=== PATIENT | male | born 1955 | race Caucasian/White ===

== ENCOUNTER → 2019-09-17 14:09 | Outpatient (BNVA) | payer MEDICARE, MEDICAID, SELFPAY | PROVIDERS: Family Provider Nurse Practitioner; PCP Nurse Practitioner; Visit Provider Nurse Practitioner | DX: R39.9 Unspecified symptoms and signs involving the genitourinary system (principal) | CPT/HCPCS: 81003; 87077; 87086; 87186 ==

== ENCOUNTER 2019-10-12 13:25 | Outpatient (CLI) | payer MEDICARE, MEDICAID, SELFPAY ==
--- NOTE | 2019-10-12 13:56 | XR_ITS ---
WS: [id number] LUMBAR SPINE FLEXION AND EXTENSION TECHNIQUE: 3 views of the lumbar spine: Lateral neutral, flexion, and extension views. CLINICAL INFORMATION: LOW BACK PAIN COMPARISON: None. FINDINGS: Grade 1 anterolisthesis L5 on S1 measuring 7.2 mm. This increases slightly on flexion to 7.9 mm and d ecreases on extension. Disc space narrowing worse L3-L4 and L4-L5 with vacuum disc phenomenon. Hypert rophic changes L3-4. Moderate facet arthropathy L4-L5 and L5-S1. XR/XR lumbar spine f/e only [id number] IMPRESSION: 1. Moderate spondylitic changes with disc space narrowing worse at L3-L4 and L 4-L5. 2. Grade 1 anterolisthesis L5 on S1 measuring 7.2 mm in neutral position. Mild flexion instability described above. 3. Moderate facet arthropathy L4-L5 and L5-S1 with bony foraminal narrowing.
--- NOTE | 2019-10-12 13:57 | MR_ITS ---
WS: [id number] MRI LUMBAR SPINE NONCONTRAST TECHNIQUE: Sagittal T1, T2 and STIR imaging. Axial T1 and T2 imaging. CLINICAL INFORMATION: LOW BACK PAIN COMPARISON: None. FINDINGS: Mild lumbar curve. No acute compression. Disc bulging worse at L3-L4 and L4-L5. Endplate degenerative changes L3-4. L1-L2: Mild annular bulging with slight effacement of ventral thecal sac. Slight narrowing of the lef t subarticular recess. Mild facet arthropathy. Foramen are patent. L2-L3: Mild annular bulging with narrowing of the right subarticular recess. Mild right and no signif icant left foraminal narrowing. Mild facet arthropathy. L3-L4: Prominent central disc protrusion with moderate central canal stenosis. Narrowing of the right subarticular recess. Moderate facet arthropathy. Moderate right greater than left foraminal narrowin g. L4-L5: Mild disc bulging with osteophytic ridging. Slight effacement of ventral thecal sac. Moderate facet arthropathy. Moderate right and no significant left foraminal narrowing. L5-S1: Mild disc bulging with osteophytic ridging. Mild right and no significant left foraminal narro wing. Mild facet arthropathy. Mild central canal stenosis C3-C4 C4-C5 and C5-C6 seen on the legal support assistant imaging. MR/MR lumbar spine wo con* [id number] IMPRESSION: 1. Prominent central disc protrusion L3-4 with moderate central canal stenosis . Moderate right greater than left foraminal narrowing. 2. Shallow central disc osteophyte protrusion L4-5 with slight effacement of v entral thecal sac. Moderate right L4-5 foraminal narrowing. 3. Mild annular bulging L2-3 with narrowing of the right subarticular recess. Mild right L2-3 foraminal narrowing. 4. Mild central canal stenosis in the cervical spine at C3-C4, C4-C5, and C5-C 6.
== END 2019-10-12 13:26 | disposition home or self-care (01) ==
LOC: RADWPI 13:35
PROVIDERS: Family Provider Nurse Practitioner; PCP Nurse Practitioner; Visit Provider Nurse Practitioner
DX: M51.26 Other intervertebral disc displacement, lumbar region (principal); M48.02 Spinal stenosis, cervical region; M53.2X7 Spinal instabilities, lumbosacral region; M54.5 Low back pain
CPT/HCPCS: 72120; 72148

== ENCOUNTER → 2019-11-18 14:08 | Outpatient (BNVA) | payer MEDICARE, MEDICAID, SELFPAY | PROVIDERS: Family Provider Nurse Practitioner; PCP Nurse Practitioner; Visit Provider Nurse Practitioner | DX: F41.0 Panic disorder [episodic paroxysmal anxiety] (principal); F41.1 Generalized anxiety disorder | CPT/HCPCS: 99214 ==

== ENCOUNTER → 2019-11-19 11:46 | Outpatient (BNVA) | payer MEDICARE, MEDICAID, SELFPAY | PROVIDERS: Family Provider Nurse Practitioner; PCP Nurse Practitioner; Visit Provider Nurse Practitioner Family | DX: I10 Essential (primary) hypertension (principal); E78.2 Mixed hyperlipidemia; R82.998 Other abnormal findings in urine; F11.90 Opioid use, unspecified, uncomplicated; N39.0 Urinary tract infection, site not specified; M19.90 Unspecified osteoarthritis, unspecified site | CPT/HCPCS: 80053; 80061; 81003; 85025; 87077; 87086; 87186 ==

== ENCOUNTER 2020-04-20 19:44 | Emergency (ER) | payer MEDICARE, MEDICAID, SELFPAY ==
[2020-04-20 19:54] VITALS: BP 127/85; PULSE 122; RESP 18; TEMP 36.9; O2SAT 95; BMI 33.6
[2020-04-20 20:29] LABS: Basophils % 0.3 %; Eosinophils % 0.3 %; Hematocrit 47.4 % (42.0-52.0); Hemoglobin 15.4 g/dL (11.7-16.6); Lymphocytes # 0.4 10^3/uL (0.8-4.8); Lymphocytes % 2.9 %; Mean Corpuscular HGB Conc 32.5 g/dL (30.0-36.0); Mean Corpuscular Hemoglobin 29.2 pg (28.0-34.0); Mean Corpuscular Volume 89.9 fL (80-94); Mean Platelet Volume 9.3 fL (7.4-10.4); Monocytes # 0.9 10^3/uL (0.2-0.9); Neutrophils # 13.33 10^3/uL (1.8-7.7); Neutrophils % 89.9 %; Nucleated Red Blood Cells % 0 %; Platelet Count 331 10^3/cmm (130-400); Red Blood Count 5.27 10^6/uL (4.1-5.3); Red Cell Distribution Width 13.1 % (12.1-15.1); White Blood Count 14.8 10^3/uL (4.0-10.0)
[2020-04-20 20:47] LABS: Alanine Aminotransferase 15 U/L (0-41); Albumin Level 4.4 g/dL (3.5-5.2); Alkaline Phosphatase 103 IU/L (40-130); Anion Gap 11.9 (5-19); Aspartate Amino Transferase 13 U/L (0-40); Blood Urea Nitrogen 14 mg/dL (8-23); Calcium 9.5 mg/dL (8.5-10.5); Carbon Dioxide 29 mmol/L (22-29); Chloride 97 mmol/L (98-107); Globulin 3.2 g/dL (1.3-4.6); Glomerular Filtration Rate 61.3 mL/min (90-130); Glucose 202 mg/dL (65-115); Osmolality Calculated 280 mOsm/kg (285-295); Potassium 3.9 mmol/L (3.5-5.1); Sodium 134 mmol/L (136-145); Total Bilirubin 0.4 mg/dL (0.15-1.2); Total Protein 7.6 g/dL (6.6-8.7)
--- NOTE | 2020-04-20 21:23 | CTR_ITS ---
PROCEDURE INFORMATION: Exam: CT Abdomen And Pelvis Without And With Contrast Exam date and time: 04/20/2020 9:32 PM Age: 64 years old Clinical indication: Abdominal pain; Localized; Left lower quadrant (llq); Additional info: Left lower quadrant pain TECHNIQUE: Imaging protocol: Computed tomography of the abdomen and pelvis without and with intravenous contrast. Radiation optimization: All CT scans at this facility use at least one of these dose optimization techniques: automated exposure control; mA and/or kV adjustment per patient size (includes targeted exams where dose is matched to clinical indication); or iterative reconstruction. Contrast material: OMNI 300; Contrast volume: 95 ml; Contrast route: INTRAVENOUS (IV); COMPARISON: No relevant prior studies available. RADIATION DOSE METRICS: Total DLP (mGy-cm): 3749.65 FINDINGS: Lungs: There is a small calcified granuloma in the right lower lobe. Liver: She there are 2 tiny hypodensities in the liver, probably small cysts or hemangiomas, too small to definitively characterize by CT scanning. Gallbladder and bile ducts: There is mild distention of the gallbladder which is otherwise unremarkable. Pancreas: The pancreas is normal. Spleen: The spleen is normal. Adrenals: The adrenal glands are normal. Kidneys and ureters: There is a left renal collecting system calcification. There is no evidence of hydronephrosis. There is no stone along the course of either ureter. Stomach and bowel: Mild diverticulosis is present in the distal colon. There is no evidence of colitis/diverticulitis. Appendix: A normal appendix is identified. Intraperitoneal space: There is no evidence of free intraperitoneal fluid. Vasculature: Unremarkable. No abdominal aortic aneurysm. Lymph nodes: There are calcified right hilar lymph nodes in keeping with old granulomatous disease. Bladder: Unremarkable as visualized. Reproductive: The prostate demonstrates nonspecific enlargement. The seminal vesicles are normal. Prostate volume is of prostate volume is approximately 63 cc. Bones/joints: The lumbar spine demonstrates moderate degenerative changes at multiple levels. Soft tissues: There are small bilateral inguinal hernias containing only fat. CT/CT abdomen pelvis wo/w [id number] IMPRESSION: 1. No acute findings. 2. Left nephrolithiasis. 3. Old granulomatous disease. 4. Prostatomegaly Radiation Dose CTDIVOL = (mGy): DLP = 3749.65 (mGy-cm)
--- NOTE | 2020-04-20 21:23 | ECG_ITS ---
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 Measurements Intervals [place] Rate: 99 P: 26 NM: 174 QRS: 29 QRSD: 87 T: 63 QT: 298 QTc: 384 Interpretive Statements SINUS RHYTHM Poor R wave progression Compared to ECG 05/23/2016 11:39:59 Sinus tachycardia no longer present T-wave abnormality no longer present Electronically Signed On 04-21-2020 21:05:25 CDT by Muriel Swain M.D. [id number]
--- NOTE | 2020-04-20 21:28 | W.ED.MALEGU ---
HPI - Male Genitourinary General: Chief complaint: Urogenital-Male Stated complaint: kidney problems Time Seen by Provider: 04/20/20 21:19 Source: patient Mode of arrival: ambulatory Limitations: no limitations History of Present Illness: HPI Narrative: Mr. Quick is a nice 64-year-old male who comes in complaining of intermittent left lower quadrant abdominal pain. Patient describes the pain is dull. He states it feels like kidney stones he has had in the past. He has had a subjective fever but never did objectively take his temperature. He thinks he has had some blood in his urine as well. He claims he has had a history of chronic prostatitis but is able to urinate adequately at this time. He is constipated and denies any blood in his stools or black tarry stools. He is not familiar with the term diverticulosis. He denies any testicular pain or swelling. Patient denies any nausea vomiting or other complaints. Associated symptoms: Reports hematuria; Deny dysuria, nausea or vomiting Review of Systems Const: Denies: fever(s), chills, body aches, fatigue, malaise or diaphoresis Eyes: Denies: change in vision, blurry vision, blind spots, photophobia, eye discharge or eye redness ENMT: Denies: throat pain, odynophagia, hoarseness, swelling of lips/tongue, oral sores, ear or mastoid pain, ear discharge, change in hearing or nasal discharge Card: Denies: chest pain, palpitations, irregular heart rhythm, edema, lightheadedness, syncope, pre-syncope, dyspnea on exertion or orthopnea Resp: Denies: dyspnea, productive cough, non-productive cough, wheezing, hemoptysis or chest congestion GI: Reports: abdominal pain; Denies: nausea, vomiting, hematemesis, coffee ground emesis, heartburn, diarrhea, constipation, GI cramping, hematochezia or melena : Reports: hematuria; Denies: flank pain, dysuria, urinary frequency or urinary urgency Musc: Denies: neck pain, back pain, extremity pain, extremity swelling, joint pain, joint swelling, joint redness, joint warmth or joint stiffness Skin/Breast: Denies: rash, pruritus, erythema, skin tenderness or jaundice Neuro: Denies: headache(s), numbness in extremities, weakness in extremities, sensory changes, lack of coordination, difficulty walking, dizziness, vertigo, confusion, Slurred speech present or seizure-like activity Jaziel/Lymph: Denies: easy bruising, easy bleeding, petechiae, purpura or enlarged lymph nodes All/Imm: Denies: urticaria, throat swelling, tongue swelling, facial swelling or acute wheezing PFSH ED PFSH: Medical History Essential hypertension Generalized anxiety disorder Hyperlipidemia Panic disorder [episodic paroxysmal anxiety] Social History Smoking and tobacco status: never smoked Alcohol intake: never Lives independently: Yes Household members: spouse Housing: House Marital status: History of recent travel: No Physical Exam Const: COMMON NORMALS: no acute distress, patient oriented x3, no limitations, healthy appearing and well nourished GENERAL APPEARANCE: cooperative, well kempt and well developed HENMT: COMMON NORMALS: normocephalic, atraumatic, external ears normal, EAC's normal and Normal external nose present HEAD & SCALP: normal to inspection, normocephalic and atraumatic FACE & SINUS: normal facial exam and face symmetric NOSE: Normal external nose present and Normal nares present EXTERNAL EAR: Yes external ears normal EXTERNAL AUDITORY CANAL: EAC's normal MOUTH: Normal oral and palatal mucosa present, lip normal and tongue normal Eye: COMMON NORMALS: Equal, round and reactive pupils present and conjunctivae normal GENERAL EYE: appearance normal, both eyes and all related structures ALIGNMENT: Yes alignment normal PERIORBITAL: periorbital findings normal EYELID: eyelids normal CONJUNCTIVA: Yes conjunctivae normal SCLERA: sclerae normal PUPIL: Yes Equal, round and reactive pupils present Neck/C-Spine: COMMON NORMALS: full ROM, no lymphadenopathy, supple, no meningeal signs and no JVD GENERAL: Yes normal visual inspection and Yes trachea midline Chest: COMMONS NORMALS: normal inspection of the chest and normal palpation of entire chest wall Resp: COMMON NORMALS: normal respiratory effort, No retractions and No use of accessory muscles EFFORT & INSPECTION: Yes able to speak in complete sentences and Yes symmetric chest movement AUSCULTATION: no crackles, no rales, no rhonchi and no wheezes Cardio: COMMON NORMALS: no JVD, regular rate, regular rhythm, S1 normal heart sound present and S2 normal heart sound present RATE: regular rate RHYTHM: regular rhythm HEART SOUNDS: S1 normal heart sound present, S2 normal heart sound present, no click, no gallops, no murmurs, no rubs and abnormal split S2 GI: COMMON NORMALS: Soft to palpation and No hepatosplenomegaly present PALPATION: Yes Soft to palpation, Yes Tenderness to palpation present (GI) Details: LLQ (Mild without rebound or guarding.), No Guarding due to palpation present (GI), No Rigid due to palpation, Yes No hepatosplenomegaly present, No Hernia present, No Palpable mass present and No Pulsatile mass present : COMMON NORMALS: Yes no CVA tenderness BLADDER/KIDNEY EXAM: Yes no CVA tenderness Back/Pelvis: COMMON NORMALS: no CVA tenderness, thoracic and lumbar spine normal to inspection, no thoracic nor lumbar tenderness and thoraco-lumbar ROM normal Extremity: COMMON NORMALS: normal to inspection, full ROM, capillary refill normal, no joint enlargement, no clubbing, cyanosis or edema and no calf tenderness Neuro: COMMON NORMALS: patient oriented x3, CN's II-XII intact bilaterally, moves all extremities, no focal motor deficits and no sensory deficits noted MENINGEAL SIGNS: Yes no meningeal signs SPEECH: speech normal Psych: COMMON NORMALS: mental status grossly normal, Normal thought process present, cooperative, normal affect, speech normal and activity/motor behavior normal APPEARANCE: Yes well kempt SPEECH: Yes normal speech THOUGHT PROCESS: Normal thought process present Skin: COMMON NORMALS: no rashes or lesions noted, turgor normal, no jaundice, no petechiae and no mottling GENERAL SKIN EXAM: no rashes or lesions noted and turgor normal Course Vital Signs: Vital signs: Vital Signs Temperature 98.5 F 04/20/20 19:54 Pulse Rate 101 H 04/21/20 01:32 Respiratory Rate 19 H 04/21/20 01:32 Blood Pressure 145/71 04/21/20 01:32 Pulse Oximetry 97 04/21/20 01:32 MDM - Male MDM Narrative: Medical decision making narrative: Mr. Quick is a nice 64-year-old male who comes in complaining of left-sided abdominal pain/flank pain. There is no sign of stone or pyelonephritis on his CT scans but clinically he does appear to have pyelonephritis prostatitis being less likely.. His white count is elevated and his heart rate was elevated but he is not septic clinically. His lactate is normal. I have offered to admit him to the hospital for further evaluation and care but he declines. He wants to go home and take Cipro. He has tolerated this antibiotic well in the past. He declines having any questions or concerns this is the course of treatment he wants to continue with. He agrees to return should his symptoms change or worsen. The patient was encouraged to return and I have encouraged him to stay here longer for further IV fluids and antibiotics but he states that he would rather go home but does understand the seriousness of his findings tonight and understands that if he worsens at all he will need to return to the ER immediately for recheck. The patient was given IV fluids and a gram of IV Rocephin as well as p.o. Cipro before discharge. Lab Data: Attestation: I reviewed the patient's lab results. Labs: Lab Results 04/20/20 04/20/20 04/20/20 Range/Units 00:30 20:19 20:19 WBC 14.8 H (4.0-10.0) 10^3/ uL RBC 5.27 (4.1-5.3) 10^6/u L Hgb 15.4 (11.7-16.6) g/dL Hct 47.4 (42.0-52.0) % MCV 89.9 (80-94) fL MCH 29.2 (28.0-34.0) pg MCHC 32.5 (30.0-36.0) g/dL RDW 13.1 (12.1-15.1) % Plt Count 331 (130-400) 10^3/c mm MPV 9.3 (7.4-10.4) fL Neut % (Auto) 89.9 % Lymph % (Auto) 2.9 % [place] % (Auto) 6.0 % Eos % (Auto) 0.3 % Baso % (Auto) 0.3 % Neut # (Auto) 13.33 H (1.8-7.7) 10^3/u L Lymph # (Auto) 0.4 L (0.8-4.8) 10^3/u L [place] # (Auto) 0.9 (0.2-0.9) 10^3/u L Eos # (Auto) 0.0 (0.0-0.8) 10^3/u L Baso # (Auto) 0.0 (0.0-0.1) 10^3/u L Nucleated RBC % (a uto) 0 % Nucleated RBCs # 0.0 /100WBC Sodium 134 L (136-145) mmol/L Potassium 3.9 (3.5-5.1) mmol/L Chloride 97 L (98-107) mmol/L Carbon Dioxide 29 (22-29) mmol/L Anion Gap 11.9 (5-19) BUN 14 (8-23) mg/dL Creatinine 1.2 (0.7-1.2) mg/dL GFR Calculation 61.3 L (90-130) mL/min Glucose 202 H (65-115) mg/dL Calculated Osmolal ity 280 L (285-295) mOsm/k g Lactic Acid 1.4 (0.5-2.2) mmol/L Calcium 9.5 (8.5-10.5) mg/dL Total Bilirubin 0.4 (0.15-1.2) mg/dL AST 13 (0-40) U/L ALT 15 (0-41) U/L Alkaline Phosphata se 103 (40-130) IU/L Total Protein 7.6 (6.6-8.7) g/dL Albumin 4.4 (3.5-5.2) g/dL Globulin 3.2 (1.3-4.6) g/dL Urine Color (Yellow) Urine Appearance (CLEAR) Urine pH (5-7) Ur Specific Gravit y (1.005-1.030) Urine Protein (Negative) Urine Glucose (UA) (Normal) Urine Ketones (Negative) Urine Blood (Negative) Urine Nitrate (Negative) Urine Bilirubin (NEGATIVE) Urine Urobilinogen (Negative) mg/dL Ur Leukocyte Dina ase (Negative) Urine RBC (0-2) /hpf Urine WBC (0-5) /hpf Ur Squamous Epith Cells (0-5) Amorphous Sediment Urine Bacteria (NONE) 04/20/20 Range/Units 22:55 WBC (4.0-10.0) 10^3/ uL RBC (4.1-5.3) 10^6/u L Hgb (11.7-16.6) g/dL Hct (42.0-52.0) % MCV (80-94) fL MCH (28.0-34.0) pg MCHC (30.0-36.0) g/dL RDW (12.1-15.1) % Plt Count (130-400) 10^3/c mm MPV (7.4-10.4) fL Neut % (Auto) % Lymph % (Auto) % [place] % (Auto) % Eos % (Auto) % Baso % (Auto) % Neut # (Auto) (1.8-7.7) 10^3/u L Lymph # (Auto) (0.8-4.8) 10^3/u L [place] # (Auto) (0.2-0.9) 10^3/u L Eos # (Auto) (0.0-0.8) 10^3/u L Baso # (Auto) (0.0-0.1) 10^3/u L Nucleated RBC % (a uto) % Nucleated RBCs # /100WBC Sodium (136-145) mmol/L Potassium (3.5-5.1) mmol/L Chloride (98-107) mmol/L Carbon Dioxide (22-29) mmol/L Anion Gap (5-19) BUN (8-23) mg/dL Creatinine (0.7-1.2) mg/dL GFR Calculation (90-130) mL/min Glucose (65-115) mg/dL Calculated Osmolal ity (285-295) mOsm/k g Lactic Acid (0.5-2.2) mmol/L Calcium (8.5-10.5) mg/dL Total Bilirubin (0.15-1.2) mg/dL AST (0-40) U/L ALT (0-41) U/L Alkaline Phosphata se (40-130) IU/L Total Protein (6.6-8.7) g/dL Albumin (3.5-5.2) g/dL Globulin (1.3-4.6) g/dL Urine Color Yellow (Yellow) Urine Appearance Cloudy (CLEAR) Urine pH 7 (5-7) Ur Specific Gravit y 1.010 (1.005-1.030) Urine Protein Neg (Negative) Urine Glucose (UA) Norm (Normal) Urine Ketones Negative (Negative) Urine Blood Neg (Negative) Urine Nitrate Positive H (Negative) Urine Bilirubin Neg (NEGATIVE) Urine Urobilinogen Norm (Negative) mg/dL Ur Leukocyte Dina ase Trace H (Negative) Urine RBC 0-4 H (0-2) /hpf Urine WBC >100 H (0-5) /hpf Ur Squamous Epith Cells 0-4 H (0-5) Amorphous Sediment Not Reportable Urine Bacteria 2+ H (NONE) Imaging Data: CT Abd/Pel: Radiologist's impression: [address] [address] [address] Scan Report Signed Patient: Eva Quick Unit #: [id number] : 1955 Age/Sex: 64 / M ADM Date: 04/20/20 Loc: ER Room/Bed: Attending Dr: Ordering Provider/Ordering MD: Valeria Reynolds DO Date of Service: 04/20/20 Procedure(s): CT abdomen pelvis wo/w [id number] Accession Number(s): [id number] Report Number: [id number] PROCEDURE INFORMATION: Exam: CT Abdomen And Pelvis Without And With Contrast Exam date and time: 04/20/2020 9:32 PM Age: 64 years old Clinical indication: Abdominal pain; Localized; Left lower quadrant (llq); Additional info: Left lower quadrant pain TECHNIQUE: Imaging protocol: Computed tomography of the abdomen and pelvis without and with intravenous contrast. Radiation optimization: All CT scans at this facility use at least one of these dose optimization techniques: automated exposure control; mA and/or kV adjustment per patient size (includes targeted exams where dose is matched to clinical indication); or iterative reconstruction. Contrast material: OMNI 300; Contrast volume: 95 ml; Contrast route: INTRAVENOUS (IV); COMPARISON: No relevant prior studies available. RADIATION DOSE METRICS: Total DLP (mGy-cm): 3749.65 FINDINGS: Lungs: There is a small calcified granuloma in the right lower lobe. Liver: She there are 2 tiny hypodensities in the liver, probably small cysts or hemangiomas, too small to definitively characterize by CT scanning. Gallbladder and bile ducts: There is mild distention of the gallbladder which is otherwise unremarkable. Pancreas: The pancreas is normal. Spleen: The spleen is normal. Adrenals: The adrenal glands are normal. Kidneys and ureters: There is a left renal collecting system calcification. There is no evidence of hydronephrosis. There is no stone along the course of either ureter. Stomach and bowel: Mild diverticulosis is present in the distal colon. There is no evidence of colitis/diverticulitis. Appendix: A normal appendix is identified. Intraperitoneal space: There is no evidence of free intraperitoneal fluid. Vasculature: Unremarkable. No abdominal aortic aneurysm. Lymph nodes: There are calcified right hilar lymph nodes in keeping with old granulomatous disease. Bladder: Unremarkable as visualized. Reproductive: The prostate demonstrates nonspecific enlargement. The seminal vesicles are normal. Prostate volume is of prostate volume is approximately 63 cc. Bones/joints: The lumbar spine demonstrates moderate degenerative changes at multiple levels. Soft tissues: There are small bilateral inguinal hernias containing only fat. CT/CT abdomen pelvis wo/w [id number] IMPRESSION: 1. No acute findings. 2. Left nephrolithiasis. 3. Old granulomatous disease. 4. Prostatomegaly Radiation Dose CTDIVOL = (mGy): DLP = 3749.65 (mGy-cm) Dictated By: Luis Manuel Carrasquillo Signed By: Luis Manuel Carrasquillo Signed Date/Time: 04/20/202301 DD/ 00 EKG Data: EKG 1: Attestation: I personally reviewed and interpreted this EKG as follows: EKG Data: 04/20/20 EKG interpretation time: 21:41 Interpretation: Normal sinus rhythm at 99 beats a minute, no acute ST or T wave changes. Normal axis. No blocks, normal intervals. Discharge Plan Discharge Patient Disposition: Home Clinical Impression: Acute pyelonephritis Condition: Stable Prescriptions: New Cipro 500 mg tablet 500 mg PO BID 14 Days Qty: 28 RF: 0 promethazine 25 mg tablet 25 mg PO Q4H PRN (Reason: nausea and vomiting) Qty: 20 RF: 0 No Action hydrocodone-acetaminophen [[place]] 5-325 mg tablet 1 tab PO BID PRNRF: 0 hydrochlorothiazide 25 mg tablet 25 mg PO DAILY 30 Days Qty: 30 RF: 3 ciprofloxacin HCl [Cipro] 500 mg tablet 500 mg PO BID Qty: 20 RF: 0 rosuvastatin 40 mg tablet 40 mg PO DAILY 30 Days Qty: 30 RF: 2 docusate sodium [Colace] 100 mg capsule 100 mg PO BID 30 Days Qty: 60 RF: 2 lorazepam 0.5 mg tablet 0.5 mg PO TID PRN (Reason: anxiety) Qty: 90 RF: 0 paroxetine HCl [Paxil] 20 mg tablet 20 mg PO .HS Qty: 30 RF: 0 lisinopril 20 mg tablet 20 mg PO BID 30 Days Qty: 60 RF: 0 Discharge Orders: Discharge Order (Routine); Ordered 04/21/20 Ordered By: Valeria Reynolds Referrals: Wai Morrow FNP-C [Primary Care Provider] - 1-3 days Kelvin Godwin MD [Physician] - 1-3 days Discharge Diet: Advance as tolerated Discharge Activity: Increase activity as tolerated Patient Instructions: Acute Pyelonephritis (ED) Activity Restrictions/Additional Instructions: Please return to the ER immediately for any of the signs or symptoms listed on your discharge instruction sheets, worsening/changing of your symptoms, you are not getting better as quickly as expected, or for ANY other cause or concerns. You have been offered admission for further evaluation and care so if your symptoms change or worsen or you simply change your mind please return here to the ER immediately for recheck and further evaluation and care. Discharge Date/Time: 04/21/20 01:58 Coding Level of Care Code ED [facility] for [facility] Exam Comprehensive
[2020-04-20] MEDS: sodium chloride 0.9% 1,000 ML 999 ML IV (21:37)
[2020-04-20] MEDS: morphine 4 mg/mL SDV 1 mL IVP (21:37)
[2020-04-20] MEDS: ondansetron 2 mg/ML SDV 2 mL 4 MG IVP (21:37)
[2020-04-20 21:40] VITALS: BP 138/97; PULSE 100; RESP 14; O2SAT 97
[2020-04-20] MEDS: iohexol 300 mg/mL 100 mL Btl IV (22:27)
[2020-04-20 22:53] VITALS: BP 139/91; PULSE 96; RESP 14; O2SAT 98
[2020-04-20] MEDS: sodium chloride 0.9% 1,000 ML 100 ML IV (22:53)
[2020-04-20 23:12] VITALS: BP 152/98; PULSE 95; RESP 18; O2SAT 97
[2020-04-20 23:46] LABS: Bilirubin Urine Neg (NEGATIVE); Blood Urine Neg (Negative); Glucose Urine UA Norm (Normal); Ketones Urine Negative (Negative); Nitrate Urine Positive (Negative); Protein Urine Neg (Negative); Urine Appearance Cloudy (CLEAR); Urine Color Yellow (Yellow); Urobilinogen Urine Norm (Negative); pH Urine 7 (5-7)
[2020-04-20 23:47] LABS: Add Urine Culture? Yes; Bacteria Urine 2+; Leukocyte Esterase Urine Trace (Negative); RBC Urine 0-4 /hpf (0-2); Squamous Epithelial Cell Urine 0-4 (0-5); WBC Urine >100 /hpf (0-5)
[2020-04-20 23:57] VITALS: BP 177/99; PULSE 102; RESP 15; O2SAT 97
[2020-04-21] MEDS: cefTRIAXone 1,000 MG in sodium chloride 0.9% (plus) 50 ML 100 MG IV (00:01)
[2020-04-21] MEDS: ciprofloxacin 500 mg Tablet PO (00:05)
[2020-04-21] MEDS: sodium chloride 0.9% 1,000 ML 999 ML IV (00:05)
[2020-04-21 00:07] VITALS: BP 177/99; PULSE 113; RESP 12; O2SAT 97
[2020-04-21 00:31] LABS: Lactic Sepsis W/Reflex 1.4 mmol/L (0.5-2.2)
[2020-04-21 00:55] VITALS: BP 159/94; PULSE 107; RESP 20; O2SAT 99
[2020-04-21 01:17] VITALS: BP 187/96; PULSE 105; RESP 20; O2SAT 96
[2020-04-21 01:32] VITALS: BP 145/71; PULSE 101; RESP 19; O2SAT 97
== END 2020-04-21 01:58 | disposition home or self-care (01) ==
PROVIDERS: Emergency Provider Emergency Medicine; PCP Nurse Practitioner
DX: N10 Acute pyelonephritis (principal); I10 Essential (primary) hypertension; E78.5 Hyperlipidemia, unspecified
CPT/HCPCS: 12345; 36415; 74178; 80053; 81001; 83605; 85025; 87040; 87077; 87086; 87186; 93005; 96361; 96365; 96375; 99284; J0696; J2270; J2405; J7030; Q9967

== ENCOUNTER → 2020-05-06 09:18 | Outpatient (BNVA) | payer MEDICARE, MEDICAID, SELFPAY | PROVIDERS: PCP Nurse Practitioner; Visit Provider Nurse Practitioner | DX: F41.1 Generalized anxiety disorder (principal); F41.0 Panic disorder [episodic paroxysmal anxiety] | CPT/HCPCS: 99213 ==

== ENCOUNTER → 2020-07-05 10:08 | Outpatient (BNVA) | payer MEDICARE, MEDICAID, SELFPAY | PROVIDERS: PCP Nurse Practitioner; Visit Provider Nurse Practitioner | DX: I10 Essential (primary) hypertension (principal); F11.90 Opioid use, unspecified, uncomplicated; E78.2 Mixed hyperlipidemia; Z85.828 Personal history of other malignant neoplasm of skin | CPT/HCPCS: 80053; 80061; 81003; 83721; 84443; 85025; 87077; 87086; 87184 ==

== ENCOUNTER → 2020-07-08 08:15 | Outpatient (BNVA) | payer MEDICARE, MEDICAID, SELFPAY | PROVIDERS: PCP Nurse Practitioner; Visit Provider Nurse Practitioner | DX: R73.9 Hyperglycemia, unspecified (principal) | CPT/HCPCS: 83036 ==

== ENCOUNTER → 2020-08-17 08:00 | Outpatient (BNVA) | payer MEDICARE, MEDICAID, SELFPAY | PROVIDERS: PCP Nurse Practitioner; Visit Provider Nurse Practitioner | DX: F41.0 Panic disorder [episodic paroxysmal anxiety] (principal); F41.1 Generalized anxiety disorder | CPT/HCPCS: 99213 ==

== ENCOUNTER → 2020-11-10 08:26 | Outpatient (BNVA) | payer MEDICARE, MEDICAID, SELFPAY | PROVIDERS: PCP Nurse Practitioner; Visit Provider Nurse Practitioner | DX: F41.0 Panic disorder [episodic paroxysmal anxiety] (principal); F41.1 Generalized anxiety disorder | CPT/HCPCS: 99214 ==

== ENCOUNTER → 2021-01-17 15:37 | Outpatient (BNVA) | payer MEDICARE, MEDICAID, SELFPAY | PROVIDERS: PCP Nurse Practitioner; Visit Provider Nurse Practitioner | DX: R82.90 Unspecified abnormal findings in urine (principal) | CPT/HCPCS: 81000; 87077; 87086; 87184 ==

== ENCOUNTER 2021-02-05 17:00 | Emergency (ER) | payer MEDICARE, MEDICAID, SELFPAY ==
[2021-02-05 17:18] VITALS: BP 139/108; PULSE 125; RESP 18; TEMP 36.4; O2SAT 98; BMI 33.9
--- NOTE | 2021-02-05 17:19 | ECG_ITS ---
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 Measurements Intervals [place] Rate: 98 P: 26 GA: 185 QRS: 20 QRSD: 83 T: 62 QT: 310 QTc: 396 Interpretive Statements SINUS RHYTHM Compared to ECG 04/20/2020 21:41:19 Poor R-wave progression no longer present Electronically Signed On 02-05-2021 21:00:49 CDT by Ismael Amin M.D. [id number]
--- NOTE | 2021-02-05 17:19 | XRR_ITS ---
PROCEDURE INFORMATION: Exam: XR Chest Exam date and time: 02/05/2021 5:21 PM Age: 65 years old Clinical indication: Pain; Chest pressure; Additional info: Chest pain TECHNIQUE: Imaging protocol: XR of the chest. Views: 1 view. COMPARISON: CR Chest 1 [place] [id number] 05/23/2016 11:54 AM FINDINGS: Lungs: Unremarkable. No consolidation. Pleural spaces: Unremarkable. No pleural effusion. No pneumothorax. Heart/Mediastinum: Unremarkable. No cardiomegaly. Bones/joints: Unremarkable. XR/XR chest 1V portable [id number] IMPRESSION: No acute findings.
--- NOTE | 2021-02-05 17:26 | ED_ITS ---
Documented by User: Andrez Brush MD 02/05/21 17:35 HPI - Chest Pain General: Chief Complaint: Chest Pain Stated Complaint: Chest tightness/jaw pain Time Seen by Provider: 02/05/21 17:31 Source: patient and old records reviewed Limitations: no limitations History of Present Illness: HPI narrative: This patient is a 65-year-old male who presents to the emergency department complaint of headache dental pain and left chest and left shoulder pain. Patient has a history of chronic pain issues took a hydrocodone prior to coming without relief. Patient also had multiple injections to chronic pain management of the left shoulder just a few days ago with no relief. Will do medical evaluation treat as needed MD complaint: chest pain Pertinent past history: coronary artery disease Onset (ago): hour(s) Timing of current episode: constant Onset: during rest Pain location: left chest Quality: aching Relieving factors: nothing Associated symptoms: Deny abdominal pain, dyspnea, fever(s), nausea, palpitations or vomiting Review of Systems General: Reports: 10 or more systems reviewed and unremarkable except in HPI and below Const: Denies: fever(s), chills, body aches or fatigue Eyes: Denies: change in vision or blurry vision ENMT: Reports: dental pain; Denies: throat pain, hoarseness or mouth pain Card: Reports: chest pain; Denies: palpitations, irregular heart rhythm, edema, swelling of feet/ankles or lightheadedness Resp: Denies: dyspnea, productive cough, non-productive cough, wheezing or pain on inspiration GI: Denies: abdominal pain, nausea or vomiting : Denies: flank pain, dysuria, urinary frequency, urinary urgency or urinary hesitancy Musc: Denies: neck pain, back pain, extremity pain, extremity swelling, joint pain, joint swelling, joint redness, joint warmth or limited range of motion Skin/Breast: Denies: rash, pruritus, erythema or skin tenderness Neuro: Reports: headache(s); Denies: numbness in extremities or weakness in extremities Psych: Denies: anxiety or depression PFSH ED PFSH: Medical History Essential hypertension Generalized anxiety disorder Hyperlipidemia Panic disorder [episodic paroxysmal anxiety] Slow transit constipation Surgical History History of basal cell cancer Left face and nose History of renal stent Family History Other Cancer Diabetes Hypertension Stroke Social History Smoking and tobacco status: never smoked Second hand smoke exposure: No Smoking risk assessment/counseling performed?: No Alcohol intake: never Desire information about alcohol rehabilitation?: No Counseling given: No Desire information about substance/drug rehabilitation?: No Counseling given: No Adopted: No Caregiver/support person: No Lives independently: Yes Household members: spouse Housing: House Marital status: Number of children: 4 service: No Current occupational status: disabled History of recent travel: No Current gender identity: Male Physical Exam Const: COMMON NORMALS: no acute distress, average body habitus, patient oriented x3, no limitations, healthy appearing, alert and well nourished HENMT: COMMON NORMALS: normocephalic, atraumatic, external ears normal, EAC's normal, TM's normal bilaterally, Normal external nose present and Normal nasal mucous membranes and turbinates present HEAD & SCALP: normocephalic and atraumatic NOSE: Normal external nose present and Normal nasal mucous membranes and turbinates present EXTERNAL EAR: Yes external ears normal EXTERNAL AUDITORY CANAL: EAC's normal TYMPANIC MEMBRANE: TM's normal bilaterally TEETH & GINGIVA: Yes abnormal tooth and associated gingiva and Yes poor dentition Neck/C-Spine: COMMON NORMALS: full ROM, no lymphadenopathy, supple, no meningeal signs, no JVD, Thyroid normal and No carotid bruits THYROID: Thyroid normal Chest: COMMONS NORMALS: normal inspection of the chest, normal palpation of entire chest wall, normal inspection of the breasts and normal palpation of the breasts Breast/axilla inspection: Yes normal inspection of the breasts BREAST/AXILLA PALPATION: Yes normal palpation of the breasts Resp: COMMON NORMALS: normal respiratory effort, No retractions, No use of accessory muscles, clear to auscultation bilaterally and percussion normal AUSCULTATION: clear to auscultation bilaterally PERCUSSION: percussion normal Cardio: COMMON NORMALS: no JVD, regular rate, regular rhythm, S1 normal heart sound present, S2 normal heart sound present, No gallops present (Cardio), No clicks present (Cardio), No murmurs present (Cardio), No rub (Cardio) and Peripheral pulses 2+ throughout RATE: regular rate RHYTHM: regular rhythm HEART SOUNDS: S1 normal heart sound present and S2 normal heart sound present PERIPHERAL PULSES: Peripheral pulses 2+ throughout GI: COMMON NORMALS: Normal to inspection, nondistended, normoactive bowel sounds present, Soft to palpation, non-tender, No hepatosplenomegaly present, no masses and no bruits PALPATION: Yes Soft to palpation and Yes No hepatosplenomegaly present : COMMON NORMALS: Yes no CVA tenderness BLADDER/KIDNEY EXAM: Yes no CVA t enderness Back/Pelvis: COMMON NORMALS: no CVA tenderness, thoracic and lumbar spine normal to inspection, no thoracic nor lumbar tenderness, thoraco-lumbar ROM normal and straight leg raise negative bilaterally Extremity: COMMON NORMALS: normal to inspection, full ROM, capillary refill normal, no joint enlargement, no clubbing, cyanosis or edema, no calf tenderness and no pedal edema Neuro: COMMON NORMALS: patient oriented x3 SENSORIUM/ORIENTATION: Yes alert MENINGEAL SIGNS: Yes no meningeal signs Course Consultations: Consultation #1: Care will be transferred to Dr. Azar for shift change Time: 17:34 Vital Signs: Vital signs: Vital Signs Temperature 97.5 F L 02/05/21 17:18 Pulse Rate 106 H 02/05/21 19:00 Respiratory Rate 12 02/05/21 19:35 Blood Pressure 155/101 02/05/21 19:00 Pulse Oximetry 98 02/05/21 19:35 MDM - Chest Pain Lab Data: Labs: Lab Results 02/05/21 02/05/21 02/05/21 Range/Units 18:12 18:12 18:12 WBC 14.0 H (4.0-10.0) 10^3/ uL RBC 5.54 H (4.1-5.3) 10^6/u L Hgb 16.4 (11.7-16.6) g/dL Hct 48.0 (42.0-52.0) % MCV 86.6 (80-94) fL MCH 29.6 (28.0-34.0) pg MCHC 34.2 (30.0-36.0) g/dL RDW 13.0 (12.1-15.1) % Plt Count 332 (130-400) 10^3/c mm MPV 9.6 (7.4-10.4) fL Neut % (Auto) 84.4 % Lymph % (Auto) 5.4 % [place] % (Auto) 8.9 % Eos % (Auto) 0.6 % Baso % (Auto) 0.4 % Neut # (Auto) 11.78 H (1.8-7.7) 10^3/u L Lymph # (Auto) 0.8 (0.8-4.8) 10^3/u L [place] # (Auto) 1.3 H (0.2-0.9) 10^3/u L Eos # (Auto) 0.1 (0.0-0.8) 10^3/u L Baso # (Auto) 0.1 (0.0-0.1) 10^3/u L Nucleated RBC % (a uto) 0 % Nucleated RBCs # 0.0 /100WBC PT (12.1-14.9) SECO NDS INR (0.8-1.2) APTT (23.9-36.7) SECO NDS D-Dimer (0-0.59) ug/mIFE U Sodium 140 (136-145) mmol/L Potassium 3.7 (3.5-5.1) mmol/L Chloride 99 (98-107) mmol/L Carbon Dioxide 31 H (22-29) mmol/L Anion Gap 13.7 (5-19) BUN 12 (8-23) mg/dL Creatinine 1.2 (0.7-1.2) mg/dL GFR Calculation 61.1 L (90-130) mL/min Glucose 98 (65-115) mg/dL Calculated Osmolal ity 290 (285-295) mOsm/k g Calcium 9.3 (8.5-10.5) mg/dL Total Bilirubin 0.3 (0.15-1.2) mg/dL AST 15 (0-40) U/L ALT 25 (0-41) U/L Alkaline Phosphata se 93 (40-130) IU/L Troponin T Baselin e 7 (0-15) ng/L Troponin T [address] [place] (0-15) ng/L Delta Troponin T (0-10) ABS# NT-Pro-B Natriuret Pep 43 (0-125) pg/mL Total Protein 7.1 (6.6-8.7) g/dL Albumin 4.5 (3.5-5.2) g/dL Globulin 2.6 (1.3-4.6) g/dL Urine Color (Yellow) Urine Appearance (CLEAR) Urine pH (5-7) Ur Specific Gravit y (1.005-1.030) Urine Protein (Negative) Urine Glucose (UA) (Normal) Urine Ketones (Negative) Urine Blood (Negative) Urine Nitrate (Negative) Urine Bilirubin (Negative) Urine Urobilinogen (Negative) mg/dL Ur Leukocyte Dina ase (Negative) Urine RBC (0-2) /hpf Urine WBC (0-5) /hpf Ur Squamous Epith Cells (0-5) /hpf Amorphous Sediment Urine Bacteria (NONE) /hpf Urine Mucus /hpf 02/05/21 02/05/21 02/05/21 Range/Units 18:12 18:58 20:30 WBC (4.0-10.0) 10^3/ uL RBC (4.1-5.3) 10^6/u L Hgb (11.7-16.6) g/dL Hct (42.0-52.0) % MCV (80-94) fL MCH (28.0-34.0) pg MCHC (30.0-36.0) g/dL RDW (12.1-15.1) % Plt Count (130-400) 10^3/c mm MPV (7.4-10.4) fL Neut % (Auto) % Lymph % (Auto) % [place] % (Auto) % Eos % (Auto) % Baso % (Auto) % Neut # (Auto) (1.8-7.7) 10^3/u L Lymph # (Auto) (0.8-4.8) 10^3/u L [place] # (Auto) (0.2-0.9) 10^3/u L Eos # (Auto) (0.0-0.8) 10^3/u L Baso # (Auto) (0.0-0.1) 10^3/u L Nucleated RBC % (a uto) % Nucleated RBCs # /100WBC PT 14.10 (12.1-14.9) SECO NDS INR 1.06 (0.8-1.2) APTT 30.4 (23.9-36.7) SECO NDS D-Dimer 0.31 (0-0.59) ug/mIFE U Sodium (136-145) mmol/L Potassium (3.5-5.1) mmol/L Chloride (98-107) mmol/L Carbon Dioxide (22-29) mmol/L Anion Gap (5-19) BUN (8-23) mg/dL Creatinine (0.7-1.2) mg/dL GFR Calculation (90-130) mL/min Glucose (65-115) mg/dL Calculated Osmolal ity (285-295) mOsm/k g Calcium (8.5-10.5) mg/dL Total Bilirubin (0.15-1.2) mg/dL AST (0-40) U/L ALT (0-41) U/L Alkaline Phosphata se (40-130) IU/L Troponin T Baselin e (0-15) ng/L Troponin T [address] [place] 6.22 (0-15) ng/L Delta Troponin T -0.78 L (0-10) ABS# NT-Pro-B Natriuret Pep (0-125) pg/mL Total Protein (6.6-8.7) g/dL Albumin (3.5-5.2) g/dL Globulin (1.3-4.6) g/dL Urine Color Yellow (Yellow) Urine Appearance Clear (CLEAR) Urine pH 5 (5-7) Ur Specific Gravit y 1.015 (1.005-1.030) Urine Protein 1+ H (Negative) Urine Glucose (UA) Norm (Normal) Urine Ketones Negative (Negative) Urine Blood Neg (Negative) Urine Nitrate Negative (Negative) Urine Bilirubin Neg (Negative) Urine Urobilinogen Norm (Negative) mg/dL Ur Leukocyte Dina ase Negative (Negative) Urine RBC None (0-2) /hpf Urine WBC 0-4 H (0-5) /hpf Ur Squamous Epith Cells 0-4 H (0-5) /hpf Amorphous Sediment Not Reportable Urine Bacteria Trace (NONE) /hpf Urine Mucus Trace /hpf Discharge Plan Discharge Patient Disposition: Home Clinical Impression: Chest pain Qualifiers: Chest pain type: unspecified Qualified Code(s): R07.9 - Chest pain, unspecified Condition: Stable Prescriptions: New hydrocodone-acetaminophen 5-325 mg tablet 1 tab PO Q6H PRN (Reason: pain) Qty: 14 RF: 0 No Action lorazepam 0.5 mg tablet 0.5 mg PO TID PRN (Reason: anxiety) Qty: 90 RF: 5 promethazine 25 mg tablet 25 mg PO Q4H PRN (Reason: nausea and vomiting) Qty: 20 RF: 0 acetaminophen 325 mg Tablet 325 - 650 mg PO QID PRN (Reason: Pain) RF: 0 hydrocodone-acetaminophen 5-325 mg tablet 1 tab PO Q4H PRN (Reason: Pain) RF: 0 ibuprofen 200 mg Tablet 200 - 400 mg PO Q4H PRN (Reason: Pain) RF: 0 lisinopril 20 mg tablet 20 mg PO BID@1100,1800 RF: 0 Paxil 20 mg tablet 20 mg PO BEDTIME RF: 0 Colace 100 mg capsule 100 mg PO BID@1100,1800 RF: 0 hydrochlorothiazide 25 mg tablet 25 mg PO DAILY@1100 RF: 0 rosuvastatin 40 mg tablet 40 mg PO DAILY@1100 RF: 0 Discharge Orders: Discharge ED (Routine); Ordered 02/05/21 Ordered By: Scarlet Azar Referrals: Wai Morrow, INSURANCE FOLLOW UP REPRESENTATIVE-C [Primary Care Provider] - Discharge Diet: Advance as tolerated Discharge Activity: Resume usual activity Patient Instructions: Chest Pain (ED), Opioid Safety Coding Level of Care Code ED Visual Education Teacher for Chg Fwd Exam Comprehensive Documented by User: Scarlet Azar MD 02/05/21 21:27 HPI - Chest Pain General: Chief Complaint: Chest Pain Stated Complaint: Chest tightness/jaw pain Time Seen by Provider: 02/05/21 17:31 [facility] ED PFSH: Medical History Essential hypertension Generalized anxiety disorder Hyperlipidemia Panic disorder [episodic paroxysmal anxiety] Slow transit constipation Surgical History History of basal cell cancer Left face and nose History of renal stent Family History Other Cancer Diabetes Hypertension Stroke Social History Smoking and tobacco status: never smoked Second hand smoke exposure: No Smoking risk assessment/counseling performed?: No Alcohol intake: never Desire information about alcohol rehabilitation?: No Counseling given: No Desire information about substance/drug rehabilitation?: No Counseling given: No Adopted: No Caregiver/support person: No Lives independently: Yes Household members: spouse Housing: House Marital status: Number of children: 4 service: No Current occupational status: disabled History of recent travel: No Current gender identity: Male Course Vital Signs: Vital signs: Vital Signs Temperature 97.5 F L 02/05/21 17:18 Pulse Rate 106 H 02/05/21 19:00 Respiratory Rate 12 02/05/21 19:35 Blood Pressure 155/101 02/05/21 19:00 Pulse Oximetry 98 02/05/21 19:35 MDM - Chest Pain MDM Narrative: Medical decision making narrative: Patient presents with chest pain he states is resolved here. Patient's D-dimer along with troponins are both negative. He is well-appearing here and has no signs of acute coronary syndrome or aortic dissection. He is stable for discharge is to follow-up his PCP and return if worsening. He understands agrees to plan. Lab Data: Labs: Lab Results 02/05/21 02/05/21 02/05/21 Range/Units 18:12 18:12 18:12 WBC 14.0 H (4.0-10.0) 10^3/ uL RBC 5.54 H (4.1-5.3) 10^6/u L Hgb 16.4 (11.7-16.6) g/dL Hct 48.0 (42.0-52.0) % MCV 86.6 (80-94) fL MCH 29.6 (28.0-34.0) pg MCHC 34.2 (30.0-36.0) g/dL RDW 13.0 (12.1-15.1) % Plt Count 332 (130-400) 10^3/c mm MPV 9.6 (7.4-10.4) fL Neut % (Auto) 84.4 % Lymph % (Auto) 5.4 % [place] % (Auto) 8.9 % Eos % (Auto) 0.6 % Baso % (Auto) 0.4 % Neut # (Auto) 11.78 H (1.8-7.7) 10^3/u L Lymph # (Auto) 0.8 (0.8-4.8) 10^3/u L [place] # (Auto) 1.3 H (0.2-0.9) 10^3/u L Eos # (Auto) 0.1 (0.0-0.8) 10^3/u L Baso # (Auto) 0.1 (0.0-0.1) 10^3/u L Nucleated RBC % (a uto) 0 % Nucleated RBCs # 0.0 /100WBC PT (12.1-14.9) SECO NDS INR (0.8-1.2) APTT (23.9-36.7) SECO NDS D-Dimer (0-0.59) ug/mIFE U Sodium 140 (136-145) mmol/L Potassium 3.7 (3.5-5.1) mmol/L Chloride 99 (98-107) mmol/L Carbon Dioxide 31 H (22-29) mmol/L Anion Gap 13.7 (5-19) BUN 12 (8-23) mg/dL Creatinine 1.2 (0.7-1.2) mg/dL GFR Calculation 61.1 L (90-130) mL/min Glucose 98 (65-115) mg/dL Calculated Osmolal ity 290 (285-295) mOsm/k g Calcium 9.3 (8.5-10.5) mg/dL Total Bilirubin 0.3 (0.15-1.2) mg/dL AST 15 (0-40) U/L ALT 25 (0-41) U/L Alkaline Phosphata se 93 (40-130) IU/L Troponin T Baselin e 7 (0-15) ng/L Troponin T [address] [place] (0-15) ng/L Delta Troponin T (0-10) ABS# NT-Pro-B Natriuret Pep 43 (0-125) pg/mL Total Protein 7.1 (6.6-8.7) g/dL Albumin 4.5 (3.5-5.2) g/dL Globulin 2.6 (1.3-4.6) g/dL Urine Color (Yellow) Urine Appearance (CLEAR) Urine pH (5-7) Ur Specific Gravit y (1.005-1.030) Urine Protein (Negative) Urine Glucose (UA) (Normal) Urine Ketones (Negative) Urine Blood (Negative) Urine Nitrate (Negative) Urine Bilirubin (Negative) Urine Urobilinogen (Negative) mg/dL Ur Leukocyte Dina ase (Negative) Urine RBC (0-2) /hpf Urine WBC (0-5) /hpf Ur Squamous Epith Cells (0-5) /hpf Amorphous Sediment Urine Bacteria (NONE) /hpf Urine Mucus /hpf 02/05/21 02/05/21 02/05/21 Range/Units 18:12 18:58 20:30 WBC (4.0-10.0) 10^3/ uL RBC (4.1-5.3) 10^6/u L Hgb (11.7-16.6) g/dL Hct (42.0-52.0) % MCV (80-94) fL MCH (28.0-34.0) pg MCHC (30.0-36.0) g/dL RDW (12.1-15.1) % Plt Count (130-400) 10^3/c mm MPV (7.4-10.4) fL Neut % (Auto) % Lymph % (Auto) % [place] % (Auto) % Eos % (Auto) % Baso % (Auto) % Neut # (Auto) (1.8-7.7) 10^3/u L Lymph # (Auto) (0.8-4.8) 10^3/u L [place] # (Auto) (0.2-0.9) 10^3/u L Eos # (Auto) (0.0-0.8) 10^3/u L Baso # (Auto) (0.0-0.1) 10^3/u L Nucleated RBC % (a uto) % Nucleated RBCs # /100WBC PT 14.10 (12.1-14.9) SECO NDS INR 1.06 (0.8-1.2) APTT 30.4 (23.9-36.7) SECO NDS D-Dimer 0.31 (0-0.59) ug/mIFE U Sodium (136-145) mmol/L Potassium (3.5-5.1) mmol/L Chloride (98-107) mmol/L Carbon Dioxide (22-29) mmol/L Anion Gap (5-19) BUN (8-23) mg/dL Creatinine (0.7-1.2) mg/dL GFR Calculation (90-130) mL/min Glucose (65-115) mg/dL Calculated Osmolal ity (285-295) mOsm/k g Calcium (8.5-10.5) mg/dL Total Bilirubin (0.15-1.2) mg/dL AST (0-40) U/L ALT (0-41) U/L Alkaline Phosphata se (40-130) IU/L Troponin T Baselin e (0-15) ng/L Troponin T [address] [place] 6.22 (0-15) ng/L Delta Troponin T -0.78 L (0-10) ABS# NT-Pro-B Natriuret Pep (0-125) pg/mL Total Protein (6.6-8.7) g/dL Albumin (3.5-5.2) g/dL Globulin (1.3-4.6) g/dL Urine Color Yellow (Yellow) Urine Appearance Clear (CLEAR) Urine pH 5 (5-7) Ur Specific Gravit y 1.015 (1.005-1.030) Urine Protein 1+ H (Negative) Urine Glucose (UA) Norm (Normal) Urine Ketones Negative (Negative) Urine Blood Neg (Negative) Urine Nitrate Negative (Negative) Urine Bilirubin Neg (Negative) Urine Urobilinogen Norm (Negative) mg/dL Ur Leukocyte Dina ase Negative (Negative) Urine RBC None (0-2) /hpf Urine WBC 0-4 H (0-5) /hpf Ur Squamous Epith Cells 0-4 H (0-5) /hpf Amorphous Sediment Not Reportable Urine Bacteria Trace (NONE) /hpf Urine Mucus Trace /hpf Imaging Data^: CXR: Attestation: I personally reviewed and interpreted this imaging study as follows: My impression: no acute abnormality EKG Data^: EKG 1: Attestation: I personally reviewed and interpreted this EKG as follows: EKG interpretation date: 02/05/21 EKG interpretation time: 18:04 Interpretation: nsr hr [address] or t wave abnormalities qrs 83 qtc 365 Discharge Plan Discharge Patient Disposition: Home Clinical Impression: Chest pain Qualifiers: Chest pain type: unspecified Qualified Code(s): R07.9 - Chest pain, unspecified Condition: Stable Prescriptions: New hydrocodone-acetaminophen 5-325 mg tablet 1 tab PO Q6H PRN (Reason: pain) Qty: 14 RF: 0 No Action lorazepam 0.5 mg tablet 0.5 mg PO TID PRN (Reason: anxiety) Qty: 90 RF: 5 promethazine 25 mg tablet 25 mg PO Q4H PRN (Reason: nausea and vomiting) Qty: 20 RF: 0 acetaminophen 325 mg Tablet 325 - 650 mg PO QID PRN (Reason: Pain) RF: 0 hydrocodone-acetaminophen 5-325 mg tablet 1 tab PO Q4H PRN (Reason: Pain) RF: 0 ibuprofen 200 mg Tablet 200 - 400 mg PO Q4H PRN (Reason: Pain) RF: 0 lisinopril 20 mg tablet 20 mg PO BID@1100,1800 RF: 0 Paxil 20 mg tablet 20 mg PO BEDTIME RF: 0 Colace 100 mg capsule 100 mg PO BID@1100,1800 RF: 0 hydrochlorothiazide 25 mg tablet 25 mg PO DAILY@1100 RF: 0 rosuvastatin 40 mg tablet 40 mg PO DAILY@1100 RF: 0 Discharge Orders: Discharge ED (Routine); Ordered 02/05/21 Ordered By: Scarlet Azar Referrals: Wai Morrow, INSURANCE FOLLOW UP REPRESENTATIVE-C [Primary Care Provider] - Discharge Diet: Advance as tolerated Discharge Activity: Resume usual activity Patient Instructions: Chest Pain (ED), Opioid Safety Coding Level of Care Code ED Visual Education Teacher for Chg Fwd Exam Comprehensive
[2021-02-05 18:21] LABS: Basophils # 0.1 10^3/uL (0.0-0.1); Basophils % 0.4 %; Eosinophils # 0.1 10^3/uL (0.0-0.8); Eosinophils % 0.6 %; Hemoglobin 16.4 g/dL (11.7-16.6); Lymphocytes # 0.8 10^3/uL (0.8-4.8); Lymphocytes % 5.4 %; Mean Corpuscular HGB Conc 34.2 g/dL (30.0-36.0); Mean Corpuscular Hemoglobin 29.6 pg (28.0-34.0); Mean Corpuscular Volume 86.6 fL (80-94); Mean Platelet Volume 9.6 fL (7.4-10.4); Monocytes # 1.3 10^3/uL (0.2-0.9); Monocytes % 8.9 %; Neutrophils # 11.78 10^3/uL (1.8-7.7); Neutrophils % 84.4 %; Nucleated Red Blood Cells % 0 %; Platelet Count 332 10^3/cmm (130-400); Red Blood Count 5.54 10^6/uL (4.1-5.3)
[2021-02-05 18:43] LABS: Troponin(5th) Baseline 7 ng/L (0-15)
[2021-02-05 18:46] LABS: Add Urine Microscopic? YES; Bilirubin Urine Neg (Negative); Blood Urine Neg (Negative); Glucose Urine UA Norm (Normal); Ketones Urine Negative (Negative); Leukocyte Esterase Urine Negative (Negative); Nitrate Urine Negative (Negative); Protein Urine 1+ (Negative); Specific Gravity, Urine 1.015 (1.005-1.030); Urine Appearance Clear (CLEAR); Urine Color Yellow (Yellow); Urobilinogen Urine Norm (Negative); pH Urine 5 (5-7)
[2021-02-05 18:47] LABS: Bacteria Urine TRACE /hpf; Mucus Urine TRACE /hpf; Squamous Epithelial Cell Urine 0-4 /hpf (0-5); WBC Urine 0-4 /hpf (0-5)
[2021-02-05 18:48] LABS: Add Urine Culture? No
[2021-02-05 18:50] LABS: Alanine Aminotransferase 25 U/L (0-41); Albumin Level 4.5 g/dL (3.5-5.2); Alkaline Phosphatase 93 IU/L (40-130); Anion Gap 13.7 (5-19); Aspartate Amino Transferase 15 U/L (0-40); Blood Urea Nitrogen 12 mg/dL (8-23); Calcium 9.3 mg/dL (8.5-10.5); Carbon Dioxide 31 mmol/L (22-29); Chloride 99 mmol/L (98-107); Globulin 2.6 g/dL (1.3-4.6); Glomerular Filtration Rate 61.1 mL/min (90-130); Glucose 98 mg/dL (65-115); NT Pro B Type Natriuretic Pept 43 pg/mL (0-125); Osmolality Calculated 290 mOsm/kg (285-295); Potassium 3.7 mmol/L (3.5-5.1); Sodium 140 mmol/L (136-145); Total Bilirubin 0.3 mg/dL (0.15-1.2); Total Protein 7.1 g/dL (6.6-8.7)
[2021-02-05 19:00] VITALS: BP 155/101; PULSE 106; RESP 14; O2SAT 98
[2021-02-05] MEDS: aspirin 81 mg Chew Tablet 324 MG PO (19:10)
[2021-02-05] MEDS: sodium chloride 0.9% 500 ML 999 ML IV (19:10)
[2021-02-05 19:17] LABS: INR 1.06 (0.8-1.2)
[2021-02-05 19:18] LABS: Partial Thromboplastin Time 30.4 SECONDS (23.9-36.7)
[2021-02-05 19:21] LABS: D Dimer 0.31 ug/mIFEU (0-0.59)
[2021-02-05 19:35] VITALS: RESP 12; O2SAT 98
[2021-02-05] MEDS: morphine 4 mg/mL SDV 1 mL IVP (19:35)
[2021-02-05 20:56] LABS: Troponin 5 2HR 6.22 ng/L (0-15)
[2021-02-05 21:06] LABS: Troponin 5 2HR Delta -0.78 ABS# (0-10)
== END 2021-02-05 21:22 | disposition home or self-care (01) ==
PROVIDERS: Emergency Medicine; Emergency Provider Emergency Medicine; PCP Nurse Practitioner
DX: R07.9 Chest pain, unspecified (principal); I10 Essential (primary) hypertension; E78.5 Hyperlipidemia, unspecified
CPT/HCPCS: 71045; 80053; 81001; 83880; 84484; 85025; 85378; 85610; 85730; 93005; 96361; 96374; 99284; J2270; J7040

== ENCOUNTER → 2021-05-17 15:22 | Outpatient (BNVA) | payer MEDICARE, MEDICAID, SELFPAY | PROVIDERS: PCP Nurse Practitioner; Visit Provider Nurse Practitioner | DX: F41.0 Panic disorder [episodic paroxysmal anxiety] (principal); F41.1 Generalized anxiety disorder | CPT/HCPCS: 99214 ==

== ENCOUNTER 2021-05-25 12:56 | Emergency (ER) | payer MEDICARE, MEDICAID, SELFPAY ==
[2021-05-25 13:07] VITALS: BP 157/101; PULSE 94; RESP 16; TEMP 36.2; O2SAT 97; BMI 33.9
[2021-05-25 13:19] VITALS: PULSE 85; RESP 18; O2SAT 96
[2021-05-25 13:34] VITALS: BP 141/90; PULSE 86; RESP 18; O2SAT 97
--- NOTE | 2021-05-25 13:36 | CT_ITS ---
WS: [id number] CT ABDOMEN PELVIS TECHNIQUE: Contrast-enhanced CT of the abdomen and pelvis with coronal and sagittal reformatted image s. CLINICAL INFORMATION: abd pain COMPARISON: CT April 20, 2020 DLP: 4.[address] scans at [facility] use at least one of these dose optimization techniques: automated e xposure control; mA and/or kV adjustment per patient size (includes targeted exams where dose is matc hed to clinical indication); or iterative reconstruction. FINDINGS: Diffuse fatty infiltration liver. Normal portal vein and splenic vein. A few tiny hepatic cysts right hepatic lobe. Normal gallbladder. Normal GE junction. Normal spleen. Lung bases are well aerated. Calcified granuloma right lower lobe. Fatty atrophy of the pancreas. Normal portal vein and splenic vein. Adrenal glands are normal. Mild bilateral renal cortical atrophy. No hydronephrosis. Both ureters are decompressed. Tiny nonobstructing left calyceal tip calculus. Normal caliber abdominal aorta. No abd ominal or pelvic lymphadenopathy. No inguinal lymphadenopathy. Incidental fat-containing inguinal her monse. Heterogeneously enhancing enlarged prostate measuring 4.5 x 4.8 cm. Sigmoid diverticulosis. No eviden ce of acute diverticulitis. No evidence of small or large bowel obstruction. Normal appendix in the r ight lower quadrant. Disc osteophyte complexes L3-L4 and L4-L5 with severe central canal stenosis L3-4. Chronic spondyloly sis L5-S1. CT/CT abdomen pelvis w con* [id number] IMPRESSION: 1. Normal renal parenchymal enhancement. No hydronephrosis. 2. Nonobstructing tiny left calyceal tip calculus. 3. Diffuse fatty infiltration liver. 4. Sigmoid diverticulosis. No evidence of acute diverticulitis. 5. Enlarged prostate. Recommend correlation PSA. 6. Severe central canal stenosis L3-4 due to disc osteophyte complex. This can be followed up with lumbar spine MRI. This is unchanged since May 10, 2020 7. Chronic spondylolysis L5-S1.
--- NOTE | 2021-05-25 13:38 | W.ED.ABDPA2 ---
HPI - Abdominal Pain General: Chief Complaint: Abdominal Pain Stated Complaint: Abdominal Pain Time Seen by Provider: 05/25/21 13:14 History of Present Illness: HPI narrative: 65-year-old male presents emergency room planing of abdominal pain that he states he has had for the last several months. Is waxed and waned at various times it is worse again today. He is convinced it may be a hernia. He motions to the intent most intense pain being left lower quadrant denies any pain radiating to the groin or any bulges in the groin. He denies any dysuria urgency or frequency no diarrhea no hematochezia or melena. No vomiting associated this and no fever. No previous abdominal surgeries he cannot recall if he has had a colonoscopy in the past MD elicited complaint: abdominal pain Onset (ago): month(s) Pain Consistency: intermittent Location: LLQ Severity: mild Quality: cramping Radiation: none Migration to: no migration Exacerbating factors: nothing Relieving factors: nothing Associated Symptoms: Denies no associated symptoms, anorexia, belching, bloating, change in bowel habits, change in stool character, chills, coffee ground emesis, constipation, GI cramping, diarrhea, dyspepsia, dysuria, excessive flatus, fever(s), heartburn, hematochezia, hematuria, hematemesis, fecal incontinence, loose stools, melena, nausea, poor appetite, syncope and vomiting Review of Systems Const: Denies: fever(s) or chills ENMT: Denies: throat pain, ear or mastoid pain, nasal discharge or nasal congestion Card: Denies: syncope Resp: Denies: dyspnea, productive cough or non-productive cough GI: Denies: nausea, vomiting, hematemesis, coffee ground emesis, heartburn, diarrhea, constipation, bloating, GI cramping, belching, excessive flatus, fecal incontinence, change in bowel habits, change in stool character, hematochezia or melena : Denies: dysuria or hematuria Skin/Breast: Denies: rash or pruritus PFSH ED PFSH: Medical History Essential hypertension Generalized anxiety disorder Hyperlipidemia Panic disorder [episodic paroxysmal anxiety] Psychiatric care Slow transit constipation Surgical History History of basal cell cancer Left face and nose History of renal stent Family History Other Cancer Diabetes Hypertension Stroke Social History Smoking and tobacco status: never smoked Second hand smoke exposure: No Smoking risk assessment/counseling performed?: No Alcohol intake: never Desire information about alcohol rehabilitation?: No Counseling given: No Desire information about substance/drug rehabilitation?: No Counseling given: No Adopted: No Caregiver/support person: No Lives independently: Yes Household members: spouse Housing: House Marital status: Number of children: 4 service: No Current occupational status: disabled History of recent travel: No Current gender identity: Male Physical Exam Const: COMMON NORMALS: no acute distress GENERAL APPEARANCE: cooperative and comfortable ORIENTATION/CONSCIOUSNESS: Yes awake, Yes oriented to person, Yes oriented to place and Yes oriented to time HENMT: COMMON NORMALS: normocephalic, atraumatic and hearing grossly normal bilaterally HEAD & SCALP: normocephalic and atraumatic Neck/C-Spine: COMMON NORMALS: no JVD Lymph: LYMPHATIC: no lymphadenopathy noted and no lymphedema noted Resp: COMMON NORMALS: normal respiratory effort, No retractions, No use of accessory muscles and clear to auscultation bilaterally AUSCULTATION: clear to auscultation bilaterally Cardio: COMMON NORMALS: no JVD, regular rate, regular rhythm and No murmurs present (Cardio) RATE: regular rate RHYTHM: regular rhythm GI: COMMON NORMALS: Soft to palpation and No hepatosplenomegaly present AUSCULTATION: Yes normoactive bowel sounds PALPATION: Yes Soft to palpation, No Tenderness to palpation present (GI), No Guarding due to palpation present (GI) and Yes No hepatosplenomegaly present Extremity: COMMON NORMALS: normal to inspection, capillary refill normal, no clubbing, cyanosis or edema, no calf tenderness and no pedal edema Neuro: SENSORIUM/ORIENTATION: Yes oriented to person, Yes oriented to place and Yes oriented to time Skin: COMMON NORMALS: no rashes or lesions noted GENERAL SKIN EXAM: no rashes or lesions noted Course Vital Signs: Vital signs: Vital Signs Temperature 97.1 F L 05/25/21 13:07 Pulse Rate 78 05/25/21 15:38 Respiratory Rate 18 05/25/21 15:38 Blood Pressure 134/74 05/25/21 15:38 Pulse Oximetry 96 05/25/21 15:38 MDM - Abdominal Pain MDM Narrative: Medical decision making narrative: Labs and imaging reviewed discussed with the patient. He is having this abdominal pain has had it for several months now recommended he follow-up with his primary care doctor. He tells me has had some change in caliber of bowel movement he should have a colonoscopy done no significant findings on labs or imaging. Lab Data: Labs: Lab Results 05/25/21 05/25/21 05/25/21 Range/Units 13:32 13:32 15:40 WBC 8.1 (4.0-10.0) 10^3/ uL RBC 5.31 H (4.1-5.3) 10^6/u L Hgb 15.5 (11.7-16.6) g/dL Hct 45.6 (42.0-52.0) % MCV 85.9 (80-94) fl MCH 29.2 (28.0-34.0) pg MCHC 34.0 (30.0-36.0) g/dL RDW 13.0 (12.1-15.1) % Plt Count 313 (130-400) 10^3/c mm MPV 9.5 (7.4-10.4) fL Neut % (Auto) 69.6 % Lymph % (Auto) 17.0 % [place] % (Auto) 8.9 % Eos % (Auto) 3.5 % Baso % (Auto) 0.5 % Neut # (Auto) 5.64 (1.8-7.7) 10^3/u L Lymph # (Auto) 1.4 (0.8-4.8) 10^3/u L [place] # (Auto) 0.7 (0.2-0.9) 10^3/u L Eos # (Auto) 0.3 (0.0-0.8) 10^3/u L Baso # (Auto) 0.0 (0.0-0.1) 10^3/u L Nucleated RBC % (a uto) 0 % Nucleated RBCs # 0.0 /100WBC Sodium 133 L (136-145) mmol/L Potassium 3.4 L (3.5-5.1) mmol/L Chloride 95 L (98-107) mmol/L Carbon Dioxide 28 (22-29) mmol/L Anion Gap 13.4 (5-19) BUN 14 (8-23) mg/dL Creatinine 1.0 (0.7-1.2) mg/dL GFR Calculation 75.5 L (90-130) mL/min Glucose 168 H (65-115) mg/dL Calculated Osmolal ity 280 L (285-295) mOsm/k g Calcium 8.7 (8.5-10.5) mg/dL Total Bilirubin 0.3 (0.15-1.2) mg/dL AST 19 (0-40) U/L ALT 19 (0-41) U/L Alkaline Phosphata se 96 (40-130) IU/L Total Protein 7.5 (6.6-8.7) g/dL Albumin 4.1 (3.5-5.2) g/dL Globulin 3.4 (1.3-4.6) g/dL Lipase 17 (13-60) U/L Urine Color Yellow (Yellow) Urine Appearance Clear (CLEAR) Urine pH 5 (5-7) Ur Specific Gravit y 1.015 (1.005-1.030) Urine Protein Neg (Negative) Urine Glucose (UA) Norm (Normal) Urine Ketones Negative (Negative) Urine Blood Neg (Negative) Urine Nitrate Negative (Negative) Urine Bilirubin Neg (Negative) Urine Urobilinogen Norm (Negative) mg/dL Ur Leukocyte Dina ase Trace H (Negative) Urine RBC 0-4 H (0-2) /hpf Urine WBC 10-15 H (0-5) /hpf Ur Squamous Epith Cells 5-10 H (0-5) /hpf Amorphous Sediment Not Reportable Urine Bacteria Trace (NONE) /hpf Urine Mucus Trace /hpf Discharge Plan Discharge Patient Disposition: Home Clinical Impression: Abdominal pain, Change in bowel movement Condition: Stable Prescriptions: No Action Paxil 20 mg tablet 20 mg PO BEDTIME Qty: 30 RF: 2 lorazepam 0.5 mg tablet 0.5 mg PO TID PRN (Reason: anxiety) Qty: 90 RF: 2 acetaminophen 325 mg Tablet 325 - 650 mg PO QID PRN (Reason: Pain) RF: 0 hydrocodone-acetaminophen 5-325 mg tablet 1 tab PO TID PRN (Reason: Pain) RF: 0 ibuprofen 200 mg Tablet 200 - 400 mg PO Q4H PRN (Reason: Pain) RF: 0 lisinopril 20 mg tablet 20 mg PO BID@1100,1800 RF: 0 docusate sodium [Colace] 100 mg capsule 100 mg PO BID@1100,1800 RF: 0 hydrochlorothiazide 25 mg tablet 25 mg PO DAILY@1100 RF: 0 rosuvastatin 40 mg tablet 40 mg PO DAILY@1100 RF: 0 aspirin 81 mg Tablet,Chewable 81 mg PO DAILY RF: 0 Discharge Orders: Discharge ED (Routine); Ordered 05/25/21 Ordered By: Chaka Elliott Referrals: Wai Morrow, REGISTERED RADIOLOGIC TECHNOLOGIST-C [Primary Care Provider] - Discharge Diet: Clear Liquid Discharge Activity: Increase activity as tolerated Patient Instructions: Abdominal Pain (ED), Opioid Safety Activity Restrictions/Additional Instructions: Recommend follow-up with primary care for colonoscopy due to change in bowel. Clear liquid diet for the next 1 to 2 days and advance as tolerated. Coding Level of Care Code ED Scowman for Chg Fwd Exam Comprehensive
[2021-05-25 13:45] LABS: Basophils % 0.5 %; Eosinophils # 0.3 10^3/uL (0.0-0.8); Eosinophils % 3.5 %; Hematocrit 45.6 % (42.0-52.0); Hemoglobin 15.5 g/dL (11.7-16.6); Lymphocytes # 1.4 10^3/uL (0.8-4.8); Mean Corpuscular Hemoglobin 29.2 pg (28.0-34.0); Mean Corpuscular Volume 85.9 fl (80-94); Mean Platelet Volume 9.5 fL (7.4-10.4); Monocytes # 0.7 10^3/uL (0.2-0.9); Monocytes % 8.9 %; Neutrophils # 5.64 10^3/uL (1.8-7.7); Neutrophils % 69.6 %; Nucleated Red Blood Cells % 0 %; Platelet Count 313 10^3/cmm (130-400); Red Blood Count 5.31 10^6/uL (4.1-5.3); White Blood Count 8.1 10^3/uL (4.0-10.0)
[2021-05-25 14:09] VITALS: BP 134/91; PULSE 86; RESP 18; O2SAT 96
[2021-05-25 14:12] LABS: Alanine Aminotransferase 19 U/L (0-41); Albumin Level 4.1 g/dL (3.5-5.2); Alkaline Phosphatase 96 IU/L (40-130); Anion Gap 13.4 (5-19); Aspartate Amino Transferase 19 U/L (0-40); Blood Urea Nitrogen 14 mg/dL (8-23); Calcium 8.7 mg/dL (8.5-10.5); Carbon Dioxide 28 mmol/L (22-29); Chloride 95 mmol/L (98-107); Creatinine Clr Calc Pharmacy 98.3025; Globulin 3.4 g/dL (1.3-4.6); Glomerular Filtration Rate 75.5 mL/min (90-130); Glucose 168 mg/dL (65-115); Lipase 17 U/L (13-60); Osmolality Calculated 280 mOsm/kg (285-295); Potassium 3.4 mmol/L (3.5-5.1); Sodium 133 mmol/L (136-145); Total Bilirubin 0.3 mg/dL (0.15-1.2); Total Protein 7.5 g/dL (6.6-8.7)
[2021-05-25] MEDS: iohexol 300 mg/mL 100 mL Btl IV (14:30)
[2021-05-25 15:38] VITALS: BP 134/74; PULSE 78; RESP 18; O2SAT 96
[2021-05-25 16:07] LABS: Add Urine Microscopic? YES; Bilirubin Urine Neg (Negative); Blood Urine Neg (Negative); Glucose Urine UA Norm (Normal); Ketones Urine Negative (Negative); Leukocyte Esterase Urine Trace (Negative); Nitrate Urine Negative (Negative); Protein Urine Neg (Negative); Specific Gravity, Urine 1.015 (1.005-1.030); Urine Appearance Clear (CLEAR); Urine Color Yellow (Yellow); Urobilinogen Urine Norm (Negative); pH Urine 5 (5-7)
[2021-05-25 16:11] LABS: Bacteria Urine TRACE /hpf; Mucus Urine TRACE /hpf; RBC Urine 0-4 /hpf (0-2)
[2021-05-25 16:12] LABS: Add Urine Culture? No
[2021-05-25] MEDS: ketorolac 30 mg/mL INJ IVP (16:31)
[2021-05-25 16:43] VITALS: BP 143/95; PULSE 79; RESP 18; O2SAT 98
== END 2021-05-25 16:43 | disposition home or self-care (01) ==
PROVIDERS: Physician Assistant; Emergency Provider Family Medicine; PCP Nurse Practitioner
DX: R10.9 Unspecified abdominal pain (principal); Z79.82 Long term (current) use of aspirin; I10 Essential (primary) hypertension; E78.5 Hyperlipidemia, unspecified
CPT/HCPCS: 74177; 80053; 81001; 83690; 85025; 96374; 99284; J1885; Q9967

== ENCOUNTER → 2021-08-08 15:38 | Outpatient (BNVA) | payer MEDICARE, MEDICAID, SELFPAY | PROVIDERS: PCP Nurse Practitioner; Visit Provider Nurse Practitioner | DX: M10.9 Gout, unspecified (principal); Z12.5 Encounter for screening for malignant neoplasm of prostate; R73.9 Hyperglycemia, unspecified; H61.23 Impacted cerumen, bilateral; I10 Essential (primary) hypertension; K57.30 Diverticulosis of large intestine without perforation or abscess without bleeding; E55.9 Vitamin D deficiency, unspecified; E78.2 Mixed hyperlipidemia; N40.0 Benign prostatic hyperplasia without lower urinary tract symptoms | CPT/HCPCS: 80053; 80061; 82306; 82310; 83036; 83970; 84550; 85025; G0103 ==

== ENCOUNTER → 2021-08-16 14:31 | Outpatient (BNVA) | payer MEDICARE, MEDICAID, SELFPAY | PROVIDERS: PCP Nurse Practitioner; Visit Provider Nurse Practitioner | DX: F41.1 Generalized anxiety disorder (principal); F41.0 Panic disorder [episodic paroxysmal anxiety]; N40.0 Benign prostatic hyperplasia without lower urinary tract symptoms | CPT/HCPCS: 99214 ==

== ENCOUNTER → 2021-08-29 12:35 | Outpatient (BNVA) | payer MEDICARE, MEDICAID, SELFPAY | PROVIDERS: PCP Nurse Practitioner; Visit Provider Internal Medicine | DX: Z01.812 Encounter for preprocedural laboratory examination (principal); Z20.822 Contact with and (suspected) exposure to COVID-19 | CPT/HCPCS: 87635 ==

== ENCOUNTER 2021-10-06 04:55 | Emergency (ER) | payer MEDICARE, MEDICAID, SELFPAY ==
--- NOTE | 2021-10-06 04:59 | XRR_ITS ---
PROCEDURE INFORMATION: Exam: XR Left Hip Exam date and time: 10/06/2021 4:59 AM Age: 66 years old Clinical indication: Patient HX: C/O left hip pain. No injury. TECHNIQUE: Imaging protocol: XR Left hip. Views: 2 or 3 views hip with pelvis when performed. COMPARISON: CT abdomen pelvis w con* [id number] 05/25/2021 2:26 PM FINDINGS: Bones/joints: Unremarkable. No acute fracture. Soft tissues: Unremarkable. XR/XR hip LT 2-3V wo/w pel* [id number] IMPRESSION: No acute osseous findings.
[2021-10-06 05:01] VITALS: BP 132/111; PULSE 88; RESP 18; TEMP 36.1; O2SAT 98; BMI 33.9
--- NOTE | 2021-10-06 05:07 | W.ED.GENADLT ---
HPI - General Adult General: Chief complaint: General Medical Stated complaint: left hip pain Time Seen by Provider: 10/06/21 05:00 Source: patient Mode of arrival: ambulatory Limitations: no limitations History of Present Illness: HPI narrative: 66-year-old male has a history of chronic hip pain sees pain management for this. He states that this pain for years but been much worse over the last 2 weeks states the pain is in his left hip he does have arthritis states pain is currently a 6 out of 10 he states is worse with walking improved with rest states has been having some difficulty sleeping due to the pain. He had recent injections little over a week ago and states he had minimal improvement and no improvement in his pain with hydrocodone. He denies any fever denies any radiation of his pain denies any back pain denies any bowel or bladder incontinence. Associated symptoms: Deny chest pain, dyspnea, headache(s), nausea, rash or vomiting Review of Systems Const: Denies: fever(s), chills, body aches or change in appetite Eyes: Denies: blurry vision or eye discomfort ENMT: Denies: throat pain or dental pain Card: Denies: chest pain Resp: Denies: dyspnea GI: Denies: abdominal pain, nausea, vomiting or diarrhea : Denies: dysuria Musc: Reports: extremity pain Skin/Breast: Denies: rash Neuro: Denies: headache(s) Psych: Denies: depression Jaziel/Lymph: Denies: easy bruising All/Imm: Denies: urticaria PFSH ED PFSH: Medical History Diverticula of colon Essential hypertension Generalized anxiety disorder Gout, unspecified Hyperlipidemia Panic disorder [episodic paroxysmal anxiety] Psychiatric care Slow transit constipation Surgical History History of basal cell cancer Left face and nose History of renal stent Family History Other Cancer Diabetes Hypertension Stroke Social History Smoking and tobacco status: never smoked Second hand smoke exposure: No Smoking risk assessment/counseling performed?: No Alcohol intake: never Desire information about alcohol rehabilitation?: No Counseling given: No Desire information about substance/drug rehabilitation?: No Counseling given: No Adopted: No Caregiver/support person: No Lives independently: Yes Household members: spouse Housing: House Marital status: Number of children: 4 service: No Current occupational status: disabled History of recent travel: No Current gender identity: Male Physical Exam Const: COMMON NORMALS: no acute distress, patient oriented x3 and healthy appearing HENMT: COMMON NORMALS: normocephalic and atraumatic HEAD & SCALP: normocephalic and atraumatic Eye: COMMON NORMALS: Equal, round and reactive pupils present and EOMs intact bilaterally PUPIL: Yes Equal, round and reactive pupils present Neck/C-Spine: COMMON NORMALS: full ROM and supple Chest: COMMONS NORMALS: normal inspection of the chest and normal palpation of entire chest wall Resp: COMMON NORMALS: normal respiratory effort, No retractions, No use of accessory muscles and clear to auscultation bilaterally AUSCULTATION: clear to auscultation bilaterally Cardio: COMMON NORMALS: regular rate, regular rhythm and No murmurs present (Cardio) RATE: regular rate RHYTHM: regular rhythm GI: COMMON NORMALS: Normal to inspection, nondistended, normoactive bowel sounds present, Soft to palpation, non-tender and no masses PALPATION: Yes Soft to palpation Extremity: COMMON NORMALS: normal to inspection and full ROM NARRATIVE EXTREMITY EXAM: No tenderness noted over the left hip or warmth distal pulses intact he has full range of motion able to ambulate without any difficulty Neuro: COMMON NORMALS: patient oriented x3, moves all extremities and no focal motor deficits Psych: COMMON NORMALS: mental status grossly normal, Normal thought process present and cooperative THOUGHT PROCESS: Normal thought process present Skin: COMMON NORMALS: no rashes or lesions noted and no wounds GENERAL SKIN EXAM: no rashes or lesions noted Course Vital Signs: Vital signs: Vital Signs Temperature 97.0 F L 10/06/21 05:01 Pulse Rate 88 10/06/21 05:01 Respiratory Rate 18 10/06/21 05:01 Blood Pressure 132/111 10/06/21 05:01 Pulse Oximetry 98 10/06/21 05:01 MDM - General Adult MDM Narrative: Medical decision making narrative: Patient presents with hip pain that is chronic in nature no signs of septic joint x-ray here is negative no signs of back pain or spinal cord syndromes. He does feel improved after Toradol and Decadron we will place him on Naprosyn and Robaxin he is to take his hydrocodone and follow-up with his pain management return if worsening. Discharge Plan Discharge Patient Disposition: Home Clinical Impression: Left hip pain Condition: Stable Prescriptions: New Naprosyn 500 mg tablet 500 mg PO BID PRN (Reason: pain) Qty: 20 RF: 0 methocarbamol 750 mg tablet 750 mg PO Q6H PRN (Reason: spasms) Qty: 20 RF: 0 No Action hydrochlorothiazide 25 mg tablet 25 mg PO DAILY@1100 Qty: 30 RF: 2 lisinopril 20 mg tablet 20 mg PO BID@1100,1800 Qty: 60 RF: 2 rosuvastatin 40 mg tablet 40 mg PO DAILY Qty: 30 RF: 2 tamsulosin [Flomax] 0.4 mg capsule 0.4 mg PO DAILY RF: 0 Paxil 20 mg tablet 20 mg PO BEDTIME Qty: 30 RF: 2 lorazepam 0.5 mg tablet 0.5 mg PO TID PRN (Reason: anxiety) Qty: 90 RF: 2 acetaminophen 325 mg Tablet 325 - 650 mg PO QID PRN (Reason: Pain) RF: 0 hydrocodone-acetaminophen 5-325 mg tablet 1 tab PO TID PRN (Reason: Pain) RF: 0 docusate sodium [Colace] 100 mg capsule 100 mg PO BID@1100,1800 RF: 0 aspirin 81 mg Tablet,Chewable 81 mg PO DAILY RF: 0 Discharge Orders: Discharge ED (Routine); Ordered 10/06/21 Ordered By: Scarlet Azar Referrals: Wai Morrow, PAD CUTTER-C [Primary Care Provider] - Discharge Diet: Advance as tolerated Discharge Activity: Resume usual activity Patient Instructions: Hip Pain (ED) Coding Level of Care Code ED Sales Consulting Director for Opalg Fwd Exam Comprehensive
[2021-10-06] MEDS: cyclobenzaprine 10 mg Tablet PO (05:18)
[2021-10-06] MEDS: ketorolac 30 mg/mL INJ IM (05:18)
[2021-10-06] MEDS: dexamethasone 10 mg/mL INJ IM (05:18)
== END 2021-10-06 05:25 | disposition home or self-care (01) ==
PROVIDERS: Emergency Provider Emergency Medicine; PCP Nurse Practitioner
DX: M25.552 Pain in left hip (principal); G89.29 Other chronic pain; I10 Essential (primary) hypertension; E78.5 Hyperlipidemia, unspecified; M10.9 Gout, unspecified; M19.90 Unspecified osteoarthritis, unspecified site; Z79.82 Long term (current) use of aspirin; Z79.891 Long term (current) use of opiate analgesic
CPT/HCPCS: 73502; 96372; 99283; J1100; J1885

== ENCOUNTER → 2021-11-28 17:00 | Outpatient (BNVA) | payer MEDICARE, MEDICAID, SELFPAY | PROVIDERS: PCP Nurse Practitioner; Visit Provider Nurse Practitioner | DX: N40.0 Benign prostatic hyperplasia without lower urinary tract symptoms (principal); E78.2 Mixed hyperlipidemia; I10 Essential (primary) hypertension; K57.30 Diverticulosis of large intestine without perforation or abscess without bleeding; R73.9 Hyperglycemia, unspecified | CPT/HCPCS: 80053; 83036; 85025 ==

== ENCOUNTER → 2022-01-11 14:56 | Outpatient (BNVA) | payer MEDICARE, MEDICAID, SELFPAY | PROVIDERS: PCP Nurse Practitioner; Visit Provider Nurse Practitioner | DX: F41.1 Generalized anxiety disorder (principal); F41.0 Panic disorder [episodic paroxysmal anxiety] | CPT/HCPCS: 99214 ==

== ENCOUNTER → 2022-04-03 11:51 | Outpatient (BNVA) | payer MEDICARE, MEDICAID, SELFPAY | PROVIDERS: PCP Nurse Practitioner; Visit Provider Nurse Practitioner | DX: N18.2 Chronic kidney disease, stage 2 (mild) (principal); E55.9 Vitamin D deficiency, unspecified; N18.9 Chronic kidney disease, unspecified; I10 Essential (primary) hypertension; K57.30 Diverticulosis of large intestine without perforation or abscess without bleeding; E78.2 Mixed hyperlipidemia; N40.0 Benign prostatic hyperplasia without lower urinary tract symptoms; R73.9 Hyperglycemia, unspecified | CPT/HCPCS: 80069; 82043; 82306; 82310; 83036; 83970; 84550; 85025 ==

== ENCOUNTER → 2022-04-12 15:41 | Outpatient (BNVA) | payer MEDICARE, MEDICAID, SELFPAY | PROVIDERS: PCP Nurse Practitioner; Visit Provider Surgery | DX: K59.00 Constipation, unspecified | CPT/HCPCS: 99203 ==

== ENCOUNTER 2022-06-20 07:36 | Day surgery (SDC) | payer MEDICARE, MEDICAID, SELFPAY ==
[2022-06-18 12:26] VITALS: BMI 31.1
--- NOTE | 2022-06-20 07:51 | P.HP_ITS ---
Providers/Chief Complaint Primary Care Provider: [facility] Chief Complaint: colon cancer screening History of Present Illness Eva Quick is a 66 year old male here for colonoscopy Medications/Allergies Home Medications Medication Instructions Recorded Confirmed Last Taken Type acetaminophen 325 mg tablet 325 - 650 mg PO QID PRN Pain 02/05/21 06/18/22 02/05/21 History hydrocodone 5 mg-acetaminophen 325 1 tab PO TID PRN Pain 02/05/21 06/18/22 02/05/21 History mg tablet aspirin 81 mg chewable tablet 81 mg PO DAILY 05/25/21 06/18/22 06/18/22 History allopurinol 300 mg tablet 300 mg PO DAILY 11/28/21 06/18/22 Unknown History docusate sodium 100 mg capsule 100 mg PO BID@1100,1800 #60 caps 04/03/22 06/18/22 Unknown Rx (Colace) hydrochlorothiazide 25 mg tablet 25 mg PO DAILY #30 tabs 04/03/22 06/18/22 Unknown Rx lisinopril 30 mg tablet 30 mg PO .at bedtime #30 tabs 04/03/22 06/18/22 Unknown Rx rosuvastatin 40 mg tablet 40 mg PO .at bedtime #30 tabs 04/03/22 06/18/22 Unknown Rx tamsulosin 0.4 mg capsule (Flomax) 0.4 mg PO .at bedtime #30 caps 04/03/22 06/18/22 Unknown Rx lorazepam 0.5 mg tablet 0.5 mg PO TID PRN anxiety #90 tabs 04/12/22 06/18/22 Unknown Rx paroxetine HCl 20 mg tablet (Paxil) 20 mg PO BEDTIME #30 tabs 04/12/22 06/18/22 Unknown Rx Allergies Allergy/AdvReac Type Severity Reaction Status Date / Time No Known Drug Allergies Allergy Unknown Verified 04/12/22 15:43 PFSH Acute PFSH: Medical History Diverticula of colon Essential hypertension Generalized anxiety disorder Gout, unspecified Hyperlipidemia Panic disorder [episodic paroxysmal anxiety] Psychiatric care Slow transit constipation Surgical History History of basal cell cancer Left face and nose History of renal stent Family History Other Cancer Diabetes Hypertension Stroke Social History Smoking and tobacco status: never smoked Second hand smoke exposure: No Smoking risk assessment/counseling performed?: No Alcohol intake: never Desire information about alcohol rehabilitation?: No Counseling given: No Desire information about substance/drug rehabilitation?: No Counseling given: No Adopted: No Caregiver/support person: No Lives independently: Yes Household members: spouse Housing: House Marital status: Number of children: 4 service: No Current occupational status: disabled History of recent travel: No Current gender identity: Male Vitals/I&O/Wt Weight last 48 hrs Weight 230 lb A&P Assessment and plan (1) Colon cancer screening: Plan Colonoscopy Attestations Medical Necessity Statement*: Home Coding Level of Care Code Acute Esl Instructional Assistant for Nancy Fwleno Diagnoses Colon cancer screening Z12.11
--- NOTE | 2022-06-20 08:01 | P.ANESASSM_ITS ---
Pre-Anesthetic Assessment Height/Weight: Height 1.83 m Weight 104.326 kg Preop Diagnosis: screening Operation Date: 06/20/22 09:00 Proposed Procedures p Colonoscopy 19041,Z12.11(Not Applicable) - Enoch Ramírez DO Familial anesthetic complications: none Was Beta Reina taken within 24 hours: N/A Was Clonidine taken within 24 hours: N/A Last Intake: 23:45 Social No alcohol and No tobacco Exam alert, oriented x 3, clear to auscultation bilaterally and regular rate & rhythm Airway Submandibular: within normal limits Cervical ROM: within normal limits Mallampati: Class II Dentition: chipped and other Comments: Comments: poor, missing multiple upper and lower Pulmonary None reported CV/HEM Hypertension None reported Hepatic None reported GI None reported Metabolic Morbid Obesity Musc/skel Lower Back Pain Neuropsych Anxiety and Depression Anesthetic Plan ASA status: 2 Anesthesia: MAC Medications/Allergies Home Medications Medication Instructions Recorded Confirmed Last Taken Type acetaminophen 325 mg tablet 325 - 650 mg PO QID PRN Pain 02/05/21 06/20/22 02/05/21 History hydrocodone 5 mg-acetaminophen 325 1 tab PO TID PRN Pain 02/05/21 06/20/22 06/19/22 History mg tablet allopurinol 300 mg tablet 300 mg PO DAILY 11/28/21 06/20/22 06/19/22 History docusate sodium 100 mg capsule 100 mg PO BID@1100,1800 #60 caps 04/03/22 06/20/22 06/19/22 Rx (Colace) hydrochlorothiazide 25 mg tablet 25 mg PO DAILY #30 tabs 04/03/22 06/20/22 06/19/22 Rx lisinopril 30 mg tablet 30 mg PO .at bedtime #30 tabs 04/03/22 06/20/22 06/19/22 Rx rosuvastatin 40 mg tablet 40 mg PO .at bedtime #30 tabs 04/03/22 06/20/22 06/19/22 Rx tamsulosin 0.4 mg capsule (Flomax) 0.4 mg PO .at bedtime #30 caps 04/03/22 06/20/22 06/19/22 Rx lorazepam 0.5 mg tablet 0.5 mg PO TID PRN anxiety #90 tabs 04/12/22 06/20/22 06/19/22 Rx paroxetine HCl 20 mg tablet (Paxil) 20 mg PO BEDTIME #30 tabs 04/12/22 06/20/22 06/19/22 Rx Allergies Allergy/AdvReac Type Severity Reaction Status Date / Time No Known Drug Allergies Allergy Unknown Verified 06/20/22 08:07 COUNTS INCLUDE 234 BEDS AT [facility] Anesthesia Medical History Diverticula of colon Essential hypertension Generalized anxiety disorder Gout, unspecified Hyperlipidemia Panic disorder [episodic paroxysmal anxiety] Psychiatric care Slow transit constipation Surgical History History of basal cell cancer Left face and nose History of renal stent Family History Other Cancer Diabetes Hypertension Stroke Social History Smoking and tobacco status: never smoked Second hand smoke exposure: No Smoking risk assessment/counseling performed?: No Alcohol intake: never Desire information about alcohol rehabilitation?: No Counseling given: No Desire information about substance/drug rehabilitation?: No Counseling given: No Adopted: No Caregiver/support person: No Lives independently: Yes Household members: spouse Housing: House Marital status: Number of children: 4 service: No Current occupational status: disabled History of recent travel: No Current gender identity: Male Data Anesthesia Cardiac Studies: No Data to Display
[2022-06-20 08:02] VITALS: BP 151/93; PULSE 80; RESP 18; TEMP 36.3; O2SAT 98
[2022-06-20] MEDS: sodium chloride 0.9% 1,000 ML 30 ML IV (08:10)
[2022-06-20 08:52] VITALS: BP 138/93; PULSE 72; RESP 16; TEMP 36.1; O2SAT 97
[2022-06-20 09:09] VITALS: BP 109/80; PULSE 55; RESP 16; O2SAT 91
--- NOTE | 2022-06-20 10:08 | ANE.PACU2 ---
Inpatient post-anesthesia follow up: Airway intact: Yes Vital signs: Temperature 97 F Pulse Rate 55 Respiratory Rate 16 Blood Pressure 109/80 Pulse Oximetry 91 Oxygen Delivery Me thod Room Air Oxygen Flow Rate Fraction of Inspir ed Oxygen Hydration adequate: Yes Nausea and vomiting: No Pain level: 1 Mental status: Baseline
== END 2022-06-20 09:30 | disposition home or self-care (01) ==
PROVIDERS: PCP Nurse Practitioner; Visit Provider Surgery
PROC: 0DJD8ZZ Inspection of Lower Intestinal Tract, Via Natural or Artificial Opening Endoscopic (ICD-10-PCS; CPT 45378; principal; 2022-06-20 09:00)
DX: Z12.11 Encounter for screening for malignant neoplasm of colon (principal); I10 Essential (primary) hypertension; F41.1 Generalized anxiety disorder; E78.5 Hyperlipidemia, unspecified; K64.4 Residual hemorrhoidal skin tags; E66.01 Morbid (severe) obesity due to excess calories; Z68.31 Body mass index [BMI] 31.0-31.9, adult; F41.9 Anxiety disorder, unspecified; F32.A Depression, unspecified
CPT/HCPCS: G0121; J2704; J7030

== ENCOUNTER 2022-06-22 17:18 | Emergency (ER) | payer MEDICARE, MEDICAID, SELFPAY ==
[2022-06-22 17:37] VITALS: BP 158/89; PULSE 102; RESP 16; TEMP 36.7; O2SAT 97; BMI 34.2
--- NOTE | 2022-06-22 18:13 | ECG_ITS ---
[facility] Test Date: 2022-06-22 Pat Name: Eva Quick Department: Room: Gender: Male Family Resource Coordinator: : 1955 Requested By: Chaka Babcock Order Number: [id number] Merrick MD: Ismael Amin M.D. Measurements Intervals [place] Rate: 97 P: 24 AL: 179 QRS: 24 QRSD: 94 T: 56 QT: 316 QTc: 402 Interpretive Statements SINUS RHYTHM Compared to ECG 02/05/2021 18:04:26 No significant changes Electronically Signed On 06-22-2022 22:00:21 CDT by Ismael Amin M.D. [email or web address] bay park [id number]
--- NOTE | 2022-06-22 18:32 | XRR_ITS ---
PROCEDURE INFORMATION: Exam: XR Chest Exam date and time: 06/22/2022 7:34 PM Age: 66 years old Clinical indication: Chest wall pain; Additional info: Cp TECHNIQUE: Imaging protocol: Radiologic exam of the chest. Views: 1 view. COMPARISON: CR XR chest 1V portable [id number] 02/05/2021 5:31 PM FINDINGS: Lungs: Unremarkable. No consolidation. Pleural spaces: Unremarkable. No pleural effusion. No pneumothorax. Heart/Mediastinum: Unremarkable. No cardiomegaly. Bones/joints: Unremarkable. XR/XR chest 1V portable [id number] IMPRESSION: No acute findings.
[2022-06-22 18:53] LABS: Basophils % 0.3 %; Eosinophils % 0.3 %; Hematocrit 49.2 % (42.0-52.0); Hemoglobin 16.4 g/dL (11.7-16.6); Lymphocytes # 1.3 10^3/uL (0.8-4.8); Mean Corpuscular HGB Conc 33.3 g/dL (30.0-36.0); Mean Corpuscular Hemoglobin 29.5 pg (28.0-34.0); Mean Corpuscular Volume 88.6 fl (80-94); Mean Platelet Volume 9.5 fL (7.4-10.4); Monocytes # 1.2 10^3/uL (0.2-0.9); Neutrophils # 9.16 10^3/uL (1.8-7.7); Neutrophils % 78.1 %; Nucleated Red Blood Cells % 0 %; Platelet Count 378 10^3/cmm (130-400); Red Blood Count 5.55 10^6/uL (4.1-5.3); Red Cell Distribution Width 13.3 % (12.1-15.1); White Blood Count 11.7 10^3/uL (4.0-10.0)
[2022-06-22 19:09] LABS: Troponin(5th) Baseline 7 ng/L (0-15)
[2022-06-22 19:11] LABS: Alanine Aminotransferase 21 U/L (0-41); Albumin Level 4.3 g/dL (3.5-5.2); Alkaline Phosphatase 100 U/L (40-130); Anion Gap 14.6 (5-19); Aspartate Amino Transferase 14 U/L (0-40); Blood Urea Nitrogen 19 mg/dL (8-23); Calcium 9.4 mg/dL (8.5-10.5); Carbon Dioxide 30 mmol/L (22-29); Chloride 99 mmol/L (98-107); Globulin 3.1 g/dL (1.3-4.6); Glomerular Filtration Rate 55.6 mL/min (90-130); Glucose 111 mg/dL (65-115); Osmolality Calculated 293 mOsm/kg (285-295); Potassium 3.6 mmol/L (3.5-5.1); Sodium 140 mmol/L (136-145); Total Bilirubin 0.3 mg/dL (0.15-1.2); Total Protein 7.4 g/dL (6.6-8.7)
--- NOTE | 2022-06-22 19:47 | ED_ITS ---
HPI - General Adult General: Chief complaint: Anxiety Stated complaint: Post Fall, left leg, hip pain Time Seen by Provider: 06/22/22 19:37 History of Present Illness: Patient is a 66-year-old male with a anxiety attacks, recent colonoscopy on 06/20/2022 presenting to the emergency room for evaluation of palpitation and anxiety. Patient tells me that he has a history of panic attack. More more recently, patient tells me that he has been stressed out and has had increasingly more episode. Patient tells me in the last few days he has had a minor episodes of palpitations and occasionally chest pressure. Patient also reports that he is feeling flatness throughout my body and a sense of unease at home. Patient tells me that he does not take any medication for his anxiety. Patient denies exertional chest pain, pleuritic chest pain, pressure-like or any knife stabbing chest pain. Patient tells me that he would like to take some medicine for his anxiety. He feels like his anxiety is coming on. Patient denies any suicidal ideation, or homicidal nation ideation. Denies nausea/vomiting, fever/chill, chest pain, shortness of breath, abdominal pain, dysuria/hematuria/polyuria, diarrhea/melena/hematochezia. Of note, patient had an episode of fall yesterday. Patient denies hitting his head or any LOC. Patient complains of left proximal femur and left calf pain. Patient has been able to bear weight on the affected extremity. Onset:last few days Duration:ongoing Location:home Severity:modderate Associated symptoms: Deny chest pain, dyspnea, nausea, rash, palpitations or vomiting Review of Systems Const: Denies: fever(s) or chills Eyes: Denies: change in vision ENMT: Denies: mouth pain Card: Denies: chest pain or palpitations Resp: Denies: dyspnea or non-productive cough GI: Denies: abdominal pain, nausea, vomiting or diarrhea : Denies: dysuria Musc: Reports: extremity pain (+L thigh pain and L calf pain) Skin/Breast: Denies: rash or new lesions Neuro: Denies: weakness in extremities Psych: Reports: other (Normal mood) Jaziel/Lymph: Denies: easy bruising PFSH ED PFSH: Medical History Diverticula of colon Essential hypertension Generalized anxiety disorder Gout, unspecified Hyperlipidemia Panic disorder [episodic paroxysmal anxiety] Psychiatric care Slow transit constipation Surgical History History of basal cell cancer Left face and nose History of renal stent Family History Other Cancer Diabetes Hypertension Stroke Social History Smoking and tobacco status: never smoked Second hand smoke exposure: No Smoking risk assessment/counseling performed?: No Alcohol intake: never Desire information about alcohol rehabilitation?: No Counseling given: No Desire information about substance/drug rehabilitation?: No Counseling given: No Adopted: No Caregiver/support person: No Lives independently: Yes Household members: spouse Housing: House Marital status: Number of children: 4 service: No Current occupational status: disabled History of recent travel: No Current gender identity: Male Physical Exam Const: COMMON NORMALS: alert HENMT: COMMON NORMALS: atraumatic HEAD & SCALP: atraumatic MOUTH: moist mucous membranes not abnormal Eye: COMMON NORMALS: EOMs intact bilaterally and conjunctivae normal CONJUNCTIVA: Yes conjunctivae normal Neck/C-Spine: COMMON NORMALS: full ROM and supple Resp: COMMON NORMALS: normal respiratory effort and clear to auscultation bilaterally AUSCULTATION: clear to auscultation bilaterally Cardio: COMMON NORMALS: regular rate RATE: regular rate GI: COMMON NORMALS: Soft to palpation and non-tender PALPATION: Yes Soft to palpation Extremity: COMMON NORMALS: full ROM OTHER: Range of motion intact in the left lower extremity including left hip and left knee. Neurovascular exam intact in the affected extremity. Mild tenderness palpation over the left calf and left proximal thigh. Neuro: SENSORIUM/ORIENTATION: Yes alert MOTOR EXAM: No Abnormal motor strength present and Other motor observations present (no focal motor deficits) Psych: COMMON NORMALS: speech normal SPEECH: Yes normal speech MOOD & AFFECT: Yes euthymic mood Course Vital Signs: Vital signs: Vital Signs Temperature 98.1 F 06/22/22 17:37 Pulse Rate 84 06/22/22 20:13 Respiratory Rate 16 06/22/22 17:37 Blood Pressure 158/89 06/22/22 17:37 Pulse Oximetry 96 06/22/22 20:13 Oxygen Delivery Me thod 06/22/22 17:37 MDM - General Adult Medical Decision Making Patient is a 66-year-old male with a anxiety attacks, recent colonoscopy on 06/20/2022 presenting to the emergency room for evaluation of palpitation and anxiety. On arrival, patient is hemodynamically stable and in mild distress. Patient is noted to have mild tachycardia initially on arrival but improved without any intervention. Patient is noted to have white count 11.7 today. Creatinine 1.3 similar to baseline of 1.2. Patient has 2 Trope with delta less than 5 her EKG does show any signs of ischemia. X-ray chest appears to be clear. Patient requested x-ray of the left hip and left tib-fib CS fall yesterday. Imaging studies were all negative. At present time, patient received Ativan reports feeling symptomatically improved. I offered admission to patient that given his his age and his complaints of chest and palpitation. However, patient tells me that his symptoms are very similar to his symptoms in the past and are anxiety related. I have given patient close follow-up with outpatient cardiology should he have any symptoms. Given patient's return precaution for any signs of chest pain, shortness of palpitation, naus ea/vomiting, diaphoresis, or any new extreme complaints. Patient verbalized understand everything discussed. Patient would not like to have any additional medication for anxiety today. Disposition: Discharge. Patient counseled regarding diagnostic impression, treatment plan. Patient given ED strict return precautions to return for continuation, worsening, or development of new symptoms. Instructed to f/u w/ PCP regarding symptoms today. Patient verbalized understanding. Lab Data : 06/22/22 18:43 06/22/22 18:43 Radiology Impressions Chest X-Ray 06/22/22 18:32 IMPRESSION: No acute findings. Femur X-Ray 06/22/22 20:43 IMPRESSION: Mild left hip osteoarthritis. Tibia/Fibula X-Ray 06/22/22 20:43 IMPRESSION: 1. No acute findings. 2. Calcified heel spur. Laboratory Results WBC 11.7 10^3/uL (4.0-10.0) H 06/22/22 18:43 RBC 5.55 10^6/uL (4.1-5.3) H 06/22/22 18:43 Hgb 16.4 g/dL (11.7-16.6) 06/22/22 18:43 Hct 49.2 % (42.0-52.0) 06/22/22 18:43 MCV 88.6 fl (80-94) 06/22/22 18:43 MCH 29.5 pg (28.0-34.0) 06/22/22 18:43 MCHC 33.3 g/dL (30.0-36.0) 06/22/22 18:43 RDW 13.3 % (12.1-15.1) 06/22/22 18:43 Plt Count 378 10^3/cmm (130-400) 06/22/22 18:43 MPV 9.5 fL (7.4-10.4) 06/22/22 18:43 Neut % (Auto) 78.1 % 06/22/22 18:43 Lymph % (Auto) 11.0 % 06/22/22 18:43 Levy % (Auto) 10.0 % 06/22/22 18:43 Eos % (Auto) 0.3 % 06/22/22 18:43 Baso % (Auto) 0.3 % 06/22/22 18:43 Neut # (Auto) 9.16 10^3/uL (1.8-7.7) H 06/22/22 18:43 Lymph # (Auto) 1.3 10^3/uL (0.8-4.8) 06/22/22 18:43 Levy # (Auto) 1.2 10^3/uL (0.2-0.9) H 06/22/22 18:43 Eos # (Auto) 0.0 10^3/uL (0.0-0.8) 06/22/22 18:43 Baso # (Auto) 0.0 10^3/uL (0.0-0.1) 06/22/22 18:43 Nucleated RBC % (auto) 0 % 06/22/22 18:43 Nucleated RBCs # 0.0 /100WBC 06/22/22 18:43 Sodium 140 mmol/L (136-145) 06/22/22 18:43 Potassium 3.6 mmol/L (3.5-5.1) 06/22/22 18:43 Chloride 99 mmol/L (98-107) 06/22/22 18:43 Carbon Dioxide 30 mmol/L (22-29) H 06/22/22 18:43 Anion Gap 14.6 (5-19) 06/22/22 18:43 BUN 19 mg/dL (8-23) 06/22/22 18:43 Creatinine 1.3 mg/dL (0.7-1.2) H 06/22/22 18:43 GFR Calculation 55.6 mL/min (90-130) L 06/22/22 18:43 Glucose 111 mg/dL (65-115) 06/22/22 18:43 Calculated Osmolality 293 mOsm/kg (285-295) 06/22/22 18:43 Calcium 9.4 mg/dL (8.5-10.5) 06/22/22 18:43 Total Bilirubin 0.3 mg/dL (0.15-1.2) 06/22/22 18:43 AST 14 U/L (0-40) 06/22/22 18:43 ALT 21 U/L (0-41) 06/22/22 18:43 Alkaline Phosphatase 100 U/L (40-130) 06/22/22 18:43 Troponin T Baseline 7 ng/L (0-15) 06/22/22 18:43 Troponin T 120 Minute 7.44 ng/L (0-15) 06/22/22 20:44 Delta Troponin T 0.44 ABS# (0-10) 06/22/22 20:44 Total Protein 7.4 g/dL (6.6-8.7) 06/22/22 18:43 Albumin 4.3 g/dL (3.5-5.2) 06/22/22 18:43 Globulin 3.1 g/dL (1.3-4.6) 06/22/22 18:43 Imaging Data Other Imaging: Radiologist's impression: [address] [address] XRay Report Signed Patient: Eva Quick Unit #: [id number] : 1955 Age/Sex: 66 / M ADM Date: 06/22/22 Loc: ER Room/Bed: Attending Dr: Ordering Provider/Ordering MD: Burton Bentley MD Date of Service: 06/22/22 Procedure(s): XR tibia fibula LT 2V 24772 Accession Number(s): [id number] Report Number: [id number] PROCEDURE INFORMATION: Exam: XR Left Tibia and Fibula Exam date and time: 06/22/2022 8:51 PM Age: 66 years old Clinical indication: Pain; Lower leg; Left; Additional info: Fall yesterday TECHNIQUE: Imaging protocol: Radiologic exam of the Left tibia and fibula. Views: 2 views. COMPARISON: No relevant prior studies available. FINDINGS: Bones/joints: Calcified heel spur. Soft tissues: Normal. XR/XR tibia fibula LT 2V [id number] IMPRESSION: 1. No acute findings. 2. Calcified heel spur. ? Dictated By: Sebastian Blanco MD Signed By: Sebastian Blanco MD Signed Date/Time: 06/22/222113 DD/ 50 Eva Quick?(c)??66??M??1955 ? Allergy/Adv: No Known Drug Allergies (More??) Close Tibia/Fibula X-Ray (Signed) Sebastian Blanco - 06/22/22 Femur X-Ray (Signed) Sebastian Blanco - 06/22/22 Chest X-Ray (Signed) Jesse Borrero - 06/22/22 Hip and Pelvis X-Ray (Signed) Aleksey Jesus - 10/06/21 Abdomen/Pelvis CT (Signed) Adnre Burns - 05/25/21 Chest X-Ray (Signed) Nehemias Izquierdo - 02/05/21 Abdomen/Pelvis CT (Signed) Luis Manuel Carrasquillo - 04/20/20 Lumbar Spine MRI (Signed) Andre Burns - 10/12/19 Lumbar Spine X-Ray (Signed) Andre Burns - 10/12/[address] [address] XRay Report Signed Patient: Eva Quick Unit #: [id number] : 1955 Age/Sex: 66 / M ADM Date: 06/22/22 Loc: ER Room/Bed: Attending Dr: Ordering Provider/Ordering MD: Burton Bentley MD Date of Service: 06/22/22 Procedure(s): XR femur LT min 2V* [id number] Accession Number(s): [id number] Report Number: [id number] PROCEDURE INFORMATION: Exam: XR Left Femur Exam date and time: 06/22/2022 8:51 PM Age: 66 years old Clinical indication: Pain; Thigh; Left; Additional info: Fall TECHNIQUE: Imaging protocol: Radiologic exam of the Left femur. Views: 2 views. COMPARISON: CT abdomen pelvis w con* [id number] 05/25/2021 2:26 PM FINDINGS: Bones/joints: Mild left hip osteoarthritis. Soft tissues: Unremarkable. XR/XR femur LT min 2V* [id number] IMPRESSION: Mild left hip osteoarthritis. ? Dictated By: Sebastian Blanco MD Signed By: Sebastian Blanco MD Signed Date/Time: 06/22/222114 DD/ [address] [address] XRay Report Signed Patient: Eva Quick Unit #: [id number] : 1955 Age/Sex: 66 / M ADM Date: 06/22/22 Loc: ER Room/Bed: Attending Dr: Ordering Provider/Ordering MD: Scarlet Azar MD Date of Service: 06/22/22 Procedure(s): XR chest 1V portable [id number] Accession Number(s): [id number] Report Number: [id number] PROCEDURE INFORMATION: Exam: XR Chest Exam date and time: 06/22/2022 7:34 PM Age: 66 years old Clinical indication: Chest wall pain; Additional info: Cp TECHNIQUE: Imaging protocol: Radiologic exam of the chest. Views: 1 view. COMPARISON: CR XR chest 1V portable [id number] 02/05/2021 5:31 PM FINDINGS: Lungs: Unremarkable. No consolidation. Pleural spaces: Unremarkable. No pleural effusion. No pneumothorax. Heart/Mediastinum: Unremarkable. No cardiomegaly. Bones/joints: Unremarkable. XR/XR chest 1V portable [id number] IMPRESSION: No acute findings. ? Dictated By: Jesse Borrero DO Signed By: Jesse Borrero DO Signed Date/Time: 06/22/221948 DD/ 33 Discharge Plan Discharge Patient Disposition: Home Clinical Impression: Palpitation Condition: Stable Prescriptions: No Action allopurinol 300 mg tablet 300 mg PO DAILY Paxil 20 mg tablet 20 mg PO BEDTIME Qty: 30 2RF lorazepam 0.5 mg tablet 0.5 mg PO TID PRN (Reason: anxiety) Qty: 90 2RF hydrochlorothiazide 25 mg tablet 25 mg PO DAILY Qty: 30 2RF lisinopril 30 mg tablet 30 mg PO .at bedtime Qty: 30 2RF docusate sodium [Colace] 100 mg capsule 100 mg PO BID@1100,1800 Qty: 60 2RF rosuvastatin 40 mg tablet 40 mg PO .at bedtime Qty: 30 2RF tamsulosin [Flomax] 0.4 mg capsule 0.4 mg PO .at bedtime Qty: 30 2RF acetaminophen 325 mg Tablet 325 - 650 mg PO QID PRN (Reason: Pain) hydrocodone-acetaminophen 5-325 mg tablet 1 tab PO TID PRN (Reason: Pain) Anusol-HC 2.5 % cream with perineal applicator 1 applic SC QID 10 Days Qty: 30 1RF Rx Instructions: May repeat for another 10 days if no resolution Discharge Orders: Discharge ED (Routine); Ordered 06/22/22 Ordered By: Burton Bentley Referrals: Wai Morrow, TACK PULLER-C [Primary Care Provider] - Discharge Diet: Advance as tolerated Discharge Activity: Increase activity as tolerated Patient Instructions: Heart Palpitations (ED) Activity Restrictions/Additional Instructions: Come back to the emergency room if your chest pain worsens, have any fever or chills, worsening shortness of breath, worsening exertional lightheadedness, or any new or concerning complaints. Our clinical case manager will have you follow-up with a [employer] in the next few days for evaluation of your chest pain and palpitation. You would be expected to have a phone call with our clinical case manager who will put you on the schedule. You can expect a call from us in the next 2-3 days. If you don't hear from us, call us back in the emergency room at [phone]. Coding Level of Care Code ED Title Department Manager for Nancy Fwleno Exam Comprehensive
[2022-06-22 20:13] VITALS: PULSE 84; O2SAT 96
[2022-06-22] MEDS: LORazepam 1 mg Tablet PO (20:22)
--- NOTE | 2022-06-22 20:43 | XRR_ITS ---
PROCEDURE INFORMATION: Exam: XR Left Femur Exam date and time: 06/22/2022 8:51 PM Age: 66 years old Clinical indication: Pain; Thigh; Left; Additional info: Fall TECHNIQUE: Imaging protocol: Radiologic exam of the Left femur. Views: 2 views. COMPARISON: CT abdomen pelvis w con* [id number] 05/25/2021 2:26 PM FINDINGS: Bones/joints: Mild left hip osteoarthritis. Soft tissues: Unremarkable. XR/XR femur LT min 2V* [id number] IMPRESSION: Mild left hip osteoarthritis.
--- NOTE | 2022-06-22 20:43 | XRR_ITS ---
PROCEDURE INFORMATION: Exam: XR Left Tibia and Fibula Exam date and time: 06/22/2022 8:51 PM Age: 66 years old Clinical indication: Pain; Lower leg; Left; Additional info: Fall yesterday TECHNIQUE: Imaging protocol: Radiologic exam of the Left tibia and fibula. Views: 2 views. COMPARISON: No relevant prior studies available. FINDINGS: Bones/joints: Calcified heel spur. Soft tissues: Normal. XR/XR tibia fibula LT 2V [id number] IMPRESSION: 1. No acute findings. 2. Calcified heel spur.
[2022-06-22 21:03] LABS: Troponin 5 2HR 7.44 ng/L (0-15)
[2022-06-22 21:08] LABS: Troponin 5 2HR Delta 0.44 ABS# (0-10)
== END 2022-06-22 21:34 | disposition home or self-care (01) ==
PROVIDERS: Emergency Medicine; Emergency Provider Emergency Medicine; PCP Nurse Practitioner
DX: R00.2 Palpitations (principal); I10 Essential (primary) hypertension; E78.5 Hyperlipidemia, unspecified
CPT/HCPCS: 36415; 71045; 73552; 73590; 80053; 84484; 85025; 93005; 99285

== ENCOUNTER → 2022-11-28 10:54 | Outpatient (BNVA) | payer MEDICARE, MEDICAID, SELFPAY | PROVIDERS: PCP Nurse Practitioner; Visit Provider Registered Nurse | DX: M10.09 Idiopathic gout, multiple sites (principal) | CPT/HCPCS: 80069; 82043; 82310; 83970; 84550; 85025 ==

== ENCOUNTER → 2023-01-09 11:11 | Outpatient (BNVA) | payer MEDICARE, MEDICAID, SELFPAY | PROVIDERS: PCP Nurse Practitioner; Visit Provider Nurse Practitioner | DX: M10.9 Gout, unspecified (principal); N18.2 Chronic kidney disease, stage 2 (mild); I10 Essential (primary) hypertension; E78.2 Mixed hyperlipidemia; N40.0 Benign prostatic hyperplasia without lower urinary tract symptoms; K12.2 Cellulitis and abscess of mouth; E78.5 Hyperlipidemia, unspecified | CPT/HCPCS: 80061 ==

== ENCOUNTER 2023-02-05 12:58 | Outpatient (CLI) | payer MEDICARE, MEDICAID, SELFPAY ==
--- NOTE | 2023-02-05 13:45 | MR_ITS ---
WS: [id number] MRI LUMBAR SPINE NONCONTRAST HISTORY: M51.36 - Other intervertebral disc degeneration, lumbar pain. COMPARISON: 10/12/2019 TECHNIQUE: Sagittal and axial multisequence imaging is submitted. Mild encroachment upon the cervical canal C3-4. Straightening of the normal lumbar lordosis. Advanced degenerative disc space narrowing at L3-4 and L 4-5. Mild throughout the remaining levels of lumbar spine. No fracture. Endplate degenerative changes are most significant at L3-4. Conus terminates normally at L1-2 disc level. L1-L2: Mild annular disc bulge with effacement of the ventricles thecal sac. Slightly progressed sinc e the prior study. Mild facet arthropathy. No stenosis. L2-L3: Moderate annular disc bulging. Disc bulging has progressed since the prior examination. LEFT s ubarticular recess disc protrusion is new. There is significant effacement of ventral thecal sac and encroachment into the subarticular recesses and mild LEFT foraminal stenosis. Mild RIGHT foraminal st enosis. L3-L4: Diffuse osteophytic ridging and annular disc bulging. Central disc protrusion extends inferior to the disc space along the subarticular recess. Moderate central stenosis. Bilateral subarticular r ecess stenosis, greatest on the RIGHT. Moderate bilateral foraminal stenosis. L4-L5: Diffuse osteophytic ridging and annular disc bulging with moderate facet arthropathy. Encroach ment upon the ventral thecal sac and subarticular recesses. Mild central and bilateral subarticular r ecess and moderate foraminal stenosis, RIGHT greater than LEFT. L5-S1: Mild annular disc bulging encroaching upon the ventral thecal sac. Mild facet arthritis. No hi gh-grade stenosis. MR/MR lumbar spine wo con* [id number] IMPRESSION: 1. Central disc protrusion at L3-4 extending into the subarticular recesses, R IGHT greater than LEFT. Moderate central with bilateral subarticular recess jake nosis and moderate foraminal stenosis. Most significant contact on the traversi ng L4 nerve roots. 2. Mild central and subarticular recess stenosis at L4-5. Moderate RIGHT kentrell inal stenosis and mild on the LEFT. 3. New LEFT subarticular recess disc protrusion at L2-3 along with effacement of ventral thecal sac and foraminal stenosis. Most significant encroachment upo n the traversing L3 nerve roots bilaterally, LEFT greater than RIGHT. 4. Advanced degenerative disc disease at L3-4.
== END 2023-02-05 12:59 | disposition home or self-care (01) ==
LOC: RAD 13:00
PROVIDERS: PCP Family Medicine; Visit Provider Family Medicine
DX: M51.36 Other intervertebral disc degeneration, lumbar region (principal); M48.061 Spinal stenosis, lumbar region without neurogenic claudication
CPT/HCPCS: 72148

== ENCOUNTER 2023-03-23 05:49 | Emergency (ER) | payer MEDICARE, MEDICAID, SELFPAY ==
--- NOTE | 2023-03-23 05:58 | ECG_ITS ---
[facility] Test Date: 2023-03-23 Pat Name: Eva Quick Department: Room: Gender: Male Sole Stainer: : 1955 Requested By: Chaka Babcock Order Number: [id number] Merrick MD: Nehemias Wagner M.D. Measurements Intervals [place] Rate: 109 P: 21 MN: 176 QRS: 31 QRSD: 95 T: 55 QT: 295 QTc: 398 Interpretive Statements SINUS TACHYCARDIA ABNORMAL RHYTHM ECG Compared to ECG 06/22/2022 18:13:46 Sinus rhythm no longer present Electronically Signed On 03-24-2023 9:40:59 CDT by Nehemias Wagner M.D. [email or web address]
[2023-03-23 06:00] VITALS: BP 139/95; PULSE 112; RESP 20; TEMP 37.1; O2SAT 97; BMI 29.2
--- NOTE | 2023-03-23 06:05 | XRR_ITS ---
PROCEDURE INFORMATION: Exam: XR Chest Exam date and time: 03/23/2023 6:16 AM Age: 67 years old Clinical indication: Pain; Chest pressure; Additional info: Chest pain TECHNIQUE: Imaging protocol: Radiologic exam of the chest. Views: 1 view. COMPARISON: CR XR chest 1V portable [id number] 06/22/2022 7:34 PM FINDINGS: Lungs: Unremarkable. No consolidation. Pleural spaces: Unremarkable. No pleural effusion. No pneumothorax. Heart/Mediastinum: Unremarkable. No cardiomegaly. Bones/joints: Unremarkable. XR/XR chest 1V portable [id number] IMPRESSION: No acute findings.
[2023-03-23] MEDS: aspirin 81 mg Chew Tablet 324 MG PO (06:13)
[2023-03-23 06:20] LABS: Add Urine Microscopic? NO; Charge for UA Resulting for Rev
[2023-03-23 06:21] LABS: Basophils % 0.3 %; Eosinophils # 0.2 10^3/uL (0.0-0.8); Eosinophils % 1.5 %; Hemoglobin 14.9 g/dL (11.7-16.6); Lymphocytes # 0.5 10^3/uL (0.8-4.8); Lymphocytes % 3.5 %; Mean Corpuscular HGB Conc 33.9 g/dL (30.0-36.0); Mean Corpuscular Hemoglobin 29.3 pg (28.0-34.0); Mean Corpuscular Volume 86.6 fl (80-94); Mean Platelet Volume 9.7 fL (7.4-10.4); Monocytes # 0.7 10^3/uL (0.2-0.9); Monocytes % 5.1 %; Neutrophils # 13.07 10^3/uL (1.8-7.7); Neutrophils % 89.3 %; Nucleated Red Blood Cells % 0 %; Platelet Count 265 10^3/cmm (130-400); Red Blood Count 5.08 10^6/uL (4.1-5.3); White Blood Count 14.6 10^3/uL (4.0-10.0)
[2023-03-23 06:28] LABS: Bilirubin Urine Neg (Negative); Blood Urine Neg (Negative); Glucose Urine UA Norm (Normal); Ketones Urine Negative (Negative); Leukocyte Esterase Urine Negative (Negative); Nitrate Urine Negative (Negative); Protein Urine Neg (Negative); Urine Appearance Clear (CLEAR); Urine Color Colorless (Yellow); Urobilinogen Urine Norm (Negative); pH Urine 5 (5-7)
[2023-03-23 06:39] LABS: Alanine Aminotransferase 12 U/L (0-41); Albumin Level 3.9 g/dL (3.5-5.2); Alkaline Phosphatase 84 U/L (40-130); Aspartate Amino Transferase 12 U/L (0-40); Blood Urea Nitrogen 13 mg/dL (8-23); Carbon Dioxide 22 mmol/L (22-29); Chloride 103 mmol/L (98-107); Glomerular Filtration Rate 67.2 mL/min (90-130); Glucose 134 mg/dL (65-115); Osmolality Calculated 290 mOsm/kg (285-295); Sodium 139 mmol/L (136-145); Total Bilirubin 0.3 mg/dL (0.15-1.2); Total Protein 6.9 g/dL (6.6-8.7)
[2023-03-23 06:41] LABS: Troponin(5th) Baseline 9 ng/L (0-15)
[2023-03-23 06:48] LABS: Anion Gap 17.3 (5-19); Potassium 3.3 mmol/L (3.5-5.1)
[2023-03-23 06:58] VITALS: BP 134/95; PULSE 92; RESP 14; O2SAT 94
--- NOTE | 2023-03-23 07:32 | W.ED.ANXIETY ---
HPI - Anxiety General: Chief Complaint: Anxiety Stated Complaint: Anxiety\Chest Pains Time Seen by Provider: 03/23/23 06:01 Source: patient Mode of arrival: ambulatory History of Present Illness: 67-year-old male presents to the emergency room with complaint of chest tightness and pressure he had some anxiety issues. He states he was having an anxiety attack feeling chest pressure. He has been extremely anxious lately some having some marital stresses. He has no known history of coronary artery disease. He is not having any chest pain at this time. Patient is diabetic and has a history of hypertension. MD complaint: anxiety Onset (ago): minute(s) Symptoms: dyspnea and chest pain Severity: mild Place: home History of similar episodes: Yes Relieving factors: nothing Exacerbating factors: nothing Associated symptoms: Reports chest pain; Deny anorexia, chills, confusion, diaphoresis, fever(s), headache(s), malaise, nausea, palpitations, short of breath, syncope, vomiting or weakness Review of Systems Const: Denies: fever(s), chills, malaise or diaphoresis Card: Reports: chest pain; Denies: palpitations or syncope Resp: Denies: dyspnea, productive cough or non-productive cough GI: Denies: abdominal pain, nausea or vomiting : Denies: flank pain, dysuria, urinary frequency or urinary urgency Skin/Breast: Denies: rash or pruritus Neuro: Denies: headache(s) or confusion PFS ED PFSH: Medical History Diverticula of colon Essential hypertension Generalized anxiety disorder Gout, unspecified Hyperlipidemia Panic disorder [episodic paroxysmal anxiety] Psychiatric care Slow transit constipation Surgical History History of basal cell cancer Left face and nose History of renal stent Family History Other Cancer Diabetes Hypertension Stroke Social History Smoking and tobacco status: never smoked Second hand smoke exposure: No Smoking risk assessment/counseling performed?: No Alcohol intake: never Desire information about alcohol rehabilitation?: No Counseling given: No Substance/Drug Use: never Desire information about substance/drug rehabilitation?: No Counseling given: No Adopted: No Caregiver/support person: No Lives independently: Yes Household members: spouse Housing: House Marital status: Number of children: 4 service: No Current occupational status: disabled Do you think of yourself as: Straight/Heterosexual Current gender identity: Male Physical Exam Const: GENERAL APPEARANCE: cooperative and comfortable ORIENTATION/CONSCIOUSNESS: Yes awake, Yes oriented to person, Yes oriented to place and Yes oriented to time HENMT: COMMON NORMALS: normocephalic, atraumatic and hearing grossly normal bilaterally HEAD & SCALP: normocephalic and atraumatic Resp: COMMON NORMALS: normal respiratory effort, No retractions, No use of accessory muscles and clear to auscultation bilaterally AUSCULTATION: clear to auscultation bilaterally Cardio: COMMON NORMALS: regular rate, regular rhythm and No murmurs present (Cardio) RATE: regular rate RHYTHM: regular rhythm GI: COMMON NORMALS: Soft to palpation and No hepatosplenomegaly present AUSCULTATION: Yes normoactive bowel sounds PALPATION: Yes Soft to palpation, No Tenderness to palpation present (GI), No Guarding due to palpation present (GI) and Yes No hepatosplenomegaly present Extremity: COMMON NORMALS: normal to inspection, capillary refill normal, no clubbing, cyanosis or edema, no calf tenderness and no pedal edema Neuro: SENSORIUM/ORIENTATION: Yes oriented to person, Yes oriented to place and Yes oriented to time Skin: COMMON NORMALS: no rashes or lesions noted GENERAL SKIN EXAM: no rashes or lesions noted Course Vital Signs: Vital signs: Vital Signs Temperature 98.7 F 03/23/23 06:00 Pulse Rate 92 03/23/23 06:58 Respiratory Rate 14 03/23/23 06:58 Blood Pressure 134/95 03/23/23 06:58 Pulse Oximetry 94 03/23/23 06:58 Oxygen Delivery Me thod Room Air 03/23/23 06:58 MDM - Anxiety Medical Decision Making Serial enzymes and EKG are unremarkable for acute change. No evidence of acute coronary syndrome. His symptoms have completely resolved. We will discharge patient home set him up for outpatient Lexiscan sestamibi stress test. Start him on Augmentin for the dental caries have him follow-up with a dentist return if he has further problems. Medical Records I reviewed the patient's medical records. Lab Data I reviewed the patient's lab results. 03/23/23 06:15 03/23/23 06:15 Radiology Impressions Chest X-Ray 03/23/23 06:05 IMPRESSION: No acute findings. Laboratory Results WBC 14.6 10^3/uL (4.0-10.0) H 03/23/23 06:15 RBC 5.08 10^6/uL (4.1-5.3) 03/23/23 06:15 Hgb 14.9 g/dL (11.7-16.6) 03/23/23 06:15 Hct 44.0 % (42.0-52.0) 03/23/23 06:15 MCV 86.6 fl (80-94) 03/23/23 06:15 MCH 29.3 pg (28.0-34.0) 03/23/23 06:15 MCHC 33.9 g/dL (30.0-36.0) 03/23/23 06:15 RDW 13.0 % (12.1-15.1) 03/23/23 06:15 Plt Count 265 10^3/cmm (130-400) 03/23/23 06:15 MPV 9.7 fL (7.4-10.4) 03/23/23 06:15 Neut % (Auto) 89.3 % 03/23/23 06:15 Lymph % (Auto) 3.5 % 03/23/23 06:15 C[place]ay % (Auto) 5.1 % 03/23/23 06:15 Eos % (Auto) 1.5 % 03/23/23 06:15 Baso % (Auto) 0.3 % 03/23/23 06:15 Neut # (Auto) 13.07 10^3/uL (1.8-7.7) H 03/23/23 06:15 Lymph # (Auto) 0.5 10^3/uL (0.8-4.8) L 03/23/23 06:15 C[place]ay # (Auto) 0.7 10^3/uL (0.2-0.9) 03/23/23 06:15 Eos # (Auto) 0.2 10^3/uL (0.0-0.8) 03/23/23 06:15 Baso # (Auto) 0.0 10^3/uL (0.0-0.1) 03/23/23 06:15 Nucleated RBC % (auto) 0 % 03/23/23 06:15 Nucleated RBCs # 0.0 /100WBC 03/23/23 06:15 Sodium 139 mmol/L (136-145) 03/23/23 06:15 Potassium 3.3 mmol/L (3.5-5.1) L 03/23/23 06:15 Chloride 103 mmol/L (98-107) 03/23/23 06:15 Carbon Dioxide 22 mmol/L (22-29) 03/23/23 06:15 Anion Gap 17.3 (5-19) 03/23/23 06:15 BUN 13 mg/dL (8-23) 03/23/23 06:15 Creatinine 1.1 mg/dL (0.7-1.2) 03/23/23 06:15 GFR Calculation 67.2 mL/min (90-130) L 03/23/23 06:15 Glucose 134 mg/dL (65-115) H 03/23/23 06:15 Calculated Osmolality 290 mOsm/kg (285-295) 03/23/23 06:15 Calcium 9.0 mg/dL (8.5-10.5) 03/23/23 06:15 Total Bilirubin 0.3 mg/dL (0.15-1.2) 03/23/23 06:15 AST 12 U/L (0-40) 03/23/23 06:15 ALT 12 U/L (0-41) 03/23/23 06:15 Alkaline Phosphatase 84 U/L (40-130) 03/23/23 06:15 Troponin T Baseline 9 ng/L (0-15) 03/23/23 06:15 Troponin T 120 Minute 8.10 ng/L (0-15) 03/23/23 08:23 Delta Troponin T -0.9 ABS# (0-10) L 03/23/23 08:23 Total Protein 6.9 g/dL (6.6-8.7) 03/23/23 06:15 Albumin 3.9 g/dL (3.5-5.2) 03/23/23 06:15 Globulin 3.0 g/dL (1.3-4.6) 03/23/23 06:15 Urine Color Colorless (Yellow) 03/23/23 06:08 Urine Appearance Clear (CLEAR) 03/23/23 06:08 Urine pH 5 (5-7) 03/23/23 06:08 Ur Specific [place] 1.010 (1.005-1.030) 03/23/23 06:08 Urine Protein Neg (Negative) 03/23/23 06:08 Urine Glucose (UA) Norm (Normal) 03/23/23 06:08 Urine Ketones Negative (Negative) 03/23/23 06:08 Urine Blood Neg (Negative) 03/23/23 06:08 Urine Nitrate Negative (Negative) 03/23/23 06:08 Urine Bilirubin Neg (Negative) 03/23/23 06:08 Urine Urobilinogen Norm mg/dL (Negative) 03/23/23 06:08 Ur Leukocyte Esterase Negative (Negative) 03/23/23 06:08 Discharge Plan Discharge Patient Disposition: Home Clinical Impression: Atypical chest pain, Panic disorder [episodic paroxysmal anxiety], Dental caries Condition: Stable Prescriptions: New amoxicillin-pot clavulanate 875-125 mg tablet 1 tab PO BID Qty: 14 0RF No Action psyllium husk [Metamucil] 0.4 gram capsule 0.4 g PO BID Qty: 60 2RF Paxil 20 mg tablet 20 mg PO BEDTIME Qty: 30 2RF allopurinol 300 mg tablet 300 mg PO DAILY Qty: 30 2RF Farxiga 10 mg tablet 10 mg PO QAM Qty: 30 2RF lisinopril 30 mg tablet 30 mg PO .at bedtime Qty: 30 2RF rosuvastatin 40 mg tablet 40 mg PO .at bedtime Qty: 30 2RF tamsulosin [Flomax] 0.4 mg capsule 0.4 mg PO .at bedtime Qty: 30 2RF hydrochlorothiazide 25 mg tablet 25 mg PO DAILY Qty: 30 2RF penicillin V potassium 500 mg tablet 500 mg PO TID Qty: 30 0RF lorazepam 1 mg tablet 1 mg PO TID PRN (Reason: anxiety) Qty: 90 1RF Praluent Pen 150 mg/mL pen injector 150 mg SUBCUT Q14D Qty: 2 2RF acetaminophen 325 mg Tablet 325 - 650 mg PO QID PRN (Reason: Pain) hydrocodone-acetaminophen 5-325 mg tablet 1 tab PO TID PRN (Reason: Pain) Anusol-HC 2.5 % cream with perineal applicator 1 applic OK QID 10 Days Qty: 30 1RF Rx Instructions: May repeat for another 10 days if no resolution Discharge Orders: Discharge ED (Routine); Ordered 03/23/23 Ordered By: Chaka Elliott Referrals: Rohith Solis, [Primary Care Provider] - Discharge Diet: Usual diet Discharge Activity: Limit activity as instructed Patient Instructions: Opioid Safety, Pain Management Activity Restrictions/Additional Instructions: You were seen today for atypical chest pain and anxiety as well as dental caries. Recommend that you start the oral antibiotic 1 pill twice daily and follow-up with a dentist as soon as you are able. Your cardiac enzymes and EKGs were normal. Coding Level of Care Code ED [employer] Commanding Officer for Nancy Lundberg
--- NOTE | 2023-03-23 08:05 | ECG_ITS ---
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 Measurements Intervals [place] Rate: 83 P: 21 KS: 177 QRS: 12 QRSD: 93 T: 55 QT: 334 QTc: 394 Interpretive Statements SINUS RHYTHM Compared to ECG 06/22/2022 18:13:46 No significant changes Electronically Signed On 03-23-2023 11:16:05 CDT by Nehemias Wagner M.D. [id number]
[2023-03-23 09:51] LABS: Troponin 5 2HR Delta -0.9 ABS# (0-10)
--- NOTE | 2023-03-25 13:49 | DCPLANNER ---
Addendum entered by Anjelica Johnson 04/26/23 07:10: automobile service station manager received the following message from centralized scheduling regarding follow up testing: Unable to contact patient Original Note: automobile service station manager had message to schedule an outpatient stress test for patient. automobile service station manager faxed signed order to centralized scheduling, who will call patient with appointment information.
== END 2023-03-23 09:25 | disposition home or self-care (01) ==
PROVIDERS: Emergency Provider Family Medicine; PCP Family Medicine
DX: R07.89 Other chest pain (principal); F41.0 Panic disorder [episodic paroxysmal anxiety]; K02.9 Dental caries, unspecified; I10 Essential (primary) hypertension; E78.5 Hyperlipidemia, unspecified
CPT/HCPCS: 71045; 80053; 81003; 84484; 85025; 93005; 99285

== ENCOUNTER 2023-05-31 11:55 | Emergency (ER) | payer MEDICARE, MEDICAID, SELFPAY ==
[2023-05-31] VITALS (7 sets, daily range): BP systolic 119–160; BP diastolic 58–105; PULSE 89–109; RESP 17–18; TEMP 36.6; O2SAT 91–98; BMI 27.1
[2023-05-31 12:33] LABS: Basophils % 0.2 %; Eosinophils % 0.1 %; Hematocrit 47.5 % (37-53); Lymphocytes # 0.5 10^3/uL (0.8-4.8); Lymphocytes % 2.4 %; Mean Corpuscular HGB Conc 33.5 g/dL (30-55); Mean Corpuscular Hemoglobin 29.8 pg (27-33); Mean Platelet Volume 9.1 fL (7.4-10.4); Monocytes # 1.1 10^3/uL (0.2-0.9); Monocytes % 5.6 %; Neutrophils # 18.01 10^3/uL (1.8-7.7); Nucleated Red Blood Cells % 0 %; Platelet Count 347 10^3/cmm (157-399); Red Blood Count 5.34 10^6/uL (3.85-5.65); Red Cell Distribution Width 13.1 % (12.1-15.1); White Blood Count 19.79 10^3/uL (3.29-11.43)
[2023-05-31 12:51] LABS: Add Urine Microscopic? YES; Bilirubin Urine Neg (Negative); Blood Urine 2+ (Negative); Glucose Urine UA Norm (Normal); Ketones Urine Negative (Negative); Leukocyte Esterase Urine 2+ (Negative); Nitrate Urine Positive (Negative); Protein Urine 1+ (Negative); Urine Appearance Cloudy (CLEAR); Urine Color Yellow (Yellow); Urobilinogen Urine 1 mg/dL (Negative); pH Urine 5 (5-7)
[2023-05-31 12:52] LABS: Add Urine Culture? Yes; Amorphous Sediment Urine 2+ /hpf; Bacteria Urine 4+ /hpf; Mucus Urine 4+ /hpf; Squamous Epithelial Cell Urine 0-4 /hpf (0-5); WBC Urine >100 /hpf (0-5)
[2023-05-31 12:57] LABS: Alanine Aminotransferase 19 U/L (0-41); Alkaline Phosphatase 99 U/L (40-130); Aspartate Amino Transferase 16 U/L (0-40); Blood Urea Nitrogen 19 mg/dL (8-23); Calcium 9.3 mg/dL (8.5-10.5); Carbon Dioxide 32 mmol/L (22-29); Chloride 94 mmol/L (98-107); Globulin 3.8 g/dL (1.3-4.6); Glomerular Filtration Rate 50.9 mL/min (90-130); Glucose 112 mg/dL (65-115); Lipase 11 U/L (13-60); Osmolality Calculated 285 mOsm/kg (285-295); Sodium 136 mmol/L (136-145); Total Bilirubin 0.6 mg/dL (0.15-1.2); Total Protein 7.8 g/dL (6.6-8.7)
--- NOTE | 2023-05-31 13:05 | US_ITS ---
WS: [id number] TESTICULAR ULTRASOUND HISTORY: L testicle pain COMPARISON: None available. TECHNIQUE: Real-time and color Doppler imaging or utilized to perform a testicular ultrasound. Right testicle: 4.8 cm x 3.1 cm x 2.2 cm. Normal size and echogenicity. No mass or torsion. Normal color Doppler is present throughout. Systolic and diastolic velocities are both present. Small to moderate complex RIGHT hydrocele. Right epididymis: Normal epididymis with no increased vascularity. Left testicle: 5.5 cm x 3.7 cm x 3.5 cm. Normal size and echogenicity. No mass or torsion. Normal color Doppler is present throughout. Systolic and diastolic velocities are both present. Moderate size complex hydrocele. LEFT hydrocele is larger than the RIGHT. Left epididymis: Markedly enlarged and heterogeneous and hypervascular epididymis. IMPRESSION: 1. Acute LEFT epididymitis. 2. No testicular mass or torsion. 3. Bilateral complex hydroceles, LEFT greater than RIGHT.
--- NOTE | 2023-05-31 13:05 | CT_ITS ---
WS: [id number] CT ABDOMEN AND PELVIS NONCONTRAST HISTORY: LLQ/flank pain TECHNIQUE: Imaging performed through the abdomen and pelvis. Coronal and sagittal reformats are submi tted. All CT scans at [facility] use at least one of these dose optimization techniques: auto mated exposure control; mA and/or kV adjustment per patient size (includes targeted exams where dose is matched to clinical indication); or iterative reconstruction. DLP: 931.68 mGy.cm COMPARISON: 05/25/2021 Lower thorax: Benign calcified granuloma RIGHT lower lobe. Mild cardiomegaly. Small hiatal hernia. Liver: Normal size liver. Too small to characterize hypodensity in the RIGHT lobe. No bile duct dilat ation. Gallbladder: Normal gallbladder. No pericholecystic fluid or cholelithiasis. No gallbladder wall thic kening. Pancreas: Diffuse fatty replacement. Spleen: Normal. Adrenal glands: Normal. No mass. Right kidney: Normal size kidney with no mass or hydronephrosis. Left kidney: Mild perinephric stranding. There is no obstruction. Normal size LEFT ureter. Nonobstruc ting calcification in the lower pole measures 5 mm. Aorta: Minimal atherosclerosis. No aneurysm. No free fluid, intraperitoneal air or significant lymphadenopathy. GI tract: Mildly distended stomach with fluid. No small bowel obstruction. Normal appendix. Mild feca l retention. Very mild sigmoid diverticulosis. No acute diverticulitis. Abdominal wall: Negative. No hernia. Pelvis: Prostate gland is mildly enlarged and heterogeneous encroaching into the urinary bladder. No calcifications in the bladder wall. No soft tissue thickening. There is a well-circumscribed soft tis anisha mass with slight increased attenuation as compared to the bladder. This mass is between the urina ry bladder and the symphysis pubis. There may be a tract connecting to the soft tissue at the symphys is pubis. This is probably degenerative cartilaginous cyst. Bilateral inguinal canals are patent cont aining fat only. Osseous structures: Advanced degenerative changes at L3-4 and L4-5. No fractures within the lumbar sp ine. IMPRESSION: 1. No renal obstruction. 2. Mild sigmoid diverticular disease without acute diverticulitis. 3. Patent inguinal canals contain fat only. 4. Mildly enlarged prostate gland. 5. Fatty replacement of the pancreas.
[2023-05-31 13:06] LABS: Anion Gap 13.3 (5-19); Potassium 3.3 mmol/L (3.5-5.1)
--- NOTE | 2023-05-31 13:15 | W.ED.MALEGU ---
HPI - Male Genitourinary General: Chief complaint: Urogenital-Male Stated complaint: kidney pain Time Seen by Provider: 05/31/23 12:51 Source: patient Mode of arrival: ambulatory Limitations: no limitations History of Present Illness: Patient presents to the emergency department today for evaluation treatment of left lower quadrant pain, left testicular pain, and left flank pain. Patient states that he has a history of chronic prostatitis about 5 years ago. Chart review shows no recent issues with prostatitis however, patient also indicates a history of kidney stones requiring lithotripsy. Patient has a history of diverticulosis without previous diagnosis of diverticulitis. Patient reports that about 3 to 4 days ago he began having abdominal pains which have now worsened primarily on the left lower quadrant and left flank region. He also states his testicle is extremely sore and swollen. He denies vomiting but is chilling. He has not checked a fever at home as he does not have a thermometer. It does appear that the patient has been diagnosed with pyelonephritis in the past and offered inpatient admission and treatment but has declined. He has taken oral medication for pyelonephritis in the past. Review of Systems General: Reports: 10 or more systems reviewed and unremarkable except in HPI and below PFSH ED PFSH: Medical History Diverticula of colon Essential hypertension Generalized anxiety disorder Gout, unspecified Hyperlipidemia Panic disorder [episodic paroxysmal anxiety] Psychiatric care Slow transit constipation Surgical History History of basal cell cancer Left face and nose History of renal stent Family History Other Cancer Diabetes Hypertension Stroke Social History Smoking and tobacco status: never smoked Second hand smoke exposure: No Smoking risk assessment/counseling performed?: No Alcohol intake: never Desire information about alcohol rehabilitation?: No Counseling given: No Substance/Drug Use: never Desire information about substance/drug rehabilitation?: No Counseling given: No Adopted: No Caregiver/support person: No Lives independently: Yes Household members: spouse Housing: House Marital status: Number of children: 4 service: No Current occupational status: disabled Do you think of yourself as: Straight/Heterosexual Current gender identity: Male Physical Exam Const: COMMON NORMALS: patient oriented x3 and alert OTHER: Patient is laying in the bed underneath multiple blankets. He has his head covered with his jacket. HENMT: COMMON NORMALS: normocephalic, atraumatic, hearing grossly normal bilaterally and moist oral mucous membranes HEAD & SCALP: normocephalic and atraumatic Eye: COMMON NORMALS: Equal, round and reactive pupils present, EOMs intact bilaterally and conjunctivae normal CONJUNCTIVA: Yes conjunctivae normal PUPIL: Yes Equal, round and reactive pupils present Neck/C-Spine: COMMON NORMALS: full ROM and no JVD Lymph: LYMPHATIC: no lymphadenopathy noted Resp: COMMON NORMALS: normal respiratory effort, No retractions, No use of accessory muscles and clear to auscultation bilaterally AUSCULTATION: clear to auscultation bilaterally Cardio: COMMON NORMALS: no JVD, regular rate and regular rhythm RATE: regular rate RHYTHM: regular rhythm GI: OTHER: Patient is tender in the left abdominal region on examination. Abdomen is still soft. Diminished or absent bowel sounds throughout. : COMMON NORMALS: Yes no CVA tenderness BLADDER/KIDNEY EXAM: Yes no CVA tenderness Back/Pelvis: COMMON NORMALS: no CVA tenderness, no thoracic nor lumbar tenderness and thoraco-lumbar ROM normal Extremity: COMMON NORMALS: normal to inspection, full ROM and capillary refill normal Neuro: COMMON NORMALS: patient oriented x3 SENSORIUM/ORIENTATION: Yes alert Psych: COMMON NORMALS: mental status grossly normal, Normal thought process present, cooperative, normal affect and activity/motor behavior normal THOUGHT PROCESS: Normal thought process present Skin: COMMON NORMALS: no rashes or lesions noted and no wounds GENERAL SKIN EXAM: no rashes or lesions noted Course Vital Signs: Vital signs: Vital Signs Temperature 97.9 F 05/31/23 12:18 Pulse Rate 107 H 05/31/23 15:27 Respiratory Rate 18 05/31/23 13:48 Blood Pressure 139/79 05/31/23 15:27 Pulse Oximetry 96 05/31/23 15:27 Oxygen Delivery Me thod Room Air 05/31/23 14:30 MDM - Male Medical Decision Making Patient's work-up today does show signs of an elevated white blood cell count and WANG. Patient was given fluids. Imaging shows concerns for bilateral hydrocele with left worse than right. Patient also has signs of a left-sided epididymitis. CT examination confirms enlarged prostate and hydronephrosis. Given the amount of bacteria in the patient's urine we will treat for urinary tract infection with coverage for both pyelonephritis, epididymitis, and prostatitis. Patient was given a gram of Rocephin here in the emergency department and ciprofloxacin at discharge. Patient received morphine which he indicated did help with his pain but was requesting more before discharge. Patient is driving himself home so a written prescription was provided. Patient tolerates [place] at home so we discussed 1 to 2 tablets for pain over the next day or 2 every 8 hours if needed. Patient was given strict return precautions through the weekend for any vomiting, fever, or change or worsening in pain or, signs of urinary retention. Otherwise, patient needs to see his primary care doctor next week for a recheck of his urine. Urine culture is still pending but, will initiate treatment with eric quinolone at this time and can alter antibiotic therapy if sensitivities indicate. Patient verbalizes understanding and agreement to the treatment plan. Differential Diagnosis Likely urinary tract infection, epididymitis and prostatitis; Unlikely urethritis, acute retention of urine or inguinal hernia Lab Data 05/31/23 12:25 05/31/23 12:25 Laboratory Results WBC 19.79 10^3/uL (3.29-11.43) H 05/31/23 12:25 RBC 5.34 10^6/uL (3.85-5.65) 05/31/23 12:25 Hgb 15.90 g/dL (11.27-16.99) 05/31/23 12:25 Hct 47.5 % (37-53) 05/31/23 12:25 MCV 89.0 fl (82-101) 05/31/23 12:25 MCH 29.8 pg (27-33) 05/31/23 12:25 MCHC 33.5 g/dL (30-55) 05/31/23 12:25 RDW 13.1 % (12.1-15.1) 05/31/23 12:25 Plt Count 347 10^3/cmm (157-399) 05/31/23 12:25 MPV 9.1 fL (7.4-10.4) 05/31/23 12:25 Neut % (Auto) 91.0 % 05/31/23 12:25 Lymph % (Auto) 2.4 % 05/31/23 12:25 [place] % (Auto) 5.6 % 05/31/23 12:25 Eos % (Auto) 0.1 % 05/31/23 12:25 Baso % (Auto) 0.2 % 05/31/23 12:25 Neut # (Auto) 18.01 10^3/uL (1.8-7.7) H 05/31/23 12:25 Lymph # (Auto) 0.5 10^3/uL (0.8-4.8) L 05/31/23 12:25 [place] # (Auto) 1.1 10^3/uL (0.2-0.9) H 05/31/23 12:25 Eos # (Auto) 0.0 10^3/uL (0.0-0.8) 05/31/23 12:25 Baso # (Auto) 0.0 10^3/uL (0.0-0.1) 05/31/23 12:25 Nucleated RBC % (auto) 0 % 05/31/23 12:25 Nucleated RBCs # 0.0 /100WBC 05/31/23 12:25 Sodium 136 mmol/L (136-145) 05/31/23 12:25 Potassium 3.3 mmol/L (3.5-5.1) L 05/31/23 12:25 Chloride 94 mmol/L (98-107) L 05/31/23 12:25 Carbon Dioxide 32 mmol/L (22-29) H 05/31/23 12:25 Anion Gap 13.3 (5-19) 05/31/23 12:25 BUN 19 mg/dL (8-23) 05/31/23 12:25 Creatinine 1.4 mg/dL (0.7-1.2) H 05/31/23 12:25 GFR Calculation 50.9 mL/min (90-130) L 05/31/23 12:25 Glucose 112 mg/dL (65-115) 05/31/23 12:25 Calculated Osmolality 285 mOsm/kg (285-295) 05/31/23 12:25 Lactic Acid 1.6 mmol/L (0.5-2.2) 05/31/23 12:25 Calcium 9.3 mg/dL (8.5-10.5) 05/31/23 12:25 Total Bilirubin 0.6 mg/dL (0.15-1.2) 05/31/23 12:25 AST 16 U/L (0-40) 05/31/23 12:25 ALT 19 U/L (0-41) 05/31/23 12:25 Alkaline Phosphatase 99 U/L (40-130) 05/31/23 12:25 Total Protein 7.8 g/dL (6.6-8.7) 05/31/23 12: Albumin 4.0 g/dL (3.5-5.2) 05/31/23 12: Globulin 3.8 g/dL (1.3-4.6) 05/31/23 12: Lipase 11 U/L (13-60) L 05/31/23 12: Procalcitonin 0.34 ng/mL (0-0.5) 05/31/23 12:25 Urine Color Yellow (Yellow) 05/31/23 12:32 Urine Appearance Cloudy (CLEAR) A 05/31/23 12:32 Urine pH 5 (5-7) 05/31/23 12:32 Ur Specific [place] 1.010 (1.005-1.030) 05/31/23 12:32 Urine Protein 1+ (Negative) H 05/31/23 12:32 Urine Glucose (UA) Norm (Normal) 05/31/23 12:32 Urine Ketones Negative (Negative) 05/31/23 12:32 Urine Blood 2+ (Negative) H 05/31/23 12:32 Urine Nitrate Positive (Negative) H 05/31/23 12:32 Urine Bilirubin Neg (Negative) 05/31/23 12:32 Urine Urobilinogen 1 mg/dL (Negative) H 05/31/23 12:32 Ur Leukocyte Esterase 2+ (Negative) H 05/31/23 12:32 Urine RBC 10-15 /hpf (0-2) H 05/31/23 12:32 Urine WBC >100 /hpf (0-5) H 05/31/23 12:32 Ur Squamous Epith Cells 0-4 /hpf (0-5) H 05/31/23 12:32 Amorphous Sediment 2+ /hpf 05/31/23 12:32 Urine Bacteria 4+ /hpf (NONE) H 05/31/23 12:32 Urine Mucus 4+ /hpf 05/31/23 12:32 All radiology interpretation(s) finalized by discharge Discharge Plan Discharge Patient Disposition: Home Clinical Impression: Pyelonephritis of left kidney, BPH (benign prostatic hyperplasia), Urinary tract infection, Epididymitis Condition: Stable Prescriptions: New ciprofloxacin HCl 500 mg tablet 500 mg PO Q12H Qty: 14 0RF No Action psyllium husk [Metamucil] 0.4 gram capsule 0.4 g PO BID Qty: 60 2RF allopurinol 300 mg tablet 300 mg PO DAILY Qty: 30 2RF diclofenac sodium [Voltaren Arthritis Pain] 1 % gel 2 g topical QID Qty: 100 1RF Rx Instructions: apply to inside and outside of elbow lorazepam 1 mg tablet 1 mg PO TID PRN (Reason: anxiety) Qty: 90 1RF Paxil 20 mg tablet 20 mg PO BEDTIME Qty: 30 2RF Praluent Pen 150 mg/mL pen injector 150 mg SUBCUT Q14D Qty: 2 2RF hydrochlorothiazide 25 mg tablet 25 mg PO DAILY Qty: 30 11RF Farxiga 10 mg tablet 10 mg PO QAM Qty: 30 11RF lisinopril 30 mg tablet 30 mg PO .at bedtime Qty: 30 11RF tamsulosin [Flomax] 0.4 mg capsule 0.4 mg PO .at bedtime Qty: 30 11RF rosuvastatin 40 mg tablet 40 mg PO .at bedtime Qty: 30 11RF hydrocodone-acetaminophen 5-325 mg tablet 1 tab PO TID PRN (Reason: Pain) ibuprofen 200 mg Tablet 200 mg PO Q6H PRN (Reason: Pain) hydrocortisone [Anusol-HC] 2.5 % cream with perineal applicator 1 applic ME QID 10 Days Qty: 30 1RF Rx Instructions: May repeat for another 10 days if no resolution Discharge Orders: Discharge ED (Routine); Ordered 05/31/23 Ordered By: Nani Barcenas Referrals: Rohith Solis DO [Primary Care Provider] - Discharge Diet: Usual diet Discharge Activity: Increase activity as tolerated Patient Instructions: Epididymitis (ED), Hydrocele (ED), Urinary Tract Infection in Men (ED), Pyelonephritis Activity Restrictions/Additional Instructions: Evaluation today does show you are fighting a couple different types of infection all related to your urinary tract. You do have signs of inflammation and kidney infection on the left side also affecting your bladder. You have inflammation of your epididymis on the left side as well as again, noted swelling of your prostate. You have bilateral hydroceles in your scrotum but, the left side is larger than the right. We provided you a dose of IV antibiotics here in the emergency department as well as some fluids. Continue to stay hydrated. You are receiving a short course of [place]. This is to allow you to take 1-2 tabs every 8 hours as needed for any acute pain over the next couple of days. However, please be aware of the enhanced sedating side effects and possibility for dizziness, drowsiness, etc. Do not drive while on this medication. I am providing you antibiotics to continue at home for continued treatment. Please see your primary care doctor at the beginning of next week for general recheck and for repeat urinalysis to make sure signs and symptoms of infection are either significantly improved or resolved. However, if through the weekend you develop high fever, profuse vomiting without ability to tolerate fluids or your medication or, inability to urinate you need to be seen and reevaluated back here in the emergency department. Coding Level of Care Code ED Metal Numerical Tool Programmer for Nancy Lundberg
[2023-05-31 13:30] LABS: Lactic Sepsis W/Reflex 1.6 mmol/L (0.5-2.2)
[2023-05-31 13:37] LABS: Procalcitonin 0.34 ng/mL (0-0.5)
[2023-05-31] MEDS: sodium chloride 0.9% 1,000 ML 999 ML IV (13:48)
[2023-05-31] MEDS: morphine 4 mg/mL SDV 1 mL IVP (13:48)
[2023-05-31] MEDS: metoclopramide 5 mg/mL SDV 2 mL 10 MG IVP (13:49)
[2023-05-31] MEDS: cefTRIAXone 1,000 MG in sodium chloride 0.9% (plus) 50 ML 100 MG IV (13:49)
== END 2023-05-31 15:35 | disposition home or self-care (01) ==
PROVIDERS: Emergency Medicine; Emergency Provider Physician Assistant; PCP Family Medicine
DX: N12 Tubulo-interstitial nephritis, not specified as acute or chronic (principal); N40.0 Benign prostatic hyperplasia without lower urinary tract symptoms; N39.0 Urinary tract infection, site not specified; N45.1 Epididymitis; I10 Essential (primary) hypertension; E78.5 Hyperlipidemia, unspecified
CPT/HCPCS: 36415; 74176; 76870; 80053; 81001; 83605; 83690; 84145; 85025; 87040; 87077; 87086; 87186; 96365; 96375; 99285; J0696; J2270; J2765; J7030

== ENCOUNTER → 2023-06-18 13:17 | Outpatient (BNVA) | payer MEDICARE, MEDICAID, SELFPAY | PROVIDERS: PCP Family Medicine; Visit Provider Family Medicine | DX: N41.9 Inflammatory disease of prostate, unspecified (principal); F43.21 Adjustment disorder with depressed mood; L98.9 Disorder of the skin and subcutaneous tissue, unspecified; B35.9 Dermatophytosis, unspecified | CPT/HCPCS: 80053; 85025 ==

== ENCOUNTER 2023-08-09 15:40 | Emergency (ER) | payer MEDICARE, MEDICAID, SELFPAY ==
[2023-08-09 16:05] VITALS: BP 128/85; PULSE 101; RESP 18; TEMP 36.8; O2SAT 98; BMI 29.4
--- NOTE | 2023-08-09 16:29 | XRR_ITS ---
PROCEDURE INFORMATION: Exam: XR Chest Exam date and time: 08/09/2023 4:51 PM Age: 68 years old Clinical indication: Shortness of breath; Patient HX: Cough; Fever x 2 day TECHNIQUE: Imaging protocol: Radiologic exam of the chest. Views: 1 view. COMPARISON: CR XR chest 1V portable [id number] 03/23/2023 6:16 AM FINDINGS: Lungs: Unremarkable. No consolidation. Pleural spaces: Unremarkable. No pleural effusion. No pneumothorax. Heart/Mediastinum: Unremarkable. No cardiomegaly. Bones/joints: Unremarkable. XR/XR chest 1V portable [id number] IMPRESSION: No acute findings.
[2023-08-09 17:38] LABS: Basophils % 0.6 %; Eosinophils # 0.1 10^3/uL (0.0-0.8); Eosinophils % 0.8 %; Hematocrit 47.3 % (37-53); Lymphocytes # 0.6 10^3/uL (0.8-4.8); Lymphocytes % 9.7 %; Mean Corpuscular HGB Conc 32.3 g/dL (30-55); Mean Corpuscular Hemoglobin 29.5 pg (27-33); Mean Corpuscular Volume 91.3 fl (82-101); Mean Platelet Volume 9.5 fL (7.4-10.4); Monocytes % 16.3 %; Neutrophils % 72.1 %; Nucleated Red Blood Cells % 0 %; Platelet Count 244 10^3/cmm (157-399); Red Blood Count 5.18 10^6/uL (3.85-5.65); Red Cell Distribution Width 13.5 % (12.1-15.1); White Blood Count 6.38 10^3/uL (3.29-11.43)
[2023-08-09 18:03] LABS: Alanine Aminotransferase 12 U/L (0-41); Albumin Level 4.1 g/dL (3.5-5.2); Alkaline Phosphatase 92 U/L (40-130); Anion Gap 12.6 (5-19); Aspartate Amino Transferase 12 U/L (0-40); Blood Urea Nitrogen 11 mg/dL (8-23); Calcium 9.2 mg/dL (8.5-10.5); Carbon Dioxide 26 mmol/L (22-29); Chloride 102 mmol/L (98-107); Globulin 3.5 g/dL (1.3-4.6); Glucose 94 mg/dL (65-115); Osmolality Calculated 283 mOsm/kg (285-295); Potassium 3.6 mmol/L (3.5-5.1); Sodium 137 mmol/L (136-145); Total Bilirubin 0.3 mg/dL (0.15-1.2); Total Protein 7.6 g/dL (6.6-8.7)
--- NOTE | 2023-08-09 18:18 | ED_ITS ---
HPI - General Adult General: Chief complaint: General Medical Stated complaint: reported congestion, fever aches and pains Time Seen by Provider: 08/09/23 18:18 History of Present Illness: 68-year-old male patient comes in today with nasal congestion and drainage and fever for the last 2 days. Patient appears unwell but not toxic. Respirations are even. Patient appears in no pain. Patient has a history of diabetes mellitus type 2, gout, hyperlipidemia, hypertension, mental health disorder. Associated symptoms: Deny chest pain, headache(s), nausea, rash or vomiting Review of Systems General: Reports: 10 or more systems reviewed and unremarkable except in HPI and below Const: Reports: fever(s) ENMT: Reports: nasal discharge and nasal congestion Card: Denies: chest pain Resp: Reports: non-productive cough GI: Denies: nausea, vomiting, diarrhea or constipation : Reports: urinary frequency Musc: Denies: neck pain or back pain Skin/Breast: Denies: rash Neuro: Denies: headache(s) PFSH ED PFSH: Medical History Diverticula of colon Essential hypertension Generalized anxiety disorder Gout, unspecified Hyperlipidemia Panic disorder [episodic paroxysmal anxiety] Psychiatric care Slow transit constipation Surgical History History of basal cell cancer Left face and nose History of renal stent Family History Other Cancer Diabetes Hypertension Stroke Social History Smoking and tobacco/nicotine status: never used tobacco/nicotine Second hand smoke exposure: No Alcohol intake: never Substance/Drug Use: never Adopted: No Caregiver/support person: No Lives independently: Yes Household members: spouse Housing: House Marital status: Number of children: 4 service: No Current occupational status: disabled Do you think of yourself as: Straight/Heterosexual Current gender identity: Male Physical Exam Const: COMMON NORMALS: alert HENMT: COMMON NORMALS: normocephalic HEAD & SCALP: normocephalic FACE & SINUS: no erythema NOSE: Nasal discharge present clear TYMPANIC MEMBRANE: TM abnormal TM laterality: bilateral erythematous MOUTH: Normal oral and palatal mucosa present THROAT: posterior oropharynx normal Neck/C-Spine: COMMON NORMALS: full ROM Resp: COMMON NORMALS: normal respiratory effort and clear to auscultation bi laterally AUSCULTATION: clear to auscultation bilaterally Cardio: COMMON NORMALS: regular rate and regular rhythm RATE: regular rate RHYTHM: regular rhythm GI: COMMON NORMALS: Soft to palpation and non-tender PALPATION: Yes Soft to palpation Extremity: COMMON NORMALS: normal to inspection Neuro: SENSORIUM/ORIENTATION: Yes alert Skin: COMMON NORMALS: turgor normal GENERAL SKIN EXAM: turgor normal Course Vital Signs: Vital signs: Vital Signs Temperature 98.2 F 08/09/23 16:05 Pulse Rate 101 H 08/09/23 16:05 Respiratory Rate 18 08/09/23 16:05 Blood Pressure 128/85 08/09/23 16:05 Pulse Oximetry 98 08/09/23 16:05 Oxygen Delivery Me thod Room Air 08/09/23 16:05 [facility] - General Adult Medical Decision Making 68-year-old male patient comes in for fever and cough and nasal congestion for 2 days. Patient appears nontoxic. Lungs are clear to auscultation. Abdomen soft nontender. Skin is warm and dry. Normal skin turgor. Vital signs are normal except for some mild elevation in pulse. Differential diagnosis includes not l imited to viral syndrome, upper respiratory infection, influenza, COVID-19. Chest x-ray was unremarkable. CBC and CMP were normal. Patient did test positive for COVID-19. Reviewed exam with patient with recommendations for treatment and follow-up. Urinalysis also showed leukocyte esterases and nitrates so we will treat with Keflex for urinary tract infection. Patient was also given 30 mg ketorolac IM for complaints of sciatica back pain. Patient appears stable and was released to home with prescription for urinary tract infection and instructions for treating COVID. Lab Data 08/09/23 17:24 08/09/23 17:24 Radiology Impressions Chest X-Ray 08/09/23 16:29 IMPRESSION: No acute findings. Laboratory Results WBC 6.38 10^3/uL (3.29-11.43) 08/09/23 17:24 RBC 5.18 10^6/uL (3.85-5.65) 08/09/23 17:24 Hgb 15.30 g/dL (11.27-16.99) 08/09/23 17: Hct 47.3 % (37-53) 08/09/23 17: MCV 91.3 fl (82-101) 08/09/23 17:24 MCH 29.5 pg (27-33) 08/09/23 17: MCHC 32.3 g/dL (30-55) 08/09/23 17: RDW 13.5 % (12.1-15.1) 08/09/23 17: Plt Count 244 10^3/cmm (157-399) 08/09/23 17: MPV 9.5 fL (7.4-10.4) 08/09/23 17: Neut % (Auto) 72.1 % 08/09/23 17: Lymph % (Auto) 9.7 % 08/09/23 17: [place] % (Auto) 16.3 % 08/09/23 17: Eos % (Auto) 0.8 % 08/09/23 17: Baso % (Auto) 0.6 % 08/09/23 17: Neut # (Auto) 4.60 10^3/uL (1.8-7.7) 08/09/23 17: Lymph # (Auto) 0.6 10^3/uL (0.8-4.8) L 08/09/23 17: [place] # (Auto) 1.0 10^3/uL (0.2-0.9) H 08/09/23: Eos # (Auto) 0.1 10^3/uL (0.0-0.8) 08/09/23 17:24 Baso # (Auto) 0.0 10^3/uL (0.0-0.1) 08/09/23 17: Nucleated RBC % (auto) 0 % 08/09/23: Nucleated RBCs # 0.0 /100WBC 08/09/23 17:24 Sodium 137 mmol/L (136-145) 08/09/23 17:24 Potassium 3.6 mmol/L (3.5-5.1) 08/09/23 17: Chloride 102 mmol/L (98-107) 08/09/23 17:24 Carbon Dioxide 26 mmol/L (22-29) 08/09/23 17:24 Anion Gap 12.6 (5-19) 08/09/23 17:24 BUN 11 mg/dL (8-23) 08/09/23 17:24 Creatinine 1.1 mg/dL (0.7-1.2) 08/09/23 17:24 GFR Calculation 67.0 mL/min (90-130) L 08/09/23 17:24 Glucose 94 mg/dL (65-115) 08/09/23 17:24 Calculated Osmolality 283 mOsm/kg (285-295) L 08/09/23 17:24 Calcium 9.2 mg/dL (8.5-10.5) 08/09/23 17:24 Total Bilirubin 0.3 mg/dL (0.15-1.2) 08/09/23 17:24 AST 12 U/L (0-40) 08/09/23 17:24 ALT 12 U/L (0-41) 08/09/23 17:24 Alkaline Phosphatase 92 U/L (40-130) 08/09/23 17:24 Total Protein 7.6 g/dL (6.6-8.7) 08/09/23 17:24 Albumin 4.1 g/dL (3.5-5.2) 08/09/23 17:24 Globulin 3.5 g/dL (1.3-4.6) 08/09/23 17:24 Urine Color Yellow (Yellow) 08/09/23 18:56 Urine Appearance Hazy (CLEAR) A 08/09/23 18:56 Urine pH 5 (5-7) 08/09/23 18:56 Ur Specific [place] 1.020 (1.005-1.030) 08/09/23 18:56 Urine Protein Trace (Negative) 08/09/23 18:56 Urine Glucose (UA) Norm (Normal) 08/09/23 18:56 Urine Ketones 1+ (Negative) H 08/09/23 18:56 Urine Blood 2+ (Negative) H 08/09/23 18:56 Urine Nitrate Positive (Negative) H 08/09/23 18:56 Urine Bilirubin Neg (Negative) 08/09/23 18:56 Urine Urobilinogen Neg mg/dL (Negative) 08/09/23 18:56 Ur Leukocyte Esterase 2+ (Negative) H 08/09/23 18:56 Amorphous Sediment Not Reportable 08/09/23 18:56 Influenza Type A Ag negative (Negative) 08/09/23 18:41 Influenza Type B Ag negative (Negative) 08/09/23 18:41 SARS-CoV-2 Ag (Rapid) positive (Negative) H 08/09/23 18:41 All radiology interpretation(s) finalized by discharge Discharge Plan Discharge Patient Disposition: Home Clinical Impression: COVID-19, Acute UTI Sciatic pain Qualifiers: Laterality: left Qualified Code(s): M54.32 - Sciatica, left side Condition: Stable Prescriptions: New cephalexin 500 mg capsule 500 mg PO Q8H 7 Days Qty: 21 0RF No Action psyllium husk [Metamucil] 0.4 gram capsule 0.4 g PO BID Qty: 60 2RF ciprofloxacin HCl 500 mg tablet 500 mg PO Q12H Qty: 28 0RF allopurinol 300 mg tablet 300 mg PO DAILY Qty: 30 2RF diclofenac sodium [Voltaren Arthritis Pain] 1 % gel 2 g topical QID Qty: 100 1RF Rx Instructions: apply to inside and outside of elbow aripiprazole [Abilify] 2 mg tablet 2 mg PO DAILY Qty: 30 1RF lorazepam 1 mg tablet 1 mg PO TID PRN (Reason: anxiety) Qty: 90 1RF paroxetine HCl [Paxil] 30 mg tablet 30 mg PO DAILY Qty: 30 2RF Praluent Pen 150 mg/mL pen injector 150 mg SUBCUT Q14D Qty: 2 2RF hydrochlorothiazide 25 mg tablet 25 mg PO DAILY Qty: 30 11RF Farxiga 10 mg tablet 10 mg PO QAM Qty: 30 11RF lisinopril 30 mg tablet 30 mg PO .at bedtime Qty: 30 11RF tamsulosin [Flomax] 0.4 mg capsule 0.4 mg PO .at bedtime Qty: 30 11RF rosuvastatin 40 mg tablet 40 mg PO .at bedtime Qty: 30 11RF potassium chloride 10 mEq capsule, extended release 10 meq PO DAILY Qty: 90 1RF hydrocodone-acetaminophen 5-325 mg tablet 1 tab PO TID PRN (Reason: Pain) ibuprofen 200 mg Tablet 200 mg PO Q6H PRN (Reason: Pain) hydrocortisone [Anusol-HC] 2.5 % cream with perineal applicator 1 applic [place] QID 10 Days Qty: 30 1RF Rx Instructions: May repeat for another 10 days if no resolution Discharge Orders: Discharge ED (Routine); Ordered 08/09/23 Ordered By: Negro Steele Referrals: Rohith Solis DO [Primary Care Provider] - Discharge Diet: Usual diet Discharge Activity: Increase activity as tolerated Patient Instructions: COVID-19 (Coronavirus Disease 2019) (ED) Activity Restrictions/Additional Instructions: Stay well-hydrated. Use acetaminophen and ibuprofen for pain and fever. Activity as tolerated. Follow-up with primary care in 3 to 5 days for recheck. Return to ED for worsening symptoms such as severe chest pain, increasing shortness of breath, or new concerns. Coding Level of Care Code ED Can Filling Machine Operator for Nancy Lundberg
[2023-08-09 19:14] LABS: Influenza A by IFA negative (Negative); Influenza B by IFA negative (Negative)
[2023-08-09 19:23] LABS: SARS Covid-2 Antigen positive (Negative)
[2023-08-09 19:31] LABS: Urine Appearance Hazy (CLEAR); Urine Color Yellow (Yellow); pH Urine 5 (5-7)
[2023-08-09 19:32] LABS: Add Urine Microscopic? YES; Bilirubin Urine Neg (Negative); Blood Urine 2+ (Negative); Glucose Urine UA Norm (Normal); Ketones Urine 1+ (Negative); Leukocyte Esterase Urine 2+ (Negative); Nitrate Urine Positive (Negative); Protein Urine Trace (Negative); Urobilinogen Urine Neg (Negative)
[2023-08-09] MEDS: ketorolac 30 mg/mL INJ IM (19:39)
[2023-08-09] MEDS: cephALEXin 500 mg Capsule PO (19:39)
[2023-08-09 19:42] VITALS: BP 144/98; RESP 18; O2SAT 96
[2023-08-09 19:42] LABS: Add Urine Culture? Yes; Bacteria Urine 3+ /hpf; RBC Urine 0-4 /hpf (0-2)
[2023-08-09 20:03] VITALS: PULSE 98; RESP 18; O2SAT 96
== END 2023-08-09 20:02 | disposition home or self-care (01) ==
PROVIDERS: Physician Assistant; Emergency Provider Nurse Practitioner Family; PCP Family Medicine
DX: U07.1 COVID-19 (principal); N39.0 Urinary tract infection, site not specified; M54.32 Sciatica, left side; I10 Essential (primary) hypertension; E78.5 Hyperlipidemia, unspecified
CPT/HCPCS: 36415; 71045; 80053; 81001; 85025; 87077; 87086; 87186; 87426; 87804; 96372; 99284; J1885

== ENCOUNTER 2023-08-21 09:56 | Emergency (ER) | payer MEDICARE, MEDICAID, SELFPAY ==
[2023-08-21 09:57] VITALS: BP 130/87; PULSE 79; RESP 18; TEMP 36.8; O2SAT 97; BMI 29.4
--- NOTE | 2023-08-21 10:04 | XR_ITS ---
WS: [id number] Left hip, 2 views, AP pelvis, 08/21/2023 Clinical Data: injury Comparison: Left hip, 10/06/2021 Findings: No fractures or dislocations are seen. The left hip shows no erosion, narrowing or cystic change. The re is minimal sclerosis of the acetabulum and a small acetabular lip. The right hip shows an acetabul ar lip and sclerosis. The soft tissues are not remarkable. The adjacent pelvis is normal. The lower lumbar vertebral bodies show osteoarthritis. Impression: Bilateral minimal osteoarthritis of the hips. [place] classification: grade 1: sclerosis of femoral head and acetabulum or slight joint space narrow ing or slight lipping at joint margins of both hips.
[2023-08-21 10:12] VITALS: RESP 21
[2023-08-21] MEDS: dexamethasone 10 mg/mL INJ IM (10:12)
[2023-08-21] MEDS: morphine 4 mg/mL SDV 1 mL IM (10:12)
[2023-08-21 10:16] VITALS: BP 130/87; PULSE 82; O2SAT 97
--- NOTE | 2023-08-21 10:23 | ED_ITS ---
HPI - Back Pain/Injury General: Chief Complaint: Back Pain/Injury Stated Complaint: Back Pain Time Seen by Provider: 08/21/23 10:00 Source: patient Mode of arrival: ambulatory Limitations: no limitations History of Present Illness: 68-year-old male has a history of chroni c back pain along with left hip pain states has been having some increased pain he supposed to see a spine surgeon Dr. Siegel states he sees pain clinic had injection last week. States this morning his pain did worsen with some pain shooting down his leg states when he stood up the pain got much worse and he did fall. Denies any mid back pain states all left hip rating down his leg denies any fevers. Associated symptoms: Deny abdominal pain, chills, dysuria, fever(s), nausea or vomiting Review of Systems Const: Denies: fever(s), chills, body aches or change in appetite ENMT: Denies: throat pain or dental pain Card: Denies: chest pain Resp: Denies: dyspnea GI: Denies: abdominal pain, nausea, vomiting or diarrhea : Denies: dysuria Musc: Reports: back pain; Denies: neck pain Skin/Breast: Denies: rash Neuro: Denies: headache(s) PFSH ED PFSH: Medical History Gout, unspecified Diverticula of colon Psychiatric care Slow transit constipation Hyperlipidemia Essential hypertension Generalized anxiety disorder Panic disorder [episodic paroxysmal anxiety] Surgical History History of basal cell cancer Left face and nose History of renal stent Family History Other Cancer Diabetes Hypertension Stroke Social History Smoking and tobacco/nicotine status: never used tobacco/nicotine Second hand smoke exposure: No Alcohol intake: never Substance/Drug Use: never Adopted: No Caregiver/support person: No Lives independently: Yes Household members: spouse Housing: House Marital status: Number of children: 4 service: No Current occupational status: disabled Do you think of yourself as: Straight/Heterosexual Current gender identity: Male Physical Exam Const: COMMON NORMALS: no acute distress, patient oriented x3 and healthy appearing HENMT: COMMON NORMALS: normocephalic and atraumatic HEAD & SCALP: normocephalic and atraumatic Neck/C-Spine: COMMON NORMALS: full ROM and supple Chest: COMMONS NORMALS: normal inspection of the chest Resp: COMMON NORMALS: normal respiratory effort Cardio: COMMON NORMALS: regular rate, regular rhythm and No murmurs present (Cardio) RATE: regular rate RHYTHM: regular rhythm GI: COMMON NORMALS: Normal to inspection, nondistended, normoactive bowel sounds present, Soft to palpation, non-tender and no masses PALPATION: Yes Soft to palpation Back/Pelvis: OTHER: No midline tenderness tenderness to left lower back and hip 5 out of 5 strength in the left leg no saddle anesthesia Extremity: COMMON NORMALS: normal to inspection and full ROM Neuro: COMMON NORMALS: patient oriented x3, moves all extremities and no focal motor deficits Psych: COMMON NORMALS: mental status grossly normal, Normal thought process present and cooperative THOUGHT PROCESS: Normal thought process present Skin: COMMON NORMALS: no rashes or lesions noted and no wounds GENERAL SKIN EXAM: no rashes or lesions noted Course Vital Signs: Vital signs: Vital Signs Temperature 98.3 F 08/21/23 09:57 Pulse Rate 71 08/21/23 11:28 Respiratory Rate 21 H 08/21/23 10:12 Blood Pressure 163/100 08/21/23 11:28 Pulse Oximetry 94 08/21/23 11:28 Oxygen Delivery Me thod Room Air 08/21/23 11:06 MDM - Back Pain/Injury Medical Decision Making Patient presents with back pain along with sciatica it is chronic in nature his pain is much improved here after meds he is able to ambulate we will get him follow-up with Dr. Siegel we will place him on steroids he is to follow-up with his PCP and return if worsening. Medical Records I reviewed the patient's medical records. All radiology interpretation(s) finalized by discharge Discharge Plan Discharge Patient Disposition: Home Clinical Impression: Low back pain Qualifiers: Chronicity: chronic Back pain laterality: left Sciatica presence: with sciatica Sciatica laterality: sciatica of left side Qualified Code(s): M54.42 - Lumbago with sciatica, left side Condition: Stable Prescriptions: New prednisone 50 mg tablet 50 mg PO DAILY Qty: 5 0RF No Action allopurinol 300 mg tablet 300 mg PO DAILY Qty: 30 2RF diclofenac sodium [Voltaren Arthritis Pain] 1 % gel 2 g topical QID Qty: 100 1RF Rx Instructions: apply to inside and outside of elbow aripiprazole [Abilify] 2 mg tablet 2 mg PO DAILY Qty: 30 1RF lorazepam 1 mg tablet 1 mg PO TID PRN (Reason: anxiety) Qty: 90 1RF paroxetine HCl [Paxil] 30 mg tablet 30 mg PO DAILY Qty: 30 2RF hydrochlorothiazide 25 mg tablet 25 mg PO DAILY Qty: 30 11RF hydrocodone-acetaminophen 5-325 mg tablet 1 tab PO TID PRN (Reason: Pain) ibuprofen 200 mg Tablet 400 mg PO Q6H PRN (Reason: Pain) cephalexin 500 mg capsule 500 mg PO Q8H potassium chloride 10 mEq capsule, extended release 10 meq PO DAILY Flomax 0.4 mg capsule 0.4 mg PO BEDTIME lisinopril 30 mg tablet 30 mg PO BEDTIME rosuvastatin 40 mg tablet 40 mg PO BEDTIME hydrocortisone [Anusol-HC] 2.5 % cream with perineal applicator 1 applic SC QID 10 Days Qty: 30 1RF Rx Instructions: May repeat for another 10 days if no resolution Discharge Orders: Discharge ED (Routine); Ordered 08/21/23 Ordered By: Scarlet Azar Referrals: Roger Siegel DO [Physician] - 1-3 days Rohith Solis DO [Primary Care Provider] - Discharge Diet: Advance as tolerated Discharge Activity: Resume usual activity Patient Instructions: Back Pain (ED) Coding Level of Care Code ED [employer] Machine for Nancy Lundberg
[2023-08-21 10:36] VITALS: BP 138/89; PULSE 71; O2SAT 96
[2023-08-21 11:06] VITALS: BP 167/100; PULSE 84; O2SAT 91
--- NOTE | 2023-08-21 11:23 | DCPLANNER ---
Message sent to Ortho/ Christal for follow up appt for back pain.
[2023-08-21 11:28] VITALS: BP 163/100; PULSE 71; O2SAT 94
== END 2023-08-21 11:30 | disposition home or self-care (01) ==
PROVIDERS: Emergency Provider Emergency Medicine; PCP Family Medicine
DX: M54.42 Lumbago with sciatica, left side (principal); E78.5 Hyperlipidemia, unspecified; I10 Essential (primary) hypertension
CPT/HCPCS: 73502; 96372; 99284; J1100; J2270

== ENCOUNTER 2023-08-29 14:25 | Emergency (ER) | payer MEDICARE, MEDICAID, SELFPAY ==
[2023-08-29 14:34] VITALS: BP 153/83; PULSE 101; RESP 16; TEMP 36.8; O2SAT 97; BMI 28.2
--- NOTE | 2023-08-29 14:44 | ED_ITS ---
HPI - Back Pain/Injury General: Chief Complaint: Back Pain/Injury Stated Complaint: back pain Time Seen by Provider: 08/29/23 14:43 History of Present Illness: 68-year-old male patient comes in today for complaints of low back pain with sciatica. Patient reports that he has increased pain and numbness down the left leg but has had some discomfort in his right leg now. Patient reports no loss of bowel or bladder control. Patient does have an appointment with Dr. Siegel's office in 1 week. Patient had worsening pain today that his usual medication did not improve. Patient reports no fever or chills. Patient appears nontoxic. Patient appears in mild to moderate pain. Associated symptoms: Reports difficulty walking; Deny fever(s), nausea or vomiting Review of Systems General: Reports: 10 or more systems reviewed and unremarkable except in HPI and below Const: Denies: fever(s) ENMT: Denies: throat pain Card: Denies: chest pain Resp: Denies: dyspnea GI: Denies: nausea, vomiting, diarrhea or constipation : Denies: difficulty urinating Musc: Reports: back pain Skin/Breast: Denies: rash Neuro: Reports: difficulty walking [facility] ED PFSH: Medical History Gout, unspecified Diverticula of colon Psychiatric care Slow transit constipation Hyperlipidemia Essential hypertension Generalized anxiety disorder Panic disorder [episodic paroxysmal anxiety] Surgical History History of basal cell cancer Left face and nose History of renal stent Family History Other Cancer Diabetes Hypertension Stroke Social History Smoking and tobacco/nicotine status: never used tobacco/nicotine Second hand smoke exposure: No Alcohol intake: never Substance/Drug Use: never Adopted: No Caregiver/support person: No Lives independently: Yes Household members: spouse Housing: House Marital status: Number of children: 4 service: No Current occupational status: disabled Do you think of yourself as: Straight/Heterosexual Current gender identity: Male Physical Exam Const: COMMON NORMALS: alert HENMT: COMMON NORMALS: normocephalic HEAD & SCALP: normocephalic THROAT: posterior oropharynx normal Neck/C-Spine: COMMON NORMALS: full ROM Resp: COMMON NORMALS: normal respiratory effort and clear to auscultation bilaterally AUSCULTATION: clear to auscultation bilaterally GI: COMMON NORMALS: Soft to palpation PALPATION: Yes Soft to palpation : COMMON NORMALS: Yes no CVA tenderness BLADDER/KIDNEY EXAM: Yes no CVA tenderness Back/Pelvis: COMMON NORMALS: no CVA tenderness THORACIC SPINE/UPPER BACK: Yes paraspinal muscle tenderness LUMBAR SPINE/LOWER BACK: Yes lumbar spinal tenderness Lumbar spinal tenderness location: L3 and L4 and Yes paraspinal muscle tenderness Extremity: COMMON NORMALS: normal to inspection Neuro: SENSORIUM/ORIENTATION: Yes alert Skin: COMMON NORMALS: turgor normal GENERAL SKIN EXAM: turgor normal Course Vital Signs: Vital signs: Vital Signs Temperature 98.2 F 08/29/23 14:34 Pulse Rate 101 H 08/29/23 14:34 Respiratory Rate 16 08/29/23 15:02 Blood Pressure 153/83 08/29/23 14:34 Pulse Oximetry 97 08/29/23 14:34 Oxygen Delivery Me thod Room Air 08/29/23 14:34 MDM - Back Pain/Injury Medical Decision Making 68-year-old male patient comes in today with complaints of worsening sciatica pain. Patient appears nontoxic. Patient has muscle tenderness in his lumbar spine. Patient appears in mild to moderate pain. Vital signs are normal. Differential diagnosis includes but not limited to intervertebral disc disease, facet arthropathy, lumbar strain, sciatica. No loss of bowel or bladder control is noted. Patient was given an injection of 4 mg of morphine and 30 mg of Toradol with improvement of pain and discomfort. I attempted to reach out to Dr. Siegel but he was out of town at this time. His office did call the patient and move patient's scheduled appointment up till Saturday. Patient did report some improvement with his pain when he was taking the prednisone 50 mg daily for 5 days. Patient had last taken the medicine 2 days ago. We will start the medication for the next 7 days. Patient will continue otherwise with normal plan of care. Reviewed prior MRI report and prior records for assessment. No radiology studies performed this visit Discharge Plan Discharge Patient Disposition: Home Clinical Impression: Sciatica Qualifiers: Laterality: bilateral Qualified Code(s): M54.31 - Sciatica, right side Condition: Stable Prescriptions: Continued prednisone 50 mg tablet 50 mg PO DAILY Qty: 7 0RF No Action allopurinol 300 mg tablet 300 mg PO DAILY Qty: 30 2RF diclofenac sodium [Voltaren Arthritis Pain] 1 % gel 2 g topical QID Qty: 100 1RF Rx Instructions: apply to inside and outside of elbow aripiprazole [Abilify] 2 mg tablet 2 mg PO DAILY Qty: 30 1RF lorazepam 1 mg tablet 1 mg PO TID PRN (Reason: anxiety) Qty: 90 1RF paroxetine HCl [Paxil] 30 mg tablet 30 mg PO DAILY Qty: 30 2RF hydrochlorothiazide 25 mg tablet 25 mg PO DAILY Qty: 30 11RF hydrocodone-acetaminophen 5-325 mg tablet 1 tab PO TID PRN (Reason: Pain) ibuprofen 200 mg Tablet 400 mg PO Q6H PRN (Reason: Pain) cephalexin 500 mg capsule 500 mg PO Q8H potassium chloride 10 mEq capsule, extended release 10 meq PO DAILY Flomax 0.4 mg capsule 0.4 mg PO BEDTIME lisinopril 30 mg tablet 30 mg PO BEDTIME rosuvastatin 40 mg tablet 40 mg PO BEDTIME hydrocortisone [Anusol-HC] 2.5 % cream with perineal applicator 1 applic RI QID 10 Days Qty: 30 1RF Rx Instructions: May repeat for another 10 days if no resolution Discharge Orders: Discharge ED (Routine); Ordered 08/29/23 Ordered By: Negro Steele Referrals: Rohith Solis DO [Primary Care Provider] - Discharge Diet: Usual diet Discharge Activity: Increase activity as tolerated Patient Instructions: Pain Management Activity Restrictions/Additional Instructions: Continue with routine care. Take prednisone 50 mg daily keep appointment for follow-up on Saturday with Dr. Siegel. Return to ER for worsening symptoms such as high fever greater than 100.4, loss of bowel or bladder control, or new concerns. Coding Level of Care Code ED System Administration Advisor for Nancy Lundberg
[2023-08-29] MEDS: ketorolac 30 mg/mL INJ IM (15:01)
[2023-08-29 15:02] VITALS: RESP 16
[2023-08-29] MEDS: morphine 4 mg/mL SDV 1 mL IM (15:02)
== END 2023-08-29 16:12 | disposition home or self-care (01) ==
PROVIDERS: Emergency Provider Nurse Practitioner Family; PCP Family Medicine
DX: M54.31 Sciatica, right side (principal); E78.5 Hyperlipidemia, unspecified; I10 Essential (primary) hypertension
CPT/HCPCS: 96372; 99284; J1885; J2270

== ENCOUNTER → 2023-09-03 10:38 | Outpatient (BNVA) | payer MEDICARE, MEDICAID, SELFPAY | PROVIDERS: PCP Family Medicine; Visit Provider Physician Assistant | DX: M51.36 Other intervertebral disc degeneration, lumbar region; M48.062 Spinal stenosis, lumbar region with neurogenic claudication; M51.26 Other intervertebral disc displacement, lumbar region; Z01.818 Encounter for other preprocedural examination | CPT/HCPCS: 72100; 99203 ==

== ENCOUNTER → 2023-11-07 10:24 | Outpatient (BNVA) | payer MEDICARE, MEDICAID, SELFPAY | PROVIDERS: PCP Family Medicine; Visit Provider Family Medicine | DX: Z01.818 Encounter for other preprocedural examination (principal) | CPT/HCPCS: 80053; 81003; 85025 ==

== ENCOUNTER → 2023-11-08 13:15 | Outpatient (BNVA) | payer MEDICARE, MEDICAID, SELFPAY | PROVIDERS: PCP Family Medicine; Visit Provider Family Medicine | DX: Z01.818 Encounter for other preprocedural examination (principal); R30.0 Dysuria; N39.0 Urinary tract infection, site not specified | CPT/HCPCS: 87077; 87086; 87184 ==

== ENCOUNTER → 2023-11-13 11:34 | Outpatient (BNVA) | payer MEDICARE, MEDICAID, SELFPAY | PROVIDERS: PCP Family Medicine; Visit Provider Orthopaedic Surgery | DX: N39.0 Urinary tract infection, site not specified (principal) | CPT/HCPCS: 81000 ==

== ENCOUNTER 2023-11-14 12:46 | Inpatient (IN) | payer MEDICARE, MEDICAID, SELFPAY ==
[2023-11-14] VITALS (13 sets, daily range): BP systolic 127–172; BP diastolic 83–106; PULSE 77–105; RESP 16–18; TEMP 36.1–36.6; O2SAT 93–100; BMI 29.8; BMI 30.9
[2023-11-14] MEDS: methadone 10 mg Tablet PO (08:44)
[2023-11-14] MEDS: sodium chloride 0.9% 1,000 ML 30 ML IV (08:46)
--- NOTE | 2023-11-14 08:57 | XR_ITS ---
WS: [id number] Exam: XR lumbar spine 2-3V* [id number] Date/Time of Exam: 11/14/2023 10:54 AM Reason For Exam: OR pic, fusion. Intraoperative AP and lateral images of the lumbar spine are submitted. Images were obtained for intraoperative purposes and not intended for primary diagnosis.
--- NOTE | 2023-11-14 09:38 | P.ANESASSM_ITS ---
Pre-Anesthetic Assessment Height/Weight: Height 1.83 m Weight 99.79 kg Temp Pulse Resp BP Pulse Ox O2 Del Method 97.9 F 77 18 172/102 99 Room Air 11/14/23 08:35 11/14/23 08:35 11/14/23 08:35 11/14/23 08:35 11/14/23 08:35 11/14/23 08:38 Preop Diagnosis: Lumbar stenosis with neurogenic claudication Operation Date: 11/14/23 09:50 Proposed Procedures p Lumbar Spine Decompression Lumbar Decompression(Not Applicable) - Roger Siegel DO s Posterior Lumbar Interbody Fusion PLIF(Not Applicable) - DO faraz Phipps Spinal Fusion PSF(Not Applicable) - DO faraz Phipps Lumbopelvic Fixation(Not Applicable) - Roger Siegel DO Familial anesthetic complications: none Was Beta Reina taken within 24 hours: N/A Was Clonidine taken within 24 hours: N/A Last intake: Intake Last Liquid Date 11/13/23 Last Liquid Time 22:00 Last Solid Date 11/13/23 Last Solid Time 22:00 Social No alcohol and No tobacco Exam alert, oriented x 3, clear to auscultation bilaterally and regular rate & rhythm Airway Submandibular: within normal limits Cervical ROM: within normal limits Mallampati: Class II Dentition: chipped and loose Comments: Comments: Very poor dentition CV/HEM Hypertension Chronic Renal Insufficiency Metabolic Hyperlipidemia and Morbid Obesity [facility] [place] Lower Back Pain and Osteoarthritis/DJD Neuropsych Anxiety and Depression Anesthetic Plan ASA status: 3 Anesthesia: General Other: Discussed A.line and blood transfusion. Medications/Allergies Home Medications Medication Instructions Recorded Confirmed Last Taken Type hydrocodone 5 mg-acetaminophen 325 1 tab PO TID PRN Pain 02/05/21 11/13/23 11/13/23 History mg tablet hydrocortisone 2.5 % topical cream 1 applic DC QID 10 days #30 grams 06/20/22 11/13/23 08/20/23 Rx with perineal applicator (Anusol-HC) diclofenac sodium 1 % topical gel 2 g topical QID arthritis #100 04/12/23 11/13/23 08/20/23 Rx (Voltaren Arthritis Pain) grams hydrochlorothiazide 25 mg tablet 25 mg PO DAILY #30 tabs 04/29/23 11/13/23 11/13/23 Rx ibuprofen 200 mg tablet 400 mg PO Q6H PRN Pain 05/31/23 11/13/23 Unknown History lorazepam 1 mg tablet 1 mg PO TID PRN anxiety #90 tabs 08/07/23 11/13/23 11/13/23 Rx paroxetine HCl 30 mg tablet (Paxil) 30 mg PO DAILY #30 tabs 08/07/23 11/13/23 11/13/23 Rx lisinopril 30 mg tablet 30 mg PO BEDTIME 08/21/23 11/13/23 11/13/23 History potassium chloride 10 mEq 10 meq PO DAILY 08/21/23 11/13/23 11/13/23 History capsule,extended release rosuvastatin 40 mg tablet 40 mg PO BEDTIME 08/21/23 11/13/23 08/20/23 History tamsulosin 0.4 mg capsule (Flomax) 0.4 mg PO BEDTIME 08/21/23 11/13/23 11/13/23 History aripiprazole 2 mg tablet See Rx Instructions .Route 10/11/23 11/13/23 11/13/23 Rx .COMPLEX #30 tabs ciprofloxacin HCl 500 mg tablet 500 mg PO BID #14 tabs 11/08/23 11/13/23 11/13/23 Rx Allergies Allergy/AdvReac Type Severity Reaction Status Date / Time No Known Drug Allergies Allergy Unknown Verified 11/13/23 12:52 Current Medications Generic Name Dose Route Start Last Admin Trade Name Freq PRN Reason Stop Dose Admin Sodium Chloride 1,000 mls @ 30 mls/hr 11/14/23 08:30 11/14/23 08:46 Sodium Chloride 0.9% IV 11/15/23 08:29 30 mls/hr .Q24H HOLLY Administration PFSH Anesthesia Medical History Gout, unspecified Diverticula of colon Psychiatric care Slow transit constipation Hyperlipidemia Essential hypertension Generalized anxiety disorder Panic disorder [episodic paroxysmal anxiety] Surgical History History of basal cell cancer Left face and nose History of renal stent Family History Other Cancer Diabetes Hypertension Stroke Social History Smoking and tobacco/nicotine status: never used tobacco/nicotine Second hand smoke exposure: No Alcohol intake: never Substance/Drug Use: never Adopted: No Caregiver/support person: No Lives independently: Yes Household members: spouse Housing: House Marital status: Number of children: 4 service: No Current occupational status: disabled Do you think of yourself as: Straight/Heterosexual Current gender identity: Male Data Anesthesia Cardiac Studies: No Data to Display
[2023-11-14] MEDS: HYDROmorphone 1 mg/mL INJ 1 mL 0.5 MG IVP (10:40)
--- NOTE | 2023-11-14 11:03 | W.PM.OPSUD ---
Surgery/Procedure H&P Update DATE OF PROCEDURE: November 14, 2023 DATE H&P PERFORMED: 11/11/23 PREOP DIAGNOSIS: Lumbar stenosis with neurogenic claudication PLANNED PROCEDURE: Operation Date: 11/14/23 09:50 Proposed Procedures p Lumbar Spine Decompression Lumbar Decompression(Not Applicable) - Roger Siegel, DO s Posterior Lumbar Interbody Fusion PLIF(Not Applicable) - DO faraz Phipps Spinal Fusion PSF(Not Applicable) - DO faraz Phipps Lumbopelvic Fixation(Not Applicable) - Roger Siegel DO
[2023-11-14] MEDS: ceFAZolin 2,000 MG in sodium chloride 0.9% (plus) 50 ML 100 MG IV ×3 (11:27→21:17)
[2023-11-14] MEDS: lidocaine-epi 2% PF 1:200,000 20 mL SDV INJECTION (13:06)
[2023-11-14] MEDS: vancomycin 1,000 MG SDV 1000 MG XX (13:07)
[2023-11-14] MEDS: heparin, porcine 1,000 unit/mL INJ 10 mL 10000 UNIT XX (13:07)
--- NOTE | 2023-11-14 16:41 | P.OP_ITS ---
Operative Report Date of procedure: November 14, 2023 Surgeon: Roger Siegel DO Procedure: 1.?L5/S1 interbody fusion with posterolateral fusion 2. Cage at L5/S1 3. Posterior fusion L2-pelvis 4.? Instrumentation L2-S1 5.? Lumbopelvic instrumentation 6. open right Sacral iliac fusion 7. open left sacral iliac fusion 8. L4/5 laminectomy with partial facetectomy 9. L5/S1 laminectomy with partial facetectomy 10. use of computer navigation / stereotactic spine 11. use of autograft from same incision 12. allograft 13. Bone marrow aspirate from right iliac crest Patient is brought to the operative suite.? After undergoing anesthesia, the patient had neuro monitoring attached.? Patient was then placed in the prone position on the Kurtis table.? All areas of impingement were well-padded.? Patient was then prepped and draped in the normal sterile fashion.? Skin incision was then made over the L3 to the sacrum.? Subperiosteal dissection was made out to the transverse processes of L2 bilaterally, L3 bilaterally,?L4 bilaterally L5 bilaterally and sacral ala bilaterally.? The [employer] bone marrow aspirate kit was used to aspirate bone marrow aspirate.? This was done by using the sharp probe to open up the bone.? Aspiration was performed and then the blunt probe was then used to dissect down to through the bone tunnel.? An aspirating well drawn back a millimeter approximately 20 cc of bone marrow aspirate was used.? Admixed with the allograft and autograft bone that will be used. Next tension was brought to placing the fiducial for the computer navigation.? 2 pins were placed into the right iliac crest.? The fiducial was attached.? The C- arm was brought in and information from the C arm was then linked to the computer used for placing the screws.? Next attention was brought to placing the pedicle screws.? This was done by using the gearshift probe.? The probe was used to identify the pedicle.? Then the pedicle feeler was used followed by placement of screw.? This was done at L2 bilaterally, L3 bilaterally L4 bilaterally, L5 bilaterally and S1 bilaterally. Next attension was brought to placing the iliac screws.? This was done using the sacral ala iliac technique.? The gearshift probe linked to computer navigation was then placed through the sacral ala into the sacroiliac joint into the iliac crest.? Next the pedicle feeler was used followed by the computer navigated tap.? And then the screw was passed a 80 mm screw was placed on the right side and a 80 mm screw was placed on the left side.? Both the screws were 9.5 mm in diameter. Next attension was brought to performing the open and sacral iliac fusion.? This was done by again using the gearshift probe linked to computer navigation.? Followed by pedicle feeler followed by placing a wire and then the drill drilled over the wire and then bone graft was packed into the sacroiliac joint and into the drill hole.? And the sacroiliac screw was then placed.? This technique was done on both the right and left side. Next attention was brought to performing the laminectomy of L5. This was done using the high-speed bur Kerrisons and curettes. Once the lamina was removed and then attention was brought to performing a partial facetectomy on the contralateral side. This was done again using the high-speed bur curettes and Kerrisons. The ligamentum flavum was taken down bilaterally from L5 to S1. Attention was then brought to the facet on the ipsilateral side. The facet was taken down. The s1 nerve was decompressed as it passed around the S1 pedicle. The laminectomy was done for purposes of decompressing the nerve as well as placement of the cage. The L5 nerve was identified as it traversed through the L5/s1 foramen. The thecal sac was identified and retracted. The L5/S1 disc base was identified. Using a knife the disc base was opened. And then sequential henrik were placed. The first shaver was a 6 and the last shaver was a 11. Using a pituitary and down going curette the endplates were scraped and disc material was removed from the space. Once adequate decompression of the disc base was felt to be had. Osteoamp sponge was packed into the anterior aspect of the disc base. Then a size 12 cage from [employer] was placed after packing osteoamp into the cage. While placing the cage the thecal sac and S1 nerve was protected. C arm was used to ensure that the cages placed in the appropriate position. Next attention was brought to the L4-5 laminectomy with partial facetectomy. This was done by performing the laminectomy using high-speed bur and taken on the medial aspect of facet joints. Kerrison was then used to take down the remaining lamina as well as the medial aspect of facet joints. Ligamentum flavum was taken down from L4/5. The L5 nerve root was traced around the L5 pedicle and the L4 nerve root was traced out the L4-5 foramen. On the left side the facet was taken down completely. Next attention was brought to the L3/4 laminectomy with partial facetectomy. This was done by performing the laminectomy using high-speed bur and taken on the medial aspect of facet joints. Kerrison was then used to take down the remaining lamina as well as the medial aspect of facet joints. Ligamentum flavum was taken down from L3/4. The L4 nerve root was traced around the L4 pedicle and the L3 nerve root was traced out the L3/4 foramen. On the left side the facet was taken down completely. Attention was then brought to attaching the rods to the screws placed in the L2 bilaterally, L3 bilaterally, L4 bilaterally, L5 bilaterally and S1 bilaterally.? This was then attached to the sacroiliac screw providing the lumbopelvic fixation.? Caps were torqued into position. Locking the construct in place. Wound was copiously irrigated and then attention was brought to decorticating the facets and transverse processes laterally.? Bone that was taken down from the lamina was used along with osteoamp fibers and sponges were packed into the lateral gutters along the facet joints.? This was done bilaterally. Wound was then closed in a layered fashion starting with the thoracolumbar fascia.? 0-vicryl was used the sub cutaneous tissue was closed with 2-0 vicryl and skin with 4-0 monocryl.? Glue was then used to seal the skin and a steril dressing was applied.? Patient was then placed in the supine position. The endotracheal tube was removed and patient was transferred to the PACU in stable condition.
--- NOTE | 2023-11-14 17:09 | ANE.PACU2 ---
Inpatient post-anesthesia follow up: Airway intact: Yes Vital signs: Temperature 97 F Pulse Rate 105 Respiratory Rate 16 Blood Pressure 135/88 Pulse Oximetry 93 Oxygen Delivery Me thod Simple Mask Oxygen Flow Rate 10 Fraction of Inspir ed Oxygen Hydration adequate: Yes Nausea and vomiting: No Pain level: 3 Mental status: Altered (sedated)
[2023-11-14] MEDS: docusate sodium 100 mg Capsule PO (18:39)
[2023-11-14] MEDS: ciprofloxacin 500 mg Tablet PO (18:39)
[2023-11-14] MEDS: HYDROcodone-acetaminophen 10-325 mg Tablet PO (18:39)
[2023-11-14] MEDS: lactated ringers 1,000 ML 90 ML IV (18:41)
[2023-11-14] MEDS: morphine 4 mg/mL SDV 1 mL 2 MG IVP (20:28)
[2023-11-14] MEDS: lisinopril 10 mg Tablet 30 MG PO (21:03)
[2023-11-14] MEDS: tamsulosin 0.4 mg Capsule 0.400000000000000022 MG PO (21:04)
[2023-11-14] MEDS: diclofenac 1% Topical Gel 100 gm 2 APPLIC TOPICAL (21:04)
[2023-11-14] MEDS: atorvastatin 40 mg Tablet PO (21:04)
[2023-11-14] MEDS: ketorolac 30 mg/mL INJ IVP (21:51)
[2023-11-15 01:38] VITALS: RESP 16
[2023-11-15] MEDS: morphine 4 mg/mL SDV 1 mL 2 MG IVP (01:38)
[2023-11-15 03:56] VITALS: BP 128/72; PULSE 90; RESP 18; TEMP 36.4; O2SAT 94
[2023-11-15] MEDS: ketorolac 30 mg/mL INJ IVP (04:17)
[2023-11-15] MEDS: LORazepam 1 mg Tablet PO ×2 (04:23→21:17)
[2023-11-15] MEDS: lactated ringers 1,000 ML 90 ML IV ×2 (05:52→18:44)
[2023-11-15] MEDS: ceFAZolin 2,000 MG in sodium chloride 0.9% (plus) 50 ML 100 MG IV ×2 (05:52→13:49)
--- NOTE | 2023-11-15 07:18 | PM.PN ---
Subjective Subjective: Patient is doing well pain munoz. However he gets that he can sleep and is having anxiety. I told him that we would up his Xanax to 1-2 Vitals/I&O/Wt Last Vital Signs Temp 97.6 F 11/15/23 03:56 Pulse 90 11/15/23 03:56 Resp 18 11/15/23 03:56 BP 128/72 11/15/23 03:56 Pulse Ox 94 11/15/23 03:56 O2 Del Method Room Air 11/15/23 03:56 O2 Flow Rate 10 11/14/23 17:25 11/14/23 11/15/23 11/15/23 22:59 06:59 14:59 Intake Total 740 / 1790 1000 / 2790 Output Total 1460 / 1460 340 / 1800 Balance -720 / 330 660 / 990 Weight last 48 hrs Weight 228 lb 8 oz Weight 220 lb Physical Exam Narrative: Sensation intact bilateral lower extremities moving well. Pain down his leg is improved. Urinary Catheter Management: Wilkerson: Cath Placed During This Visit: yes Reason for Continuing Indwelling Catheter: Required Immobilization for Trauma or Surgery or Anesthesia Urinary Catheter Date of Insertion: 11/14/23 Urinary Catheter Time of Insertion: 11:40 A&P Assessment and plan (1) Status post lumbar spinal fusion: Patient is postop day #1 lumbar fusion. Will increase Xanax to 1-2 Up with physical therapy Will keep drain in Attestations Medical Necessity Statement*: Pain control Coding Level of Care Code Acute Code for Chg Fwd Diagnoses Status post lumbar spinal fusion Z98.1
[2023-11-15 08:07] VITALS: BP 119/77; PULSE 98; RESP 14; TEMP 36.8; O2SAT 93
--- NOTE | 2023-11-15 08:20 | PC.SOCIAL ---
IMM Update pg 2 of IMM not updated as patient is currently in observation status.
[2023-11-15] MEDS: HYDROcodone-acetaminophen 10-325 mg Tablet PO ×2 (08:46→18:34)
[2023-11-15] MEDS: hydroCHLOROthiazide 25 mg Tablet PO (08:47)
[2023-11-15] MEDS: ARIPiprazole 2 mg Tablet PO (08:47)
[2023-11-15] MEDS: potassium chloride ER 10 mEq Tablet PO (08:47)
[2023-11-15] MEDS: PARoxetine 20 mg Tablet 30 MG PO (08:48)
[2023-11-15] MEDS: ciprofloxacin 500 mg Tablet PO ×2 (08:48→18:35)
[2023-11-15] MEDS: docusate sodium 100 mg Capsule PO ×2 (08:48→18:34)
[2023-11-15] MEDS: diclofenac 1% Topical Gel 100 gm 2 APPLIC TOPICAL ×4 (08:51→21:11)
[2023-11-15 08:59] LABS: Hematocrit 34.6 % (37-53)
--- NOTE | 2023-11-15 09:44 | PC.CHAP ---
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 visit [] Patient/Family/Request visit [] Outpatient visit [] Follow-up visit [] Physician referral [] Code/Alert [x] Routine visit [] Staff referral [] Actively dying [] Patient sleeping [] Family support [] [] Out of room [] Palliative care [] [] Receiving care in room [] Pre-surgical visit [] Trauma [] Long length of stay [] ICU visit [] Other: Relational/Emotional Strength [x] Patient feels connected with others/family/visitors/staff [] Distress [] Loneliness/isolation [] Abandonment Spirituality of Patient [x] Person of Karina [] Attends Sabianism of their Karina [x] Believes in Prayer [] Reads Bible or Taoism materials [] There are Spiritual issues to be addressed C S S Representative Interventions [x] Prayer [] Active listening [] Non-anxious presence [x] Spiritual/emotional support [] Crisis/trauma care [] Spiritual counseling [] Bereavement support [] Provided bereavement packet [] Provided Bible/devotional materials [] Provided toy/stuffed animal, coloring book to patient or family member [] Provided Communion [] Anointing/[place] [] Salvation [x] Completed spiritual assessment [] Other: Impact on Illness or Injury [] Angry [] Fearful [] Anxious [] Often cries [] Exhaustion [] Unable to work [] Unable to attend congregation [] Unable to walk/stand [] Unable to read [] Unable to drive [] Unable to eat/drink [] Unable to sleep [] Unable to be with family [] Patient intubated [] Other: Summary Time spent with patient 5 min
[2023-11-15 11:43] VITALS: PULSE 83; RESP 16; TEMP 36.6; O2SAT 94
[2023-11-15 15:59] VITALS: BP 123/66; PULSE 79; RESP 16; TEMP 36.7; O2SAT 95
[2023-11-15] MEDS: atorvastatin 40 mg Tablet PO (21:11)
[2023-11-15] MEDS: lisinopril 10 mg Tablet 30 MG PO (21:11)
[2023-11-15] MEDS: tamsulosin 0.4 mg Capsule 0.400000000000000022 MG PO (21:11)
[2023-11-16] VITALS: BP 117/68; PULSE 79; RESP 17; TEMP 36.7; O2SAT 96
[2023-11-16] MEDS: HYDROcodone-acetaminophen 10-325 mg Tablet PO ×4 (04:53→23:50)
[2023-11-16] MEDS: lanolin oint 7 gm 1 APPLIC TOPICAL (05:01)
[2023-11-16] MEDS: lactated ringers 1,000 ML 90 ML IV (05:24)
[2023-11-16 05:46] VITALS: BP 122/71; PULSE 77; RESP 17; TEMP 36.9; O2SAT 93
[2023-11-16 08:00] VITALS: BP 129/73; PULSE 82; RESP 16; TEMP 36.6; O2SAT 93
[2023-11-16] MEDS: ARIPiprazole 2 mg Tablet PO (08:06)
[2023-11-16] MEDS: PARoxetine 20 mg Tablet 30 MG PO (08:06)
[2023-11-16] MEDS: LORazepam 1 mg Tablet PO (08:06)
[2023-11-16] MEDS: diclofenac 1% Topical Gel 100 gm 2 APPLIC TOPICAL ×4 (08:07→20:50)
[2023-11-16] MEDS: hydroCHLOROthiazide 25 mg Tablet PO (08:07)
[2023-11-16] MEDS: potassium chloride ER 10 mEq Tablet PO (08:07)
[2023-11-16] MEDS: ciprofloxacin 500 mg Tablet PO ×2 (08:07→18:41)
[2023-11-16] MEDS: docusate sodium 100 mg Capsule PO ×2 (08:07→18:41)
[2023-11-16 10:37] LABS: Hematocrit 37.5 % (37-53)
[2023-11-16 12:00] VITALS: BP 146/84; PULSE 84; RESP 16; TEMP 37.1; O2SAT 95
--- NOTE | 2023-11-16 15:44 | P.PN_ITS ---
Subjective 2 Subjective: Patient is up with therapy. This point patient is pain is controlled with 2 hydrocodone's. Vitals/I&O/Wt Last Vital Signs Temp 98.7 F 11/16/23 12:00 Pulse 84 11/16/23 12:00 Resp 16 11/16/23 12:00 BP 146/84 11/16/23 12:00 Pulse Ox 95 11/16/23 12:00 O2 Del Method Room Air 11/16/23 05:46 O2 Flow Rate 10 11/14/23 17:25 11/16/23 11/16/23 11/16/23 06:59 14:59 22:59 Intake Total 960 / 3020 240 / 240 Output Total 60 / 3420 900 / 900 Balance 900 / -400 -660 / -660 Weight last 48 hrs Weight 238 lb 8 oz Weight 228 lb 8 oz Physical Exam 2 Narrative: Bowel lower extremities neuro intact laying in bed. Urinary Catheter Management: Wilkerson: Cath Placed During This Visit: yes Reason for Continuing Indwelling Catheter: Required Immobilization for Trauma or Surgery or Anesthesia Urinary Catheter Date of Insertion: 11/14/23 Urinary Catheter Time of Insertion: 11:40 Data 11/16/23 09:55 A&P Assessment and plan (1) Status post lumbar spinal fusion: Postop day 2 lumbar fusion. Anticipate discharge tomorrow Attestations 2 Medical Necessity Statement*: Pain control Coding Level of Care Code Acute Code for Chg Fwd Diagnoses Status post lumbar spinal fusion Z98.1
[2023-11-16 16:00] VITALS: BP 153/78; PULSE 91; RESP 18; TEMP 37; O2SAT 96
[2023-11-16] MEDS: sodium chloride 0.9% 1,000 ML 90 ML IV (18:42)
[2023-11-16 20:00] VITALS: BP 136/80; PULSE 94; RESP 18; TEMP 36.4; O2SAT 93
[2023-11-16] MEDS: lisinopril 10 mg Tablet 30 MG PO (20:49)
[2023-11-16] MEDS: tamsulosin 0.4 mg Capsule 0.400000000000000022 MG PO (20:49)
[2023-11-16] MEDS: atorvastatin 40 mg Tablet PO (20:49)
[2023-11-17] VITALS: BP 147/90; PULSE 81; RESP 17; TEMP 36.9; O2SAT 94
[2023-11-17] MEDS: sodium chloride 0.9% 1,000 ML 90 ML IV (04:23)
[2023-11-17] MEDS: HYDROcodone-acetaminophen 10-325 mg Tablet PO ×2 (04:23→13:23)
[2023-11-17 05:27] VITALS: BP 155/89; PULSE 85; RESP 17; TEMP 36.6; O2SAT 94
[2023-11-17] MEDS: LORazepam 1 mg Tablet PO (08:35)
[2023-11-17] MEDS: hydroCHLOROthiazide 25 mg Tablet PO (08:35)
[2023-11-17] MEDS: docusate sodium 100 mg Capsule PO (08:35)
[2023-11-17] MEDS: potassium chloride ER 10 mEq Tablet PO (08:35)
[2023-11-17] MEDS: ciprofloxacin 500 mg Tablet PO (08:35)
[2023-11-17] MEDS: ARIPiprazole 2 mg Tablet PO (08:35)
[2023-11-17] MEDS: PARoxetine 20 mg Tablet 30 MG PO (08:38)
[2023-11-17 09:16] VITALS: BP 137/84; PULSE 91; RESP 18; TEMP 36.5; O2SAT 95
[2023-11-17] MEDS: diclofenac 1% Topical Gel 100 gm 2 APPLIC TOPICAL (10:37)
[2023-11-17 12:00] VITALS: BP 155/87; PULSE 86; RESP 18; TEMP 36.5; O2SAT 95
--- NOTE | 2023-11-17 13:51 | PC.NURSE ---
discussed discharge follow up appointments, new medications, continued medications, post operative care to surgical incision on lower back and signs and symptoms of infection. Patient verbalized understanding to all.
[2023-11-17 13:56] VITALS: BP 155/87; PULSE 86; RESP 18; TEMP 36.5; O2SAT 95
--- NOTE | 2023-11-18 13:03 | P.DS_ITS ---
Discharge Providers Date of Admission: 11/14/23 12:46 Date of Discharge: November 17, 2023 Attending Provider at Admission: Roger Siegel DO Attending Provider at Discharge: Roger Siegel DO Primary Care Provider: Rohith Solis DO Diagnoses at Discharge Discharge Diagnosis (1) Status post lumbar spinal fusion: Status: Acute Reason for Visit Reason for Visit: M51.36, M48.062, M51.26 Physical Exam Urinary Catheter Management: Wilkerson: Cath Placed During This Visit: yes, but has since been removed by the nurse Reason for Continuing Indwelling Catheter: Decision to DC Catheter Urinary Catheter Date of Insertion: 11/14/23 Urinary Catheter Time of Insertion: 11:40 Date Urinary Catheter Removed: 11/16/23 Time Urinary Catheter Discontinued: 21:00 Discharge Data Studies Completed and Pending Completed Studies During Hospitalization Category Date Time Status XR lumbar spine 2-3V* [id number] Routine Exams 11/14/23 08:57 Completed Laboratory Results Hgb 12.30 g/dL (11.27-16.99) 11/16/23 09:55 Hct 37.5 % (37-53) 11/16/23 09:55 Vitals Last Vital Signs Temp 97.7 F 11/17/23 13:56 Pulse 86 11/17/23 13:56 Resp 18 11/17/23 13:56 BP 155/87 11/17/23 13:56 Pulse Ox 95 11/17/23 13:56 O2 Del Method Room Air 11/17/23 12:00 O2 Flow Rate 10 11/14/23 17:25 Discharge Plan Discharge Patient Disposition: Home Condition: Stable Prescriptions: New hydrocodone-acetaminophen 10-325 mg tablet 1 - 2 tab PO Q4H PRN (Reason: pain) 7 Days Qty: 40 0RF cyclobenzaprine 10 mg tablet 10 mg PO TID PRN (Reason: muscle spasm) 10 Days Qty: 30 0RF Continued diclofenac sodium [Voltaren Arthritis Pain] 1 % gel 2 g topical QID Qty: 100 1RF Rx Instructions: apply to inside and outside of elbow paroxetine HCl [Paxil] 30 mg tablet 30 mg PO DAILY Qty: 30 2RF hydrochlorothiazide 25 mg tablet 25 mg PO DAILY Qty: 30 11RF aripiprazole 2 mg tablet See Rx Instructions .ROUTE .COMPLEX Qty: 30 1RF Dose Instruction: TAKE ONE TABLET BY MOUTH DAILY Rx Instructions: TAKE ONE TABLET BY MOUTH DAILY ciprofloxacin HCl 500 mg tablet 500 mg PO BID Qty: 14 0RF lorazepam 1 mg tablet 1 mg PO TID PRN (Reason: anxiety) Qty: 90 1RF hydrocodone-acetaminophen 5-325 mg tablet 1 tab PO TID PRN (Reason: Pain) ibuprofen 200 mg Tablet 400 mg PO Q6H PRN (Reason: Pain) potassium chloride 10 mEq capsule, extended release 10 meq PO DAILY tamsulosin [Flomax] 0.4 mg capsule 0.4 mg PO BEDTIME lisinopril 30 mg tablet 30 mg PO BEDTIME rosuvastatin 40 mg tablet 40 mg PO BEDTIME hydrocortisone [Anusol-HC] 2.5 % cream with perineal applicator 1 applic [place] QID 10 Days Qty: 30 1RF Rx Instructions: May repeat for another 10 days if no resolution Discharge Orders: Discharge Order (Routine); Ordered 11/17/23 Ordered By: Roger Siegel Referrals: State In Home Service Set Up [Other] (You can call this number to see if you qualify for in home services. ) Roger Siegel, [Physician] - 1 week (We have notified your physician's clinic of the need for a follow-up appointment to be scheduled. If you have not heard from them within the next 2 business days, please call them directly. ) Rohith Solis, [Primary Care Provider] - (We have notified your physician's clinic of the need for a follow-up appointment to be scheduled. If you have not heard from them within the next 2 business days, please call them directly. ) Discharge Diet: Advance as tolerated Discharge Activity: Limit activity as instructed Patient Instructions: Hydrocodone/Acetaminophen (By mouth), Cyclobenzaprine (By mouth) (Flexeril, Amrix, Fexmid, FusePaq Tabradol), Lumbar Spinal Fusion (GEN), Opioid Safety Activity Restrictions/Additional Instructions: Thank you for [facility] for your care! The following is a list of instructions, from your provider, to follow upon your discharge to ensure you have the optimal recovery from your recent injury orsurgery. Follow-up care is a [place] part of your treatment and safety. Be sure to make and go to all appointments, and call your doctor if you are having problems. If you do not already have a follow-up appointment made, call Dr. Siegel office in the next 1-3 days to make follow up appointment for 1 weeks at [phone]. It is also a good idea to know your test results and keep a list of the medicines you take. Medications will be prescribed for you at your provider's discretion. These medications are to be used as instructed; if they are taken more often that prescribed they will not be refilled early and in most cases will not be refilled at all. > When a refill is needed,you should contact [facility] 2-3 business days before your prescription runs out. Medications will NOT be refilled by cash applications manager providers after hours! > Many pain medications contain Tylenol (Acetaminophen). Do not consume more than 4,000 mg of Tylenol per day in total with any combination ofmedications. > Pain medications can cause constipation. Please use an over the counter stool softener as directed, while taking pain medications. Consulty our local pharmacist with questions or recommendations on stool softeners. If constipation persists, contact our office or your primary care provider. > While under our care,you are not to receive pain medications or other controlled substances from any other provider unless our office is notified and approves. Any attempts to do so will result in refusal to prescribe any further pain medications and possible dismissal from our practice. ? Your wound and/or dressing should remain clean and dry for 7 days after surgery. On postoperative day 7 the dressing (if present) should be removed in the clinic. > It is normal for there to be a small amount of discharge (bloody or blood tinged) present from a surgical wound for the first 1-3days. > The wound should be examined twice a day for signs of infection. Mild redness or bruising is to be expected but indications that an infection maybe starting would include; An increase in redness, swelling, or discharge, a foul odor present around the incision, and/or a fever greater than 101 ?F ? Showering is permitted, however we ask that you do not take a bath, sit in a whirlpool / Jacuzzi, or go swimming for 1 month. For only the first 2 days after surgery, lt wilt be necessary for you to cover your wound/dressing with plastic and tape to keep it dry. ? Walking is essential for the healing process after surgery. We would like you to slowly advance your walking. This should be done on relatively flat clear ground (inside or out) or can be done on a treadmill. Remember this goal does not have to happen all at once, slowly increase your distance and duration. This can be broken into more more than one walk per day as tolerated. Patients who walk as directed after surgery rarely require Physical Therapy. In the unlikely event this issue arises your provider will direct hospital staff to make the appropriate arrangements. ? No lifting over 5 pounds {a gallon of milk) or bending/twisting until further notice. Each of these activities places an unnecessary amount of stress onto the body and can impede the delicate healing process. > Instead of bending at the waist, keep your back straight and bend at the knees. > Instead of twisting your torso, keep your back straight and turn your entire body with your feet. ? You may sleep in any position which makes you comfortable. Many patients find comfort sleeping in a reclining chair. It is not abnormal to have difficulty sleeping for the first several weeks following your surgery. We recommend trying Benadry! or Tylenol PM as directed to help with your sleeping difficulties. Both medications are over the counter and available withoutprescription. ? NO SMOKING!!! Smoking dramatically increases the probability of developing postoperative wound infections. ? Common complaints after lumbar and/or thoracic spine surgery include, but are not limited to: numbness and/or tingling in the legs, pain around the incision and surrounding tissues, muscle spasms, or stiffness of the middle to low back. Contact our office if these symptoms persist or if an acute change occurs. ? No driving for the first 3-5days, and not while taking narcotics until seen at your follow-up appointment and cleared. There are no restrictions for riding on short trips, however if you take a longer trip, arrangements should be made to make regular stops to get out of the vehicle and stretch . ? Swelling is an unfortunate event that will take place with any surgery and is the primary source of your postoperative discomfort. While walking and regular approved activities helps control inflammation, there are additional steps you can take to minimizeswelling. > Place ice over the surgical site and surrounding tissue for twenty minutes, followed by applying a low/medium heat (heating pad) for an additional twenty minutes every 1-2 hours as needed for painrelief. > You may use of over the counter anti-inflammatory medications (Ibuprofen, Motrin, Aleve, Advil, etc) as directed on the package label. These types of medicines wm significantly reduce the amount of discomfort you experience after surgery from swelling. It should be noted that if you have and allergy to any of these medications, or a history of ulcers or kidney disease you should consult you primary care provider prior to starting these medications. Discharge Attestations Time Spent in Discharge Care*: less than 30 min Quality Metrics Clinical Quality Measures [ No reported AMI, CVA or VTE this stay] Coding Level of Care Code Acute Code for Chg Fwd Diagnoses Status post lumbar spinal fusion Z98.1
== END 2023-11-17 13:39 | disposition home or self-care (01) | DRG 455 ==
LOC: MEDSURG 20:14
PROVIDERS: Admitting Provider Orthopaedic Surgery; PCP Family Medicine; Visit Provider Orthopaedic Surgery
PROC: 0SG30AJ Fusion of Lumbosacral Joint with Interbody Fusion Device, Posterior Approach, Anterior Column, Open Approach (ICD-10-PCS; CPT 63005; principal; 2023-11-14 09:30)
PROC: 0SG30AJ Fusion of Lumbosacral Joint with Interbody Fusion Device, Posterior Approach, Anterior Column, Open Approach (ICD-10-PCS; CPT 22612; 2023-11-14 09:30)
PROC: 0SG30AJ Fusion of Lumbosacral Joint with Interbody Fusion Device, Posterior Approach, Anterior Column, Open Approach (ICD-10-PCS; 2023-11-14 09:30)
PROC: 0SG30AJ Fusion of Lumbosacral Joint with Interbody Fusion Device, Posterior Approach, Anterior Column, Open Approach (ICD-10-PCS; 2023-11-14 09:30)
DX: M48.062 Spinal stenosis, lumbar region with neurogenic claudication (principal); I12.9 Hypertensive chronic kidney disease with stage 1 through stage 4 chronic kidney disease, or unspecified chronic kidney disease; N18.9 Chronic kidney disease, unspecified; E78.5 Hyperlipidemia, unspecified; E66.01 Morbid (severe) obesity due to excess calories; F41.1 Generalized anxiety disorder; F32.A Depression, unspecified; M10.9 Gout, unspecified; K59.01 Slow transit constipation; F41.0 Panic disorder [episodic paroxysmal anxiety]; Z68.31 Body mass index [BMI] 31.0-31.9, adult; Z85.828 Personal history of other malignant neoplasm of skin
CPT/HCPCS: 36415; 51702; 72100; 76000; 81000; 85014; 85018; 97110; 97116; 97161; 97530; C1713; J0690; J1100; J1170; J1644; J1885; J2270; J2405; J2704; J2710; J3010; J3370; J3490; J7030; J7120

== ENCOUNTER → 2023-11-26 15:01 | Outpatient (BNVA) | payer MEDICARE, MEDICAID, SELFPAY | PROVIDERS: PCP Family Medicine; Visit Provider Orthopaedic Surgery | DX: Z98.1 Arthrodesis status (principal) | CPT/HCPCS: 99024 ==

== ENCOUNTER 2023-12-04 13:36 | Emergency (ER) | payer MEDICARE, MEDICAID, SELFPAY ==
[2023-12-04 13:40] VITALS: BP 179/103; PULSE 111; RESP 18; TEMP 36.6; O2SAT 100
--- NOTE | 2023-12-04 13:45 | ED_ITS ---
HPI - Fall General: Chief Complaint: Fall Stated Complaint: fall, back surgery 11/14/23 Time Seen by Provider: 12/04/23 13:45 History of Present Illness: 68-year-old male patient reports that he was outside with his dog 2 days ago and tripped over the dog causing him to twist and fall onto his left side. Patient has had some persistent pain and discomfort since his fall. Patient reports feeling stiff all over. Patient did have a recent fusion of his lumbar spine and is concerned that he may have injured something. Patient appears nontoxic. Patient moves all extremities well. Patient has been using hydrocodone at home with minimal relief of pain. Patient appears in mild to moderate pain. Review of Systems General: Reports: 10 or more systems reviewed and unremarkable except in HPI and below Musc: Reports: back pain PFSH ED PFSH: Medical History Gout, unspecified Diverticula of colon Psychiatric care Slow transit constipation Hyperlipidemia Essential hypertension Generalized anxiety disorder Panic disorder [episodic paroxysmal anxiety] Surgical History History of basal cell cancer Left face and nose History of renal stent Family History Other Cancer Diabetes Hypertension Stroke Social History Smoking and tobacco/nicotine status: never used tobacco/nicotine Second hand smoke exposure: No Alcohol intake: never Substance/Drug Use: never Adopted: No Caregiver/support person: No Lives independently: Yes Household members: spouse Housing: House Marital status: Number of children: 4 service: No Current occupational status: disabled Do you think of yourself as: Straight/Heterosexual Current gender identity: Male Physical Exam Const: COMMON NORMALS: alert HENMT: COMMON NORMALS: normocephalic HEAD & SCALP: normocephalic Neck/C-Spine: COMMON NORMALS: no meningeal signs Chest: COMMONS NORMALS: normal inspection of the chest Resp: COMMON NORMALS: normal respiratory effort Cardio: COMMON NORMALS: regular rate and regular rhythm RATE: regular rate RHYTHM: regular rhythm GI: COMMON NORMALS: non-tender : COMMON NORMALS: Yes no CVA tenderness BLADDER/KIDNEY EXAM: Yes no CVA tenderness Back/Pelvis: COMMON NORMALS: no CVA tenderness THORACIC SPINE/UPPER BACK: No thoracic spinal tenderness LUMBAR SPINE/LOWER BACK: No lumbar spinal tenderness and Yes paraspinal muscle tenderness OTHER: Well-healed scar to the lumbar spine Extremity: COMMON NORMALS: normal to inspection Neuro: SENSORIUM/ORIENTATION: Yes alert MENINGEAL SIGNS: Yes no meningeal signs Skin: COMMON NORMALS: turgor normal GENERAL SKIN EXAM: turgor normal Course Vital Signs: Vital signs: Vital Signs Temperature 97.9 F 12/04/23 13:40 Pulse Rate 111 H 12/04/23 13:40 Respiratory Rate 18 12/04/23 15:45 Blood Pressure 179/103 12/04/23 13:40 Pulse Oximetry 100 12/04/23 13:40 Oxygen Delivery Me thod Room Air 12/04/23 13:40 MDM - Fall Medical Decision Making Patient presents today with complaints of general muscle aching and lower back tenderness. Patient appears nontoxic. Patient moves all extremities well. Patient has no vertebral spinal tenderness. Patient does have some paraspinous muscle tenderness increased on the left versus the right. Well-healed surgical scar to the lumbar spine. Differential diagnosis includes but not limited to vertebral fracture, displacement of vertebral hardware, muscle strain, contusion. Discussed abnormal CT scan that showed a L2 fracture with Dr. Azar. He recommended further discussion with Dr. Siegel regarding abnormality. Dr. Siegel recommended TSLO brace and follow-up in office. Reviewed this with patient reported understanding of care plan and need for follow-up or return to the ER. Lab Data Radiology Impressions Lumbar Spine CT 12/04/23 13:49 IMPRESSION: Fracture of the posterior elements of L2. ADDENDUM: 12/04/23 1455 THIS REPORT CONTAINS FINDINGS THAT MAY BE CRITICAL TO PATIENT CARE. The findings were verbally communicated via telephone conference with PALAK YANEZ at 2:52 PM CDT on 12/04/2023. The findings were acknowledged and understood. All radiology interpretation(s) finalized by discharge Discharge Plan Discharge Patient Disposition: Home Clinical Impression: Status post lumbar spinal fusion Closed lumbar vertebral fracture Qualifiers: Encounter type: initial encounter Lumbar vertebra fracture level: L2 Fracture morphology: unspecified fracture morphology Qualified Code(s): S32.029A - Unspecified fracture of second lumbar vertebra, initial encounter for closed fracture Condition: Stable Prescriptions: No Action hydrocodone-acetaminophen 10-325 mg tablet 1 tab PO Q4H PRN diclofenac sodium [Voltaren Arthritis Pain] 1 % gel 2 g topical QID Qty: 100 1RF Rx Instructions: apply to inside and outside of elbow paroxetine HCl [Paxil] 30 mg tablet 30 mg PO DAILY Qty: 30 2RF hydrochlorothiazide 25 mg tablet 25 mg PO DAILY Qty: 30 11RF aripiprazole 2 mg tablet See Rx Instructions .ROUTE .COMPLEX Qty: 30 1RF Dose Instruction: TAKE ONE TABLET BY MOUTH DAILY Rx Instructions: TAKE ONE TABLET BY MOUTH DAILY ciprofloxacin HCl 500 mg tablet 500 mg PO BID Qty: 14 0RF lorazepam 1 mg tablet 1 mg PO TID PRN (Reason: anxiety) Qty: 90 1RF prednisone 20 mg tablet 20 mg PO DAILY Qty: 15 0RF Rx Instructions: 60mg for three days, 40mg,for two days, 20mg for two days. ibuprofen 200 mg Tablet 400 mg PO Q6H PRN (Reason: Pain) potassium chloride 10 mEq capsule, extended release 10 meq PO DAILY tamsulosin [Flomax] 0.4 mg capsule 0.4 mg PO BEDTIME lisinopril 30 mg tablet 30 mg PO BEDTIME rosuvastatin 40 mg tablet 40 mg PO BEDTIME hydrocortisone [Anusol-HC] 2.5 % cream with perineal applicator 1 applic [place] QID 10 Days Qty: 30 1RF Rx Instructions: May repeat for another 10 days if no resolution Discharge Orders: Discharge ED (Routine); Ordered 12/04/23 Ordered By: Palak Yanez Referrals: Rohith Solis DO [Primary Care Provider] - Discharge Diet: Usual diet Discharge Activity: Increase activity as tolerated Activity Restrictions/Additional Instructions: Activity as tolerated. Wear brace for comfort and support. Continue with hydrocodone, acetaminophen, and ibuprofen to help control pain. Follow-up with Dr. Siegel's office in 1 week for recheck. Return to ED for new concerns. Coding Level of Care Code ED Sheltered Workshop Executive Director for Nancy [facility]
--- NOTE | 2023-12-04 13:49 | CTR_ITS ---
PROCEDURE INFORMATION: Exam: CT Lumbar Spine Without Contrast Exam date and time: 12/04/2023 2:11 PM Age: 68 years old Clinical indication: Injury or trauma; Other: Fall, recent fusion; Prior surgery; Surgery date: <1 month; Additional info: Fall injury, recent fusion TECHNIQUE: Imaging protocol: Computed tomography of the lumbar spine without contrast. Radiation optimization: All CT scans at this facility use at least one of these dose optimization techniques: automated exposure control; mA and/or kV adjustment per patient size (includes targeted exams where dose is matched to clinical indication); or iterative reconstruction. COMPARISON: MR lumbar spine wo con* [id number] 02/05/2023 1:42 PM RADIATION DOSE METRICS: Total DLP (mGy-cm): 880.78 FINDINGS: Bones/joints: There is a fracture through the left superior articulating facet of L2 extending into the base of the left transverse process all just above the pedicle screw. These fractures appear acute.Posterior fusion with pedicle screws and rods L2 through L5. Anterior fusion L5-S1. Disc space narrowing and spurring L3 through L5. No evidence of fracture. Multilevel laminectomy. Lateral bone fusion particles observed. Soft tissues: Unremarkable. CT/CT lumbar spine wo con* [id number] IMPRESSION: Fracture of the posterior elements of L2.
[2023-12-04 13:59] VITALS: RESP 22
[2023-12-04] MEDS: ketorolac 30 mg/mL INJ IM (13:59)
[2023-12-04] MEDS: morphine 4 mg/mL SDV 1 mL IM (13:59)
[2023-12-04 15:45] VITALS: RESP 18
--- NOTE | 2023-12-04 15:48 | DCPLANNER ---
Message sent to ortho for a follow up- lumbar fracture
== END 2023-12-04 16:01 | disposition home or self-care (01) ==
PROVIDERS: Emergency Provider Nurse Practitioner Family; PCP Family Medicine
DX: S32.029A Unspecified fracture of second lumbar vertebra, initial encounter for closed fracture (principal); E78.5 Hyperlipidemia, unspecified; I10 Essential (primary) hypertension; W01.0XXA Fall on same level from slipping, tripping and stumbling without subsequent striking against object, initial encounter
CPT/HCPCS: 72131; 96372; 97760; 99284; J1885; J2270; L0456

== ENCOUNTER → 2023-12-24 15:25 | Outpatient (BNVA) | payer MEDICARE, MEDICAID, SELFPAY | PROVIDERS: PCP Family Medicine; Visit Provider Orthopaedic Surgery | DX: Z98.1 Arthrodesis status (principal) | CPT/HCPCS: 72100; 99024 ==

== ENCOUNTER → 2024-01-01 15:49 | Outpatient (BNVA) | payer MEDICARE, MEDICAID, SELFPAY | PROVIDERS: PCP Family Medicine; Visit Provider Family Medicine | DX: I10 Essential (primary) hypertension (principal) | CPT/HCPCS: 80069; 84550 ==

== ENCOUNTER → 2024-01-02 14:05 | Outpatient (BNVA) | payer MEDICARE, MEDICAID, SELFPAY | PROVIDERS: PCP Family Medicine; Visit Provider Family Medicine | DX: I10 Essential (primary) hypertension (principal) | CPT/HCPCS: 82570; 84156 ==

== ENCOUNTER 2024-01-23 13:46 | Emergency (ER) | payer MEDICARE, MEDICAID, SELFPAY ==
[2024-01-23 14:22] VITALS: BP 158/109; PULSE 96; RESP 14; TEMP 36.3; O2SAT 96
--- NOTE | 2024-01-23 14:22 | ED_ITS ---
HPI - Extremity Problem General: Chief complaint: Extremity Injury, Upper Stated complaint: back pain shoulder pain Time Seen by Provider: 01/23/24 13:50 History of Present Illness: 68-year-old male patient comes in today with complaints of left shoulder pain. Patient states that 4 months ago he was lifting up the pan on his car with his left arm and felt a pop in the shoulder. Patient has had continued pain and discomfort to the area. Patient appears nontoxic. Patient has anterior tenderness to palpation. Review of Systems General: Reports: 10 or more systems reviewed and unremarkable except in HPI and below Musc: Reports: joint pain (left shoulder pain) [facility] ED PFS: Medical History Gout, unspecified Diverticula of colon Psychiatric care Slow transit constipation Hyperlipidemia Essential hypertension Generalized anxiety disorder Panic disorder [episodic paroxysmal anxiety] Surgical History History of basal cell cancer Left face and nose History of renal stent Family History Other Cancer Diabetes Hypertension Stroke Social History Smoking and tobacco/nicotine status: never used tobacco/nicotine Second hand smoke exposure: No Alcohol intake: never Substance/Drug Use: never Adopted: No Caregiver/support person: No Lives independently: Yes Household members: spouse Housing: House Marital status: Number of children: 4 service: No Current occupational status: disabled Do you think of yourself as: Straight/Heterosexual Current gender identity: Male Physical Exam Const: COMMON NORMALS: alert HENMT: COMMON NORMALS: normocephalic HEAD & SCALP: normocephalic Resp: COMMON NORMALS: normal respiratory effort GI: COMMON NORMALS: Soft to palpation and non-tender PALPATION: Yes Soft to palpation Back/Pelvis: THORACIC SPINE/UPPER BACK: Yes thoracic spinal tenderness and No paraspinal muscle tenderness LUMBAR SPINE/LOWER BACK: Yes paraspinal muscle tenderness Lumbar paraspinal muscle tenderness: left Extremity: COMMON NORMALS: normal to inspection LEFT UPPER EXTREMITY: Yes shoulder joint (anterior tenderness, positive drop) Neuro: SENSORIUM/ORIENTATION: Yes alert Skin: COMMON NORMALS: turgor normal GENERAL SKIN EXAM: turgor normal Course Vital Signs: Vital signs: Vital Signs Temperature 97.4 F L 01/23/24 14:22 Pulse Rate 96 01/23/24 14:22 Respiratory Rate 14 01/23/24 14:22 Blood Pressure 158/109 01/23/24 14:22 Pulse Oximetry 96 01/23/24 14:22 Oxygen Delivery Me thod Room Air 01/23/24 14:22 MDM - Extremity (Nontraumatic) Medical Decision Making 68-year-old male patient comes in today for injury to the left shoulder approximately 4 months ago. Patient appears nontoxic. Patient has some anterior tenderness. Patient had a positive drop test. Distal pulses and sensation are intact. Differential diagnosis includes rotator cuff injury, osteoarthritis, calcific tendinitis. Reviewed exam with patient recommended 10 mg of dexamethasone to help with pain and inflammation. Patient was then put on some lidocaine ointment for further treatment. Patient recommended to continue with routine medications at home. Patient stated understanding agreed to plan. Lab Data Radiology Impressions Shoulder X-Ray 01/23/24 14:23 IMPRESSION: No acute findings. All radiology interpretation(s) finalized by discharge Discharge Plan Discharge Patient Disposition: Home Clinical Impression: Impingement of left shoulder Condition: Stable Prescriptions: New lidocaine 5 % ointment 1 applic topical TID PRN (Reason: pain) Qty: 50 0RF No Action hydrocodone-acetaminophen 10-325 mg tablet 1 tab PO Q4H PRN paroxetine HCl [Paxil] 30 mg tablet 30 mg PO DAILY Qty: 30 2RF (DME) SLO back brace See Rx Instructions .Route .MEDSUPPLY Qty: 1 0RF Rx Instructions: As directed hydrochlorothiazide 25 mg tablet 25 mg PO DAILY Qty: 30 11RF ciprofloxacin HCl 500 mg tablet 500 mg PO BID Qty: 14 0RF lorazepam 1 mg tablet 1 mg PO TID PRN (Reason: anxiety) Qty: 90 1RF prednisone 20 mg tablet 20 mg PO DAILY Qty: 15 0RF Rx Instructions: 60mg for three days, 40mg,for two days, 20mg for two days. aripiprazole 2 mg tablet See Rx Instructions .ROUTE .COMPLEX Qty: 30 1RF Dose Instruction: TAKE ONE TABLET BY MOUTH DAILY Rx Instructions: TAKE ONE TABLET BY MOUTH DAILY diclofenac sodium [Voltaren Arthritis Pain] 1 % gel 2 g topical QID Qty: 100 1RF Rx Instructions: apply to inside and outside of elbow ibuprofen 200 mg Tablet 400 mg PO Q6H PRN (Reason: Pain) potassium chloride 10 mEq capsule, extended release 10 meq PO DAILY tamsulosin [Flomax] 0.4 mg capsule 0.4 mg PO BEDTIME lisinopril 30 mg tablet 30 mg PO BEDTIME rosuvastatin 40 mg tablet 40 mg PO BEDTIME hydrocortisone [Anusol-HC] 2.5 % cream with perineal applicator 1 applic CA QID 10 Days Qty: 30 1RF Rx Instructions: May repeat for another 10 days if no resolution Discharge Orders: Discharge ED (Routine); Ordered 01/23/24 Ordered By: Negro Steele Referrals: Rohith Solis DO [Primary Care Provider] - Discharge Diet: Usual diet Discharge Activity: Increase activity as tolerated Patient Instructions: Shoulder Pain (ED) Activity Restrictions/Additional Instructions: Continue with routine medication as needed for pain. Use ice or heat to the area for further pain relief. Use lidocaine ointment to help control pain. Follow-up with primary care as needed. Case management will contact you regarding follow-up with orthopedic surgeon. Coding Level of Care Code ED Supervisor Webbing for Nancy Lundberg
--- NOTE | 2024-01-23 14:23 | XRR_ITS ---
PROCEDURE INFORMATION: Exam: XR Left Shoulder Exam date and time: 01/23/2024 3:21 PM Age: 68 years old Clinical indication: Pain; Shoulder; Left; Additional info: Pain in left shoulder TECHNIQUE: Imaging protocol: Radiologic exam of the left shoulder. Views: 2 or more views. COMPARISON: CR XR chest 1V portable [id number] 08/09/2023 4:51 PM FINDINGS: Bones/joints: Normal. Soft tissues: Normal. XR/XR shoulder LT min 2V* [id number] IMPRESSION: No acute findings.
[2024-01-23] MEDS: dexamethasone 10 mg/mL INJ IM (16:33)
--- NOTE | 2024-01-25 09:01 | DCPLANNER ---
Sent followup request to ortho clinic 01/25/24 [id number]
== END 2024-01-23 16:48 | disposition home or self-care (01) ==
PROVIDERS: Emergency Provider Nurse Practitioner Family; PCP Family Medicine
DX: M75.42 Impingement syndrome of left shoulder (principal); E78.5 Hyperlipidemia, unspecified; I10 Essential (primary) hypertension
CPT/HCPCS: 73030; 96372; 99284; J1100

== ENCOUNTER → 2024-02-04 12:42 | Outpatient (BNVA) | payer MEDICARE, MEDICAID, SELFPAY | PROVIDERS: PCP Family Medicine; Visit Provider Orthopaedic Surgery | DX: Z98.1 Arthrodesis status (principal) | CPT/HCPCS: 72100; 99024 ==

== ENCOUNTER → 2024-02-20 09:30 | Outpatient (BNVA) | payer MEDICARE, MEDICAID, SELFPAY | PROVIDERS: PCP Family Medicine; Referring Provider Nurse Practitioner Family; Visit Provider Physician Assistant | DX: M75.42 Impingement syndrome of left shoulder | CPT/HCPCS: 20610; 73030; 99203; J3301 ==

== ENCOUNTER 2024-03-23 09:59 | Emergency (ER) | payer MEDICARE, MEDICAID, SELFPAY ==
[2024-03-23 10:01] VITALS: BP 154/87; PULSE 99; RESP 17; TEMP 36.5; O2SAT 97; BMI 30.4
--- NOTE | 2024-03-23 10:38 | W.ED.BACK ---
HPI - Back Pain/Injury General: Chief Complaint: Back Pain/Injury Stated Complaint: back pain Time Seen by Provider: 03/23/24 10:05 Source: patient Mode of arrival: ambulatory Limitations: no limitations History of Present Illness: Patient is a 68-year-old male who presents to ED today with a complaint of right lower back pain that he has had over the past 6 days that he states started after carrying a heavy sack of feet up stairs. He states pain is localized to his back without any radicular discomforts into his hip or buttocks or down his leg. He is ambulatory here without difficulty or assistance. States he is concerned as he has a history of back surgery with a rashaad in my back and 14 screws . Patient denies saddle anesthesia or bowel or bladder discomfort. He also has a concern of a possible UTI as he is noting some dysuria with urination. He has not noticed any hematuria. No flank pain. No fevers or vomiting. MD elicited complaint: back pain Pertinent past history: back surgery Onset (ago): day(s) Timing: constant Severity: moderate Similar Symptoms Previously: No Location: right lower back Radiation: none Exacerbating factors: movement Relieving factors: none Context: while lifting Associated symptoms: Reports dysuria; Deny abdominal pain, chills, change in bowel habits, difficulty walking, fatigue, fever(s), hematuria, nausea, urinary urgency or vomiting Work related injury: No Review of Systems Const: Denies: fever(s), chills, body aches, fatigue or malaise Card: Denies: chest pain Resp: Denies: dyspnea GI: Denies: abdominal pain, nausea, vomiting, diarrhea or change in bowel habits : Reports: dysuria; Denies: flank pain, difficulty urinating, urinary frequency, urinary urgency, urinary hesitancy, hematuria, genital pain or testicular pain Musc: Reports: back pain; Denies: neck pain, extremity pain, extremity swelling, joint pain or joint swelling Skin/Breast: Denies: rash Neuro: Denies: headache(s), numbness in extremities, weakness in extremities, sensory changes or difficulty walking PENDING SALE TO [facility] ED PFSH: Medical History On combination antipsychotic drug therapy Gout, unspecified Diverticula of colon Psychiatric care Slow transit constipation Hyperlipidemia Essential hypertension Generalized anxiety disorder Panic disorder [episodic paroxysmal anxiety] Surgical History History of basal cell cancer Left face and nose History of renal stent Family History Other Cancer Diabetes Hypertension Stroke Social History Smoking and tobacco/nicotine status: never used tobacco/nicotine Second hand smoke exposure: No Alcohol intake: never Substance/Drug Use: never Adopted: No Caregiver/support person: No Lives independently: Yes Household members: spouse Housing: House Marital status: Number of children: 4 service: No Current occupational status: disabled Do you think of yourself as: Straight/Heterosexual Current gender identity: Male Physical Exam Const: COMMON NORMALS: no acute distress, patient oriented x3, no limitations, healthy appearing, alert and well nourished GENERAL APPEARANCE: cooperative ORIENTATION/CONSCIOUSNESS: Yes awake, Yes oriented to person, Yes oriented to place and Yes oriented to time Neck/C-Spine: COMMON NORMALS: full ROM and no meningeal signs Resp: COMMON NORMALS: normal respiratory effort and clear to auscultation bilaterally AUSCULTATION: clear to auscultation bilaterally Cardio: COMMON NORMALS: regular rate and regular rhythm RATE: regular rate RHYTHM: regular rhythm GI: COMMON NORMALS: Normal to inspection, nondistended, normoactive bowel sounds present, Soft to palpation and non-tender PALPATION: Yes Soft to palpation : COMMON NORMALS: Yes no CVA tenderness BLADDER/KIDNEY EXAM: Yes no CVA tenderness Back/Pelvis: COMMON NORMALS: no CVA tenderness, thoracic and lumbar spine normal to inspection, no thoracic nor lumbar tenderness and straight leg raise negative bilaterally SACRUM: no tenderness COCCYX: no tenderness BACK IMAGE (MALE): 1. TTP Extremity: COMMON NORMALS: normal to inspection, no clubbing, cyanosis or edema, no calf tenderness and no pedal edema GENERAL: Yes normal exam except as noted Neuro: COMMON NORMALS: patient oriented x3, moves all extremities, no focal motor deficits, no sensory deficits noted and gait normal SENSORIUM/ORIENTATION: Yes alert, Yes oriented to person, Yes oriented to place and Yes oriented to time MENINGEAL SIGNS: Yes no meningeal signs Skin: COMMON NORMALS: no rashes or lesions noted GENERAL SKIN EXAM: no rashes or lesions noted Course Vital Signs: Vital signs: Vital Signs Temperature 97.7 F 03/23/24 10:01 Pulse Rate 99 03/23/24 10:01 Respiratory Rate 17 03/23/24 10:01 Blood Pressure 154/87 03/23/24 10:01 Pulse Oximetry 97 03/23/24 10:01 Oxygen Delivery Me thod Room Air 03/23/24 10:01 MDM - Back Pain/Injury Medical Decision Making Patient here for back strain following lifting/carrying something heavy up a flight of stairs as well as some dysuria. He has no red flags on history or physical exam in regards to his back pain. He has no radicular discomforts. UA is suspicious for UTI with positive nitrates, 1+ leuks, and 25-40 WBCs. He has no flank pain, fever, or vomiting. Will give steroids for back pain and abx for cystitis. Return precautions given. Medical Records I reviewed the patient's medical records. Labs I reviewed the patient's lab results. Radiology Impressions Lumbar Spine X-Ray 03/23/24 10:43 Impression: Stable posterior lumbosacral fusion. Laboratory Results Urine Color Yellow (Yellow) 03/23/24 11:35 Urine Appearance Slightly cloudy (CLEAR) 03/23/24 11:35 Urine pH 5 (5-7) 03/23/24 11:35 Ur Specific [place] 1.020 (1.005-1.030) 03/23/24 11:35 Urine Protein 1+ (Negative) H 03/23/24 11:35 Urine Glucose (UA) Norm (Normal) 03/23/24 11:35 Urine Ketones 1+ (Negative) H 03/23/24 11:35 Urine Blood Trace (Negative) H 03/23/24 11:35 Urine Nitrate Positive (Negative) A 03/23/24 11:35 Urine Bilirubin Neg (Negative) 03/23/24 11:35 Urine Urobilinogen Norm mg/dL (Negative) 03/23/24 11:35 Ur Leukocyte Esterase 1+ (Negative) H 03/23/24 11:35 Urine RBC None /hpf (0-2) 03/23/24 11:35 Urine WBC 25-40 /hpf (0-5) H 03/23/24 11:35 Ur Squamous Epith Cells 0-4 /hpf (0-5) H 03/23/24 11:35 Amorphous Sediment Not Reportable 03/23/24 11:35 Urine Bacteria 4+ /hpf (NONE) H 03/23/24 11:35 All radiology interpretation(s) finalized by discharge Discharge Plan Discharge Patient Disposition: Home Clinical Impression: Back strain Qualifiers: Encounter type: initial encounter Qualified Code(s): S39.012A - Strain of muscle, fascia and tendon of lower back, initial encounter Acute cystitis Qualifiers: Hematuria presence: without hematuria Qualified Code(s): N30.00 - Acute cystitis without hematuria Condition: Stable Prescriptions: New Bactrim DS 800-160 mg tablet 1 tab PO BID 7 Days Qty: 14 0RF Medrol (Jose Antonio) 4 mg tablets,dose pack See Rx Instructions .ROUTE .COMPLEX Qty: 21 0RF Rx Instructions: orally per package directions No Action prednisone 20 mg tablet See Rx Instructions .ROUTE .COMPLEX Qty: 15 0RF Hold Instructions: Home Medication placed on hold at Doctor's office Rx Instructions: 60mg daily for 3 days 40mg daily for 2 days 20mg daily for 2 days hydrocodone-acetaminophen 5-325 mg tablet 1 tab PO Q4H PRN (Reason: Pain) 7 Days Qty: 40 0RF aripiprazole 2 mg tablet 2 mg PO DAILY Qty: 30 2RF paroxetine HCl [Paxil] 30 mg tablet 30 mg PO DAILY Qty: 30 2RF lorazepam 1 mg tablet 1 mg PO TID PRN (Reason: anxiety) Qty: 90 2RF (DME) SLO back brace See Rx Instructions .Route .MEDSUPPLY Qty: 1 0RF Rx Instructions: As directed prednisone 10 mg tablet See Rx Instructions PO DAILY Qty: 24 0RF Rx Instructions: 2 po qday x 5 days, then 1 po qday x 14 days. hydrochlorothiazide 25 mg tablet 25 mg PO DAILY Qty: 30 11RF diclofenac sodium [Voltaren Arthritis Pain] 1 % gel 2 g topical QID Qty: 100 1RF Rx Instructions: apply to inside and outside of elbow ibuprofen 200 mg Tablet 400 mg PO Q6H PRN (Reason: Pain) potassium chloride 10 mEq capsule, extended release 10 meq PO DAILY tamsulosin [Flomax] 0.4 mg capsule 0.4 mg PO BEDTIME lisinopril 30 mg tablet 30 mg PO BEDTIME rosuvastatin 40 mg tablet 40 mg PO BEDTIME lidocaine 5 % ointment 1 applic topical TID PRN (Reason: pain) Qty: 50 0RF Discharge Orders: Discharge ED (Routine); Ordered 03/23/24 Ordered By: Halie Brown Referrals: Rohith Solis DO [Primary Care Provider] - Patient Instructions: Urinary Tract Infection in Men (DC), Low Back Strain (ED) Activity Restrictions/Additional Instructions: Please follow-up with your primary care provider later this week if symptoms do not seem to be improving. You may return to the emergency department for worsening back pain, flank pain, repetitive episodes of vomiting, fevers, generally feeling worse or unwell, or any other concerns you may have. Coding Level of Care Code ED Injection Molding Machine Offbearer for Nancy Lundberg
--- NOTE | 2024-03-23 10:43 | XR_ITS ---
WS: [id number] Lumbar spine, AP and lateral views of the lumbar spine, 03/23/2024 Clinical Data: injury/pain Comparison: Lumbar spine, 02/04/2024 Findings: The posterior lumbosacral fusion from L2-S1 remains stable. There are 2 screws fusing both SI joints. There are laminectomies at L4 and L5. There is a disc spacer at L5-S1. 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 No compression fractures are seen. XR/XR lumbar spine 2-3V* [id number] Impression: Stable posterior lumbosacral fusion.
[2024-03-23 11:55] LABS: Urine Color Yellow (Yellow)
[2024-03-23 11:56] LABS: Add Urine Microscopic? YES; Bilirubin Urine Neg (Negative); Blood Urine Trace (Negative); Glucose Urine UA Norm (Normal); Ketones Urine 1+ (Negative); Leukocyte Esterase Urine 1+ (Negative); Nitrate Urine Positive (Negative); Protein Urine 1+ (Negative); Urine Appearance Slightly Cloudy (CLEAR); Urobilinogen Urine Norm (Negative); pH Urine 5 (5-7)
[2024-03-23 11:58] LABS: Add Urine Culture? Yes; Bacteria Urine 4+ /hpf; Squamous Epithelial Cell Urine 0-4 /hpf (0-5); WBC Urine 25-40 /hpf (0-5)
[2024-03-23 12:31] VITALS: BP 148/82; PULSE 91; RESP 16; TEMP 36.5; O2SAT 98
== END 2024-03-23 12:33 | disposition home or self-care (01) ==
PROVIDERS: Emergency Provider Physician Assistant; PCP Family Medicine
DX: S39.012A Strain of muscle, fascia and tendon of lower back, initial encounter (principal); N30.00 Acute cystitis without hematuria; E78.5 Hyperlipidemia, unspecified; I10 Essential (primary) hypertension; X50.0XXA Overexertion from strenuous movement or load, initial encounter
CPT/HCPCS: 72100; 81001; 87077; 87086; 87186; 99284

== ENCOUNTER 2024-05-01 21:30 | Emergency (ER) | payer MEDICARE, MEDICAID, SELFPAY ==
[2024-05-01 22:02] VITALS: BP 126/86; PULSE 115; RESP 18; TEMP 36.7; O2SAT 95; BMI 30.9
[2024-05-01 23:47] VITALS: BP 139/89; PULSE 92; O2SAT 96
--- NOTE | 2024-05-02 00:02 | W.ED.ANXIETY ---
HPI - Anxiety General: Chief Complaint: Anxiety Stated Complaint: ANXIETY Time Seen by Provider: 05/01/24 23:44 Source: patient Mode of arrival: ambulatory Limitations: no limitations History of Present Illness: Patient is a 68-year-old male presenting to the emergency department complaining of anxiety onset today. Patient states he currently is having stress over an upcoming divorce suit, and which he states his of 41 years is leaving him. He states that he has been having intermittent panic attacks because of this, currently his symptoms are however palpitations and excessive worry. He took an Abilify today, as well as to Ativan, states that he is feeling somewhat better, however is still anxious. He is denying any suicidal ideations, homicidal ideations, or hallucinations of any kind. Denies any history of suicide attempt or other psychiatric ailments. He states that he sees psychiatrist at [facility] every 3 months, has not seen one in a while. No other symptoms to report at this time. He is also requesting something for his back pain. MD complaint: anxiety Onset (ago): hour(s) Symptoms: palpitations Severity: severe Quality: improving History of similar episodes: Yes Provoking factors: emotional stress Exacerbating factors: thinking about event Associated symptoms: Reports palpitations; Deny chest pain, chills, fever(s), headache(s), nausea or vomiting Related Data Home Medications Medication Instructions Recorded Confirmed ibuprofen 200 mg tablet 400 mg PO Q6H PRN Pain 05/31/23 03/09/24 lisinopril 30 mg tablet 30 mg PO BEDTIME 08/21/23 03/09/24 potassium chloride 10 mEq 10 meq PO DAILY 08/21/23 03/09/24 capsule,extended release rosuvastatin 40 mg tablet 40 mg PO BEDTIME 08/21/23 03/09/24 tamsulosin 0.4 mg capsule (Flomax) 0.4 mg PO BEDTIME 08/21/23 03/09/24 Previous Rx's Medication Instructions Recorded hydrochlorothiazide 25 mg tablet 25 mg PO DAILY #30 tabs 04/29/23 SLO back brace #1 ea 12/24/23 diclofenac sodium 1 % topical gel 2 g topical QID arthritis #100 01/02/24 (Voltaren Arthritis Pain) grams lidocaine 5 % topical ointment 1 applic topical TID PRN pain #50 01/23/24 grams hydrocodone 5 mg-acetaminophen 325 1 tab PO Q4H PRN Pain 7 days #40 02/04/24 mg tablet tabs prednisone 20 mg tablet See Rx Instructions .Route 02/04/24 .COMPLEX #15 tabs prednisone 10 mg tablet See Rx Instructions PO DAILY 03/03/24 inflammation #24 tabs aripiprazole 2 mg tablet 2 mg PO DAILY #30 tabs 03/09/24 lorazepam 1 mg tablet 1 mg PO TID PRN anxiety #90 tabs 03/09/24 paroxetine HCl 30 mg tablet (Paxil) 30 mg PO DAILY #30 tabs 03/09/24 methylprednisolone 4 mg tablets in See Rx Instructions PO .COMPLEX 03/23/24 a dose pack (Medrol (Jose Antonio)) #21 ea Allergies Allergy/AdvReac Type Severity Reaction Status Date / Time No Known Drug Allergies Allergy Unknown Verified 03/09/24 11:49 Review of Systems General: Reports: 10 or more systems reviewed and unremarkable except in HPI and below Const: Denies: fever(s), chills or fatigue Eyes: Denies: change in vision ENMT: Denies: throat pain, ear or mastoid pain or nasal discharge Card: Reports: palpitations; Denies: chest pain, swelling of feet/ankles or lightheadedness Resp: Denies: dyspnea, productive cough or wheezing GI: Denies: abdominal pain, nausea, vomiting, diarrhea or constipation : Denies: flank pain, difficulty urinating, dysuria or urinary frequency Musc: Denies: neck pain, back pain or joint pain Skin/Breast: Denies: rash Neuro: Denies: headache(s), numbness in extremities or weakness in extremities Psych: Reports: anxiety, depression and panic attacks; Denies: visual hallucinations, auditory hallucinations, suicidal ideation or homicidal ideation PFS ED PFSH: Medical History On combination antipsychotic drug therapy Gout, unspecified Diverticula of colon Psychiatric care Slow transit constipation Hyperlipidemia Essential hypertension Generalized anxiety disorder Panic disorder [episodic paroxysmal anxiety] Surgical History History of basal cell cancer Left face and nose History of renal stent Family History Other Cancer Diabetes Hypertension Stroke Social History Smoking and tobacco/nicotine status: never used tobacco/nicotine Second hand smoke exposure: No Alcohol intake: never Substance/Drug Use: never Adopted: No Caregiver/support person: No Lives independently: Yes Household members: spouse Housing: House Marital status: Number of children: 4 service: No Current occupational status: disabled Do you think of yourself as: Straight/Heterosexual Current gender identity: Male Physical Exam Const: COMMON NORMALS: no acute distress, patient oriented x3 and no limitations GENERAL APPEARANCE: cooperative, well developed and anxious ORIENTATION/CONSCIOUSNESS: Yes awake, Yes oriented to person, Yes oriented to place and Yes oriented to time HENMT: COMMON NORMALS: normocephalic, atraumatic and hearing grossly normal bilaterally HEAD & SCALP: normocephalic and atraumatic Eye: COMMON NORMALS: Equal, round and reactive pupils present, EOMs intact bilaterally and conjunctivae normal CONJUNCTIVA: Yes conjunctivae normal PUPIL: Yes Equal, round and reactive pupils present Neck/C-Spine: COMMON NORMALS: full ROM, supple and no JVD Resp: COMMON NORMALS: normal respiratory effort, No retractions, No use of accessory muscles and clear to auscultation bilaterally AUSCULTATION: clear to auscultation bilaterally Cardio: COMMON NORMALS: no JVD, regular rate, regular rhythm, No clicks present (Cardio), No murmurs present (Cardio) and No rub (Cardio) RATE: regular rate RHYTHM: regular rhythm Extremity: COMMON NORMALS: normal to inspection, full ROM and capillary refill normal Neuro: COMMON NORMALS: patient oriented x3, CN's II-XII intact bilaterally, moves all extremities, no focal motor deficits and no sensory deficits noted SENSORIUM/ORIENTATION: Yes oriented to person, Yes oriented to place and Yes oriented to time Psych: COMMON NORMALS: mental status grossly normal and Normal thought process present APPEARANCE: Yes grossly normal ATTITUDE: Yes Guarded attititude/behavior present ACTIVITY/MOTOR BEHAVIOR: Yes appropriate eye contact SPEECH: Yes soft MOOD & AFFECT: Yes anxious THOUGHT PROCESS: Normal thought process present THOUGHT CONTENT: Yes Normal thought content present ATTENTION/CONCENTRATION: Yes attention grossly intact MEMORY/COGNITION: Yes memory grossly intact INSIGHT: Good insight present (Psych) JUDGEMENT: Good judgement present (Psych) Skin: COMMON NORMALS: no rashes or lesions noted GENERAL SKIN EXAM: no rashes or lesions noted Course Vital Signs: Vital signs: Vital Signs Temperature 98.0 F 05/01/24 22:02 Pulse Rate 92 05/01/24 23:47 Respiratory Rate 18 05/01/24 22:02 Blood Pressure 139/89 05/01/24 23:47 Pulse Oximetry 96 05/01/24 23:47 Oxygen Delivery Me thod Room Air 05/01/24 23:47 MDM - Anxiety Medical Decision Making Patient presented with complaints of anxiety. States he is currently going through a divorce, he has history of similar in the past. Has been taking Ativan for symptoms, which has been helping somewhat. He is here tonight stating that he wants relief from his anxiety. 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 Also was given Toradol for his back pain. Upon recheck after 20 to 30 minutes, states his back pain is better and he does feel less anxious. Informed him to call the psychiatrist to schedule an earlier outpatient follow-up visit, and to get in with outpatient therapy. He agrees, states he will do this, and strict return precautions are given such that if he develops any SI/HI, or hallucinations, will return for reevaluation. Care of patient discussed with Dr. Royal. No radiology studies performed this visit Discharge Plan Discharge Patient Disposition: Home Clinical Impression: Anxiety Condition: Stable Prescriptions: No Action prednisone 20 mg tablet See Rx Instructions .ROUTE .COMPLEX Qty: 15 0RF Hold Instructions: Home Medication placed on hold at Doctor's office Rx Instructions: 60mg daily for 3 days 40mg daily for 2 days 20mg daily for 2 days hydrocodone-acetaminophen 5-325 mg tablet 1 tab PO Q4H PRN (Reason: Pain) 7 Days Qty: 40 0RF aripiprazole 2 mg tablet 2 mg PO DAILY Qty: 30 2RF paroxetine HCl [Paxil] 30 mg tablet 30 mg PO DAILY Qty: 30 2RF lorazepam 1 mg tablet 1 mg PO TID PRN (Reason: anxiety) Qty: 90 2RF (DME) SLO back brace See Rx Instructions .Route .MEDSUPPLY Qty: 1 0RF Rx Instructions: As directed prednisone 10 mg tablet See Rx Instructions PO DAILY Qty: 24 0RF Rx Instructions: 2 po qday x 5 days, then 1 po qday x 14 days. hydrochlorothiazide 25 mg tablet 25 mg PO DAILY Qty: 30 11RF diclofenac sodium [Voltaren Arthritis Pain] 1 % gel 2 g topical QID Qty: 100 1RF Rx Instructions: apply to inside and outside of elbow ibuprofen 200 mg Tablet 400 mg PO Q6H PRN (Reason: Pain) potassium chloride 10 mEq capsule, extended release 10 meq PO DAILY tamsulosin [Flomax] 0.4 mg capsule 0.4 mg PO BEDTIME lisinopril 30 mg tablet 30 mg PO BEDTIME rosuvastatin 40 mg tablet 40 mg PO BEDTIME Medrol (Jose Antonio) 4 mg tablets,dose pack See Rx Instructions .ROUTE .COMPLEX Qty: 21 0RF Rx Instructions: orally per package directions lidocaine 5 % ointment 1 applic topical TID PRN (Reason: pain) Qty: 50 0RF Discharge Orders: Discharge ED (Routine); Ordered 05/02/24 Ordered By: Chris Guillen Referrals: Rohith Solis, DO [Primary Care Provider] - Discharge Diet: Usual diet Discharge Activity: Increase activity as tolerated Patient Instructions: Anxiety (ED) Activity Restrictions/Additional Instructions: Continue taking Ativan at home as needed. Continue your back pain medication. Please call your psychiatrist early next week to set up outpatient therapy as discussed. If you develop any thoughts of harming yourself, harming others, or any hallucinations, please return to the emergency department immediately. Coding Level of Care Code ED Newspaper Photojournalist for Nancy [facility]berg
[2024-05-02] MEDS: LORazepam 2 mg/mL INJ 1 mL 1 MG IM (00:23)
[2024-05-02] MEDS: ketorolac 60 mg/2 mL INJ IM (00:23)
[2024-05-02 00:57] VITALS: BP 140/97; PULSE 86; O2SAT 99
== END 2024-05-02 00:58 | disposition home or self-care (01) ==
PROVIDERS: Emergency Provider Physician Assistant; PCP Family Medicine
DX: F41.9 Anxiety disorder, unspecified (principal)
CPT/HCPCS: 96372; 99284; J1885; J2060

== ENCOUNTER → 2024-05-26 13:52 | Outpatient (BNVA) | payer MEDICARE, MEDICAID, SELFPAY | PROVIDERS: PCP Family Medicine; Visit Provider Orthopaedic Surgery | DX: Z98.1 Arthrodesis status (principal) | CPT/HCPCS: 72100; 99213 ==

== ENCOUNTER 2024-06-21 08:51 | Emergency (ER) | payer MEDICARE, MEDICAID, SELFPAY ==
[2024-06-21 09:04] VITALS: BP 160/98; PULSE 78; RESP 16; TEMP 36.4; O2SAT 98
--- NOTE | 2024-06-21 09:16 | ED_ITS ---
HPI - Back Pain/Injury General: Chief Complaint: Back Pain/Injury Stated Complaint: back pain/anxiety Time Seen by Provider: 06/21/24 09:06 History of Present Illness: Patient presents to the ER with complaints of back pain around L4 for the last 2 weeks. Patient states she has had back surgery by Dr. Siegel back in October. He has been taking hydrocodone and ibuprofen but they not been helping very much. Patient states he did have 2 shots here about 2 months ago that seem to help quite a bit. Patient says no known new trauma injury or overuse for this pain episode. He has seen Dr. Siegel about 1 month ago and had x-rays done at that time. Related Data Home Medications Medication Instructions Recorded Confirmed ibuprofen 200 mg tablet 400 mg PO Q6H PRN Pain 05/31/23 05/26/24 Previous Rx's Medication Instructions Recorded SLO back brace #1 ea 12/24/23 diclofenac sodium 1 % topical gel 2 g topical QID arthritis #100 01/02/24 (Voltaren Arthritis Pain) grams lidocaine 5 % topical ointment 1 applic topical TID PRN pain #50 01/23/24 grams hydrocodone 5 mg-acetaminophen 325 1 tab PO Q4H PRN Pain 7 days #40 02/04/24 mg tablet tabs aripiprazole 2 mg tablet 2 mg PO DAILY #30 tabs 03/09/24 lorazepam 1 mg tablet 1 mg PO TID PRN anxiety #90 tabs 03/09/24 paroxetine HCl 30 mg tablet (Paxil) 30 mg PO DAILY #30 tabs 03/09/24 methylprednisolone 4 mg tablets in See Rx Instructions PO .COMPLEX 03/23/24 a dose pack (Medrol (Jose Antonio)) #21 ea prednisone 20 mg tablet 20 mg PO DAILY #15 tabs 05/26/24 hydrochlorothiazide 25 mg tablet 25 mg PO DAILY #90 tabs 05/29/24 lisinopril 30 mg tablet See Rx Instructions .Route 05/29/24 .COMPLEX #90 tabs rosuvastatin 40 mg tablet See Rx Instructions .Route 05/29/24 .COMPLEX #90 tabs tamsulosin 0.4 mg capsule See Rx Instructions .Route 05/29/24 .COMPLEX #90 caps potassium chloride 10 mEq 10 meq PO DAILY #90 caps 06/01/24 capsule,extended release Allergies Allergy/AdvReac Type Severity Reaction Status Date / Time No Known Drug Allergies Allergy Unknown Verified 05/26/24 14:27 Review of Systems General: Reports: 10 or more systems reviewed and unremarkable except in HPI and below PFSH ED PFSH: Medical History On combination antipsychotic drug therapy Gout, unspecified Diverticula of colon Psychiatric care Slow transit constipation Hyperlipidemia Essential hypertension Generalized anxiety disorder Panic disorder [episodic paroxysmal anxiety] Surgical History History of basal cell cancer Left face and nose History of renal stent Family History Other Cancer Diabetes Hypertension Stroke Social History Smoking and tobacco/nicotine status: never used tobacco/nicotine Second hand smoke exposure: No Alcohol intake: never Substance/Drug Use: never Adopted: No Caregiver/support person: No Lives independently: Yes Household members: spouse Housing: House Marital status: Number of children: 4 service: No Current occupational status: disabled Do you think of yourself as: Straight/Heterosexual Current gender identity: Male Physical Exam Const: COMMON NORMALS: no acute distress, average body habitus, patient oriented x3, no limitations, healthy appearing, alert and well nourished HENMT: COMMON NORMALS: normocephalic, atraumatic, hearing grossly normal bilaterally, external ears normal, Normal external nose present and moist oral mucous membranes HEAD & SCALP: normocephalic and atraumatic NOSE: Normal external nose present EXTERNAL EAR: Yes external ears normal Neck/C-Spine: COMMON NORMALS: full ROM, no lymphadenopathy, supple, no meningeal signs, no JVD and Thyroid normal THYROID: Thyroid normal Chest: COMMONS NORMALS: normal inspection of the chest and normal palpation of entire chest wall Resp: COMMON NORMALS: normal respiratory effort, No retractions, No use of accessory muscles and clear to auscultation bilaterally AUSCULTATION: clear to auscultation bilaterally Cardio: COMMON NORMALS: no JVD, regular rate, regular rhythm, S1 normal heart sound present, S2 normal heart sound present, No gallops present (Cardio), No clicks present (Cardio), No murmurs present (Cardio) and No rub (Cardio) RATE: regular rate RHYTHM: regular rhythm HEART SOUNDS: S1 normal heart sound present and S2 normal heart sound present GI: COMMON NORMALS: Normal to inspection, nondistended, normoactive bowel sounds present, Soft to palpation, non-tender, No hepatosplenomegaly present and no masses PALPATION: Yes Soft to palpation and Yes No hepatosplenomegaly present Back/Pelvis: OTHER: Tender to palpation lumbar paraspinal musculature no obvious tenderness over supraspinatus process transverse process no obvious bony crepitus step-off or deformity Neuro: COMMON NORMALS: patient oriented x3 SENSORIUM/ORIENTATION: Yes alert MENINGEAL SIGNS: Yes no meningeal signs Course Vital Signs: Vital signs: Vital Signs Temperature 97.6 F 06/21/24 09:04 Pulse Rate 78 06/21/24 09:04 Respiratory Rate 16 06/21/24 09:04 Blood Pressure 160/98 06/21/24 09:04 Pulse Oximetry 98 06/21/24 09:04 Oxygen Delivery Me thod Room Air 06/21/24 09:04 MDM - Back Pain/Injury Medical Decision Making Dr. Siegel's note and x-ray reviewed, patient was given 60 mg Toradol, 60 mg Norflex, this helped the patient's pain. Patient be discharged home to follow- up with his PCP. Medical Records I reviewed the patient's medical records. Labs I reviewed the patient's lab results. No radiology studies performed this visit Discharge Plan Discharge Patient Disposition: Home Clinical Impression: Acute exacerbation of chronic low back pain Condition: Stable Prescriptions: No Action hydrocodone-acetaminophen 5-325 mg tablet 1 tab PO Q4H PRN (Reason: Pain) 7 Days Qty: 40 0RF aripiprazole 2 mg tablet 2 mg PO DAILY Qty: 30 2RF paroxetine HCl [Paxil] 30 mg tablet 30 mg PO DAILY Qty: 30 2RF lorazepam 1 mg tablet 1 mg PO TID PRN (Reason: anxiety) Qty: 90 2RF (DME) SLO back brace See Rx Instructions .Route .MEDSUPPLY Qty: 1 0RF Rx Instructions: As directed prednisone 20 mg tablet 20 mg PO DAILY Qty: 15 0RF Rx Instructions: 60MG for 3 days 40MG for 2 days 20MG for 2 day diclofenac sodium [Voltaren Arthritis Pain] 1 % gel 2 g topical QID Qty: 100 1RF Rx Instructions: apply to inside and outside of elbow hydrochlorothiazide 25 mg tablet 25 mg PO DAILY Qty: 90 3RF lisinopril 30 mg tablet See Rx Instructions .ROUTE .COMPLEX Qty: 90 3RF Dose Instruction: TAKE ONE TABLET BY MOUTH at bedtime Rx Instructions: TAKE ONE TABLET BY MOUTH at bedtime rosuvastatin 40 mg tablet See Rx Instructions .ROUTE .COMPLEX Qty: 90 3RF Dose Instruction: TAKE ONE TABLET BY MOUTH at bedtime Rx Instructions: TAKE ONE TABLET BY MOUTH at bedtime tamsulosin 0.4 mg capsule See Rx Instructions .ROUTE .COMPLEX Qty: 90 3RF Dose Instruction: TAKE ONE CAPSULE BY MOUTH at bedtime Rx Instructions: TAKE ONE CAPSULE BY MOUTH at bedtime potassium chloride 10 mEq capsule, extended release 10 meq PO DAILY Qty: 90 3RF ibuprofen 200 mg Tablet 400 mg PO Q6H PRN (Reason: Pain) Medrol (Jose Antonio) 4 mg tablets,dose pack See Rx Instructions .ROUTE .COMPLEX Qty: 21 0RF Rx Instructions: orally per package directions lidocaine 5 % ointment 1 applic topical TID PRN (Reason: pain) Qty: 50 0RF Discharge Orders: Discharge ED (Routine); Ordered 06/21/24 Ordered By: Jakub Louis Referrals: Rohith Solis DO [Primary Care Provider] - 1 week Patient Instructions: Back Pain (ED) Activity Restrictions/Additional Instructions: Thank you for choosing [facility] for your healthcare needs today. Please realize that you were seen in the emergency department and that we are providing you with an emergency medical screening exam and this may not be a complete and all exclusive of all testing and/or medical workup we may need to determine your element or severity of your illness. It is very important that you follow-up as instructed with your primary care provider or specialist for the additional evaluation and to discuss your medical treatment plan. You may return to the emergency department should you have concerns or if your condition changes or worsens in any way. Coding Level of Care Code ED Exterior Interior Specialist for Nancy Lundberg
[2024-06-21] MEDS: ketorolac 60 mg/2 mL INJ IM (09:30)
[2024-06-21] MEDS: orphenadrine 30 mg/mL Inj 2 mL 60 MG IM (09:31)
[2024-06-21 10:44] VITALS: BP 154/92; PULSE 78; O2SAT 97
== END 2024-06-21 10:45 | disposition home or self-care (01) ==
PROVIDERS: Emergency Provider Emergency Medicine; PCP Family Medicine
DX: G89.29 Other chronic pain (principal); M54.50 Low back pain, unspecified; E78.5 Hyperlipidemia, unspecified; I10 Essential (primary) hypertension
CPT/HCPCS: 96372; 99284; J1885; J2360

== ENCOUNTER 2024-06-30 19:23 | Emergency (ER) | payer MEDICARE, MEDICAID, SELFPAY ==
[2024-06-30 19:39] VITALS: BP 155/103; PULSE 93; RESP 16; TEMP 36.4; O2SAT 97; BMI 30.4
[2024-06-30] MEDS: ketorolac 60 mg/2 mL INJ IM (20:15)
[2024-06-30] MEDS: LORazepam 1 mg Tablet PO (20:15)
--- NOTE | 2024-06-30 20:18 | W.ED.ANXIETY ---
HPI - Anxiety General: Chief Complaint: Anxiety Stated Complaint: back pain, anxiety Time Seen by Provider: 06/30/24 19:49 Source: patient Mode of arrival: ambulatory Limitations: no limitations History of Present Illness: Patient is a 68-year-old male who is presenting with acute on chronic back pain that has been causing him anxiety today. He has multiple prior visits for the back pain, of which she had a lumbar fusion surgery back earlier this year. Denies any new injury or trauma. He states that the anxiety prevented him from taking his medications tonight, blood pressure is elevated somewhat during triage. No bowel or bladder incontinence or other concerning symptoms reported to his back pain. He states he has a general 6-month follow-up for his surgery coming up. He states when he is seen here in the past he just gets a shot of Toradol and this helps. MD complaint: anxiety (Plus chronic back pain) Severity: mild Associated symptoms: Deny chest pain, chills, fever(s), headache(s), nausea or vomiting Related Data Home Medications Medication Instructions Recorded Confirmed ibuprofen 200 mg tablet 400 mg PO Q6H PRN Pain 05/31/23 05/26/24 Previous Rx's Medication Instructions Recorded SLO back brace #1 ea 12/24/23 diclofenac sodium 1 % topical gel 2 g topical QID arthritis #100 01/02/24 (Voltaren Arthritis Pain) grams lidocaine 5 % topical ointment 1 applic topical TID PRN pain #50 01/23/24 grams hydrocodone 5 mg-acetaminophen 325 1 tab PO Q4H PRN Pain 7 days #40 02/04/24 mg tablet tabs paroxetine HCl 30 mg tablet (Paxil) 30 mg PO DAILY #30 tabs 03/09/24 methylprednisolone 4 mg tablets in See Rx Instructions PO .COMPLEX 03/23/24 a dose pack (Medrol (Jose Antonio)) #21 ea prednisone 20 mg tablet 20 mg PO DAILY #15 tabs 05/26/24 hydrochlorothiazide 25 mg tablet 25 mg PO DAILY #90 tabs 05/29/24 lisinopril 30 mg tablet See Rx Instructions .Route 05/29/24 .COMPLEX #90 tabs rosuvastatin 40 mg tablet See Rx Instructions .Route 05/29/24 .COMPLEX #90 tabs tamsulosin 0.4 mg capsule See Rx Instructions .Route 05/29/24 .COMPLEX #90 caps potassium chloride 10 mEq 10 meq PO DAILY #90 caps 06/01/24 capsule,extended release aripiprazole 2 mg tablet 2 mg PO DAILY #30 tabs 06/22/24 lorazepam 1 mg tablet 1 mg PO TID PRN anxiety #90 tabs 06/24/24 Allergies Allergy/AdvReac Type Severity Reaction Status Date / Time No Known Drug Allergies Allergy Unknown Verified 05/26/24 14:27 Review of Systems General: Reports: 10 or more systems reviewed and unremarkable except in HPI and below Const: Denies: fever(s) or chills Card: Denies: chest pain Resp: Denies: dyspnea or productive cough GI: Denies: abdominal pain, nausea, vomiting or diarrhea : Denies: flank pain Musc: Reports: back pain; Denies: neck pain, extremity pain, extremity swelling, joint pain, joint swelling, joint redness, joint warmth, limited range of motion or muscle weakness Skin/Breast: Denies: rash Neuro: Denies: headache(s), numbness in extremities or weakness in extremities Psych: Reports: anxiety; Denies: visual hallucinations, auditory hallucinations, tactile hallucinations, suicidal ideation or homicidal ideation PFS ED PFSH: Medical History On combination antipsychotic drug therapy Gout, unspecified Diverticula of colon Psychiatric care Slow transit constipation Hyperlipidemia Essential hypertension Generalized anxiety disorder Panic disorder [episodic paroxysmal anxiety] Surgical History History of basal cell cancer Left face and nose History of renal stent Family History Other Cancer Diabetes Hypertension Stroke Social History Smoking and tobacco/nicotine status: never used tobacco/nicotine Second hand smoke exposure: No Alcohol intake: never Substance/Drug Use: never Adopted: No Caregiver/support person: No Lives independently: Yes Household members: spouse Housing: House Marital status: Number of children: 4 service: No Current occupational status: disabled Do you think of yourself as: Straight/Heterosexual Current gender identity: Male Physical Exam Const: COMMON NORMALS: patient oriented x3, no limitations, healthy appearing, alert and well nourished GENERAL APPEARANCE: anxious HENMT: COMMON NORMALS: normocephalic and atraumatic HEAD & SCALP: normocephalic and atraumatic Neck/C-Spine: COMMON NORMALS: full ROM, supple and no meningeal signs Resp: COMMON NORMALS: normal respiratory effort, No use of accessory muscles and clear to auscultation bilaterally AUSCULTATION: clear to auscultation bilaterally Cardio: COMMON NORMALS: regular rate and regular rhythm RATE: regular rate RHYTHM: regular rhythm Back/Pelvis: OTHER: Well-healed scar to lumbar region, no reproducible tenderness to palpation of the spinous process or paralumbar muscles. No signs of trauma. Extremity: COMMON NORMALS: normal to inspection, full ROM, capillary refill normal, no joint enlargement and no clubbing, cyanosis or edema Neuro: COMMON NORMALS: patient oriented x3, moves all extremities, no focal motor deficits and no sensory deficits noted SENSORIUM/ORIENTATION: Yes alert MENINGEAL SIGNS: Yes no meningeal signs Skin: COMMON NORMALS: no rashes or lesions noted GENERAL SKIN EXAM: no rashes or lesions noted Course Vital Signs: Vital signs: Vital Signs Temperature 97.5 F L 06/30/24 19:39 Pulse Rate 93 06/30/24 19:39 Respiratory Rate 16 06/30/24 19:39 Blood Pressure 155/103 06/30/24 19:39 Pulse Oximetry 97 06/30/24 19:39 Oxygen Delivery Me thod Room Air 06/30/24 19:39 MDM - Anxiety Medical Decision Making Patient presented for worsening chronic back pain as well as some anxiety that was burning him for taking medications, specifically his blood pressure medication. No recent trauma or concerning historical factors that would require an imaging at this time. He states he usually just gets a shot of Toradol and this helps, also is requesting something for his anxiety. He is recheck after receiving Toradol and Ativan and feels much better. For recurrences of back pain or if he continues to worsen, he is informed to call his orthopedic surgeon to schedule an earlier appointment. With any other concerning signs he is told to return for reevaluation. He did not report to me any SI or HI or anything concerning that would warrant a psychological evaluation. No radiology studies performed this visit Discharge Plan Discharge Patient Disposition: Home Clinical Impression: Anxiety Chronic low back pain Qualifiers: Back pain laterality: midline Sciatica presence: without sciatica Qualified Code(s): M54.50 - Low back pain, unspecified Condition: Stable Prescriptions: No Action hydrocodone-acetaminophen 5-325 mg tablet 1 tab PO Q4H PRN (Reason: Pain) 7 Days Qty: 40 0RF paroxetine HCl [Paxil] 30 mg tablet 30 mg PO DAILY Qty: 30 2RF (DME) SLO back brace See Rx Instructions .Route .MEDSUPPLY Qty: 1 0RF Rx Instructions: As directed prednisone 20 mg tablet 20 mg PO DAILY Qty: 15 0RF Rx Instructions: 60MG for 3 days 40MG for 2 days 20MG for 2 day diclofenac sodium [Voltaren Arthritis Pain] 1 % gel 2 g topical QID Qty: 100 1RF Rx Instructions: apply to inside and outside of elbow hydrochlorothiazide 25 mg tablet 25 mg PO DAILY Qty: 90 3RF lisinopril 30 mg tablet See Rx Instructions .ROUTE .COMPLEX Qty: 90 3RF Dose Instruction: TAKE ONE TABLET BY MOUTH at bedtime Rx Instructions: TAKE ONE TABLET BY MOUTH at bedtime rosuvastatin 40 mg tablet See Rx Instructions .ROUTE .COMPLEX Qty: 90 3RF Dose Instruction: TAKE ONE TABLET BY MOUTH at bedtime Rx Instructions: TAKE ONE TABLET BY MOUTH at bedtime tamsulosin 0.4 mg capsule See Rx Instructions .ROUTE .COMPLEX Qty: 90 3RF Dose Instruction: TAKE ONE CAPSULE BY MOUTH at bedtime Rx Instructions: TAKE ONE CAPSULE BY MOUTH at bedtime potassium chloride 10 mEq capsule, extended release 10 meq PO DAILY Qty: 90 3RF aripiprazole 2 mg tablet 2 mg PO DAILY Qty: 30 2RF lorazepam 1 mg tablet 1 mg PO TID PRN (Reason: anxiety) Qty: 90 2RF ibuprofen 200 mg Tablet 400 mg PO Q6H PRN (Reason: Pain) Medrol (Jose Antonio) 4 mg tablets,dose pack See Rx Instructions .ROUTE .COMPLEX Qty: 21 0RF Rx Instructions: orally per package directions lidocaine 5 % ointment 1 applic topical TID PRN (Reason: pain) Qty: 50 0RF Discharge Orders: Discharge ED (Routine); Ordered 06/30/24 Ordered By: Chris Guillen Referrals: Rohith Solis DO [Primary Care Provider] - Patient Instructions: Pain Management Activity Restrictions/Additional Instructions: You may call your orthospine surgeon office in the morning to schedule an earlier appointment. Take pain medications at home. Return with any new or worsening. Follow-up with primary care as well to discuss your recent increase in anxiety. Continue taking home medications, specifically your blood pressure medications when you get home. Coding Level of Care Code ED Plant Protection Supervisor for Nancy Lundberg
[2024-06-30 20:42] VITALS: BP 155/103; PULSE 93; O2SAT 97
== END 2024-06-30 20:43 | disposition home or self-care (01) ==
PROVIDERS: Emergency Provider Physician Assistant; PCP Family Medicine
DX: F41.9 Anxiety disorder, unspecified (principal); G89.29 Other chronic pain; M54.50 Low back pain, unspecified; Z85.828 Personal history of other malignant neoplasm of skin; I10 Essential (primary) hypertension; E78.5 Hyperlipidemia, unspecified
CPT/HCPCS: 96372; 99284; J1885

== ENCOUNTER 2024-07-01 17:59 | Emergency (ER) | payer MEDICARE, MEDICAID, SELFPAY ==
[2024-07-01 18:08] VITALS: BP 125/92; PULSE 107; RESP 16; TEMP 36.7; O2SAT 97; BMI 31.1
--- NOTE | 2024-07-01 18:33 | W.ED.ANXIETY ---
HPI - Anxiety General: Chief Complaint: Anxiety Stated Complaint: BP, Anxiety, Back pain Time Seen by Provider: 07/01/24 18:17 Source: patient Mode of arrival: ambulatory Limitations: no limitations History of Present Illness: Patient is a 68-year-old male who presents to the emergency department with anxiety and back pain, of which she was seen last night for the same thing. States he was on his feet all day and this caused his back pain to worsen, and he cannot get his anxiety under control. Again he is not reporting any suicidal or homicidal ideations, has no plan, no hallucinations, and no other concerning behavioral or mental symptoms to report. He does have a follow-up with [facility] tomorrow to discuss his anxiety, also has a follow-up with primary care on Saturday. He has no other symptoms to report, no new injury, no trauma to his back. No red flag back symptoms reported. MD complaint: anxiety and other (Back pain) History of similar episodes: Yes Associated symptoms: Deny chest pain, chills, fever(s), headache(s), nausea or vomiting Related Data Home Medications Medication Instructions Recorded Confirmed ibuprofen 200 mg tablet 400 mg PO Q6H PRN Pain 05/31/23 05/26/24 Previous Rx's Medication Instructions Recorded SLO back brace #1 ea 12/24/23 diclofenac sodium 1 % topical gel 2 g topical QID arthritis #100 01/02/24 (Voltaren Arthritis Pain) grams lidocaine 5 % topical ointment 1 applic topical TID PRN pain #50 01/23/24 grams hydrocodone 5 mg-acetaminophen 325 1 tab PO Q4H PRN Pain 7 days #40 02/04/24 mg tablet tabs paroxetine HCl 30 mg tablet (Paxil) 30 mg PO DAILY #30 tabs 03/09/24 methylprednisolone 4 mg tablets in See Rx Instructions PO .COMPLEX 03/23/24 a dose pack (Medrol (Jose Antonio)) #21 ea prednisone 20 mg tablet 20 mg PO DAILY #15 tabs 05/26/24 hydrochlorothiazide 25 mg tablet 25 mg PO DAILY #90 tabs 05/29/24 lisinopril 30 mg tablet See Rx Instructions .Route 05/29/24 .COMPLEX #90 tabs rosuvastatin 40 mg tablet See Rx Instructions .Route 05/29/24 .COMPLEX #90 tabs tamsulosin 0.4 mg capsule See Rx Instructions .Route 05/29/24 .COMPLEX #90 caps potassium chloride 10 mEq 10 meq PO DAILY #90 caps 06/01/24 capsule,extended release aripiprazole 2 mg tablet 2 mg PO DAILY #30 tabs 06/22/24 lorazepam 1 mg tablet 1 mg PO TID PRN anxiety #90 tabs 06/24/24 Allergies Allergy/AdvReac Type Severity Reaction Status Date / Time No Known Drug Allergies Allergy Unknown Verified 05/26/24 14:27 Review of Systems General: Reports: 10 or more systems reviewed and unremarkable except in HPI and below Const: Denies: fever(s) or chills Card: Denies: chest pain Resp: Denies: dyspnea or productive cough GI: Denies: abdominal pain, nausea, vomiting or diarrhea : Denies: flank pain Musc: Reports: back pain; Denies: neck pain, extremity pain, extremity swelling, joint pain, joint swelling, joint redness, joint warmth, limited range of motion or muscle weakness Skin/Breast: Denies: rash Neuro: Denies: headache(s), numbness in extremities or weakness in extremities Psych: Reports: anxiety; Denies: visual hallucinations, auditory hallucinations, tactile hallucinations, suicidal ideation or homicidal ideation PFSH ED PFSH: Medical History On combination antipsychotic drug therapy Gout, unspecified Diverticula of colon Psychiatric care Slow transit constipation Hyperlipidemia Essential hypertension Generalized anxiety disorder Panic disorder [episodic paroxysmal anxiety] Surgical History History of basal cell cancer Left face and nose History of renal stent Family History Other Cancer Diabetes Hypertension Stroke Social History Smoking and tobacco/nicotine status: never used tobacco/nicotine Second hand smoke exposure: No Alcohol intake: never Substance/Drug Use: never Adopted: No Caregiver/support person: No Lives independently: Yes Household members: spouse Housing: House Marital status: Number of children: 4 service: No Current occupational status: disabled Do you think of yourself as: Straight/Heterosexual Current gender identity: Male Physical Exam Const: COMMON NORMALS: no acute distress, patient oriented x3, no limitations, healthy appearing, alert and well nourished OTHER: Patient in no acute distress HENMT: COMMON NORMALS: normocephalic and atraumatic HEAD & SCALP: normocephalic and atraumatic Neck/C-Spine: COMMON NORMALS: full ROM, supple and no meningeal signs Resp: COMMON NORMALS: normal respiratory effort, No use of accessory muscles and clear to auscultation bilaterally AUSCULTATION: clear to auscultation bilaterally Cardio: COMMON NORMALS: regular rate and regular rhythm RATE: regular rate RHYTHM: regular rhythm Back/Pelvis: OTHER: Postoperative lumbar scar well-healed, no midline spinous process tenderness or paralumbar tenderness to palpation. No signs of trauma. Extremity: COMMON NORMALS: normal to inspection, full ROM, capillary refill normal, no joint enlargement and no clubbing, cyanosis or edema Neuro: COMMON NORMALS: patient oriented x3, moves all extremities, no focal motor deficits and no sensory deficits noted SENSORIUM/ORIENTATION: Yes alert MENINGEAL SIGNS: Yes no meningeal signs Psych: COMMON NORMALS: mental status grossly normal, Normal thought process present and speech normal APPEARANCE: Yes grossly normal ATTITUDE: Yes calm ACTIVITY/MOTOR BEHAVIOR: Yes appropriate eye contact SPEECH: Yes normal speech MOOD & AFFECT: Yes euthymic mood THOUGHT PROCESS: Normal thought process present THOUGHT CONTENT: Yes Normal thought content present, No Suicidality present and No Homicidality present Skin: COMMON NORMALS: no rashes or lesions noted GENERAL SKIN EXAM: no rashes or lesions noted Course Vital Signs: Vital signs: Vital Signs Temperature 98.0 F 07/01/24 18:08 Pulse Rate 107 H 07/01/24 18:08 Respiratory Rate 16 07/01/24 18:08 Blood Pressure 125/92 07/01/24 18:08 Pulse Oximetry 97 07/01/24 18:08 Oxygen Delivery Me thod Room Air 07/01/24 18:08 MDM - Anxiety Medical Decision Making Patient presented for the second time in 24 hours for back pain and anxiety. States he was just simply on his feet all day and this causes back pain flareup. Presents requesting 2 shots, 1 of Ativan along with Toradol. He has follow-up with [facility] tomorrow and also has follow-up with primary care early next week. He did not endorse any SI or HI, or other concerning symptoms. Will be given shots and discharged. No radiology studies performed this visit Discharge Plan Discharge Patient Disposition: Home Clinical Impression: Anxiety, Chronic low back pain Condition: Stable Prescriptions: No Action hydrocodone-acetaminophen 5-325 mg tablet 1 tab PO Q4H PRN (Reason: Pain) 7 Days Qty: 40 0RF paroxetine HCl [Paxil] 30 mg tablet 30 mg PO DAILY Qty: 30 2RF (DME) SLO back brace See Rx Instructions .Route .MEDSUPPLY Qty: 1 0RF Rx Instructions: As directed prednisone 20 mg tablet 20 mg PO DAILY Qty: 15 0RF Rx Instructions: 60MG for 3 days 40MG for 2 days 20MG for 2 day diclofenac sodium [Voltaren Arthritis Pain] 1 % gel 2 g topical QID Qty: 100 1RF Rx Instructions: apply to inside and outside of elbow hydrochlorothiazide 25 mg tablet 25 mg PO DAILY Qty: 90 3RF lisinopril 30 mg tablet See Rx Instructions .ROUTE .COMPLEX Qty: 90 3RF Dose Instruction: TAKE ONE TABLET BY MOUTH at bedtime Rx Instructions: TAKE ONE TABLET BY MOUTH at bedtime rosuvastatin 40 mg tablet See Rx Instructions .ROUTE .COMPLEX Qty: 90 3RF Dose Instruction: TAKE ONE TABLET BY MOUTH at bedtime Rx Instructions: TAKE ONE TABLET BY MOUTH at bedtime tamsulosin 0.4 mg capsule See Rx Instructions .ROUTE .COMPLEX Qty: 90 3RF Dose Instruction: TAKE ONE CAPSULE BY MOUTH at bedtime Rx Instructions: TAKE ONE CAPSULE BY MOUTH at bedtime potassium chloride 10 mEq capsule, extended release 10 meq PO DAILY Qty: 90 3RF aripiprazole 2 mg tablet 2 mg PO DAILY Qty: 30 2RF lorazepam 1 mg tablet 1 mg PO TID PRN (Reason: anxiety) Qty: 90 2RF ibuprofen 200 mg Tablet 400 mg PO Q6H PRN (Reason: Pain) Medrol (Jose Antonio) 4 mg tablets,dose pack See Rx Instructions .ROUTE .COMPLEX Qty: 21 0RF Rx Instructions: orally per package directions lidocaine 5 % ointment 1 applic topical TID PRN (Reason: pain) Qty: 50 0RF Discharge Orders: Discharge ED (Routine); Ordered 07/01/24 Ordered By: Chris Guillen Referrals: Rohith Solis, [Primary Care Provider] - Activity Restrictions/Additional Instructions: Keep follow-up with [facility] tomorrow. Please take your Abilify at home. Follow-up with primary care next Saturday as already scheduled as well. If you have any suicidal thoughts, homicidal thoughts, or any hallucinations, please return to the emergency department for reevaluation immediately. Coding Level of Care Code ED Informatics Physician Liaison for Nancy Lundberg
[2024-07-01] MEDS: LORazepam 2 mg/mL INJ 1 mL 1 MG IM (18:36)
[2024-07-01] MEDS: ketorolac 60 mg/2 mL INJ IM (18:36)
[2024-07-01 18:53] VITALS: BP 128/97; PULSE 107; RESP 16; O2SAT 95
== END 2024-07-01 18:52 | disposition home or self-care (01) ==
PROVIDERS: Emergency Provider Physician Assistant; PCP Family Medicine
DX: F41.9 Anxiety disorder, unspecified (principal); G89.29 Other chronic pain; M54.59 Other low back pain; I10 Essential (primary) hypertension; Z85.828 Personal history of other malignant neoplasm of skin; E78.5 Hyperlipidemia, unspecified
CPT/HCPCS: 96372; 99284; J1885; J2060

== ENCOUNTER 2024-07-04 18:13 | Emergency (ER) | payer MEDICARE, MEDICAID, SELFPAY ==
[2024-07-04 18:47] VITALS: BP 138/90; PULSE 104; RESP 17; TEMP 36.5; O2SAT 97; BMI 31.7
[2024-07-04] MEDS: dexamethasone 10 mg/mL INJ IM (22:11)
[2024-07-04] MEDS: ketorolac 30 mg/mL INJ IM (22:12)
[2024-07-04] MEDS: diazePAM 5 mg Tablet PO (22:12)
--- NOTE | 2024-07-04 23:15 | W.ED.BACK ---
HPI - Back Pain/Injury General: Chief Complaint: Back Pain/Injury Stated Complaint: Back Pain Time Seen by Provider: 07/04/24 21:17 History of Present Illness: Patient is a 68-year-old male that presents with acute on chronic back pain and anxiety. Patient reports long history of low back pain with prior fusion October 2023. Patient denies any recent falls or injuries. Patient reports use of brace and medication previously prescribed, has not helped. Associated symptoms: Deny abdominal pain, chills, fever(s), nausea or vomiting Related Data Home Medications Medication Instructions Recorded Confirmed ibuprofen 200 mg tablet 400 mg PO Q6H PRN Pain 05/31/23 07/02/24 Previous Rx's Medication Instructions Recorded SLO back brace #1 ea 12/24/23 diclofenac sodium 1 % topical gel 2 g topical QID arthritis #100 01/02/24 (Voltaren Arthritis Pain) grams lidocaine 5 % topical ointment 1 applic topical TID PRN pain #50 01/23/24 grams hydrocodone 5 mg-acetaminophen 325 1 tab PO Q4H PRN Pain 7 days #40 02/04/24 mg tablet tabs methylprednisolone 4 mg tablets in See Rx Instructions PO .COMPLEX 03/23/24 a dose pack (Medrol (Jose Antonio)) #21 ea prednisone 20 mg tablet 20 mg PO DAILY #15 tabs 05/26/24 hydrochlorothiazide 25 mg tablet 25 mg PO DAILY #90 tabs 05/29/24 lisinopril 30 mg tablet See Rx Instructions .Route 05/29/24 .COMPLEX #90 tabs rosuvastatin 40 mg tablet See Rx Instructions .Route 05/29/24 .COMPLEX #90 tabs tamsulosin 0.4 mg capsule See Rx Instructions .Route 05/29/24 .COMPLEX #90 caps potassium chloride 10 mEq 10 meq PO DAILY #90 caps 06/01/24 capsule,extended release aripiprazole 2 mg tablet 2 mg PO DAILY #30 tabs 06/22/24 lorazepam 1 mg tablet 1 mg PO TID PRN anxiety #90 tabs 06/24/24 paroxetine HCl 40 mg tablet (Paxil) 40 mg PO DAILY #30 tabs 07/02/24 Allergies Allergy/AdvReac Type Severity Reaction Status Date / Time No Known Drug Allergies Allergy Unknown Verified 07/09/24 13:41 Review of Systems General: Reports: 10 or more systems reviewed and unremarkable except in HPI and below Const: Denies: fever(s) or chills Card: Denies: chest pain Resp: Denies: dyspnea or productive cough GI: Denies: abdominal pain, nausea, vomiting or diarrhea : Denies: flank pain Musc: Reports: back pain; Denies: neck pain, extremity pain, extremity swelling, joint pain, joint swelling, joint redness, joint warmth, limited range of motion or muscle weakness Skin/Breast: Denies: rash Neuro: Denies: headache(s), numbness in extremities or weakness in extremities Psych: Reports: anxiety; Denies: visual hallucinations, auditory hallucinations, tactile hallucinations, suicidal ideation or homicidal ideation PFSH ED PFSH: Medical History On combination antipsychotic drug therapy Gout, unspecified Diverticula of colon Psychiatric care Slow transit constipation Hyperlipidemia Essential hypertension Generalized anxiety disorder Panic disorder [episodic paroxysmal anxiety] Surgical History History of basal cell cancer Left face and nose History of renal stent Family History Other Cancer Diabetes Hypertension Stroke Social History Smoking and tobacco/nicotine status: never used tobacco/nicotine Second hand smoke exposure: No Alcohol intake: never Substance/Drug Use: never Adopted: No Caregiver/support person: No Lives independently: Yes Household members: spouse Housing: House Marital status: Number of children: 4 service: No Current occupational status: disabled Do you think of yourself as: Straight/Heterosexual Current gender identity: Male Physical Exam Narrative: EXAM NARRATIVE: General: no acute distress, awake and alert HEENT: atruamatic, normocelphalic, eyes clear, nares clear, membranes moist, neck supple, no thyroidmegly or lymphadenopathy Chest: HRRR, lungs CTA Ab: S/NT/ND, normal active bowel sounds. Ext: no cyanosis , clubbing or edema. Moving all extremities spontaneously Neuro: no gross lateralizing signs, gait at baseline using cane MS: decreased ROm of lumbar spine, no joint edema or erythema. Tenderness to paraspinous muscles Denies radicular symptoms, denies numbness tingling Denies weakness in lower extremities. Patient has 5/5 strength to hip flexor, quad, gastroc, ant tib and toe extensors Psych: affect good, normal thought process and behavior. Skin: scattered erythematous macular, arms, chest, right leg, irregular, blanching. no open lesions. Course Vital Signs: Vital signs: Vital Signs Temperature 97.7 F 07/04/24 18:47 Pulse Rate 88 07/04/24 23:31 Respiratory Rate 18 07/04/24 23:31 Blood Pressure 149/78 07/04/24 23:31 Pulse Oximetry 97 07/04/24 23:31 Oxygen Delivery Me thod Room Air 07/04/24 18:47 MDM - Back Pain/Injury Medical Decision Making Patient was evaluated in the emergency department with reports of acute on chronic lumbar back pain. Denies radicular symptoms. Differential diagnosis includes exacerbation of chronic back pain, muscle spasm, fracture. Patient denied any trauma or injuries and therefore diagnostics were deferred. He reports that he was quite anxious so his pain was treated with ketorolac, diazepam, Decadron. He reports he had good pain relief. He talked with attending physician who agreed to prescribing a couple days worth of diazepam. He is getting go home with steroid pack and diazepam. He needs to follow-up with primary care/primary surgeon. All questions answered No radiology studies performed this visit Discharge Plan Discharge Patient Disposition: Home Clinical Impression: Chronic back pain Condition: Stable Prescriptions: No Action hydrocodone-acetaminophen 5-325 mg tablet 1 tab PO Q4H PRN (Reason: Pain) 7 Days Qty: 40 0RF (DME) SLO back brace See Rx Instructions .Route .MEDSUPPLY Qty: 1 0RF Rx Instructions: As directed prednisone 20 mg tablet 20 mg PO DAILY Qty: 15 0RF Rx Instructions: 60MG for 3 days 40MG for 2 days 20MG for 2 day paroxetine HCl [Paxil] 40 mg tablet 40 mg PO DAILY Qty: 30 2RF diclofenac sodium [Voltaren Arthritis Pain] 1 % gel 2 g topical QID Qty: 100 1RF Rx Instructions: apply to inside and outside of elbow hydrochlorothiazide 25 mg tablet 25 mg PO DAILY Qty: 90 3RF lisinopril 30 mg tablet See Rx Instructions .ROUTE .COMPLEX Qty: 90 3RF Dose Instruction: TAKE ONE TABLET BY MOUTH at bedtime Rx Instructions: TAKE ONE TABLET BY MOUTH at bedtime rosuvastatin 40 mg tablet See Rx Instructions .ROUTE .COMPLEX Qty: 90 3RF Dose Instruction: TAKE ONE TABLET BY MOUTH at bedtime Rx Instructions: TAKE ONE TABLET BY MOUTH at bedtime tamsulosin 0.4 mg capsule See Rx Instructions .ROUTE .COMPLEX Qty: 90 3RF Dose Instruction: TAKE ONE CAPSULE BY MOUTH at bedtime Rx Instructions: TAKE ONE CAPSULE BY MOUTH at bedtime potassium chloride 10 mEq capsule, extended release 10 meq PO DAILY Qty: 90 3RF aripiprazole 2 mg tablet 2 mg PO DAILY Qty: 30 2RF lorazepam 1 mg tablet 1 mg PO TID PRN (Reason: anxiety) Qty: 90 2RF ibuprofen 200 mg Tablet 400 mg PO Q6H PRN (Reason: Pain) Medrol (Jose Antonio) 4 mg tablets,dose pack See Rx Instructions .ROUTE .COMPLEX Qty: 21 0RF Rx Instructions: orally per package directions lidocaine 5 % ointment 1 applic topical TID PRN (Reason: pain) Qty: 50 0RF Discharge Orders: Discharge ED (Routine); Ordered 07/04/24 Ordered By: Narendra Alexandra Referrals: Rohith Solis, [Primary Care Provider] - Discharge Diet: Advance as tolerated Discharge Activity: Resume usual activity Patient Instructions: Chronic Back Pain (DC), Lower Back Exercises (ED), Pain Management Activity Restrictions/Additional Instructions: Please follow-up with your primary care or primary surgeon for ongoing management of your pain. Please return to the emergency department for new, concerning, worsening symptoms Coding Level of Care Code ED Crime Prevention Police Officer for Nancy Lundberg
[2024-07-04 23:31] VITALS: BP 149/78; PULSE 88; RESP 18; O2SAT 97
== END 2024-07-04 23:32 | disposition home or self-care (01) ==
PROVIDERS: Emergency Provider Nurse Practitioner; PCP Family Medicine
DX: M54.9 Dorsalgia, unspecified (principal); G89.29 Other chronic pain
CPT/HCPCS: 96372; 99284; J1100; J1885

== ENCOUNTER 2024-08-16 15:37 | Emergency (ER) | payer MEDICARE, MEDICAID, SELFPAY ==
[2024-08-16 15:42] VITALS: BP 129/75; PULSE 108; RESP 16; TEMP 36.4; O2SAT 97; BMI 31.1
[2024-08-16] MEDS: diazePAM 5 mg Tablet PO (16:09)
[2024-08-16] MEDS: ketorolac 60 mg/2 mL INJ IM (16:09)
[2024-08-16 16:14] VITALS: BP 127/90; PULSE 103; O2SAT 96
--- NOTE | 2024-08-16 16:41 | ED_ITS ---
Documented by User: [email or web address] Aquino 08/16/24 17:00 HPI - Back Pain/Injury General: Chief Complaint: Back Pain/Injury Stated Complaint: back pain Time Seen by Provider: 08/16/24 15:55 Source: patient Mode of arrival: ambulatory Limitations: no limitations History of Present Illness: Patient is a 69-year-old male who is well-known here to the emergency department complaining of increasing low back pain with increasing anxiety. He states he ran out of his Toradol and has been unable to follow-up with primary care due to the holidays, is here due to the increase in his back pain as well as increased anxiety. He is not having any suicidal homicidal ideations, states he normally takes lorazepam and he can just feel his anxiety starting to increase. No bowel or bladder incontinence or other concerning symptoms with his back, states he just wants Toradol and will follow-up with his primary care first thing on Saturday. MD elicited complaint: back pain Pertinent past history: prior back pain Onset (ago): month(s) Timing: progressively worsening Severity: moderate Similar Symptoms Previously: Yes Location: lumbar spine, right lower back and left lower back Exacerbating factors: movement Associated symptoms: Deny abdominal pain, chills, fecal incontinence, fever(s), nausea or vomiting Related Data Previous Rx's Medication Instructions Recorded SLO back brace #1 ea 12/24/23 diclofenac sodium 1 % topical gel 2 g topical QID arthritis #100 01/02/24 (Voltaren Arthritis Pain) grams lidocaine 5 % topical ointment 1 applic topical TID PRN pain #50 01/23/24 grams hydrocodone 5 mg-acetaminophen 325 1 tab PO Q4H PRN Pain 7 days #40 02/04/24 mg tablet tabs methylprednisolone 4 mg tablets in See Rx Instructions PO .COMPLEX 03/23/24 a dose pack (Medrol (Jose Antonio)) #21 ea prednisone 20 mg tablet 20 mg PO DAILY #15 tabs 05/26/24 hydrochlorothiazide 25 mg tablet 25 mg PO DAILY #90 tabs 05/29/24 lisinopril 30 mg tablet See Rx Instructions .Route 05/29/24 .COMPLEX #90 tabs rosuvastatin 40 mg tablet See Rx Instructions .Route 05/29/24 .COMPLEX #90 tabs tamsulosin 0.4 mg capsule See Rx Instructions .Route 05/29/24 .COMPLEX #90 caps potassium chloride 10 mEq 10 meq PO DAILY #90 caps 06/01/24 capsule,extended release aripiprazole 2 mg tablet 2 mg PO DAILY #30 tabs 06/22/24 lorazepam 1 mg tablet 1 mg PO TID PRN anxiety #90 tabs 06/24/24 paroxetine HCl 40 mg tablet (Paxil) 40 mg PO DAILY #30 tabs 07/02/24 ketorolac 10 mg tablet 10 mg PO Q8H PRN pain #10 tabs 08/16/24 Allergies Allergy/AdvReac Type Severity Reaction Status Date / Time No Known Drug Allergies Allergy Unknown Verified 08/10/24 11:04 Review of Systems General: Reports: 10 or more systems reviewed and unremarkable except in HPI and below Const: Denies: fever(s) or chills Card: Denies: chest pain Resp: Denies: dyspnea or productive cough GI: Denies: abdominal pain, nausea, vomiting, diarrhea or fecal incontinence : Denies: flank pain or urinary incontinence Musc: Reports: back pain; Denies: neck pain, extremity pain, extremity swelling, joint pain, joint swelling, joint redness, joint warmth, limited range of motion or muscle weakness Skin/Breast: Denies: rash Neuro: Denies: headache(s), numbness in extremities or weakness in extremities Psych: Reports: anxiety; Denies: suicidal ideation or homicidal ideation PFSH ED PFSH: Medical History On combination antipsychotic drug therapy Gout, unspecified Diverticula of colon Psychiatric care Slow transit constipation Hyperlipidemia Essential hypertension Generalized anxiety disorder Panic disorder [episodic paroxysmal anxiety] Surgical History History of basal cell cancer Left face and nose History of renal stent Family History Other Cancer Diabetes Hypertension Stroke Social History Smoking and tobacco/nicotine status: never used tobacco/nicotine Second hand smoke exposure: No Alcohol intake: never Substance/Drug Use: never Adopted: No Caregiver/support person: No Lives independently: Yes Household members: spouse Housing: House Marital status: Number of children: 4 service: No Current occupational status: disabled Do you think of yourself as: Straight/Heterosexual Current gender identity: Male Physical Exam Const: COMMON NORMALS: no acute distress, patient oriented x3, no limitations, healthy appearing, alert and well nourished HENMT: COMMON NORMALS: normocephalic and atraumatic HEAD & SCALP: normocephalic and atraumatic Neck/C-Spine: COMMON NORMALS: full ROM, supple and no meningeal signs Resp: COMMON NORMALS: normal respiratory effort, No use of accessory muscles and clear to auscultation bilaterally AUSCULTATION: clear to auscultation bilaterally Cardio: COMMON NORMALS: regular rate and regular rhythm RATE: regular rate RHYTHM: regular rhythm Back/Pelvis: OTHER: Postoperative lumbar scar. No significant reproducible tenderness to palpation of the lumbar spine, mild reproducible tenderness to palpation of the bilateral paralumbar muscles. No signs of bruising or trauma. Extremity: COMMON NORMALS: normal to inspection, full ROM, capillary refill normal, no joint enlargement and no clubbing, cyanosis or edema Neuro: COMMON NORMALS: patient oriented x3, moves all extremities, no focal motor deficits, no sensory deficits noted and deep tendon reflexes 2+ bilaterally SENSORIUM/ORIENTATION: Yes alert MENINGEAL SIGNS: Yes no meningeal signs Psych: THOUGHT CONTENT: No Suicidality present and No Homicidality present Skin: COMMON NORMALS: no rashes or lesions noted GENERAL SKIN EXAM: no rashes or lesions noted Course Vital Signs: Vital signs: Vital Signs Temperature 97.6 F 08/16/24 15:42 Pulse Rate 103 H 08/16/24 16:14 Respiratory Rate 16 08/16/24 15:42 Blood Pressure 127/90 08/16/24 16:14 Pulse Oximetry 96 08/16/24 16:14 Oxygen Delivery Me thod Room Air 08/16/24 15:42 MDM - Back Pain/Injury Medical Decision Making Patient well-known here to the emergency department, I myself is seen multiple times for the same issues in the past. States that he normally just is given 1 dose of Valium and this helps get rid of his acute on chronic anxiety. Also gave him a shot of Toradol here in a couple to take home before following up with primary care on Saturday. He is comfortable with this plan, had no concerning symptoms or physical exam findings to warrant any further evaluation at this time. Did give return precautions and patient endorsed understanding. No radiology studies performed this visit Discharge Plan Discharge Patient Disposition: Home Clinical Impression: Panic disorder [episodic paroxysmal anxiety] Chronic low back pain Qualifiers: Back pain laterality: bilateral Sciatica presence: without sciatica Qualified Code(s): M54.50 - Low back pain, unspecified Condition: Stable Prescriptions: New ketorolac 10 mg tablet 10 mg PO Q8H PRN (Reason: pain) Qty: 10 0RF Discontinued ibuprofen 200 mg Tablet 400 mg PO Q6H PRN (Reason: Pain) No Action hydrocodone-acetaminophen 5-325 mg tablet 1 tab PO Q4H PRN (Reason: Pain) 7 Days Qty: 40 0RF (DME) SLO back brace See Rx Instructions .Route .MEDSUPPLY Qty: 1 0RF Rx Instructions: As directed prednisone 20 mg tablet 20 mg PO DAILY Qty: 15 0RF Rx Instructions: 60MG for 3 days 40MG for 2 days 20MG for 2 day paroxetine HCl [Paxil] 40 mg tablet 40 mg PO DAILY Qty: 30 2RF diclofenac sodium [Voltaren Arthritis Pain] 1 % gel 2 g topical QID Qty: 100 1RF Rx Instructions: apply to inside and outside of elbow hydrochlorothiazide 25 mg tablet 25 mg PO DAILY Qty: 90 3RF lisinopril 30 mg tablet See Rx Instructions .ROUTE .COMPLEX Qty: 90 3RF Dose Instruction: TAKE ONE TABLET BY MOUTH at bedtime Rx Instructions: TAKE ONE TABLET BY MOUTH at bedtime rosuvastatin 40 mg tablet See Rx Instructions .ROUTE .COMPLEX Qty: 90 3RF Dose Instruction: TAKE ONE TABLET BY MOUTH at bedtime Rx Instructions: TAKE ONE TABLET BY MOUTH at bedtime tamsulosin 0.4 mg capsule See Rx Instructions .ROUTE .COMPLEX Qty: 90 3RF Dose Instruction: TAKE ONE CAPSULE BY MOUTH at bedtime Rx Instructions: TAKE ONE CAPSULE BY MOUTH at bedtime potassium chloride 10 mEq capsule, extended release 10 meq PO DAILY Qty: 90 3RF aripiprazole 2 mg tablet 2 mg PO DAILY Qty: 30 2RF lorazepam 1 mg tablet 1 mg PO TID PRN (Reason: anxiety) Qty: 90 2RF Medrol (Jose Antonio) 4 mg tablets,dose pack See Rx Instructions .ROUTE .COMPLEX Qty: 21 0RF Rx Instructions: orally per package directions lidocaine 5 % ointment 1 applic topical TID PRN (Reason: pain) Qty: 50 0RF Discharge Orders: Discharge ED (Routine); Ordered 08/16/24 Ordered By: Chris Guillen Referrals: Rohith Solis DO [Primary Care Provider] - Patient Instructions: Pain Management Activity Restrictions/Additional Instructions: Take ketorolac as prescribed, do not take this alongside with ibuprofen or other NSAIDs. Continue taking your medications for anxiety. Follow-up with primary care as soon as possible to discuss ED visit and further evaluation. Return with any new or worsening. Coding Level of Care Code ED Cardiovascular Physician Assistant for Chg Fwd Documented by User: Chaka Elliott DO 08/17/24 14:13 HPI - Back Pain/Injury General: Chief Complaint: Back Pain/Injury Stated Complaint: back pain Time Seen by Provider: 08/16/24 15:55 Related Data Previous Rx's Medication Instructions Recorded SLO back brace #1 ea 12/24/23 diclofenac sodium 1 % topical gel 2 g topical QID arthritis #100 01/02/24 (Voltaren Arthritis Pain) grams lidocaine 5 % topical ointment 1 applic topical TID PRN pain #50 01/23/24 grams hydrocodone 5 mg-acetaminophen 325 1 tab PO Q4H PRN Pain 7 days #40 02/04/24 mg tablet tabs methylprednisolone 4 mg tablets in See Rx Instructions PO .COMPLEX 03/23/24 a dose pack (Medrol (Jose Antonio)) #21 ea prednisone 20 mg tablet 20 mg PO DAILY #15 tabs 05/26/24 hydrochlorothiazide 25 mg tablet 25 mg PO DAILY #90 tabs 05/29/24 lisinopril 30 mg tablet See Rx Instructions .Route 05/29/24 .COMPLEX #90 tabs rosuvastatin 40 mg tablet See Rx Instructions .Route 05/29/24 .COMPLEX #90 tabs tamsulosin 0.4 mg capsule See Rx Instructions .Route 05/29/24 .COMPLEX #90 caps potassium chloride 10 mEq 10 meq PO DAILY #90 caps 06/01/24 capsule,extended release aripiprazole 2 mg tablet 2 mg PO DAILY #30 tabs 06/22/24 lorazepam 1 mg tablet 1 mg PO TID PRN anxiety #90 tabs 06/24/24 paroxetine HCl 40 mg tablet (Paxil) 40 mg PO DAILY #30 tabs 07/02/24 ketorolac 10 mg tablet 10 mg PO Q8H PRN pain #10 tabs 08/16/24 Allergies Allergy/AdvReac Type Severity Reaction Status Date / Time No Known Drug Allergies Allergy Unknown Verified 08/10/24 11:04 [facility] ED PFSH: Medical History On combination antipsychotic drug therapy Gout, unspecified Diverticula of colon Psychiatric care Slow transit constipation Hyperlipidemia Essential hypertension Generalized anxiety disorder Panic disorder [episodic paroxysmal anxiety] Surgical History History of basal cell cancer Left face and nose History of renal stent Family History Other Cancer Diabetes Hypertension Stroke Social History Smoking and tobacco/nicotine status: never used tobacco/nicotine Second hand smoke exposure: No Alcohol intake: never Substance/Drug Use: never Adopted: No Caregiver/support person: No Lives independently: Yes Household members: spouse Housing: House Marital status: Number of children: 4 service: No Current occupational status: disabled Do you think of yourself as: Straight/Heterosexual Current gender identity: Male Course Vital Signs: Vital signs: Vital Signs Temperature 97.6 F 08/16/24 15:42 Pulse Rate 103 H 08/16/24 16:14 Respiratory Rate 16 08/16/24 15:42 Blood Pressure 127/90 08/16/24 16:14 Pulse Oximetry 96 08/16/24 16:14 Oxygen Delivery Me thod Room Air 08/16/24 15:42 MDM - Back Pain/Injury Medical Decision Making Patient well-known here to the emergency department, I myself is seen multiple times for the same issues in the past. States that he normally just is given 1 dose of Valium and this helps get rid of his acute on chronic anxiety. Also gave him a shot of Toradol here in a couple to take home before following up with primary care on Saturday. He is comfortable with this plan, had no concerning symptoms or physical exam findings to warrant any further evaluation at this time. Did give return precautions and patient endorsed understanding. Chart reviewed Discharge Plan Discharge Patient Disposition: Home Clinical Impression: Panic disorder [episodic paroxysmal anxiety] Chronic low back pain Qualifiers: Back pain laterality: bilateral Sciatica presence: without sciatica Qualified Code(s): M54.50 - Low back pain, unspecified Condition: Stable Prescriptions: New ketorolac 10 mg tablet 10 mg PO Q8H PRN (Reason: pain) Qty: 10 0RF Discontinued ibuprofen 200 mg Tablet 400 mg PO Q6H PRN (Reason: Pain) No Action hydrocodone-acetaminophen 5-325 mg tablet 1 tab PO Q4H PRN (Reason: Pain) 7 Days Qty: 40 0RF (DME) SLO back brace See Rx Instructions .Route .MEDSUPPLY Qty: 1 0RF Rx Instructions: As directed prednisone 20 mg tablet 20 mg PO DAILY Qty: 15 0RF Rx Instructions: 60MG for 3 days 40MG for 2 days 20MG for 2 day paroxetine HCl [Paxil] 40 mg tablet 40 mg PO DAILY Qty: 30 2RF diclofenac sodium [Voltaren Arthritis Pain] 1 % gel 2 g topical QID Qty: 100 1RF Rx Instructions: apply to inside and outside of elbow hydrochlorothiazide 25 mg tablet 25 mg PO DAILY Qty: 90 3RF lisinopril 30 mg tablet See Rx Instructions .ROUTE .COMPLEX Qty: 90 3RF Dose Instruction: TAKE ONE TABLET BY MOUTH at bedtime Rx Instructions: TAKE ONE TABLET BY MOUTH at bedtime rosuvastatin 40 mg tablet See Rx Instructions .ROUTE .COMPLEX Qty: 90 3RF Dose Instruction: TAKE ONE TABLET BY MOUTH at bedtime Rx Instructions: TAKE ONE TABLET BY MOUTH at bedtime tamsulosin 0.4 mg capsule See Rx Instructions .ROUTE .COMPLEX Qty: 90 3RF Dose Instruction: TAKE ONE CAPSULE BY MOUTH at bedtime Rx Instructions: TAKE ONE CAPSULE BY MOUTH at bedtime potassium chloride 10 mEq capsule, extended release 10 meq PO DAILY Qty: 90 3RF aripiprazole 2 mg tablet 2 mg PO DAILY Qty: 30 2RF lorazepam 1 mg tablet 1 mg PO TID PRN (Reason: anxiety) Qty: 90 2RF Medrol (Jose Antonio) 4 mg tablets,dose pack See Rx Instructions .ROUTE .COMPLEX Qty: 21 0RF Rx Instructions: orally per package directions lidocaine 5 % ointment 1 applic topical TID PRN (Reason: pain) Qty: 50 0RF Discharge Orders: Discharge ED (Routine); Ordered 08/16/24 Ordered By: Chris Guillen Referrals: Rohith Solis, DO [Primary Care Provider] - Patient Instructions: Pain Management Activity Restrictions/Additional Instructions: Take ketorolac as prescribed, do not take this alongside with ibuprofen or other NSAIDs. Continue taking your medications for anxiety. Follow-up with primary care as soon as possible to discuss ED visit and further evaluation. Return with any new or worsening. Coding Level of Care Code ED Cardiovascular Physician Assistant for Nanyc Lundberg
== END 2024-08-16 16:15 | disposition home or self-care (01) ==
PROVIDERS: Emergency Provider Physician Assistant; PCP Family Medicine
DX: M54.50 Low back pain, unspecified (principal); F41.0 Panic disorder [episodic paroxysmal anxiety]; I10 Essential (primary) hypertension; E78.5 Hyperlipidemia, unspecified
CPT/HCPCS: 96372; 99284; J1885

== ENCOUNTER 2024-09-08 21:04 | Emergency (ER) | payer MEDICARE, MEDICAID, SELFPAY ==
[2024-09-08 21:11] VITALS: BP 114/81; PULSE 96; RESP 18; TEMP 36.3; O2SAT 96; BMI 31.1
--- NOTE | 2024-09-08 21:25 | W.ED.BACK ---
HPI - Back Pain/Injury General: Chief Complaint: Back Pain/Injury Stated Complaint: back pain Time Seen by Provider: 09/08/24 21:16 Source: patient Mode of arrival: ambulatory Limitations: no limitations History of Present Illness: Patient is a 69-year-old male who presents the emergency department complaining of chronic lower back pain and anxiety. Has been seen here 4 times in the past for the same issue, clarifies that nothing new is changed he just has not been able to get rid of the current bout of pain. States he took hydrocodone at home and this did not help. Denies any new injury. Denies any neurological deficit or bowel or bladder incontinence. No fevers, vital stable at this time. MD elicited complaint: back pain Pertinent past history: prior back pain Timing: constant Severity: moderate Similar Symptoms Previously: Yes Location: lumbar spine Radiation: none Associated symptoms: Deny abdominal pain, difficulty walking, fecal incontinence, fever(s) or syncope Related Data Previous Rx's Medication Instructions Recorded SLO back brace #1 ea 12/24/23 diclofenac sodium 1 % topical gel 2 g topical QID arthritis #100 01/02/24 (Voltaren Arthritis Pain) grams lidocaine 5 % topical ointment 1 applic topical TID PRN pain #50 01/23/24 grams hydrocodone 5 mg-acetaminophen 325 1 tab PO Q4H PRN Pain 7 days #40 02/04/24 mg tablet tabs methylprednisolone 4 mg tablets in See Rx Instructions PO .COMPLEX 03/23/24 a dose pack (Medrol (Jose Antonio)) #21 ea prednisone 20 mg tablet 20 mg PO DAILY #15 tabs 05/26/24 hydrochlorothiazide 25 mg tablet 25 mg PO DAILY #90 tabs 05/29/24 lisinopril 30 mg tablet See Rx Instructions .Route 05/29/24 .COMPLEX #90 tabs rosuvastatin 40 mg tablet See Rx Instructions .Route 05/29/24 .COMPLEX #90 tabs tamsulosin 0.4 mg capsule See Rx Instructions .Route 05/29/24 .COMPLEX #90 caps potassium chloride 10 mEq 10 meq PO DAILY #90 caps 06/01/24 capsule,extended release aripiprazole 2 mg tablet 2 mg PO DAILY #30 tabs 06/22/24 lorazepam 1 mg tablet 1 mg PO TID PRN anxiety #90 tabs 06/24/24 paroxetine HCl 40 mg tablet (Paxil) 40 mg PO DAILY #30 tabs 07/02/24 ketorolac 10 mg tablet 10 mg PO Q8H PRN pain #10 tabs 08/16/24 Allergies Allergy/AdvReac Type Severity Reaction Status Date / Time No Known Drug Allergies Allergy Unknown Verified 09/08/24 21:15 Review of Systems General: Reports: 10 or more systems reviewed and unremarkable except in HPI and below Const: Reports: other (denies trauma); Denies: fever(s), change in weight or night sweats Card: Denies: chest pain, lightheadedness or syncope Resp: Denies: dyspnea GI: Denies: abdominal pain or fecal incontinence : Denies: urinary incontinence Musc: Reports: back pain; Denies: neck pain or extremity pain Skin/Breast: Denies: rash or skin pain Neuro: Denies: headache(s), numbness in extremities, weakness in extremities, sensory changes, lack of coordination, difficulty walking, frequent falls or involuntary movements Psych: Reports: anxiety PFSH ED PFSH: Medical History On combination antipsychotic drug therapy Gout, unspecified Diverticula of colon Psychiatric care Slow transit constipation Hyperlipidemia Essential hypertension Generalized anxiety disorder Panic disorder [episodic paroxysmal anxiety] Surgical History History of basal cell cancer Left face and nose History of renal stent Family History Other Cancer Diabetes Hypertension Stroke Social History Smoking and tobacco/nicotine status: never used tobacco/nicotine Second hand smoke exposure: No Alcohol intake: never Substance/Drug Use: never Adopted: No Caregiver/support person: No Lives independently: Yes Household members: spouse Housing: House Marital status: Number of children: 4 service: No Current occupational status: disabled Do you think of yourself as: Straight/Heterosexual Current gender identity: Male Physical Exam Const: COMMON NORMALS: no acute distress, patient oriented x3, no limitations, healthy appearing and alert Resp: COMMON NORMALS: normal respiratory effort, No retractions, No use of accessory muscles and clear to auscultation bilaterally AUSCULTATION: clear to auscultation bilaterally Cardio: COMMON NORMALS: regular rate, regular rhythm, S1 normal heart sound present and S2 normal heart sound present RATE: regular rate RHYTHM: regular rhythm HEART SOUNDS: S1 normal heart sound present and S2 normal heart sound present Back/Pelvis: OTHER: Normal visual examination. Mild lumbar tenderness to palpation with no signs of trauma. Full active range of motion. Extremity: COMMON NORMALS: normal to inspection and full ROM Neuro: COMMON NORMALS: patient oriented x3, moves all extremities, no focal motor deficits, no sensory deficits noted, deep tendon reflexes 2+ bilaterally and gait normal SENSORIUM/ORIENTATION: Yes alert OTHER: L3, L4, L5, and S1 nerve sensations intact. Normal knee jerk and ankle jerk reflexes. Skin: COMMON NORMALS: no rashes or lesions noted GENERAL SKIN EXAM: no rashes or lesions noted Course Vital Signs: Vital signs: Vital Signs Temperature 97.4 F L 09/08/24 21:11 Pulse Rate 96 09/08/24 21:11 Respiratory Rate 18 09/08/24 21:11 Blood Pressure 114/81 09/08/24 21:11 Pulse Oximetry 96 09/08/24 21:11 MDM - Back Pain/Injury Medical Decision Making Patient well-known to the emergency department presents for recurrence of back pain which she has been seen multiple times here before. Is requesting a shot of Toradol and something for anxiety, states he does have a delivery route driver to take him home. Medications given, return precautions given. No radiology studies performed this visit Discharge Plan Discharge Patient Disposition: Home Clinical Impression: Generalized anxiety disorder, Chronic back pain Condition: Stable Prescriptions: No Action hydrocodone-acetaminophen 5-325 mg tablet 1 tab PO Q4H PRN (Reason: Pain) 7 Days Qty: 40 0RF (DME) SLO back brace See Rx Instructions .Route .MEDSUPPLY Qty: 1 0RF Rx Instructions: As directed prednisone 20 mg tablet 20 mg PO DAILY Qty: 15 0RF Rx Instructions: 60MG for 3 days 40MG for 2 days 20MG for 2 day paroxetine HCl [Paxil] 40 mg tablet 40 mg PO DAILY Qty: 30 2RF diclofenac sodium [Voltaren Arthritis Pain] 1 % gel 2 g topical QID Qty: 100 1RF Rx Instructions: apply to inside and outside of elbow hydrochlorothiazide 25 mg tablet 25 mg PO DAILY Qty: 90 3RF lisinopril 30 mg tablet See Rx Instructions .ROUTE .COMPLEX Qty: 90 3RF Dose Instruction: TAKE ONE TABLET BY MOUTH at bedtime Rx Instructions: TAKE ONE TABLET BY MOUTH at bedtime rosuvastatin 40 mg tablet See Rx Instructions .ROUTE .COMPLEX Qty: 90 3RF Dose Instruction: TAKE ONE TABLET BY MOUTH at bedtime Rx Instructions: TAKE ONE TABLET BY MOUTH at bedtime tamsulosin 0.4 mg capsule See Rx Instructions .ROUTE .COMPLEX Qty: 90 3RF Dose Instruction: TAKE ONE CAPSULE BY MOUTH at bedtime Rx Instructions: TAKE ONE CAPSULE BY MOUTH at bedtime potassium chloride 10 mEq capsule, extended release 10 meq PO DAILY Qty: 90 3RF aripiprazole 2 mg tablet 2 mg PO DAILY Qty: 30 2RF lorazepam 1 mg tablet 1 mg PO TID PRN (Reason: anxiety) Qty: 90 2RF Medrol (Jose Antonio) 4 mg tablets,dose pack See Rx Instructions .ROUTE .COMPLEX Qty: 21 0RF Rx Instructions: orally per package directions ketorolac 10 mg tablet 10 mg PO Q8H PRN (Reason: pain) Qty: 10 0RF lidocaine 5 % ointment 1 applic topical TID PRN (Reason: pain) Qty: 50 0RF Discharge Orders: Discharge ED (Routine); Ordered 09/08/24 Ordered By: Chris Guillen Referrals: Rohith Solis DO [Primary Care Provider] - Patient Instructions: Opioid Safety, Pain Management Activity Restrictions/Additional Instructions: Follow-up with primary care provider. Continue taking home medications. Return with any new or worsening. Coding Level of Care Code ED Clinical Mental Health Counselor for Nancy Lundberg
[2024-09-08] MEDS: ketorolac 60 mg/2 mL INJ IM (21:26)
[2024-09-08] MEDS: LORazepam 2 mg Tablet PO (21:26)
[2024-09-08 21:53] VITALS: BP 119/86; PULSE 91; O2SAT 91
== END 2024-09-08 21:58 | disposition home or self-care (01) ==
PROVIDERS: Emergency Provider Physician Assistant; PCP Family Medicine
DX: F41.8 Other specified anxiety disorders (principal); M54.50 Low back pain, unspecified; E78.5 Hyperlipidemia, unspecified; I10 Essential (primary) hypertension
CPT/HCPCS: 96372; 99284; J1885

== ENCOUNTER → 2024-09-14 12:12 | Outpatient (BNVA) | payer MEDICARE, MEDICAID, SELFPAY | PROVIDERS: PCP Family Medicine; Visit Provider Nurse Practitioner Family | DX: D22.4 Melanocytic nevi of scalp and neck (principal); L81.4 Other melanin hyperpigmentation; L82.1 Other seborrheic keratosis; L57.8 Other skin changes due to chronic exposure to nonionizing radiation; Z08 Encounter for follow-up examination after completed treatment for malignant neoplasm; Z85.828 Personal history of other malignant neoplasm of skin; L08.9 Local infection of the skin and subcutaneous tissue, unspecified; L57.0 Actinic keratosis | CPT/HCPCS: 11104; 17000; 99203 ==

== ENCOUNTER 2024-09-30 20:40 | Emergency (ER) | payer MEDICARE, MEDICAID, SELFPAY ==
[2024-09-30 20:42] VITALS: BP 148/82; PULSE 91; RESP 16; TEMP 36.4; O2SAT 97; BMI 31.7
--- NOTE | 2024-09-30 22:12 | XRR_ITS ---
PROCEDURE INFORMATION: Exam: XR Lumbosacral Spine Exam date and time: 09/30/2024 10:47 PM Age: 69 years old Clinical indication: Pain; Lumbago and lumbago with sciatica and sciatica; Bilateral; Prior surgery; Surgery date: 6+ months; Surgery type: Back surgeries; Additional info: Low back pain history of fusion TECHNIQUE: Imaging protocol: Radiologic exam of the lumbosacral spine. Views: 2 or 3 views. COMPARISON: CR XR hip LT 2-3V wo/w pel* [id number] 08/21/2023 10:18 AM FINDINGS: Bones/joints: Posterior instrumented fusion from L2 through S1 with bilateral pedicle screws and vertical struts. Screws are also seen traversing the sacroiliac joints. Interbody cage graft at L5-S1. Grade 1 anterolisthesis at L2-L3. The left pedicle screw at L2 appears to extend into the L1-L2 intervertebral disc space. Subtle lucency along both screws at L2. No definite acute fracture. Vertebral body heights are maintained. Soft tissues: Unremarkable. XR/XR lumbar spine 2-3V* [id number] IMPRESSION: 1. No acute osseous findings. 2. Lumbosacral fusion as detailed above with findings suggesting loosening of the screws at L2. The left L2 screw tip extends into the L1-L2 disc space.
[2024-09-30 23:02] VITALS: BP 118/79; PULSE 87; RESP 16; O2SAT 96
--- NOTE | 2024-09-30 23:16 | W.ED.BACK ---
HPI - Back Pain/Injury General: Chief Complaint: Back Pain/Injury Stated Complaint: anxiety and back pain Time Seen by Provider: 09/30/24 22:12 History of Present Illness: Patient comes to the ER with complaints of low back pain. He does have chronic low back pain he has not done anything to irritate it or overuse it or injure it again. Patient is waiting for a pain stimulator through the pain clinic. He is also having anxiety at this time. Related Data Previous Rx's Medication Instructions Recorded SLO back brace #1 ea 12/24/23 diclofenac sodium 1 % topical gel 2 g topical QID arthritis #100 01/02/24 (Voltaren Arthritis Pain) grams lidocaine 5 % topical ointment 1 applic topical TID PRN pain #50 01/23/24 grams hydrocodone 5 mg-acetaminophen 325 1 tab PO Q4H PRN Pain 7 days #40 02/04/24 mg tablet tabs methylprednisolone 4 mg tablets in See Rx Instructions PO .COMPLEX 03/23/24 a dose pack (Medrol (Jose Antonio)) #21 ea prednisone 20 mg tablet 20 mg PO DAILY #15 tabs 05/26/24 hydrochlorothiazide 25 mg tablet 25 mg PO DAILY #90 tabs 05/29/24 lisinopril 30 mg tablet See Rx Instructions .Route 05/29/24 .COMPLEX #90 tabs rosuvastatin 40 mg tablet See Rx Instructions .Route 05/29/24 .COMPLEX #90 tabs tamsulosin 0.4 mg capsule See Rx Instructions .Route 05/29/24 .COMPLEX #90 caps potassium chloride 10 mEq 10 meq PO DAILY #90 caps 06/01/24 capsule,extended release ketorolac 10 mg tablet 10 mg PO Q8H PRN pain #10 tabs 08/16/24 aripiprazole 2 mg tablet 2 mg PO DAILY #30 tabs 09/21/24 paroxetine HCl 40 mg tablet (Paxil) 40 mg PO DAILY #30 tabs 09/21/24 lorazepam 1 mg tablet 1 mg PO TID PRN anxiety #90 tabs 09/28/24 Allergies Allergy/AdvReac Type Severity Reaction Status Date / Time No Known Drug Allergies Allergy Unknown Verified 09/08/24 21:15 Review of Systems General: Reports: 10 or more systems reviewed and unremarkable except in HPI and below PFSH ED PFSH: Medical History On combination antipsychotic drug therapy Gout, unspecified Diverticula of colon Psychiatric care Slow transit constipation Hyperlipidemia Essential hypertension Generalized anxiety disorder Panic disorder [episodic paroxysmal anxiety] Surgical History History of basal cell cancer Left face and nose History of renal stent Family History Other Cancer Diabetes Hypertension Stroke Social History Smoking and tobacco/nicotine status: never used tobacco/nicotine Second hand smoke exposure: No Alcohol intake: never Substance/Drug Use: never Adopted: No Caregiver/support person: No Lives independently: Yes Household members: spouse Housing: House Marital status: Number of children: 4 service: No Current occupational status: disabled Do you think of yourself as: Straight/Heterosexual Current gender identity: Male Physical Exam Const: COMMON NORMALS: no acute distress, average body habitus, patient oriented x3, no limitations, healthy appearing, alert and well nourished Neck/C-Spine: COMMON NORMALS: no JVD Chest: COMMONS NORMALS: normal inspection of the chest and normal palpation of entire chest wall Resp: COMMON NORMALS: normal respiratory effort, No retractions, No use of accessory muscles and clear to auscultation bilaterally AUSCULTATION: clear to auscultation bilaterally Cardio: COMMON NORMALS: no JVD, regular rate, regular rhythm, S1 normal heart sound present, S2 normal heart sound present, No gallops present (Cardio), No clicks present (Cardio), No murmurs present (Cardio) and No rub (Cardio) RATE: regular rate RHYTHM: regular rhythm HEART SOUNDS: S1 normal heart sound present and S2 normal heart sound present GI: COMMON NORMALS: Normal to inspection, nondistended, normoactive bowel sounds present, Soft to palpation, non-tender, No hepatosplenomegaly present and no masses PALPATION: Yes Soft to palpation and Yes No hepatosplenomegaly present Neuro: COMMON NORMALS: patient oriented x3 SENSORIUM/ORIENTATION: Yes alert Course Vital Signs: Vital signs: Vital Signs Temperature 97.5 F L 09/30/24 20:42 Pulse Rate 87 09/30/24 23:02 Respiratory Rate 16 09/30/24 23:02 Blood Pressure 118/79 09/30/24 23:02 Pulse Oximetry 96 09/30/24 23:02 Oxygen Delivery Me thod Room Air 09/30/24 23:02 MDM - Back Pain/Injury Medical Decision Making Patient states 60 mg Toradol and 1 mg Ativan IM. This improved the patient's pain and anxiety and patient be discharged home. Medical Records I reviewed the patient's medical records. Labs I reviewed the patient's lab results. All radiology interpretation(s) finalized by discharge Discharge Plan Discharge Patient Disposition: Home Clinical Impression: Lumbar radiculopathy, Generalized anxiety disorder Condition: Stable Prescriptions: No Action hydrocodone-acetaminophen 5-325 mg tablet 1 tab PO Q4H PRN (Reason: Pain) 7 Days Qty: 40 0RF (DME) SLO back brace See Rx Instructions .Route .MEDSUPPLY Qty: 1 0RF Rx Instructions: As directed prednisone 20 mg tablet 20 mg PO DAILY Qty: 15 0RF Rx Instructions: 60MG for 3 days 40MG for 2 days 20MG for 2 day diclofenac sodium [Voltaren Arthritis Pain] 1 % gel 2 g topical QID Qty: 100 1RF Rx Instructions: apply to inside and outside of elbow hydrochlorothiazide 25 mg tablet 25 mg PO DAILY Qty: 90 3RF lisinopril 30 mg tablet See Rx Instructions .ROUTE .COMPLEX Qty: 90 3RF Dose Instruction: TAKE ONE TABLET BY MOUTH at bedtime Rx Instructions: TAKE ONE TABLET BY MOUTH at bedtime rosuvastatin 40 mg tablet See Rx Instructions .ROUTE .COMPLEX Qty: 90 3RF Dose Instruction: TAKE ONE TABLET BY MOUTH at bedtime Rx Instructions: TAKE ONE TABLET BY MOUTH at bedtime tamsulosin 0.4 mg capsule See Rx Instructions .ROUTE .COMPLEX Qty: 90 3RF Dose Instruction: TAKE ONE CAPSULE BY MOUTH at bedtime Rx Instructions: TAKE ONE CAPSULE BY MOUTH at bedtime potassium chloride 10 mEq capsule, extended release 10 meq PO DAILY Qty: 90 3RF aripiprazole 2 mg tablet 2 mg PO DAILY Qty: 30 2RF paroxetine HCl [Paxil] 40 mg tablet 40 mg PO DAILY Qty: 30 2RF lorazepam 1 mg tablet 1 mg PO TID PRN (Reason: anxiety) Qty: 90 0RF Medrol (Jose Antonio) 4 mg tablets,dose pack See Rx Instructions .ROUTE .COMPLEX Qty: 21 0RF Rx Instructions: orally per package directions ketorolac 10 mg tablet 10 mg PO Q8H PRN (Reason: pain) Qty: 10 0RF lidocaine 5 % ointment 1 applic topical TID PRN (Reason: pain) Qty: 50 0RF Discharge Orders: Discharge ED (Routine); Ordered 10/01/24 Ordered By: Jakub Louis Referrals: Rohith Solis, [Primary Care Provider] - 1 week Patient Instructions: Back Pain (ED), Generalized Anxiety Disorder Activity Restrictions/Additional Instructions: Thank you for choosing [facility] for your healthcare needs today. Please realize that you were seen in the emergency department and that we are providing you with an emergency medical screening exam and this may not be a complete and all exclusive of all testing and/or medical workup we may need to determine your element or severity of your illness. It is very important that you follow-up as instructed with your primary care provider or specialist for the additional evaluation and to discuss your medical treatment plan. You may return to the emergency department should you have concerns or if your condition changes or worsens in any way. Coding Level of Care Code ED Blind Hooker for Nancy Lundberg
[2024-09-30] MEDS: LORazepam 2 mg/mL INJ 1 mL 1 MG IM (23:46)
[2024-09-30] MEDS: ketorolac 60 mg/2 mL INJ IM (23:46)
[2024-09-30 23:47] VITALS: BP 123/92; PULSE 85; RESP 16; O2SAT 97
[2024-10-01 00:36] VITALS: BP 113/68; PULSE 87; RESP 16; O2SAT 95
== END 2024-10-01 00:37 | disposition home or self-care (01) ==
PROVIDERS: Emergency Provider Emergency Medicine; PCP Family Medicine
DX: M54.16 Radiculopathy, lumbar region (principal); F41.8 Other specified anxiety disorders; E78.5 Hyperlipidemia, unspecified; I10 Essential (primary) hypertension
CPT/HCPCS: 72100; 96372; 99284; J1885; J2060

== ENCOUNTER 2024-10-31 15:48 | Emergency (ER) | payer MEDICARE, MEDICAID, SELFPAY ==
--- NOTE | 2024-10-31 15:50 | XRR_ITS ---
PROCEDURE INFORMATION: Exam: XR Chest Exam date and time: 10/31/2024 4:10 PM Age: 69 years old Clinical indication: Pain; Chest pressure; Additional info: Cp TECHNIQUE: Imaging protocol: Radiologic exam of the chest. Views: 1 view. COMPARISON: CR XR chest 1V portable [id number] 08/09/2023 4:51 PM FINDINGS: Lungs: Unremarkable. No consolidation. Pleural spaces: Unremarkable. No pleural effusion. No pneumothorax. Heart/Mediastinum: Unremarkable. No cardiomegaly. Bones/joints: Unremarkable. XR/XR chest 1V portable [id number] IMPRESSION: No acute findings.
[2024-10-31 15:51] VITALS: BP 131/79; PULSE 96; RESP 16; TEMP 36.4; O2SAT 99; BMI 31.1
--- NOTE | 2024-10-31 15:54 | ECG_ITS ---
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
[2024-10-31 16:20] LABS: Basophils # 0.1 10^3/uL (0.0-0.1); Basophils % 0.5 %; Eosinophils # 0.1 10^3/uL (0.0-0.8); Hematocrit 48.2 % (37-53); Lymphocytes # 1.8 10^3/uL (0.8-4.8); Mean Corpuscular Hemoglobin 28.5 pg (27-33); Mean Corpuscular Volume 86.5 fl (82-101); Mean Platelet Volume 9.1 fL (7.4-10.4); Monocytes # 0.9 10^3/uL (0.2-0.9); Monocytes % 7.1 %; Neutrophils # 9.16 10^3/uL (1.8-7.7); Neutrophils % 75.2 %; Nucleated Red Blood Cells % 0 %; Platelet Count 408 10^3/cmm (157-399); Red Blood Count 5.57 10^6/uL (3.85-5.65); Red Cell Distribution Width 14.1 % (12.1-15.1); White Blood Count 12.16 10^3/uL (3.29-11.43)
[2024-10-31 16:35] LABS: INR 0.91 (0.8-1.2)
[2024-10-31 16:43] LABS: Alanine Aminotransferase 15 U/L (0-41); Albumin Level 4.4 g/dL (3.5-5.2); Alkaline Phosphatase 143 U/L (40-130); Anion Gap 15.1 (5-19); Aspartate Amino Transferase 11 U/L (0-40); Blood Urea Nitrogen 19 mg/dL (8-23); Carbon Dioxide 31 mmol/L (22-29); Chloride 97 mmol/L (98-107); Glomerular Filtration Rate 55.1 mL/min (90-130); Glucose 106 mg/dL (65-115); Lipase 16 U/L (13-60); Osmolality Calculated 293 mOsm/kg (285-295); Potassium 3.1 mmol/L (3.5-5.1); Sodium 140 mmol/L (136-145); Total Bilirubin 0.3 mg/dL (0.15-1.2); Total Protein 7.4 g/dL (6.6-8.7)
[2024-10-31 16:44] LABS: Troponin(5th) Baseline 17 ng/L (0-15)
--- NOTE | 2024-10-31 18:12 | ECG_ITS ---
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
[2024-10-31 18:24] LABS: Troponin 5 2HR 14.11 ng/L (0-15)
[2024-10-31 18:27] LABS: Troponin 5 2HR Delta -2.89 ABS# (0-10)
[2024-10-31] MEDS: ondansetron 2 mg/ML SDV 2 mL 4 MG IVP (18:37)
[2024-10-31] MEDS: morphine 4 mg/mL SDV 1 mL 2 MG IVP (18:38)
[2024-10-31] MEDS: LORazepam 2 mg/mL INJ 1 mL 0.5 MG IVP (18:39)
[2024-10-31 18:44] VITALS: BP 123/86; PULSE 84; O2SAT 98
[2024-10-31 19:00] VITALS: BP 123/85; PULSE 85; RESP 16; O2SAT 96
--- NOTE | 2024-10-31 19:08 | ED_ITS ---
HPI - Chest Pain 2 General: Chief Complaint: Chest Pain Stated Complaint: chest pain Time Seen by Provider: 10/31/24 18:07 History of Present Illness: This patient is a 69-year-old white male who presents to the emergency department stating that he has been taking some prednisone for his chronic back pain and it is causing increased anxiety and depression. He is having the same back pain he usually has. He also has had some chest tightness this morning and some mild shortness of breath. He has no cardiac history. States these are the same types of symptoms he gets with his anxiety and depression. States he usually gets Ativan and a pain shot for his back. He is not having any suicidal thoughts. Related Data Previous Rx's ?Medication ?Instructions ?Recorded SLO back brace #1 ea 12/24/23 diclofenac sodium 1 % topical gel 2 g topical QID arth ritis #100 01/02/24 (Voltaren Arthritis Pain) grams lidocaine 5 % topical ointment 1 applic topical TID SD N pain #50 01/23/24 grams methylprednisolone 4 mg tablets in See Rx Instructions PO .COMPLEX 03/23/24 a dose pack (Medrol (Jose Antonio)) #21 ea prednisone 20 mg tablet 20 mg PO DAILY #15 tabs 05/17 hydrochlorothiazide 25 mg tablet 25 mg PO DAILY #90 ta bs 05/29/24 lisinopril 30 mg tablet See Rx Instructions .Route 0 05/29/24 .COMPLEX #90 tabs rosuvastatin 40 mg tablet See Rx Instructions .Route 0 05/29/24 .COMPLEX #90 tabs tamsulosin 0.4 mg capsule See Rx Instructions .Route 0 05/29/24 .COMPLEX #90 caps potassium chloride 10 mEq 10 meq PO DAILY #90 caps capsule,extended release aripiprazole 2 mg tablet 2 mg PO DAILY #30 tabs 09/21 paroxetine HCl 40 mg tablet (Paxil) 40 mg PO DAILY #30 tabs 09/21/24 hydrocodone 5 mg-acetaminophen 325 1 tab PO Q4H PRN Pa in 7 days #40 10/26/24 mg tablet tabs lorazepam 1 mg tablet 1 mg PO QID PRN anxiety #120 tabs 10/26/24 prednisone 10 mg tablet 10 mg PO DAILY PRN inflamato ry 10/26/24 pain #30 tabs Allergies Allergy/AdvReac Type Severity Reaction Status Date / Time No Known Drug Allergies Allergy Unknown Verified 10/26/24 12:29 Review of Systems 2 General: Reports: 10 or more systems reviewed and unremarkable except in HPI and below Card: Reports: chest pain Musc: Reports: back pain Psych: Reports: anxiety and depression; Denies: suicidal ideation or homicidal ideation PFSH ED 2 PFSH: Medical History On combination antipsychotic drug therapy Gout, unspecified Diverticula of colon Psychiatric care Slow transit constipation Hyperlipidemia Essential hypertension Generalized anxiety disorder Panic disorder [episodic paroxysmal anxiety] Surgical History History of basal cell cancer Left face and nose History of renal stent Family History Other Cancer Diabetes Hypertension Stroke Social History Smoking and tobacco/nicotine status: never used tobacco/nicotine Second hand smoke exposure: No Alcohol intake: never Substance/Drug Use: never Adopted: No Caregiver/support person: No Lives independently: Yes Household members: spouse Housing: House Marital status: Number of children: 4 service: No Current occupational status: disabled Do you think of yourself as: Straight/Heterosexual Current gender identity: Male Physical Exam 2 Const: COMMON NORMALS: no acute distress, patient oriented x3 and no limitations GENERAL APPEARANCE: cooperative and comfortable HENMT: COMMON NORMALS: normocephalic, atraumatic, Normal nasal mucous membranes and turbinates present, moist oral mucous membranes and oropharynx normal HEAD & SCALP: normal to inspection, normocephalic and atraumatic F GIBRAN & SINUS: normal facial exam NOSE: Normal nasal mucous membranes and turbinates present Eye: COMMON NORMALS: Equal, round and reactive pupils present, EOMs intact bilaterally and conjunctivae normal GENERAL EYE: appearance normal, both eyes and all related structures CONJUNCTIVA: Yes conjunctivae normal PUPIL: Yes Equal, round and reactive pupils present Neck/C-Spine: COMMON NORMALS: supple and no JVD Chest: COMMONS NORMALS: normal inspection of the chest Resp: COMMON NORMALS: normal respiratory effort and clear to auscultation bilaterally AUSCULTATION: clear to auscultation bilaterally Cardio: COMMON NORMALS: no JVD, regular rate, regular rhythm, No gallops present (Cardio), No murmurs present (Cardio) and No rub (Cardio) RATE: r egular rate RHYTHM: regular rhythm GI: COMMON NORMALS: Normal to inspection, nondistended, normoactive bowel sounds present, Soft to palpation and non-tender AUSCULTATION: Yes normoactive bowel sounds PALPATION: Yes Soft to palpation : COMMON NORMALS: Yes no CVA tenderness BLADDER/KIDNEY EXAM: Yes no CVA tenderness Back/Pelvis: COMMON NORMALS: no CVA tenderness and thoracic and lumbar spine normal to inspection Extremity: COMMON NORMALS: normal to inspection Neuro: COMMON NORMALS: patient oriented x3 and CN's II-XII intact bilaterally Psych: COMMON NORMALS: mental status grossly normal, Normal thought process present and cooperative THOUGHT PROCESS: Normal thought process present Skin: COMMON NORMALS: no rashes or lesions noted, turgor normal and no jaundice GENERAL SKIN EXAM: no rashes or lesions noted and turgor normal Course 2 Vital Signs: Vital signs: Vital Signs Temperature 97.6 F 10/31/24 15:51 Pulse Rate 84 10/31/24 18:44 Respiratory Rate 16 10/31/24 15:51 Blood Pressure 123/86 10/31/24 18:44 Pulse Oximetry 98 10/31/24 18:44 Oxygen Delivery Me thod Room Air 10/31/24 15:51 MDM - Chest Pain Medical Decision Making EKG revealed sinus rhythm with no ST segment abnormalities. Chest x-ray was normal. CBC revealed a white count of 12.2. CMP was normal. Lipase normal. Baseline troponin was 17 with a 2-hour level of 14. Patient was given 2 mg of morphine and 4 mg of Zofran IV along with 0.5 mg of Ativan IV. He is feeling significantly better. He was discharged in stable condition instructed to follow-up with his primary care physician for ongoing management. Lab Data 10/31/24 16:07 10/31/24 16:07 Radiology Impressions Chest X-Ray 10/31/24 15:50 IMPRESSION: No acute findings. Laboratory Results WBC 12.16 10^3/uL (3.29-11.43) H 10/31/24 16:07 RBC 5.57 10^6/uL (3.85-5.65) 10/31/24 16:07 Hgb 15.90 g/dL (11.27-16.99) 10/31/24 16:07 Hct 48.2 % (37-53) 10/31/24 16:07 MCV 86.5 fl (82-101) 10/31/24 16:07 MCH 28.5 pg (27-33) 10/31/24 16:07 MCHC 33.0 g/dL (30-55) 10/31/24 16:07 RDW 14.1 % (12.1-15.1) 10/31/24 16:07 Plt Count 408 10^3/cmm (157-399) H 10/31/24 16:07 MPV 9.1 fL (7.4-10.4) 10/31/24 16:07 Neut % (Auto) 75.2 % 10/31/24 16:07 Lymph % (Auto) 15.0 % 10/31/24 16:07 Pacific % (Auto) 7.1 % 10/31/24 16:07 Eos % (Auto) 1.0 % 10/31/24 16:07 Baso % (Auto) 0.5 % 10/31/24 16:07 Neut # (Auto) 9.16 10^3/uL (1.8-7.7) H 10/31/24 16:07 Lymph # (Auto) 1.8 10^3/uL (0.8-4.8) 10/31/24 16:07 Pacific # (Auto) 0.9 10^3/uL (0.2-0.9) 10/31/24 16:07 Eos # (Auto) 0.1 10^3/uL (0.0-0.8) 10/31/24 16:07 Baso # (Auto) 0.1 10^3/uL (0.0-0.1) 10/31/24 16:07 Nucleated RBC % (auto) 0 % 10/31/24 16:07 Nucleated RBCs # 0.0 /100WBC 10/31/24 16:07 PT 12.90 SECONDS (12.1-14.9) 10/31/24 16:07 INR 0.91 (0.8-1.2) 10/31/24 16:07 Sodium 140 mmol/L (136-145) 10/31/24 16:07 Potassium 3.1 mmol/L (3.5-5.1) L 10/31/24 16:07 Chloride 97 mmol/L (98-107) L 10/31/24 16:07 Carbon Dioxide 31 mmol/L (22-29) H 10/31/24 16:07 Anion Gap 15.1 (5-19) 10/31/24 16:07 BUN 19 mg/dL (8-23) 10/31/24 16:07 Creatinine 1.3 mg/dL (0.7-1.2) H 10/31/24 16:07 GFR Calculation 55.1 mL/min (90-130) L 10/31/24 16:07 Glucose 106 mg/dL (65-115) 10/31/24 16:07 Calculated Osmolality 293 mOsm/kg (285-295) 10/31/24 16:07 Calcium 10.0 mg/dL (8.5-10.5) 10/31/24 16:07 Total Bilirubin 0.3 mg/dL (0.15-1.2) 10/31/24 16:07 AST 11 U/L (0-40) 10/31/24 16:07 ALT 15 U/L (0-41) 10/31/24 16:07 Alkaline Phosphatase 143 U/L (40-130) H 10/31/24 16:07 Troponin T Baseline 17 ng/L (0-15) H 10/31/24 16:07 Troponin T 120 Minute 14.11 ng/L (0-15) 10/31/24 18:00 Delta Troponin T -2.89 ABS# (0-10) L 10/31/24 18:00 Total Protein 7.4 g/dL (6.6-8.7) 10/31/24 16:07 Albumin 4.4 g/dL (3.5-5.2) 10/31/24 16:07 Globulin 3.0 g/dL (1.3-4.6) 10/31/24 16:07 Lipase 16 U/L (13-60) 10/31/24 16:07 All radiology interpretation(s) finalized by discharge Discharge Plan Discharge Patient Disposition: Home Clinical Impression: Anxiety Chronic back pain Qualifiers: Back pain location: low back pain Back pain laterality: bilateral Sciatica presence: without sciatica Qualified Code(s): M54.50 - Low back pain, unspecified Condition: Stable Prescriptions: No Action prednisone 10 mg tablet 10 mg PO DAILY PRN (Reason: inflamatory pain) Qty: 30 0RF lorazepam 1 mg tablet 1 mg PO QID PRN (Reason: anxiety) Qty: 120 0RF hydrocodone-acetaminophen 5-325 mg tablet 1 tab PO Q4H PRN (Reason: Pain) 7 Days Qty: 40 0RF (DME) SLO back brace See Rx Instructions .Route .MEDSUPPLY Qty: 1 0RF Rx Instructions: As directed prednisone 20 mg tablet 20 mg PO DAILY Qty: 15 0RF Rx Instructions: 60MG for 3 days 40MG for 2 days 20MG for 2 day diclofenac sodium [Voltaren Arthritis Pain] 1 % gel 2 g topical QID Qty: 100 1RF Rx Instructions: apply to inside and outside of elbow hydrochlorothiazide 25 mg tablet 25 mg PO DAILY Qty: 90 3RF lisinopril 30 mg tablet See Rx Instructions .ROUTE .COMPLEX Qty: 90 3RF Dose Instruction: TAKE ONE TABLET BY MOUTH at bedtime Rx Instructions: TAKE ONE TABLET BY MOUTH at bedtime rosuvastatin 40 mg tablet See Rx Instructions .ROUTE .COMPLEX Qty: 90 3RF Dose Instruction: TAKE ONE TABLET BY MOUTH at bedtime Rx Instructions: TAKE ONE TABLET BY MOUTH at bedtime tamsulosin 0.4 mg capsule See Rx Instructions .ROUTE .COMPLEX Qty: 90 3RF Dose Instruction: TAKE ONE CAPSULE BY MOUTH at bedtime Rx Instructions: TAKE ONE CAPSULE BY MOUTH at bedtime potassium chloride 10 mEq capsule, extended release 10 meq PO DAILY Qty: 90 3RF aripiprazole 2 mg tablet 2 mg PO DAILY Qty: 30 2RF paroxetine HCl [Paxil] 40 mg tablet 40 mg PO DAILY Qty: 30 2RF Medrol (Jose Antonio) 4 mg tablets,dose pack See Rx Instructions .ROUTE .COMPLEX Qty: 21 0RF Rx Instructions: orally per package directions lidocaine 5 % ointment 1 applic topical TID PRN (Reason: pain) Qty: 50 0RF Discharge Orders: Discharge ED (Routine); Ordered 10/31/24 Ordered By: Ricky Carvajal Referrals: Rohith Solis DO [Primary Care Provider] - Patient Instructions: Opioid Safety, Pain Management Activity Restrictions/Additional Instructions: Follow-up with your primary care provider for ongoing management. Print Language: Turkmen Coding Level of Care Code ED Rail Flaw Detector Operator for Nancy Lundberg
[2024-10-31 19:24] VITALS: BP 131/95; PULSE 93; RESP 18; O2SAT 96
== END 2024-10-31 19:37 | disposition home or self-care (01) ==
PROVIDERS: Emergency Medicine; Emergency Provider Emergency Medicine; PCP Family Medicine
DX: F41.9 Anxiety disorder, unspecified (principal); M54.50 Low back pain, unspecified; E78.5 Hyperlipidemia, unspecified; I10 Essential (primary) hypertension
CPT/HCPCS: 36415; 71045; 80053; 83690; 84484; 85025; 85610; 93005; 96374; 96375; 99285; J2060; J2270; J2405

== ENCOUNTER 2024-11-18 11:59 | Emergency (ER) | payer MEDICARE, MEDICAID, SELFPAY ==
[2024-11-18 12:03] VITALS: BP 143/79; PULSE 92; RESP 18; TEMP 36.7; O2SAT 98; BMI 31.1
--- NOTE | 2024-11-18 12:24 | W.ED.BACK ---
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 States that history of back surgery states the pain is sharp in nature in his left lower back states is worse with movement he denies any bowel or bladder incontinence. Associated symptoms: Deny abdominal pain, chills, fever(s), nausea or vomiting Related Data Home Medications ?Medication ?Instructions ?Recorded ?Confirmed ketoconazole 2 % shampoo See Rx Instructions .Route .COMPLEX 11/18/24 11/18/24 lisinopril 30 mg tablet 30 mg PO BEDTIME 11/18/24 11/18/24 rosuvastatin 40 mg tablet 40 mg PO BEDTIME 11/18/24 11/18/24 tamsulosin 0.4 mg capsule 0.4 mg PO BEDTIME 11/18/24 11/18/24 Previous Rx's ?Medication ?Instructions ?Recorded SLO back brace #1 ea 12/24/23 hydrochlorothiazide 25 mg tablet 25 mg PO DAILY #90 tabs 05/29/24 potassium chloride 10 mEq 10 meq PO DAILY #90 caps 06/01/24 capsule,extended release aripiprazole 2 mg tablet 2 mg PO DAILY #30 tabs 09/21/24 paroxetine HCl 40 mg tablet (Paxil) 40 mg PO DAILY #30 tabs 09/21/24 lorazepam 1 mg tablet 1 mg PO QID PRN anxiety #120 tabs 10/26/24 prednisone 10 mg tablet 10 mg PO DAILY PRN inflamatory 10/26/24 pain #30 tabs hydrocodone 5 mg-acetaminophen 325 1 tab PO TID Pain 30 days #90 tabs 11/16/24 mg tablet methocarbamol 750 mg tablet 750 mg PO Q6H PRN spasms #20 tabs 11/18/24 naproxen 500 mg tablet (Naprosyn) 500 mg PO BID PRN pain #20 tabs 11/18/24 Allergies Allergy/AdvReac Type Severity Reaction Status Date / Time No Known Drug Allergies Allergy Unknown Verified 11/16/24 12:33 Review of Systems Const: Denies: fever(s), chills, body aches or change in appetite ENMT: Denies: throat pain or dental pain Card: Denies: chest pain Resp: Denies: dyspnea GI: Denies: abdominal pain, nausea, vomiting or diarrhea Musc: Reports: back pain; Denies: neck pain Skin/Breast: Denies: rash Neuro: Denies: headache(s) PFSH ED PFSH: Medical History On combination antipsychotic drug therapy Gout, unspecified Diverticula of colon Psychiatric care Slow transit constipation Hyperlipidemia Essential hypertension Generalized anxiety disorder Panic disorder [episodic paroxysmal anxiety] Surgical History History of basal cell cancer Left face and nose History of renal stent Family History Other Cancer Diabetes Hypertension Stroke Social History Smoking and tobacco/nicotine status: never used tobacco/nicotine Second hand smoke exposure: No Alcohol intake: never Substance/Drug Use: never Adopted: No Caregiver/support person: No Lives independently: Yes Household members: spouse Housing: House Marital status: Number of children: 4 service: No Current occupational status: disabled Do you think of yourself as: Straight/Heterosexual Current gender identity: Male Physical Exam Const: COMMON NORMALS: no acute distress, patient oriented x3 and healthy appearing HENMT: COMMON NORMALS: normocephalic and atraumatic HEAD & SCALP: normocephalic and atraumatic Neck/C-Spine: COMMON NORMALS: full ROM and supple Chest: COMMONS NORMALS: normal inspection of the chest Resp: COMMON NORMALS: normal respiratory effort Cardio: COMMON NORMALS: regular rate RATE: regular rate Back/Pelvis: OTHER: Tenderness over left lower back no midline tenderness. No saddle anesthesia Extremity: COMMON NORMALS: normal to inspection and full ROM Neuro: COMMON NORMALS: patient oriented x3, moves all extremities and no focal motor deficits Psych: COMMON NORMALS: mental status grossly normal, Normal thought process present and cooperative THOUGHT PROCESS: Normal thought process present Skin: COMMON NORMALS: no rashes or lesions noted and no wounds GENERAL SKIN EXAM: no rashes or lesions noted Course Vital Signs: Vital signs: Vital Signs Temperature 98.1 F 11/18/24 12:03 Pulse Rate 92 11/18/24 12:03 Respiratory Rate 18 11/18/24 12:03 Blood Pressure 143/79 11/18/24 12:03 Pulse Oximetry 98 11/18/24 12:03 Oxygen Delivery Me thod Room Air 11/18/24 12:03 MDM - Back Pain/Injury Medical Decision Making Patient presents here with left lower lumbar strain no signs of any cord compression patient stable for discharge at this time will place on anti-inflammatory and muscle relaxants follow-up PCP return if worsening no signs of epidural abscess. Medical Records I reviewed the patient's medical records. Labs I reviewed the patient's lab results. No radiology studies performed this visit Discharge Plan Discharge Patient Disposition: Home Clinical Impression: Strain of lumbar region Condition: Stable Prescriptions: New methocarbamol 750 mg tablet 750 mg PO Q6H PRN (Reason: spasms) Qty: 20 0RF naproxen [Naprosyn] 500 mg tablet 500 mg PO BID PRN (Reason: pain) Qty: 20 0RF No Action prednisone 10 mg tablet 10 mg PO DAILY PRN (Reason: inflamatory pain) Qty: 30 0RF lorazepam 1 mg tablet 1 mg PO QID PRN (Reason: anxiety) Qty: 120 0RF hydrocodone-acetaminophen 5-325 mg tablet 1 tab PO TID 30 Days Qty: 90 0RF (DME) SLO back brace See Rx Instructions .Route .MEDSUPPLY Qty: 1 0RF Rx Instructions: As directed hydrochlorothiazide 25 mg tablet 25 mg PO DAILY Qty: 90 3RF potassium chloride 10 mEq capsule, extended release 10 meq PO DAILY Qty: 90 3RF aripiprazole 2 mg tablet 2 mg PO DAILY Qty: 30 2RF paroxetine HCl [Paxil] 40 mg tablet 40 mg PO DAILY Qty: 30 2RF ketoconazole 2 % shampoo See Rx Instructions .ROUTE .COMPLEX Rx Instructions: USE DIRECTED TO WASH body DAILY; allow TO sit FOR FIVE minutes BEFORE rinsing. tamsulosin 0.4 mg capsule 0.4 mg PO BEDTIME lisinopril 30 mg tablet 30 mg PO BEDTIME rosuvastatin 40 mg tablet 40 mg PO BEDTIME Discharge Orders: Discharge ED (Routine); Ordered 11/18/24 Ordered By: Scarlet Azar Referrals: Rohith Solis, DO [Primary Care Provider] - Discharge Diet: Advance as tolerated Discharge Activity: Resume usual activity Patient Instructions: Low Back Strain (ED) Print Language: Italian Coding Level of Care Code ED Roll Over Loader for Nancy Lundberg
[2024-11-18] MEDS: dexamethasone 10 mg/mL INJ IM (12:39)
[2024-11-18] MEDS: methocarbamol 750 mg Tablet 1500 MG PO (12:40)
[2024-11-18] MEDS: HYDROcodone-acetaminophen 5-325 mg Tablet 1 TAB PO (12:40)
[2024-11-18] MEDS: ketorolac 30 mg/mL INJ IM (12:40)
== END 2024-11-18 13:18 | disposition home or self-care (01) ==
PROVIDERS: Emergency Provider Emergency Medicine; PCP Family Medicine
DX: S39.012A Strain of muscle, fascia and tendon of lower back, initial encounter (principal); E78.5 Hyperlipidemia, unspecified; I10 Essential (primary) hypertension; X58.XXXA Exposure to other specified factors, initial encounter
CPT/HCPCS: 96372; 99284; J1100; J1885

== ENCOUNTER 2024-11-20 18:16 | Emergency (ER) | payer MEDICARE, MEDICAID, SELFPAY ==
[2024-11-20 18:24] VITALS: BP 130/90; PULSE 96; RESP 18; TEMP 36.3; O2SAT 95
--- NOTE | 2024-11-20 19:25 | ECG_ITS ---
[facility] Pat Name: Eva Quick Department: Room: Gender: Male Planning Aide: : 1955 Requested By: Anat Babcock Order Number: [id number] MD: Ismael Amin M.D. Measurements Intervals Plain Rate: 82 P: 36 NJ: 188 QRS: 35 QRSD: 90 T: 68 QT: 319 QTc: 374 Interpretive Statements SINUS RHYTHM Compared to ECG 10/31/2024 18:12:19 No significant changes Electronically Signed On 11-21-2024 17:59:26 RESULTS ENGINEER by Ismael Amin M.D. [email or web address]
[2024-11-20 19:43] LABS: Basophils % 0.2 %; Eosinophils % 0.1 %; Hematocrit 46.5 % (37-53); Lymphocytes # 0.9 10^3/uL (0.8-4.8); Lymphocytes % 6.9 %; Mean Corpuscular HGB Conc 33.8 g/dL (30-55); Mean Corpuscular Hemoglobin 28.1 pg (27-33); Mean Corpuscular Volume 83.2 fl (82-101); Mean Platelet Volume 9.3 fL (7.4-10.4); Monocytes # 0.8 10^3/uL (0.2-0.9); Monocytes % 5.7 %; Neutrophils # 11.38 10^3/uL (1.8-7.7); Neutrophils % 86.6 %; Nucleated Red Blood Cells % 0 %; Platelet Count 372 10^3/cmm (157-399); Red Blood Count 5.59 10^6/uL (3.85-5.65); Red Cell Distribution Width 13.9 % (12.1-15.1); White Blood Count 13.14 10^3/uL (3.29-11.43)
--- NOTE | 2024-11-20 20:06 | W.ED.PSYCHS ---
HPI - Psych General: Chief Complaint: Psychiatric Symptoms Stated Complaint: Back Pain,Anxiaty,Depressed Time Seen by Provider: 11/20/24 18:33 History of Present Illness: 69-year-old male with a history of chronic back pain and chronic pain syndrome on hydrocodone who presents the emergency room with depression and anxiety he says which is secondary to his pain and to the steroids that he was given for his back pain. He had told nursing that he feels suicidal. Related Data Home Medications ?Medication ?Instructions ?Recorded ?Confirmed ketoconazole 2 % shampoo See Rx Instructions .Route .COMPLEX 11/18/24 11/18/24 lisinopril 30 mg tablet 30 mg PO BEDTIME 11/18/24 11/18/24 rosuvastatin 40 mg tablet 40 mg PO BEDTIME 11/18/24 11/18/24 tamsulosin 0.4 mg capsule 0.4 mg PO BEDTIME 11/18/24 11/18/24 Previous Rx's ?Medication ?Instructions ?Recorded SLO back brace #1 ea 12/24/23 hydrochlorothiazide 25 mg tablet 25 mg PO DAILY #90 tabs 05/29/24 potassium chloride 10 mEq 10 meq PO DAILY #90 caps 06/01/24 capsule,extended release aripiprazole 2 mg tablet 2 mg PO DAILY #30 tabs 09/21/24 paroxetine HCl 40 mg tablet (Paxil) 40 mg PO DAILY #30 tabs 09/21/24 lorazepam 1 mg tablet 1 mg PO QID PRN anxiety #120 tabs 10/26/24 prednisone 10 mg tablet 10 mg PO DAILY PRN inflamatory 10/26/24 pain #30 tabs hydrocodone 5 mg-acetaminophen 325 1 tab PO TID Pain 30 days #90 tabs 11/16/24 mg tablet methocarbamol 750 mg tablet 750 mg PO Q6H PRN spasms #20 tabs 11/18/24 naproxen 500 mg tablet (Naprosyn) 500 mg PO BID PRN pain #20 tabs 11/18/24 Allergies Allergy/AdvReac Type Severity Reaction Status Date / Time No Known Drug Allergies Allergy Unknown Verified 11/20/24 18:31 Review of Systems Narrative: Constitutional symptoms: Negative except as documented in HPI. Skin symptoms: Negative except as documented in HPI. Eye symptoms: Negative except as documented in HPI. ENMT symptoms: Negative except as documented in HPI. Respiratory symptoms: Negative except as documented in HPI. Cardiovascular symptoms: Negative except as documented in HPI. Gastrointestinal symptoms: Negative except as documented in HPI. Genitourinary symptoms: Negative except as documented in HPI. Musculoskeletal symptoms: Negative except as documented in HPI. Neurologic symptoms: Negative except as documented in HPI. Psychiatric symptoms: Negative except as documented in HPI. Endocrine symptoms: Negative except as documented in HPI. PFSH ED PFSH: Medical History On combination antipsychotic drug therapy Gout, unspecified Diverticula of colon Psychiatric care Slow transit constipation Hyperlipidemia Essential hypertension Generalized anxiety disorder Panic disorder [episodic paroxysmal anxiety] Surgical History History of basal cell cancer Left face and nose History of renal stent Family History Other Cancer Diabetes Hypertension Stroke Social History Smoking and tobacco/nicotine status: never used tobacco/nicotine Second hand smoke exposure: No Alcohol intake: never Substance/Drug Use: never Adopted: No Caregiver/support person: No Lives independently: Yes Household members: spouse Housing: House Marital status: Number of children: 4 service: No Current occupational status: disabled Do you think of yourself as: Straight/Heterosexual Current gender identity: Male Physical Exam Narrative: EXAM NARRATIVE: General: Alert, no acute distress. Skin: Warm, dry. Head: Normocephalic, atraumatic. Neck: Supple, trachea midline. Eye: Extraocular movements are intact. Ears, nose, mouth and throat: mucosa moist. Cardiovascular: Regular, Normal peripheral perfusion. Respiratory: Lungs are clear to auscultation, respirations are non-labored, breath sounds are equal, Symmetrical chest wall expansion. Gastrointestinal: Soft, Nontender, Non distended Musculoskeletal: Normal ROM, no deformity. Neurological: Alert and oriented, No focal neurological deficit observed. Psychiatric: Cooperative, patient is bit tearful. He is very vague about suicidal thoughts and ultimately he tells me just the pain and anxiety make him feel like he does not want to be here anymore but he is not actively suicidal and does not have any guns. Course Vital Signs: Vital signs: Vital Signs Temperature 97.3 F L 11/20/24 18:24 Pulse Rate 96 11/20/24 18:24 Respiratory Rate 18 11/20/24 18:24 Blood Pressure 130/90 11/20/24 18:24 Pulse Oximetry 95 11/20/24 18:24 Oxygen Delivery Me thod Room Air 11/20/24 18:24 MDM - Psych Medical Decision Making EKG: Time 1939. Rate 82. Normal sinus rhythm, No ST-T changes, no ectopy, normal WA & QRS intervals, This was reviewed and interpreted by myself the ER physician at 1944 Lab Review: Laboratory results were reviewed and interpreted by myself the emergency room physician. Mild leukocytosis. No anemia. No renal failure. Stable chronic kidney disease. Consultation: I spoke with Dr. Williamson who is on-call for psychiatry. He agrees that this patient likely would not benefit from admission at this time. Assessment and plan: Back pain Anxiety Depression secondary to pain ?IM Dilaudid and Ativan in the emergency room - Discharged home - Discussed plan with patient. Answered any questions. - Evaluation and treatment of this problem were appropriate in the emergency setting. Lab Data 11/20/24 19:37 11/20/24 19:37 Laboratory Results WBC 13.14 10^3/uL (3.29-11.43) H 11/20/24 19:37 RBC 5.59 10^6/uL (3.85-5.65) 11/20/24 19:37 Hgb 15.70 g/dL (11.27-16.99) 11/20/24 19:37 Hct 46.5 % (37-53) 11/20/24 19:37 MCV 83.2 fl (82-101) 11/20/24 19:37 MCH 28.1 pg (27-33) 11/20/24 19:37 MCHC 33.8 g/dL (30-55) 11/20/24 19:37 RDW 13.9 % (12.1-15.1) 11/20/24 19:37 Plt Count 372 10^3/cmm (157-399) 11/20/24 19:37 MPV 9.3 fL (7.4-10.4) 11/20/24 19:37 Neut % (Auto) 86.6 % 11/20/24 19:37 Lymph % (Auto) 6.9 % 11/20/24 19:37 [place] % (Auto) 5.7 % 11/20/24 19:37 Eos % (Auto) 0.1 % 11/20/24 19:37 Baso % (Auto) 0.2 % 11/20/24 19:37 Neut # (Auto) 11.38 10^3/uL (1.8-7.7) H 11/20/24 19:37 Lymph # (Auto) 0.9 10^3/uL (0.8-4.8) 11/20/24 19:37 [place] # (Auto) 0.8 10^3/uL (0.2-0.9) 11/20/24 19:37 Eos # (Auto) 0.0 10^3/uL (0.0-0.8) 11/20/24 19:37 Baso # (Auto) 0.0 10^3/uL (0.0-0.1) 11/20/24 19:37 Nucleated RBC % (auto) 0 % 11/20/24 19:37 Nucleated RBCs # 0.0 /100WBC 11/20/24 19:37 Sodium 137 mmol/L (136-145) 11/20/24 19:37 Potassium 3.5 mmol/L (3.5-5.1) 11/20/24 19:37 Chloride 98 mmol/L (98-107) 11/20/24 19:37 Carbon Dioxide 29 mmol/L (22-29) 11/20/24 19:37 Anion Gap 13.5 (5-19) 11/20/24 19:37 BUN 17 mg/dL (8-23) 11/20/24 19:37 Creatinine 1.2 mg/dL (0.7-1.2) 11/20/24 19:37 GFR Calculation 60.4 mL/min (90-130) L 11/20/24 19:37 Glucose 108 mg/dL (65-115) 11/20/24 19:37 Calculated Osmolality 286 mOsm/kg (285-295) 11/20/24 19:37 Calcium 9.6 mg/dL (8.5-10.5) 11/20/24 19:37 Total Bilirubin 0.3 mg/dL (0.15-1.2) 11/20/24 19:37 AST 10 U/L (0-40) 11/20/24 19:37 ALT 10 U/L (0-41) 11/20/24 19:37 Alkaline Phosphatase 122 U/L (40-130) 11/20/24 19:37 Total Protein 7.3 g/dL (6.6-8.7) 11/20/24 19:37 Albumin 4.3 g/dL (3.5-5.2) 11/20/24 19:37 Globulin 3.0 g/dL (1.3-4.6) 11/20/24 19:37 TSH 1.25 uIU/mL (0.27-4.20) 11/20/24 19:37 Salicylates 0.6 mg/dL (3-10) L 11/20/24 19:37 Acetaminophen < 5.0 ug/mL (10-30) L 11/20/24 19:37 Ethyl Alcohol < 10 mg/dL (0-10) 11/20/24 19:37 All radiology interpretation(s) finalized by discharge Discharge Plan Discharge Patient Disposition: Home Clinical Impression: Acute exacerbation of chronic low back pain, Depression, Anxiety Condition: Stable Prescriptions: No Action prednisone 10 mg tablet 10 mg PO DAILY PRN (Reason: inflamatory pain) Qty: 30 0RF lorazepam 1 mg tablet 1 mg PO QID PRN (Reason: anxiety) Qty: 120 0RF hydrocodone-acetaminophen 5-325 mg tablet 1 tab PO TID 30 Days Qty: 90 0RF (DME) SLO back brace See Rx Instructions .Route .MEDSUPPLY Qty: 1 0RF Rx Instructions: As directed hydrochlorothiazide 25 mg tablet 25 mg PO DAILY Qty: 90 3RF potassium chloride 10 mEq capsule, extended release 10 meq PO DAILY Qty: 90 3RF aripiprazole 2 mg tablet 2 mg PO DAILY Qty: 30 2RF paroxetine HCl [Paxil] 40 mg tablet 40 mg PO DAILY Qty: 30 2RF ketoconazole 2 % shampoo See Rx Instructions .ROUTE .COMPLEX Rx Instructions: USE DIRECTED TO WASH body DAILY; allow TO sit FOR FIVE minutes BEFORE rinsing. tamsulosin 0.4 mg capsule 0.4 mg PO BEDTIME lisinopril 30 mg tablet 30 mg PO BEDTIME rosuvastatin 40 mg tablet 40 mg PO BEDTIME methocarbamol 750 mg tablet 750 mg PO Q6H PRN (Reason: spasms) Qty: 20 0RF naproxen [Naprosyn] 500 mg tablet 500 mg PO BID PRN (Reason: pain) Qty: 20 0RF Discharge Orders: Discharge ED (Routine); Ordered 11/20/24 Ordered By: Anat Royal Referrals: Rohith Solis, DO [Primary Care Provider] - Discharge Diet: Usual diet Discharge Activity: Increase activity as tolerated Patient Instructions: Opioid Safety, Pain Management Activity Restrictions/Additional Instructions: Thank you for choosing [facility] for your healthcare needs today. Please realize this is an emergency room and that we are providing you with a medical screening exam and this may not be complete and all inclusive of all the testing and or work up that you may need to determine your ailment or severity of your illness. You have been screened and evaluated and felt safe for discharge. Health conditions do change or evolve sometimes and as such it is important that you follow up with your Primary Doctor to be re checked, 3-5 days is a general good time frame for follow up. You are always welcome to return to the ED for re assessment if your symptoms are worsening or you have new concerns Print Language: Polish Coding Level of Care Code ED Child Protective Services Social Worker for Nancy Lundberg
[2024-11-20 20:12] LABS: Alanine Aminotransferase 10 U/L (0-41); Albumin Level 4.3 g/dL (3.5-5.2); Alkaline Phosphatase 122 U/L (40-130); Anion Gap 13.5 (5-19); Aspartate Amino Transferase 10 U/L (0-40); Blood Urea Nitrogen 17 mg/dL (8-23); Calcium 9.6 mg/dL (8.5-10.5); Carbon Dioxide 29 mmol/L (22-29); Chloride 98 mmol/L (98-107); Creatinine Clr Calc Pharmacy 74.5972; Glomerular Filtration Rate 60.4 mL/min (90-130); Glucose 108 mg/dL (65-115); Osmolality Calculated 286 mOsm/kg (285-295); Potassium 3.5 mmol/L (3.5-5.1); Salicylate 0.6 mg/dL (3-10); Sodium 137 mmol/L (136-145); Thyroid Stimulating Hormone 1.25 uIU/mL (0.27-4.20); Total Bilirubin 0.3 mg/dL (0.15-1.2); Total Protein 7.3 g/dL (6.6-8.7)
[2024-11-20 20:13] LABS: Acetaminophen < 5.0 ug/mL (10-30); Alcohol Level < 10 mg/dL (0-10)
[2024-11-20 21:09] LABS: Bilirubin Urine Negative (Negative); Blood Urine Negative (Negative); Glucose Urine UA Negative (Normal); Ketones Urine Negative (Negative); Leukocyte Esterase Urine 1+ (Negative); Nitrate Urine Positive (Negative); Protein Urine Negative (Negative); Specific Gravity, Urine 1.011 (1.005-1.030); Urine Appearance Clear (CLEAR); Urine Color Yellow (Yellow); pH Urine 5.5 (5-7)
[2024-11-20 21:15] LABS: Amphetamines Screen Urine Negative (Negative); Bacteria Urine 4+ /hpf; Barbiturates Screen Urine Negative (Negative); Benzodiazepines Screen Urine Positive (Negative); Cocaine Screen Urine Negative (Negative); Hyaline Casts Urine 0-4 /lpf; Opiate Screen Urine Positive (Negative); PCP Screen Urine Negative (Negative); RBC Urine 0-2 /hpf (0-2); Squamous Epithelial Cell Urine 0-5 /hpf (0-5); THC Screen Urine Negative (Negative)
[2024-11-20 21:17] LABS: Add Urine Culture? Yes
[2024-11-20] MEDS: LORazepam 2 mg/mL INJ 1 mL 1 MG IM (21:27)
[2024-11-20] MEDS: HYDROMORPHONE HCL 0.5 MG/0.5 ML INJ 1 MG IM (21:30)
[2024-11-20] MEDS: cefTRIAXone 1,000 MG in water for injection-sterile 2.1 ML 1 MG IM (22:13)
[2024-11-20] MEDS: orphenadrine 30 mg/mL Inj 2 mL 60 MG IM (22:15)
[2024-11-20 22:48] VITALS: BP 147/98; PULSE 84; RESP 17; O2SAT 95
== END 2024-11-20 22:49 | disposition home or self-care (01) ==
PROVIDERS: Emergency Provider Emergency Medicine; PCP Family Medicine
DX: M54.50 Low back pain, unspecified (principal); F32.A Depression, unspecified; F41.9 Anxiety disorder, unspecified; E78.5 Hyperlipidemia, unspecified; I10 Essential (primary) hypertension
CPT/HCPCS: 36415; 80053; 80306; 80307; 81001; 84443; 85025; 87077; 87086; 87186; 93005; 96372; 99284; J0696; J1171; J2060; J2360

== ENCOUNTER 2024-12-12 07:29 | Emergency (ER) | payer MEDICARE, MEDICAID, SELFPAY ==
[2024-12-12 07:36] VITALS: BP 140/95; PULSE 90; RESP 18; TEMP 36.8; O2SAT 99; BMI 30.9
--- NOTE | 2024-12-12 07:39 | ED_ITS ---
HPI - Back Pain/Injury General: Chief Complaint: Back Pain/Injury Stated Complaint: lower back pain Time Seen by Provider: 12/12/24 07:36 History of Present Illness: 69-year-old man with a history of chroni c back pain who presents to the emergency room with low back pain. He says his hydrocodone he took this morning was not helping quite enough. He frequently comes to the ER and request narcotic injections along with Ativan or other anxiolytics. I discussed with him that we cannot continue to get narcotic shots here as this is not a pain clinic this is the emergency room. No saddle numbness, no urinary retention or incontinence, no focal motor deficit, no sensory deficit. no recent fever. no cough. no shortness of breath. no chest pain. no abdominal pain. no nausea or vomiting. no dysuria. no altered mental status. no edema. Related Data Home Medications ?Medication ?Instructions ?Recorded ?Confirmed ketoconazole 2 % shampoo See Rx Instructions .Route . COMPLEX 11/18/24 12/08/24 lisinopril 30 mg tablet 30 mg PO BEDTIME 11/18/24 rosuvastatin 40 mg tablet 40 mg PO BEDTIME 11/18/24 tamsulosin 0.4 mg capsule 0.4 mg PO BEDTIME 11/18/24 0 12/08/24 Previous Rx's ?Medication ?Instructions ?Recorded SLO back brace #1 ea 12/24/23 hydrochlorothiazide 25 mg tablet 25 mg PO DAILY #90 ta bs 05/29/24 potassium chloride 10 mEq 10 meq PO DAILY #90 caps capsule,extended release prednisone 10 mg tablet 10 mg PO DAILY PRN inflamato ry 10/26/24 pain #30 tabs hydrocodone 5 mg-acetaminophen 325 1 tab PO TID Pain 3 0 days #90 tabs 11/16/24 mg tablet methocarbamol 750 mg tablet 750 mg PO Q6H PRN spasms # 20 tabs 11/18/24 naproxen 500 mg tablet (Naprosyn) 500 mg PO BID PRN pa in #20 tabs 11/18/24 aripiprazole 2 mg tablet 2 mg PO DAILY #30 tabs 12/08 lorazepam 1 mg tablet 1 mg PO QID PRN anxiety #120 tabs 12/08/24 paroxetine HCl 40 mg tablet (Paxil) 40 mg PO DAILY #30 tabs 12/08/24 Allergies Allergy/AdvReac Type Severity Reaction Status Date / Time No Known Drug Allergies Allergy Unknown Verified 12/08/24 13:28 Review of Systems Narrative: Constitutional symptoms: Negative except as documented in HPI. Skin symptoms: Negative except as documented in HPI. Eye symptoms: Negative except as documented in HPI. ENMT symptoms: Negative except as documented in HPI. Respiratory symptoms: Negative except as documented in HPI. Cardiovascular symptoms: Negative except as documented in HPI. Gastrointestinal symptoms: Negative except as documented in HPI. Genitourinary symptoms: Negative except as documented in HPI. Musculoskeletal symptoms: Negative except as documented in HPI. Neurologic symptoms: Negative except as documented in HPI. Psychiatric symptoms: Negative except as documented in HPI. Endocrine symptoms: Negative except as documented in HPI. PFSH ED PFSH: Medical History On combination antipsychotic drug therapy Gout, unspecified Diverticula of colon Psychiatric care Slow transit constipation Hyperlipidemia Essential hypertension Generalized anxiety disorder Panic disorder [episodic paroxysmal anxiety] Surgical History History of basal cell cancer Left face and nose History of renal stent Family History Other Cancer Diabetes Hypertension Stroke Social History Smoking and tobacco/nicotine status: never used tobacco/nicotine Second hand smoke exposure: No Alcohol intake: never Substance/Drug Use: never Adopted: No Caregiver/support person: No Lives independently: Yes Household members: spouse Housing: House Marital status: Number of children: 4 service: No Current occupational status: disabled Do you think of yourself as: Straight/Heterosexual Current gender identity: Male Physical Exam Narrative: EXAM NARRATIVE: General: Alert, no acute distress. Skin: warm and dry Head: Normocephalic Neck: Trachea midline Eye: Extraocular movements are intact. Ears, nose, mouth and throat: Oral mucosa moist Respiratory: Respirations are non-labored Musculoskeletal: Normal ROM. Patient ambulates to the room without any difficulty. Neurological: Alert and oriented, No focal neurological deficit observed. Psychiatric: Cooperative, appropriate mood & affect. Course Vital Signs: Vital signs: Vital Signs Temperature 98.2 F 12/12/24 07:36 Pulse Rate 90 12/12/24 07:36 Respiratory Rate 18 12/12/24 07:36 Blood Pressure 140/95 12/12/24 07:36 Pulse Oximetry 99 12/12/24 07:36 Oxygen Delivery Me thod Room Air 12/12/24 07:36 MDM - Back Pain/Injury Medical Decision Making I am not comfortable dispensing any further narcotics as the patient is already on hydrocodone, lorazepam and now Soma as well. Assessment and plan: Chronic back pain ?IM Toradol and p.o. hydroxyzine for pain and anxiety - Discharged home - Discussed plan with patient. Answered any questions. - Evaluation and treatment of this problem were appropriate in the emergency setting. No radiology studies performed this visit Discharge Plan Discharge Patient Disposition: Home Clinical Impression: Chronic pain syndrome, Chronic low back pain Condition: Stable Prescriptions: No Action prednisone 10 mg tablet 10 mg PO DAILY PRN (Reason: inflamatory pain) Qty: 30 0RF hydrocodone-acetaminophen 5-325 mg tablet 1 tab PO TID 30 Days Qty: 90 0RF lorazepam 1 mg tablet 1 mg PO QID PRN (Reason: anxiety) Qty: 120 1RF paroxetine HCl [Paxil] 40 mg tablet 40 mg PO DAILY Qty: 30 2RF aripiprazole 2 mg tablet 2 mg PO DAILY Qty: 30 2RF (DME) SLO back brace See Rx Instructions .Route .MEDSUPPLY Qty: 1 0RF Rx Instructions: As directed hydrochlorothiazide 25 mg tablet 25 mg PO DAILY Qty: 90 3RF potassium chloride 10 mEq capsule, extended release 10 meq PO DAILY Qty: 90 3RF ketoconazole 2 % shampoo See Rx Instructions .ROUTE .COMPLEX Rx Instructions: USE DIRECTED TO WASH body DAILY; allow TO sit FOR FIVE minutes BEFORE rinsing. tamsulosin 0.4 mg capsule 0.4 mg PO BEDTIME lisinopril 30 mg tablet 30 mg PO BEDTIME rosuvastatin 40 mg tablet 40 mg PO BEDTIME methocarbamol 750 mg tablet 750 mg PO Q6H PRN (Reason: spasms) Qty: 20 0RF naproxen [Naprosyn] 500 mg tablet 500 mg PO BID PRN (Reason: pain) Qty: 20 0RF Discharge Orders: Discharge ED (Routine); Ordered 12/12/24 Ordered By: Anat Royal Referrals: Rohith Solis DO [Primary Care Provider] - Patient Instructions: Opioid Safety, Pain Management Activity Restrictions/Additional Instructions: Thank you for choosing [facility] for your healthcare needs today. Please realize this is an emergency room and that we are providing you with a medical screening exam and this may not be complete and all inclusive of all the testing and or work up that you may need to determine your ailment or severity of your illness. You have been screened and evaluated and felt safe for discharge. Health conditions do change or evolve sometimes and as such it is important that you follow up with your Primary Doctor to be re checked, 3-5 days is a general good time frame for follow up. You are always welcome to return to the ED for re assessment if your symptoms are worsening or you have new concerns Print Language: Citizen Of [place] Coding Level of Care Code ED Enterprise Application Administrator for Nancy Lundberg
[2024-12-12] MEDS: ketorolac 60 mg/2 mL INJ IM (07:47)
[2024-12-12] MEDS: hyDROXYzine 25 mg Capsule 50 MG PO (07:47)
[2024-12-12 07:54] VITALS: BP 140/95; PULSE 94; O2SAT 97
== END 2024-12-12 07:56 | disposition home or self-care (01) ==
PROVIDERS: Emergency Provider Emergency Medicine; PCP Family Medicine
DX: M54.50 Low back pain, unspecified (principal); G89.29 Other chronic pain; E78.5 Hyperlipidemia, unspecified; I10 Essential (primary) hypertension
CPT/HCPCS: 96372; 99284; J1885; J9999

== ENCOUNTER 2024-12-19 20:00 | Emergency (ER) | payer MEDICARE, MEDICAID, SELFPAY ==
[2024-12-19 20:01] VITALS: BP 158/102; PULSE 94; RESP 18; TEMP 36.4; O2SAT 97
--- NOTE | 2024-12-19 20:32 | W.ED.MALEGU ---
HPI - Male Genitourinary General: Chief complaint: Urogenital-Male Stated complaint: pain when urinate & severe anxiety Time Seen by Provider: 12/19/24 20:08 History of Present Illness: 69-year-old male with a history of chronic back pain and anxiety. He presents with left-sided flank and abdominal pain, urinary frequency, and some dysuria. He states that he has frequent urinary tract infections. He believes he has been on antibiotics since his last visit here. He complains also of being anxious. He has not been able to get his anxiety under control today despite 2 mg of lorazepam at home orally. Related Data Home Medications ?Medication ?Instructions ?Recorded ?Confirmed ketoconazole 2 % shampoo See Rx Instructions .Route .COMPLEX 11/18/24 12/08/24 lisinopril 30 mg tablet 30 mg PO BEDTIME 11/18/24 12/08/24 rosuvastatin 40 mg tablet 40 mg PO BEDTIME 11/18/24 12/08/24 tamsulosin 0.4 mg capsule 0.4 mg PO BEDTIME 11/18/24 12/08/24 Previous Rx's ?Medication ?Instructions ?Recorded SLO back brace #1 ea 12/24/23 hydrochlorothiazide 25 mg tablet 25 mg PO DAILY #90 tabs 05/29/24 potassium chloride 10 mEq 10 meq PO DAILY #90 caps 06/01/24 capsule,extended release prednisone 10 mg tablet 10 mg PO DAILY PRN inflamatory 10/26/24 pain #30 tabs hydrocodone 5 mg-acetaminophen 325 1 tab PO TID Pain 30 days #90 tabs 11/16/24 mg tablet methocarbamol 750 mg tablet 750 mg PO Q6H PRN spasms #20 tabs 11/18/24 naproxen 500 mg tablet (Naprosyn) 500 mg PO BID PRN pain #20 tabs 11/18/24 aripiprazole 2 mg tablet 2 mg PO DAILY #30 tabs 12/08/24 lorazepam 1 mg tablet 1 mg PO QID PRN anxiety #120 tabs 12/08/24 paroxetine HCl 40 mg tablet (Paxil) 40 mg PO DAILY #30 tabs 12/08/24 ciprofloxacin HCl 500 mg tablet 500 mg PO BID #14 tabs 12/19/24 Allergies Allergy/AdvReac Type Severity Reaction Status Date / Time No Known Drug Allergies Allergy Unknown Verified 12/19/24 20:07 [facility] ED PFSH: Medical History On combination antipsychotic drug therapy Gout, unspecified Diverticula of colon Psychiatric care Slow transit constipation Hyperlipidemia Essential hypertension Generalized anxiety disorder Panic disorder [episodic paroxysmal anxiety] Surgical History History of basal cell cancer Left face and nose History of renal stent Family History Other Cancer Diabetes Hypertension Stroke Social History Smoking and tobacco/nicotine status: never used tobacco/nicotine Second hand smoke exposure: No Alcohol intake: never Substance/Drug Use: never Adopted: No Caregiver/support person: No Lives independently: Yes Household members: spouse Housing: House Marital status: Number of children: 4 service: No Current occupational status: disabled Do you think of yourself as: Straight/Heterosexual Current gender identity: Male Physical Exam Const: GENERAL APPEARANCE: cooperative and anxious; not ill appearing HENMT: COMMON NORMALS: normocephalic, atraumatic and Normal external nose present HEAD & SCALP: normocephalic and atraumatic FACE & SINUS: normal facial exam and face symmetric NOSE: Normal external nose present Eye: COMMON NORMALS: Equal, round and reactive pupils present and EOMs intact bilaterally PUPIL: Yes Equal, round and reactive pupils present Neck/C-Spine: GENERAL: Yes trachea midline Chest: CHEST: Yes Symmetrical chest wall rise Resp: COMMON NORMALS: normal respiratory effort, No retractions, No use of accessory muscles and clear to auscultation bilaterally AUSCULTATION: clear to auscultation bilaterally Cardio: COMMON NORMALS: regular rate and regular rhythm RATE: regular rate RHYTHM: regular rhythm GI: COMMON NORMALS: Normal to inspection, nondistended, normoactive bowel sounds present PALPATION: Yes Tenderness to palpation present (GI) Details: LUQ : BLADDER/KIDNEY EXAM: Yes CVA tenderness on the left Back/Pelvis: GENERAL BACK: Yes CVA tenderness Extremity: COMMON NORMALS: no pedal edema Neuro: ROGERS COMA SCALE: document GCS findings Rogers coma scale eye opening: Spontaneous Rogers coma scale verbal response: Orientated [place] coma scale motor response: Obey commands [place] coma scale total score: 15 SENSORY EXAM: Yes extremities (intact) Psych: COMMON NORMALS: speech normal SPEECH: Yes normal speech Skin: COMMON NORMALS: no rashes or lesions noted GENERAL SKIN EXAM: no rashes or lesions noted Course Vital Signs: Vital signs: Vital Signs Temperature 97.6 F 12/19/24 20:01 Pulse Rate 94 12/19/24 20:01 Respiratory Rate 18 12/19/24 20:01 Blood Pressure 158/102 12/19/24 20:01 Pulse Oximetry 97 12/19/24 20:01 Oxygen Delivery Me thod Room Air 12/19/24 20:01 MDM - Male Medical Decision Making Patient presents with left-sided flank pain and frequency. White blood cell count is 11.5. Other laboratory is not remarkable. Urinalysis reveals 2+ leukocyte esterase with 21-50 whites 0-2 reds. He is given 1 g of Rocephin IV here. He reports that his anxiety is out of control today, and for this 1 mg of lorazepam was given here IV, as well as 10 mg of Zydis. He will be discharged on antibiotics. Lab Data 12/19/24 20:40 12/19/24 20:40 Laboratory Results WBC 11.47 10^3/uL (3.29-11.43) H 12/19/24 20:40 RBC 5.61 10^6/uL (3.85-5.65) 12/19/24 20:40 Hgb 16.00 g/dL (11.27-16.99) 12/19/24 20:40 Hct 46.8 % (37-53) 12/19/24 20:40 MCV 83.4 fl (82-101) 12/19/24 20:40 MCH 28.5 pg (27-33) 12/19/24 20:40 MCHC 34.2 g/dL (30-55) 12/19/24 20:40 RDW 13.7 % (12.1-15.1) 12/19/24 20:40 Plt Count 387 10^3/cmm (157-399) 12/19/24 20:40 MPV 8.9 fL (7.4-10.4) 12/19/24 20:40 Neut % (Auto) 81.8 % 12/19/24 20:40 Lymph % (Auto) 10.4 % 12/19/24 20:40 [place] % (Auto) 5.7 % 12/19/24 20:40 Eos % (Auto) 1.4 % 12/19/24 20:40 Baso % (Auto) 0.3 % 12/19/24 20:40 Neut # (Auto) 9.38 10^3/uL (1.8-7.7) H 12/19/24 20:40 Lymph # (Auto) 1.2 10^3/uL (0.8-4.8) 12/19/24 20:40 [place] # (Auto) 0.7 10^3/uL (0.2-0.9) 12/19/24 20:40 Eos # (Auto) 0.2 10^3/uL (0.0-0.8) 12/19/24 20:40 Baso # (Auto) 0.0 10^3/uL (0.0-0.1) 12/19/24 20:40 Nucleated RBC % (auto) 0 % 12/19/24 20:40 Nucleated RBCs # 0.0 /100WBC 12/19/24 20:40 Sodium 139 mmol/L (136-145) 12/19/24 20:40 Potassium 3.8 mmol/L (3.5-5.1) 12/19/24 20:40 Chloride 98 mmol/L (98-107) 12/19/24 20:40 Carbon Dioxide 29 mmol/L (22-29) 12/19/24 20:40 Anion Gap 15.8 (5-19) 12/19/24 20:40 BUN 11 mg/dL (8-23) 12/19/24 20:40 Creatinine 1.2 mg/dL (0.7-1.2) 12/19/24 20:40 GFR Calculation 60.4 mL/min (90-130) L 12/19/24 20:40 Glucose 121 mg/dL (65-115) H 12/19/24 20:40 Calculated Osmolality 289 mOsm/kg (285-295) 12/19/24 20:40 Calcium 9.7 mg/dL (8.5-10.5) 12/19/24 20:40 Total Bilirubin 0.3 mg/dL (0.15-1.2) 12/19/24 20:40 AST 11 U/L (0-40) 12/19/24 20:40 ALT 11 U/L (0-41) 12/19/24 20:40 Alkaline Phosphatase 123 U/L (40-130) 12/19/24 20:40 C-Reactive Protein 4.1 mg/L (0.0-4.9) 12/19/24 20:40 Total Protein 8.0 g/dL (6.6-8.7) 12/19/24 20:40 Albumin 4.3 g/dL (3.5-5.2) 12/19/24 20:40 Globulin 3.7 g/dL (1.3-4.6) 12/19/24 20:40 Lipase 10 U/L (13-60) L 12/19/24 20:40 Urine Color Yellow (Yellow) 12/19/24 20:45 Urine Appearance Clear (CLEAR) 12/19/24 20:45 Urine pH 5 (5-7) 12/19/24 20:45 Ur Specific [place] 1.010 (1.005-1.030) 12/19/24 20:45 Urine Protein Neg (Negative) 12/19/24 20:45 Urine Glucose (UA) Norm (Normal) 12/19/24 20:45 Urine Ketones Negative (Negative) 12/19/24 20:45 Urine Blood Neg (Negative) 12/19/24 20:45 Urine Nitrate Negative (Negative) 12/19/24 20:45 Urine Bilirubin Neg (Negative) 12/19/24 20:45 Urine Urobilinogen Norm mg/dL (Negative) 12/19/24 20:45 Ur Leukocyte Esterase 2+ (Negative) H 12/19/24 20:45 Urine RBC 0-2 /hpf (0-2) 12/19/24 20:45 Urine WBC 21-50 /hpf (0-5) H 12/19/24 20:45 Ur Squamous Epith Cells 0-5 /hpf (0-5) 12/19/24 20:45 Amorphous Sediment Not Reportable 12/19/24 20:45 Urine Bacteria None seen /hpf (NONE) 12/19/24 20:45 Hyaline Casts 1.21 /lpf 12/19/24 20:45 All radiology interpretation(s) finalized by discharge Discharge Plan Discharge Patient Disposition: Home Clinical Impression: Urinary tract infection Condition: Stable Prescriptions: New ciprofloxacin HCl 500 mg tablet 500 mg PO BID Qty: 14 0RF No Action prednisone 10 mg tablet 10 mg PO DAILY PRN (Reason: inflamatory pain) Qty: 30 0RF hydrocodone-acetaminophen 5-325 mg tablet 1 tab PO TID 30 Days Qty: 90 0RF lorazepam 1 mg tablet 1 mg PO QID PRN (Reason: anxiety) Qty: 120 1RF paroxetine HCl [Paxil] 40 mg tablet 40 mg PO DAILY Qty: 30 2RF aripiprazole 2 mg tablet 2 mg PO DAILY Qty: 30 2RF (DME) SLO back brace See Rx Instructions .Route .MEDSUPPLY Qty: 1 0RF Rx Instructions: As directed hydrochlorothiazide 25 mg tablet 25 mg PO DAILY Qty: 90 3RF potassium chloride 10 mEq capsule, extended release 10 meq PO DAILY Qty: 90 3RF ketoconazole 2 % shampoo See Rx Instructions .ROUTE .COMPLEX Rx Instructions: USE DIRECTED TO WASH body DAILY; allow TO sit FOR FIVE minutes BEFORE rinsing. tamsulosin 0.4 mg capsule 0.4 mg PO BEDTIME lisinopril 30 mg tablet 30 mg PO BEDTIME rosuvastatin 40 mg tablet 40 mg PO BEDTIME methocarbamol 750 mg tablet 750 mg PO Q6H PRN (Reason: spasms) Qty: 20 0RF naproxen [Naprosyn] 500 mg tablet 500 mg PO BID PRN (Reason: pain) Qty: 20 0RF Discharge Orders: Discharge ED (Routine); Ordered 12/19/24 Ordered By: Ashutosh Holm Referrals: Rohith Solis DO [Primary Care Provider] - Patient Instructions: Urinary Tract Infection in Men (ED), Opioid Safety, Pain Management Activity Restrictions/Additional Instructions: Antibiotics as directed. Return for fever despite 2-3 doses, worsening pain despite treatment, other concerning symptoms. Call your doctor on Saturday for a follow-up appointment. Your urine should be retested to ensure it is improving. Print Language: Yi Coding Level of Care Code ED Flat Surf[employer] Jewel for Nancy Lundberg
[2024-12-19] MEDS: OLANZapine 10 mg ODT PO (20:43)
[2024-12-19] MEDS: ketorolac 30 mg/mL INJ IVP (20:43)
[2024-12-19] MEDS: LORazepam 2 mg/mL INJ 1 mL 1 MG IVP (20:43)
[2024-12-19 20:48] LABS: Basophils % 0.3 %; Eosinophils # 0.2 10^3/uL (0.0-0.8); Eosinophils % 1.4 %; Hematocrit 46.8 % (37-53); Lymphocytes # 1.2 10^3/uL (0.8-4.8); Lymphocytes % 10.4 %; Mean Corpuscular HGB Conc 34.2 g/dL (30-55); Mean Corpuscular Hemoglobin 28.5 pg (27-33); Mean Corpuscular Volume 83.4 fl (82-101); Mean Platelet Volume 8.9 fL (7.4-10.4); Monocytes # 0.7 10^3/uL (0.2-0.9); Monocytes % 5.7 %; Neutrophils # 9.38 10^3/uL (1.8-7.7); Neutrophils % 81.8 %; Nucleated Red Blood Cells % 0 %; Platelet Count 387 10^3/cmm (157-399); Red Blood Count 5.61 10^6/uL (3.85-5.65); Red Cell Distribution Width 13.7 % (12.1-15.1); White Blood Count 11.47 10^3/uL (3.29-11.43)
[2024-12-19 20:59] LABS: Add Urine Microscopic? YES; Bilirubin Urine Neg (Negative); Blood Urine Neg (Negative); Glucose Urine UA Norm (Normal); Ketones Urine Negative (Negative); Leukocyte Esterase Urine 2+ (Negative); Nitrate Urine Negative (Negative); Protein Urine Neg (Negative); Urine Appearance Clear (CLEAR); Urine Color Yellow (Yellow); Urobilinogen Urine Norm (Negative); pH Urine 5 (5-7)
[2024-12-19 21:04] LABS: Bacteria Urine None Seen /hpf; Hyaline Casts Urine 1.21 /lpf; RBC Urine 0-2 /hpf (0-2); Squamous Epithelial Cell Urine 0-5 /hpf (0-5); WBC Urine 21-50 /hpf (0-5)
[2024-12-19 21:10] LABS: Alanine Aminotransferase 11 U/L (0-41); Albumin Level 4.3 g/dL (3.5-5.2); Alkaline Phosphatase 123 U/L (40-130); Anion Gap 15.8 (5-19); Aspartate Amino Transferase 11 U/L (0-40); Blood Urea Nitrogen 11 mg/dL (8-23); C Reactive Protein 4.1 mg/L (0.0-4.9); Calcium 9.7 mg/dL (8.5-10.5); Carbon Dioxide 29 mmol/L (22-29); Chloride 98 mmol/L (98-107); Creatinine Clr Calc Pharmacy 74.2907; Globulin 3.7 g/dL (1.3-4.6); Glomerular Filtration Rate 60.4 mL/min (90-130); Glucose 121 mg/dL (65-115); Lipase 10 U/L (13-60); Osmolality Calculated 289 mOsm/kg (285-295); Potassium 3.8 mmol/L (3.5-5.1); Sodium 139 mmol/L (136-145); Total Bilirubin 0.3 mg/dL (0.15-1.2)
[2024-12-19 21:12] LABS: Add Urine Culture? Yes
[2024-12-19] MEDS: cefTRIAXone 1,000 mg SDV 1000 MG IVP (22:27)
== END 2024-12-19 22:47 | disposition home or self-care (01) ==
PROVIDERS: Emergency Provider Emergency Medicine; PCP Family Medicine
DX: N39.0 Urinary tract infection, site not specified (principal); E78.5 Hyperlipidemia, unspecified; I10 Essential (primary) hypertension
CPT/HCPCS: 80053; 81001; 83690; 85025; 86140; 87077; 87086; 87186; 96374; 96375; 99284; J0696; J1885; J2060; J9999

== ENCOUNTER 2024-12-23 16:03 | Emergency (ER) | payer MEDICARE, MEDICAID, SELFPAY ==
[2024-12-23 16:11] VITALS: BP 138/93; PULSE 100; RESP 18; TEMP 36.4; O2SAT 98
--- NOTE | 2024-12-23 16:15 | W.ED.ANXIETY ---
HPI - Anxiety General: Chief Complaint: Anxiety Stated Complaint: anxiety Time Seen by Provider: 12/23/24 16:04 History of Present Illness: 69-year-old male presents emergency room complaining of not having slept for the last 2 days. He states he is very anxious. He is run out of his Ativan and cannot get it refilled until Saturday. Denies chest pain or shortness of breath no abdominal pain Associated symptoms: Deny chest pain, chills or fever(s) Related Data Home Medications ?Medication ?Instructions ?Recorded ?Confirmed lisinopril 30 mg tablet 30 mg PO BEDTIME 11/18/24 12/23/24 rosuvastatin 40 mg tablet 40 mg PO BEDTIME 11/18/24 12/23/24 tamsulosin 0.4 mg capsule 0.4 mg PO BEDTIME 11/18/24 12/23/24 ibuprofen-diphenhydramine citrate 2 tab PO Q6H PRN Pain 12/23/24 12/23/24 200 mg-38 mg tablet (Advil PM) Previous Rx's ?Medication ?Instructions ?Recorded hydrochlorothiazide 25 mg tablet 25 mg PO DAILY #90 tabs 05/29/24 hydrocodone 5 mg-acetaminophen 325 1 tab PO TID Pain 30 days #90 tabs 11/16/24 mg tablet aripiprazole 2 mg tablet 2 mg PO DAILY #30 tabs 12/08/24 lorazepam 1 mg tablet 1 mg PO QID PRN anxiety #120 tabs 12/08/24 paroxetine HCl 40 mg tablet (Paxil) 40 mg PO DAILY #30 tabs 12/08/24 ciprofloxacin HCl 500 mg tablet 500 mg PO BID #14 tabs 12/19/24 hydroxyzine HCl 25 mg tablet 25 mg PO Q8H PRN anxiety #10 tabs 12/23/24 Allergies Allergy/AdvReac Type Severity Reaction Status Date / Time No Known Drug Allergies Allergy Unknown Verified 12/19/24 20:07 Review of Systems Const: Denies: fever(s) or chills Card: Denies: chest pain Resp: Denies: dyspnea GI: Denies: abdominal pain : Denies: dysuria, urinary frequency or urinary urgency Musc: Denies: neck pain or back pain Skin/Breast: Denies: rash PFSH ED PFSH: Medical History On combination antipsychotic drug therapy Gout, unspecified Diverticula of colon Psychiatric care Slow transit constipation Hyperlipidemia Essential hypertension Generalized anxiety disorder Panic disorder [episodic paroxysmal anxiety] Surgical History History of basal cell cancer Left face and nose History of renal stent Family History Other Cancer Diabetes Hypertension Stroke Social History Smoking and tobacco/nicotine status: never used tobacco/nicotine Second hand smoke exposure: No Alcohol intake: never Substance/Drug Use: never Adopted: No Caregiver/support person: No Lives independently: Yes Household members: spouse Housing: House Marital status: Number of children: 4 service: No Current occupational status: disabled Do you think of yourself as: Straight/Heterosexual Current gender identity: Male Physical Exam Const: COMMON NORMALS: no acute distress GENERAL APPEARANCE: cooperative and comfortable ORIENTATION/CONSCIOUSNESS: Yes awake, Yes oriented to person, Yes oriented to place and Yes oriented to time HENMT: COMMON NORMALS: normocephalic, atraumatic and hearing grossly normal bilaterally HEAD & SCALP: normocephalic and atraumatic Resp: COMMON NORMALS: normal respiratory effort, No retractions, No use of accessory muscles and clear to auscultation bilaterally AUSCULTATION: clear to auscultation bilaterally Cardio: COMMON NORMALS: regular rate, regular rhythm and No murmurs present (Cardio) RATE: regular rate RHYTHM: regular rhythm GI: COMMON NORMALS: Soft to palpation and No hepatosplenomegaly present AUSCULTATION: Yes normoactive bowel sounds PALPATION: Yes Soft to palpation, No Tenderness to palpation present (GI), No Guarding due to palpation present (GI) and Yes No hepatosplenomegaly present Extremity: COMMON NORMALS: normal to inspection, capillary refill normal, no clubbing, cyanosis or edema, no calf tenderness and no pedal edema Neuro: SENSORIUM/ORIENTATION: Yes oriented to person, Yes oriented to place and Yes oriented to time Skin: COMMON NORMALS: no rashes or lesions noted GENERAL SKIN EXAM: no rashes or lesions noted Course Vital Signs: Vital signs: Vital Signs Temperature 97.6 F 12/23/24 16:11 Pulse Rate 93 12/23/24 16:54 Respiratory Rate 18 12/23/24 16:11 Blood Pressure 152/94 12/23/24 16:54 Pulse Oximetry 94 12/23/24 16:54 Oxygen Delivery Me thod Room Air 12/23/24 16:17 MDM - Anxiety Medical Decision Making Improved with the dose Ativan given here will discharge home with hydroxyzine to use as needed he can follow-up with his doctor and discuss his dose and frequency. Refill is due in 2 days return if has further problems Medical Records I reviewed the patient's medical records. Lab Data I reviewed the patient's lab results. No radiology studies performed this visit Discharge Plan Discharge Patient Disposition: Home Clinical Impression: Panic disorder [episodic paroxysmal anxiety] Condition: Stable Prescriptions: New hydroxyzine HCl 25 mg tablet 25 mg PO Q8H PRN (Reason: anxiety) Qty: 10 0RF No Action hydrocodone-acetaminophen 5-325 mg tablet 1 tab PO TID 30 Days Qty: 90 0RF lorazepam 1 mg tablet 1 mg PO QID PRN (Reason: anxiety) Qty: 120 1RF paroxetine HCl [Paxil] 40 mg tablet 40 mg PO DAILY Qty: 30 2RF aripiprazole 2 mg tablet 2 mg PO DAILY Qty: 30 2RF hydrochlorothiazide 25 mg tablet 25 mg PO DAILY Qty: 90 3RF Advil PM 200-38 mg Tablet 2 tab PO Q6H PRN (Reason: Pain) tamsulosin 0.4 mg capsule 0.4 mg PO BEDTIME lisinopril 30 mg tablet 30 mg PO BEDTIME rosuvastatin 40 mg tablet 40 mg PO BEDTIME ciprofloxacin HCl 500 mg tablet 500 mg PO BID Qty: 14 0RF Discharge Orders: Discharge ED (Routine); Ordered 12/23/24 Ordered By: Chaka Elliott Referrals: Rohith Solis DO [Primary Care Provider] - Discharge Diet: Usual diet Discharge Activity: Resume usual activity Patient Instructions: Generalized Anxiety Disorder (ED), Opioid Safety, Pain Management Activity Restrictions/Additional Instructions: Thank you for choosing [facility] for your healthcare needs today. It is very important that you follow up as instructed or that you return to the Emergency Department should you have concerns or if your condition changes or worsens in any way. You were seen in the emergency room with complaints of anxiety. Did improve with a dose of Ativan you are given. Will give you a prescription for hydroxyzine to use 0.25 mg 1 every 8 hours as needed. Follow-up with [facility] for refills on your Ativan Print Language: Danish Coding Level of Care Code ED Curing Finisher for Nancy Lundberg
[2024-12-23] MEDS: LORazepam 1 mg Tablet PO (16:16)
[2024-12-23 16:17] VITALS: BP 124/73; PULSE 92; O2SAT 94
--- NOTE | 2024-12-23 16:40 | PC.PHAR ---
pATIENT STATES HE HAS BEEN TAKING IBPROFEN PM ABOUT A FEW TIMES A DAY ,THAT IT ISN'T WORKING REAL GOOD.
[2024-12-23 16:54] VITALS: BP 152/94; PULSE 93; O2SAT 94
== END 2024-12-23 16:55 | disposition home or self-care (01) ==
PROVIDERS: Emergency Provider Family Medicine; PCP Family Medicine
DX: F41.0 Panic disorder [episodic paroxysmal anxiety] (principal); E78.5 Hyperlipidemia, unspecified; I10 Essential (primary) hypertension
CPT/HCPCS: 99283; J9999

== ENCOUNTER 2025-02-03 05:47 | Emergency (ER) | payer MEDICARE, MEDICAID, SELFPAY ==
[2025-02-03 05:52] VITALS: BP 180/109; PULSE 86; RESP 18; TEMP 37.1; O2SAT 96; BMI 32.3
--- NOTE | 2025-02-03 06:10 | W.ED.MALEGU ---
HPI - Male Genitourinary General: Chief complaint: Urogenital-Male Stated complaint: Kidney and back pain anxiaity Time Seen by Provider: 02/03/25 06:05 History of Present Illness: 69-year-old male presents emergency room complaining of right-sided flank pain. Denies any dysuria urgency or frequency. He has had nephrolithiasis in the past he thinks he may have a recurrence. No hematuria. He localizes back pain to the upper aspect of the right SI joint reproducible with palpation. Associated symptoms: Deny dysuria or hematuria Related Data Home Medications ?Medication ?Instructions ?Recorded ?Confirmed lisinopril 30 mg tablet 30 mg PO BEDTIME 11/18/24 02/03/25 rosuvastatin 40 mg tablet 40 mg PO BEDTIME 11/18/24 02/03/25 tamsulosin 0.4 mg capsule 0.4 mg PO BEDTIME 11/18/24 02/03/25 ibuprofen-diphenhydramine citrate 2 tab PO BEDTIME PRN Sleep 12/23/24 02/03/25 200 mg-38 mg tablet (Advil PM) ibuprofen 200 mg tablet (Advil) 600 mg PO Q6H PRN Fever Or Pain 02/03/25 02/03/25 Previous Rx's ?Medication ?Instructions ?Recorded hydrochlorothiazide 25 mg tablet 25 mg PO DAILY #90 tabs 05/29/24 aripiprazole 2 mg tablet 2 mg PO DAILY #30 tabs 12/08/24 hydroxyzine HCl 25 mg tablet 25 mg PO Q8H PRN anxiety #10 tabs 12/23/24 paroxetine HCl 40 mg tablet (Paxil) 40 mg PO DAILY #30 tabs 01/11/25 hydrocodone 5 mg-acetaminophen 325 1 tab PO TID Pain 30 days #90 tabs 01/25/25 mg tablet lorazepam 1 mg tablet 1 mg PO QID PRN anxiety #120 tabs 01/25/25 cefdinir 300 mg capsule 300 mg PO BID #14 caps 02/03/25 Allergies Allergy/AdvReac Type Severity Reaction Status Date / Time No Known Drug Allergies Allergy Unknown Verified 02/03/25 05:55 Review of Systems Const: Denies: fever(s) or chills Card: Denies: chest pain Resp: Denies: dyspnea GI: Denies: abdominal pain : Denies: dysuria, urinary frequency, urinary urgency or hematuria Musc: Denies: neck pain or back pain Skin/Breast: Denies: rash PFSH ED PFSH: Medical History On combination antipsychotic drug therapy Gout, unspecified Diverticula of colon Psychiatric care Slow transit constipation Hyperlipidemia Essential hypertension Generalized anxiety disorder Panic disorder [episodic paroxysmal anxiety] Surgical History History of basal cell cancer Left face and nose History of renal stent Family History Other Cancer Diabetes Hypertension Stroke Social History Smoking and tobacco/nicotine status: never used tobacco/nicotine Second hand smoke exposure: No Alcohol intake: never Substance/Drug Use: never Adopted: No Caregiver/support person: No Lives independently: Yes Household members: spouse Housing: House Marital status: Number of children: 4 service: No Current occupational status: disabled Do you think of yourself as: Straight/Heterosexual Current gender identity: Male Physical Exam Const: GENERAL APPEARANCE: cooperative ORIENTATION/CONSCIOUSNESS: Yes awake, Yes oriented to person, Yes oriented to place and Yes oriented to time HENMT: COMMON NORMALS: normocephalic, atraumatic and hearing grossly normal bilaterally HEAD & SCALP: normocephalic and atraumatic Resp: COMMON NORMALS: normal respiratory effort, No retractions, No use of accessory muscles and clear to auscultation bilaterally AUSCULTATION: clear to auscultation bilaterally Cardio: COMMON NORMALS: regular rate, regular rhythm and No murmurs present (Cardio) RATE: regular rate RHYTHM: regular rhythm GI: COMMON NORMALS: Soft to palpation and No hepatosplenomegaly present AUSCULTATION: Yes normoactive bowel sounds PALPATION: Yes Soft to palpation, No Tenderness to palpation present (GI), No Guarding due to palpation present (GI) and Yes No hepatosplenomegaly present Extremity: COMMON NORMALS: normal to inspection, capillary refill normal, no clubbing, cyanosis or edema, no calf tenderness and no pedal edema Neuro: SENSORIUM/ORIENTATION: Yes oriented to person, Yes oriented to place and Yes oriented to time Skin: COMMON NORMALS: no rashes or lesions noted GENERAL SKIN EXAM: no rashes or lesions noted Course Vital Signs: Vital signs: Vital Signs Temperature 98.7 F 02/03/25 05:52 Pulse Rate 81 02/03/25 09:06 Respiratory Rate 20 H 02/03/25 08:30 Blood Pressure 150/100 02/03/25 09:06 Pulse Oximetry 96 02/03/25 09:06 Oxygen Delivery Me thod Room Air 02/03/25 08:30 MDM - Male Medical Decision Making UA shows cystitis given a gram of ceftriaxone as well as a liter of fluid will discharge patient home on oral antibiotics cefdinir 300 twice daily for 7 days. Return if has further problems Medical Records I reviewed the patient's medical records. Lab Data I reviewed the patient's lab results. 02/03/25 06:02 02/03/25 06:02 Laboratory Results WBC 11.75 10^3/uL (3.29-11.43) H 02/03/25 06:02 RBC 5.63 10^6/uL (3.85-5.65) 02/03/25 06:02 Hgb 16.00 g/dL (11.27-16.99) 02/03/25 06:02 Hct 48.2 % (37-53) 02/03/25 06:02 MCV 85.6 fl (82-101) 02/03/25 06:02 MCH 28.4 pg (27-33) 02/03/25 06:02 MCHC 33.2 g/dL (30-55) 02/03/25 06:02 RDW 14.1 % (12.1-15.1) 02/03/25 06:02 Plt Count 419 10^3/cmm (157-399) H 02/03/25 06:02 MPV 9.1 fL (7.4-10.4) 02/03/25 06:02 Neut % (Auto) 72.8 % 02/03/25 06:02 Lymph % (Auto) 16.9 % 02/03/25 06:02 [place] % (Auto) 8.4 % 02/03/25 06:02 Eos % (Auto) 1.0 % 02/03/25 06:02 Baso % (Auto) 0.3 % 02/03/25 06:02 Neut # (Auto) 8.54 10^3/uL (1.8-7.7) H 02/03/25 06:02 Lymph # (Auto) 2.0 10^3/uL (0.8-4.8) 02/03/25 06:02 [place] # (Auto) 1.0 10^3/uL (0.2-0.9) H 02/03/25 06:02 Eos # (Auto) 0.1 10^3/uL (0.0-0.8) 02/03/25 06:02 Baso # (Auto) 0.0 10^3/uL (0.0-0.1) 02/03/25 06:02 Nucleated RBC % (auto) 0 % 02/03/25 06:02 Nucleated RBCs # 0.0 /100WBC 02/03/25 06:02 Sodium 137 mmol/L (136-145) 02/03/25 06:02 Potassium 3.7 mmol/L (3.5-5.1) 02/03/25 06:02 Chloride 99 mmol/L (98-107) 02/03/25 06:02 Carbon Dioxide 26 mmol/L (22-29) 02/03/25 06:02 Anion Gap 15.7 (5-19) 02/03/25 06:02 BUN 12 mg/dL (8-23) 02/03/25 06:02 Creatinine 1.1 mg/dL (0.7-1.2) 02/03/25 06:02 GFR Calculation 66.8 mL/min (90-130) L 02/03/25 06:02 Glucose 123 mg/dL (65-115) H 02/03/25 06:02 Calculated Osmolality 285 mOsm/kg (285-295) 02/03/25 06:02 Calcium 9.5 mg/dL (8.5-10.5) 02/03/25 06:02 Total Bilirubin 0.4 mg/dL (0.15-1.2) 02/03/25 06:02 AST 10 U/L (0-40) 02/03/25 06:02 ALT 15 U/L (0-41) 02/03/25 06:02 Alkaline Phosphatase 122 U/L (40-130) 02/03/25 06:02 Total Protein 8.0 g/dL (6.6-8.7) 02/03/25 06:02 Albumin 4.3 g/dL (3.5-5.2) 02/03/25 06:02 Globulin 3.7 g/dL (1.3-4.6) 02/03/25 06:02 Urine Color Yellow (Yellow) 02/03/25 07:40 Urine Appearance Cloudy (CLEAR) A 02/03/25 07:40 Urine pH 5.5 (5-7) 02/03/25 07:40 Ur Specific [place] 1.017 (1.005-1.030) 02/03/25 07:40 Urine Protein 2+ (Negative) A 02/03/25 07:40 Urine Glucose (UA) Negative (Normal) 02/03/25 07:40 Urine Ketones Negative (Negative) 02/03/25 07:40 Urine Blood Trace (Negative) A 02/03/25 07:40 Urine Nitrate Positive (Negative) A 02/03/25 07:40 Urine Bilirubin Negative (Negative) 02/03/25 07:40 Urine Urobilinogen 1.0 mg/dL (Negative) 02/03/25 07:40 Ur Leukocyte Esterase 2+ (Negative) A 02/03/25 07:40 Urine RBC 0-2 /hpf (0-2) 02/03/25 07:40 Urine WBC >100 /hpf (0-5) H 02/03/25 07:40 Ur Squamous Epith Cells 0-5 /hpf (0-5) 02/03/25 07:40 Amorphous Sediment Not Reportable 02/03/25 07:40 Urine Bacteria 4+ /hpf (NONE) H 02/03/25 07:40 Hyaline Casts 109.64 /lpf 02/03/25 07:40 Urine Sperm 1+ /hpf 02/03/25 07:40 No radiology studies performed this visit Discharge Plan Discharge Patient Disposition: Home Clinical Impression: Urinary tract infection Condition: Stable Prescriptions: New cefdinir 300 mg capsule 300 mg PO BID Qty: 14 0RF No Action aripiprazole 2 mg tablet 2 mg PO DAILY Qty: 30 2RF hydrochlorothiazide 25 mg tablet 25 mg PO DAILY Qty: 90 3RF paroxetine HCl [Paxil] 40 mg tablet 40 mg PO DAILY Qty: 30 2RF hydrocodone-acetaminophen 5-325 mg tablet 1 tab PO TID 30 Days Qty: 90 0RF lorazepam 1 mg tablet 1 mg PO QID PRN (Reason: anxiety) Qty: 120 1RF Advil PM 200-38 mg Tablet 2 tab PO BEDTIME PRN (Reason: Sleep) hydroxyzine HCl 25 mg tablet 25 mg PO Q8H PRN (Reason: anxiety) Qty: 10 0RF tamsulosin 0.4 mg capsule 0.4 mg PO BEDTIME lisinopril 30 mg tablet 30 mg PO BEDTIME rosuvastatin 40 mg tablet 40 mg PO BEDTIME ibuprofen [Advil] 200 mg Tablet 600 mg PO Q6H PRN (Reason: Fever Or Pain) Discharge Orders: Discharge ED (Routine); Ordered 02/03/25 Ordered By: Chaka Elliott Referrals: Rohith Solis, [Primary Care Provider, Family Practice] Discharge Diet: Usual diet Discharge Activity: Resume usual activity Patient Instructions: Opioid Safety, Pain Management Activity Restrictions/Additional Instructions: Thank you for choosing [facility] for your healthcare needs today. It is very important that you follow up as instructed or that you return to the Emergency Department should you have concerns or if your condition changes or worsens in any way. You were seen in the emergency room with complaints of back pain and mild abdominal discomfort. You are found to have a bladder infection. You are given your first initial dose of antibiotics in the emergency room start oral antibiotics tomorrow 1 pill twice a day for 7 days. If not improving recheck. Print Language: Macedonian Coding Level of Care Code ED Used Equipment Sales Representative for Nancy Lundberg
[2025-02-03 06:14] LABS: Basophils % 0.3 %; Eosinophils # 0.1 10^3/uL (0.0-0.8); Hematocrit 48.2 % (37-53); Lymphocytes % 16.9 %; Mean Corpuscular HGB Conc 33.2 g/dL (30-55); Mean Corpuscular Hemoglobin 28.4 pg (27-33); Mean Corpuscular Volume 85.6 fl (82-101); Mean Platelet Volume 9.1 fL (7.4-10.4); Monocytes % 8.4 %; Neutrophils # 8.54 10^3/uL (1.8-7.7); Neutrophils % 72.8 %; Nucleated Red Blood Cells % 0 %; Platelet Count 419 10^3/cmm (157-399); Red Blood Count 5.63 10^6/uL (3.85-5.65); Red Cell Distribution Width 14.1 % (12.1-15.1); White Blood Count 11.75 10^3/uL (3.29-11.43)
[2025-02-03 06:17] VITALS: BP 109/71; PULSE 102; RESP 18; O2SAT 95
[2025-02-03 06:26] LABS: Alanine Aminotransferase 15 U/L (0-41); Albumin Level 4.3 g/dL (3.5-5.2); Alkaline Phosphatase 122 U/L (40-130); Anion Gap 15.7 (5-19); Aspartate Amino Transferase 10 U/L (0-40); Blood Urea Nitrogen 12 mg/dL (8-23); Calcium 9.5 mg/dL (8.5-10.5); Carbon Dioxide 26 mmol/L (22-29); Chloride 99 mmol/L (98-107); Creatinine Clr Calc Pharmacy 82.7167; Globulin 3.7 g/dL (1.3-4.6); Glomerular Filtration Rate 66.8 mL/min (90-130); Glucose 123 mg/dL (65-115); Osmolality Calculated 285 mOsm/kg (285-295); Potassium 3.7 mmol/L (3.5-5.1); Sodium 137 mmol/L (136-145); Total Bilirubin 0.4 mg/dL (0.15-1.2)
[2025-02-03 06:42] VITALS: BP 117/70; PULSE 100; RESP 16; O2SAT 97
[2025-02-03 07:53] LABS: Bilirubin Urine Negative (Negative); Blood Urine Trace (Negative); Glucose Urine UA Negative (Normal); Ketones Urine Negative (Negative); Leukocyte Esterase Urine 2+ (Negative); Nitrate Urine Positive (Negative); Protein Urine 2+ (Negative); Specific Gravity, Urine 1.017 (1.005-1.030); Urine Appearance Cloudy (CLEAR); Urine Color Yellow (Yellow); pH Urine 5.5 (5-7)
[2025-02-03 07:56] LABS: Add Urine Microscopic? YES; Bacteria Urine 4+ /hpf; Hyaline Casts Urine 109.64 /lpf; RBC Urine 0-2 /hpf (0-2); Squamous Epithelial Cell Urine 0-5 /hpf (0-5); WBC Urine >100 /hpf (0-5)
[2025-02-03 08:18] LABS: Add Urine Culture? Yes; Sperm Urine 1+ /hpf; UA Slide Review UA Slide Review Perf
[2025-02-03 08:30] VITALS: BP 153/103; PULSE 75; RESP 20; O2SAT 95
[2025-02-03] MEDS: cefTRIAXone 1,000 mg SDV 1000 MG IVP (08:46)
[2025-02-03 09:06] VITALS: BP 150/100; PULSE 81; O2SAT 96
== END 2025-02-03 09:07 | disposition home or self-care (01) ==
PROVIDERS: Emergency Provider Family Medicine; PCP Family Medicine
DX: N30.90 Cystitis, unspecified without hematuria (principal); I10 Essential (primary) hypertension; F41.9 Anxiety disorder, unspecified; E78.5 Hyperlipidemia, unspecified; Z79.899 Other long term (current) drug therapy
CPT/HCPCS: 36415; 80053; 81001; 85025; 87040; 87077; 87086; 87186; 96374; 99284; J0696

== ENCOUNTER 2025-02-15 08:29 | Observation (INO) | payer MEDICARE, MEDICAID, SELFPAY ==
[2025-02-15] VITALS (11 sets, daily range): BP systolic 109–163; BP diastolic 86–99; PULSE 67–110; RESP 8–19; TEMP 36.4–36.7; O2SAT 95–99
--- NOTE | 2025-02-15 08:58 | W.ED.MALEGU ---
HPI - Male Genitourinary General: Chief complaint: Urogenital-Male Stated complaint: bladder problems Time Seen by Provider: 02/15/25 08:39 History of Present Illness: 69-year-old male presents to the emergency room complaining of UTI. Has dysuria urgency foul-smelling urine. Denies back pain has some lower abdominal discomfort no vomiting or diarrhea. He was prescribed cefdinir on 02/03 when he was seen in the emergency room culture reviewed on chart see below. Patient reports his urine has been discolored but has had no bright red blood in the urine Associated symptoms: Reports dysuria Related Data Home Medications ?Medication ?Instructions ?Recorded ?Confirmed lisinopril 30 mg tablet 30 mg PO BEDTIME 11/18/24 02/15/25 rosuvastatin 40 mg tablet 40 mg PO BEDTIME 11/18/24 02/15/25 tamsulosin 0.4 mg capsule 0.4 mg PO BEDTIME 11/18/24 02/15/25 ibuprofen-diphenhydramine citrate 2 tab PO BEDTIME PRN Sleep 12/23/24 02/15/25 200 mg-38 mg tablet (Advil PM) ibuprofen 200 mg tablet (Advil) 600 mg PO Q6H PRN Fever Or Pain 02/03/25 02/15/25 Previous Rx's ?Medication ?Instructions ?Recorded hydrochlorothiazide 25 mg tablet 25 mg PO DAILY #90 tabs 05/29/24 aripiprazole 2 mg tablet 2 mg PO DAILY #30 tabs 12/08/24 hydroxyzine HCl 25 mg tablet 25 mg PO Q8H PRN anxiety #10 tabs 12/23/24 paroxetine HCl 40 mg tablet (Paxil) 40 mg PO DAILY #30 tabs 01/11/25 hydrocodone 5 mg-acetaminophen 325 1 tab PO TID Pain 30 days #90 tabs 01/25/25 mg tablet lorazepam 1 mg tablet 1 mg PO QID PRN anxiety #120 tabs 01/25/25 Allergies Allergy/AdvReac Type Severity Reaction Status Date / Time No Known Drug Allergies Allergy Unknown Verified 02/03/25 05:55 Review of Systems Const: Denies: fever(s) or chills Card: Denies: chest pain Resp: Denies: dyspnea GI: Reports: abdominal pain : Reports: dysuria, urinary frequency and urinary urgency; Denies: flank pain Musc: Denies: neck pain or back pain Skin/Breast: Denies: rash PFSH ED PFSH: Medical History On combination antipsychotic drug therapy Gout, unspecified Diverticula of colon Psychiatric care Slow transit constipation Hyperlipidemia Essential hypertension Generalized anxiety disorder Panic disorder [episodic paroxysmal anxiety] Surgical History History of basal cell cancer Left face and nose History of renal stent Family History Other Cancer Diabetes Hypertension Stroke Social History Smoking and tobacco/nicotine status: never used tobacco/nicotine Second hand smoke exposure: No Alcohol intake: never Substance/Drug Use: never Adopted: No Caregiver/support person: No Lives independently: Yes Household members: spouse Housing: House Marital status: Number of children: 4 service: No Current occupational status: disabled Do you think of yourself as: Straight/Heterosexual Current gender identity: Male Physical Exam Const: GENERAL APPEARANCE: cooperative ORIENTATION/CONSCIOUSNESS: Yes awake, Yes oriented to person, Yes oriented to place and Yes oriented to time HENMT: COMMON NORMALS: normocephalic, atraumatic and hearing grossly normal bilaterally HEAD & SCALP: normocephalic and atraumatic Resp: COMMON NORMALS: normal respiratory effort, No retractions, No use of accessory muscles and clear to auscultation bilaterally AUSCULTATION: clear to auscultation bilaterally Cardio: COMMON NORMALS: regular rhythm and No murmurs present (Cardio) RATE: tachycardic RHYTHM: regular rhythm GI: COMMON NORMALS: No hepatosplenomegaly present AUSCULTATION: Yes normoactive bowel sounds PALPATION: Yes Tenderness to palpation present (GI) (Suprapubic mild), No Guarding due to palpation present (GI) and Yes No hepatosplenomegaly present : COMMON NORMALS: Yes no CVA tenderness BLADDER/KIDNEY EXAM: Yes no CVA tenderness Back/Pelvis: COMMON NORMALS: no CVA tenderness Extremity: COMMON NORMALS: normal to inspection, capillary refill normal, no clubbing, cyanosis or edema, no calf tenderness and no pedal edema Neuro: SENSORIUM/ORIENTATION: Yes oriented to person, Yes oriented to place and Yes oriented to time Skin: COMMON NORMALS: no rashes or lesions noted GENERAL SKIN EXAM: no rashes or lesions noted Course Vital Signs: Vital signs: Vital Signs Temperature 98.1 F 02/15/25 08:51 Pulse Rate 87 02/15/25 11:30 Respiratory Rate 17 02/15/25 11:05 Blood Pressure 129/99 02/15/25 11:30 Pulse Oximetry 97 02/15/25 11:30 Oxygen Delivery Me thod Room Air 02/15/25 09:32 MDM - Male Medical Decision Making Culture from 521 reviewed showed resistance to cephapirin ceftriaxone and cefuroxime I am. Was sensitive to fluoroquinolones and Zosyn. Medical Records Review of medical records the culture was reviewed and we recommended changing to p.o. Cipro which would have been effective. In the nurses notes they were not able to get a hold of the patient by phone and ultimately sent a letter to the patient regarding the change in medication recommendation. Initially did plan to discharge patient home however his lactic acid is elevated we gave fluids and actually had a slight decrease in his blood pressure will place on observation continue IV pain antibiotics track lactate level. Discussed with hospitalist orders written. He is having some back pain suspect he has a mild pyelonephritis. Lab Data 02/15/25 08:56 02/15/25 08:56 Laboratory Results WBC 11.40 10^3/uL (3.29-11.43) 02/15/25 08:56 RBC 5.35 10^6/uL (3.85-5.65) 02/15/25 08:56 Hgb 15.30 g/dL (11.27-16.99) 02/15/25 08:56 Hct 46.1 % (37-53) 02/15/25 08:56 MCV 86.2 fl (82-101) 02/15/25 08:56 MCH 28.6 pg (27-33) 02/15/25 08:56 MCHC 33.2 g/dL (30-55) 02/15/25 08:56 RDW 14.2 % (12.1-15.1) 02/15/25 08:56 Plt Count 372 10^3/cmm (157-399) 02/15/25 08:56 MPV 9.3 fL (7.4-10.4) 02/15/25 08:56 Neut % (Auto) 77.9 % 02/15/25 08:56 Lymph % (Auto) 14.5 % 02/15/25 08:56 [place] % (Auto) 6.1 % 02/15/25 08:56 Eos % (Auto) 0.5 % 02/15/25 08:56 Baso % (Auto) 0.4 % 02/15/25 08:56 Neut # (Auto) 8.88 10^3/uL (1.8-7.7) H 02/15/25 08:56 Lymph # (Auto) 1.7 10^3/uL (0.8-4.8) 02/15/25 08:56 [place] # (Auto) 0.7 10^3/uL (0.2-0.9) 02/15/25 08:56 Eos # (Auto) 0.1 10^3/uL (0.0-0.8) 02/15/25 08:56 Baso # (Auto) 0.1 10^3/uL (0.0-0.1) 02/15/25 08:56 Nucleated RBC % (auto) 0 % 02/15/25 08:56 Nucleated RBCs # 0.0 /100WBC 02/15/25 08:56 Sodium 134 mmol/L (136-145) L 02/15/25 08:56 Potassium 3.6 mmol/L (3.5-5.1) 02/15/25 08:56 Chloride 99 mmol/L (98-107) 02/15/25 08:56 Carbon Dioxide 23 mmol/L (22-29) 02/15/25 08:56 Anion Gap 15.6 (5-19) 02/15/25 08:56 BUN 14 mg/dL (8-23) 02/15/25 08:56 Creatinine 1.2 mg/dL (0.7-1.2) 02/15/25 08:56 GFR Calculation 60.4 mL/min (90-130) L 02/15/25 08:56 Glucose 170 mg/dL (65-115) H 02/15/25 08:56 Calculated Osmolality 282 mOsm/kg (285-295) L 02/15/25 08:56 Lactic Acid 2.4 mmol/L (0.5-2.2) H 02/15/25 08:56 Calcium 9.1 mg/dL (8.5-10.5) 02/15/25 08:56 Total Bilirubin 0.5 mg/dL (0.15-1.2) 02/15/25 08:56 AST 12 U/L (0-40) 02/15/25 08:56 ALT 14 U/L (0-41) 02/15/25 08:56 Alkaline Phosphatase 110 U/L (40-130) 02/15/25 08:56 Total Protein 7.1 g/dL (6.6-8.7) 02/15/25 08:56 Albumin 4.1 g/dL (3.5-5.2) 02/15/25 08:56 Globulin 3.0 g/dL (1.3-4.6) 02/15/25 08:56 Urine Color Yellow (Yellow) 02/15/25 09:38 Urine Appearance Cloudy (CLEAR) A 02/15/25 09:38 Urine pH 5.5 (5-7) 02/15/25 09:38 Ur Specific [place] 1.015 (1.005-1.030) 02/15/25 09:38 Urine Protein Trace (Negative) A 02/15/25 09:38 Urine Glucose (UA) Negative (Normal) 02/15/25 09:38 Urine Ketones Negative (Negative) 02/15/25 09:38 Urine Blood Negative (Negative) 02/15/25 09:38 Urine Nitrate Positive (Negative) A 02/15/25 09:38 Urine Bilirubin Negative (Negative) 02/15/25 09:38 Urine Urobilinogen 0.2 mg/dL (Negative) 02/15/25 09:38 Ur Leukocyte Esterase 2+ (Negative) A 02/15/25 09:38 Urine RBC 0-2 /hpf (0-2) 02/15/25 09:38 Urine WBC 51-100 /hpf (0-5) H 02/15/25 09:38 Ur Squamous Epith Cells 0-5 /hpf (0-5) 02/15/25 09:38 Amorphous Sediment Not Reportable 02/15/25 09:38 Urine Bacteria 4+ /hpf (NONE) H 02/15/25 09:38 Hyaline Casts 3.30 /lpf 02/15/25 09:38 All radiology interpretation(s) finalized by discharge Discharge Plan Discharge Patient Disposition: Admitted As Inpatient Admit Provider: Go Terry Clinical Impression: Acute pyelonephritis, Elevated lactic acid level, Hypotension Condition: Stable Coding Level of Care Code ED Maintenance Engineer for Nancy Lundberg
[2025-02-15 09:14] LABS: Basophils # 0.1 10^3/uL (0.0-0.1); Basophils % 0.4 %; Eosinophils # 0.1 10^3/uL (0.0-0.8); Eosinophils % 0.5 %; Hematocrit 46.1 % (37-53); Lymphocytes # 1.7 10^3/uL (0.8-4.8); Lymphocytes % 14.5 %; Mean Corpuscular HGB Conc 33.2 g/dL (30-55); Mean Corpuscular Hemoglobin 28.6 pg (27-33); Mean Corpuscular Volume 86.2 fl (82-101); Mean Platelet Volume 9.3 fL (7.4-10.4); Monocytes # 0.7 10^3/uL (0.2-0.9); Monocytes % 6.1 %; Neutrophils # 8.88 10^3/uL (1.8-7.7); Neutrophils % 77.9 %; Nucleated Red Blood Cells % 0 %; Platelet Count 372 10^3/cmm (157-399); Red Blood Count 5.35 10^6/uL (3.85-5.65); Red Cell Distribution Width 14.2 % (12.1-15.1)
[2025-02-15] MEDS: ciprofloxacin 400 MG/200 ML PREMIX 200 MG IV ×2 (09:26→21:28)
[2025-02-15 09:35] LABS: Alanine Aminotransferase 14 U/L (0-41); Albumin Level 4.1 g/dL (3.5-5.2); Alkaline Phosphatase 110 U/L (40-130); Anion Gap 15.6 (5-19); Aspartate Amino Transferase 12 U/L (0-40); Blood Urea Nitrogen 14 mg/dL (8-23); Calcium 9.1 mg/dL (8.5-10.5); Carbon Dioxide 23 mmol/L (22-29); Chloride 99 mmol/L (98-107); Glomerular Filtration Rate 60.4 mL/min (90-130); Glucose 170 mg/dL (65-115); Lactic Sepsis W/Reflex 2.4 mmol/L (0.5-2.2); Osmolality Calculated 282 mOsm/kg (285-295); Potassium 3.6 mmol/L (3.5-5.1); Sodium 134 mmol/L (136-145); Total Bilirubin 0.5 mg/dL (0.15-1.2); Total Protein 7.1 g/dL (6.6-8.7)
[2025-02-15 09:51] LABS: Bilirubin Urine Negative (Negative); Blood Urine Negative (Negative); Glucose Urine UA Negative (Normal); Ketones Urine Negative (Negative); Leukocyte Esterase Urine 2+ (Negative); Nitrate Urine Positive (Negative); Protein Urine Trace (Negative); Specific Gravity, Urine 1.015 (1.005-1.030); Urine Appearance Cloudy (CLEAR); Urine Color Yellow (Yellow); Urobilinogen Urine 0.2 mg/dL (Negative); pH Urine 5.5 (5-7)
[2025-02-15 09:56] LABS: Add Urine Microscopic? YES; Bacteria Urine 4+ /hpf; RBC Urine 0-2 /hpf (0-2); Squamous Epithelial Cell Urine 0-5 /hpf (0-5); WBC Urine 51-100 /hpf (0-5)
[2025-02-15 10:08] LABS: Add Urine Culture? Yes
[2025-02-15] MEDS: sodium chloride 0.9% 1,000 ML 999 ML IV (10:45)
[2025-02-15 10:57] LABS: Reflex Lactate Order REFLEX LACTIC ORDERD
--- NOTE | 2025-02-15 11:46 | PM.HP ---
Providers/Chief Complaint Admitting Physician: Go Terry Primary Care Provider: Rohith Solis DO Chief Complaint: bladder problems History of Present Illness Eva Quick is a 69 year old male with a history of recurrent urinary tract infections, enlarged prostate, and prior diverticulitis presenting with ongoing urinary symptoms. The patient reports dysuria, urgency, and sometimes needing to urinate two or three times in one sitting. They have noticed darker urine with chalky material but deny air bubbles in the urine. The patient has had a recent urinary tract infection that was resistant to prior antibiotics, resulting in persistent symptoms. There is a report of intermittent fever but no chills, sore throat, sneezing, coughing, diarrhea, blood in stool, or black stool. The patient notes a clear discharge of stool. No rashes, leg swelling, chest pain, or shortness of breath. The patient has been sleeping about 20 hours a day and reports chronic back pain due to spurs and other issues. No history of sleep apnea. The patient lives alone at home, with family checking in. Four children, with daughter Cammie as a contact for medical decisions. In the ER blood pressure was found coming down to as low as 109/87, lower than his usual, with lactic acidosis 2.4 and protracted urinary tract infection with resistant organism request was made to place in observation. Review of Systems Const: Reports: fever(s) and malaise; Denies: chills or body aches ENMT: Denies: throat pain Card: Denies: chest pain, edema, pre-syncope or dyspnea on exertion Resp: Denies: dyspnea, productive cough, change in phlegm color or hemoptysis GI: Denies: abdominal pain, nausea, vomiting, diarrhea, constipation, hematochezia or melena : Reports: dysuria, urinary frequency and urinary hesitancy; Denies: flank pain or hematuria Musc: Denies: back pain, joint swelling or joint redness Skin/Breast: Denies: rash or new lesions Neuro: Denies: headache(s) or confusion Medications/Allergies Home Medications ?Medication ?Instructions ?Recorded ?Confirmed ?Last Taken ?Type hydrochlorothiazide 25 mg tablet 25 mg PO DAILY #90 tabs 05/29/24 02/15/25 02/15/25 Rx lisinopril 30 mg tablet 30 mg PO BEDTIME 11/18/24 02/15/25 02/14/25 History rosuvastatin 40 mg tablet 40 mg PO BEDTIME 11/18/24 02/15/25 02/14/25 History tamsulosin 0.4 mg capsule 0.4 mg PO BEDTIME 11/18/24 02/15/25 02/14/25 History aripiprazole 2 mg tablet 2 mg PO DAILY #30 tabs 12/08/24 02/15/25 02/15/25 Rx hydroxyzine HCl 25 mg tablet 25 mg PO Q8H PRN anxiety #10 tabs 12/23/24 02/15/25 Unknown Rx ibuprofen-diphenhydramine citrate 2 tab PO BEDTIME PRN Sleep 12/23/24 02/15/25 02/02/25 20:00 History 200 mg-38 mg tablet (Advil PM) paroxetine HCl 40 mg tablet (Paxil) 40 mg PO DAILY #30 tabs 01/11/25 02/15/25 02/15/25 Rx hydrocodone 5 mg-acetaminophen 325 1 tab PO TID Pain 30 days #90 tabs 01/25/25 02/15/25 02/14/25 Rx mg tablet lorazepam 1 mg tablet 1 mg PO QID PRN anxiety #120 tabs 01/25/25 02/15/25 02/14/25 Rx ibuprofen 200 mg tablet (Advil) 600 mg PO Q6H PRN Fever Or Pain 02/03/25 02/15/25 02/03/25 History Allergies Allergy/AdvReac Type Severity Reaction Status Date / Time No Known Drug Allergies Allergy Unknown Verified 02/03/25 05:55 PFSH Acute PFSH: Medical History On combination antipsychotic drug therapy Gout, unspecified Diverticula of colon Psychiatric care Slow transit constipation Hyperlipidemia Essential hypertension Generalized anxiety disorder Panic disorder [episodic paroxysmal anxiety] Surgical History History of basal cell cancer Left face and nose History of renal stent Family History Other Cancer Diabetes Hypertension Stroke Social History Smoking and tobacco/nicotine status: never used tobacco/nicotine Second hand smoke exposure: No Alcohol intake: never Substance/Drug Use: never Adopted: No Caregiver/support person: No Lives independently: Yes Household members: spouse Housing: House Marital status: Number of children: 4 service: No Current occupational status: disabled Do you think of yourself as: Straight/Heterosexual Current gender identity: Male Vitals/I&O/Wt Last Vital Signs Temp 98.1 F 02/15/25 08:51 Pulse 87 02/15/25 11:30 Resp 17 02/15/25 11:05 BP 129/99 02/15/25 11:30 Pulse Ox 97 02/15/25 11:30 O2 Del Method Room Air 02/15/25 09:32 02/14/25 02/15/25 02/15/25 22:59 06:59 14:59 Intake Total 200 / 200 Balance 200 / 200 Physical Exam Const: COMMON NORMALS: patient oriented x3 and alert GENERAL APPEARANCE: cooperative ORIENTATION/CONSCIOUSNESS: Yes awake HENMT: COMMON NORMALS: oropharynx normal Neck/C-Spine: COMMON NORMALS: no JVD Resp: COMMON NORMALS: normal respiratory effort and clear to auscultation bilaterally AUSCULTATION: clear to auscultation bilaterally Cardio: COMMON NORMALS: no JVD, regular rhythm, S1 normal heart sound present, S2 normal heart sound present and No murmurs present (Cardio) RHYTHM: regular rhythm HEART SOUNDS: S1 normal heart sound present and S2 normal heart sound present GI: COMMON NORMALS: Normal to inspection, nondistended, normoactive bowel sounds present, Soft to palpation and non-tender PALPATION: Yes Soft to palpation Extremity: COMMON NORMALS: no joint enlargement and no pedal edema Neuro: COMMON NORMALS: patient oriented x3 and moves all extremities SENSORIUM/ORIENTATION: Yes alert Skin: COMMON NORMALS: no rashes or lesions noted GENERAL SKIN EXAM: no rashes or lesions noted Data 02/15/25 08:56 02/15/25 08:56 Micro: Microbiology 02/15/25 09:16 Blood Culture - Preliminary Blood SPECIMEN COLLECTED 02/15/25 09:14 Blood Culture - Preliminary Blood SPECIMEN COLLECTED A&P Assessment and plan (1) Complicated UTI (urinary tract infection): The patient has ongoing urinary symptoms (dysuria, urgency, dark urine with chalky material) and a history of recurrent UTIs. Recent infection was resistant to prior antibiotics, leading to persistent symptoms. He was diagnosed with urinary tract infection during recent ED visit. Antibiotics were prescribed, however, urine culture returned with ESBL Klebsiella resistant to the antibiotics he originally received. Attempts were made to contact him to switch antibiotics. He has not started the change antibiotic, returning with persistent symptoms. Reviewed vitals, CBC, CMP, UA, suggestive of persistent urinary tract infection with known MDRO. Reviewed ER provider note, discussed with ER provider. History of BPH, reports some hesitancy and difficulties with having to urinate in multiple sessions. Denies gas in urine, but does report some color change with darker urine and tract material in urine, reports clear discharge in stool. Has history of diverticulitis, discussed with him additional imaging with contrast enhanced CT to assess for possible colovesical fistula. Requested CT, monitor for risk of allergic reaction. Continue to better coverage with ciprofloxacin, monitor for risk of C. difficile, tendinitis, CT abdomen pelvis on prior review without aneurysm. Discussed with him needs to resume follow-up with urology after discharge. Previously had been assessed by urology at [facility]. With concern for lactic acidosis 2.4, softer blood pressure 109/87 compared to his usual, reassess vitals, monitor in the hospital with initiation of treatment. Continue IV hydration for now and hold antihypertensives, monitor for risk of fluid overload. Plan Enlarged prostate : History of enlarged prostate, currently on Flomax with no missed doses. Urinary retention may be contributing to recurrent infections. No difficulty initiating urination, but sometimes urinates multiple times per sitting. - Increase Flomax to BID, monitor for risk of worsening blood pressure HTN: Hold lisinopril, HCTZ for now, monitor blood pressure. Regular diet for now Chronic back pain : Patient reports chronic back pain due to spurs and other issues, causing persistent discomfort. PDMP PDMP Reviewed: Not Reviewed Attestations Medical Necessity Statement*: Place in observation for additional assessment management of complicated urinary tract infection with MDRO, lactic acidosis, transiently soft blood pressure. and High MDM includes amount and/or complexity of data reviewed/ordered [ previous or external records, resulted lab(s)/test(s), ordered lab(s)/test(s) and other healthcare professional discussion] and described risk of complication, morbidity or mortality of management as documented Diagnoses Complicated UTI (urinary tract infection) N39.0
[2025-02-15] MEDS: enoxaparin 40 mg/0.4 mL Syringe SUBCUT (12:36)
[2025-02-15] MEDS: sodium chloride 0.9% 1,000 ML 125 ML IV ×2 (12:36→19:30)
[2025-02-15 13:09] LABS: Lactic Acid level (Lactate) 1.4 mmol/L (0.5-2.2)
--- NOTE | 2025-02-15 14:01 | CTR_ITS ---
PROCEDURE INFORMATION: Exam: CT Abdomen And Pelvis Without Contrast Exam date and time: 02/15/2025 6:11 PM Age: 69 years old Clinical indication: Abdominal pain; Generalized; Prior surgery; Surgery date: 6+ months; Surgery type: Lspine; Additional info: Assess for colo-vesical fistula TECHNIQUE: Imaging protocol: Computed tomography of the abdomen and pelvis without contrast. Radiation optimization: All CT scans at this facility use at least one of these dose optimization techniques: automated exposure control; mA and/or kV adjustment per patient size (includes targeted exams where dose is matched to clinical indication); or iterative reconstruction. COMPARISON: CT kidney stone [id number] 05/31/2023 1:37 PM RADIATION DOSE METRICS: Total DLP (mGy-cm): 1190.52 FINDINGS: Lungs: Lung bases are clear. No pleural effusion. Liver: Normal. No mass. Gallbladder and biliary ducts: Normal. No calcified stones. No ductal dilation. Pancreas: Normal. No ductal dilation. Spleen: Normal. No splenomegaly. Adrenal glands: Normal. No mass. Kidneys and ureters: Normal. No hydronephrosis. Stomach and bowel: Multiple diverticula involve the sigmoid colon. There is no sign of diverticulitis. Appendix: No evidence of appendicitis. Intraperitoneal space: Unremarkable. No free air. No significant fluid collection. Vasculature: Unremarkable. No abdominal aortic aneurysm. Lymph nodes: Unremarkable. No enlarged lymph nodes. Urinary bladder: Unremarkable as visualized. Reproductive: The prostate gland is abnormally enlarged. Bones/joints: Metallic surgical hardware can be seen in the lumbar spine. Soft tissues: Unremarkable. CT/CT abdomen pelvis wo con [id number] IMPRESSION: 1. No evidence of colovesical fistula 2. Prostate enlargement 3. Sigmoid diverticulosis
[2025-02-15] MEDS: LORazepam 1 mg Tablet PO (15:31)
[2025-02-15] MEDS: HYDROcodone-acetaminophen 5-325 mg Tablet 1 TAB PO ×2 (15:31→21:27)
[2025-02-15] MEDS: tamsulosin 0.4 mg Capsule PO (17:13)
[2025-02-15] MEDS: iohexol 350 mg/mL 500 mL Btl (per mL) PO (18:18)
[2025-02-15] MEDS: acetaminophen 325 mg Tablet 650 MG PO (19:33)
[2025-02-15] MEDS: atorvastatin 40 mg Tablet 80 MG PO (21:27)
[2025-02-16] VITALS: BP 122/83; PULSE 90; RESP 16; TEMP 36.7; O2SAT 98
[2025-02-16] MEDS: sodium chloride 0.9% 1,000 ML 125 ML IV (03:27)
[2025-02-16 04:00] VITALS: BP 103/54; PULSE 79; RESP 16; TEMP 36.4; O2SAT 97
[2025-02-16 05:04] LABS: Basophils # 0.1 10^3/uL (0.0-0.1); Basophils % 0.6 %; Eosinophils # 0.1 10^3/uL (0.0-0.8); Eosinophils % 1.5 %; Hematocrit 42.5 % (37-53); Lymphocytes # 1.3 10^3/uL (0.8-4.8); Lymphocytes % 16.1 %; Mean Corpuscular HGB Conc 32.7 g/dL (30-55); Mean Corpuscular Hemoglobin 28.5 pg (27-33); Mean Corpuscular Volume 87.3 fl (82-101); Mean Platelet Volume 9.2 fL (7.4-10.4); Monocytes # 0.5 10^3/uL (0.2-0.9); Monocytes % 6.6 %; Neutrophils # 5.78 10^3/uL (1.8-7.7); Neutrophils % 74.7 %; Nucleated Red Blood Cells % 0 %; Platelet Count 297 10^3/cmm (157-399); Red Blood Count 4.87 10^6/uL (3.85-5.65); Red Cell Distribution Width 14.2 % (12.1-15.1); White Blood Count 7.75 10^3/uL (3.29-11.43)
[2025-02-16 05:39] LABS: Anion Gap 16.4 (5-19); Blood Urea Nitrogen 12 mg/dL (8-23); Calcium 8.6 mg/dL (8.5-10.5); Carbon Dioxide 24 mmol/L (22-29); Chloride 103 mmol/L (98-107); Creatinine Clr Calc Pharmacy 81.2951; Glomerular Filtration Rate 66.8 mL/min (90-130); Glucose 134 mg/dL (65-115); Osmolality Calculated 290 mOsm/kg (285-295); Potassium 4.4 mmol/L (3.5-5.1); Sodium 139 mmol/L (136-145)
[2025-02-16 07:43] VITALS: BP 153/82; PULSE 67; RESP 17; TEMP 36.8; O2SAT 96
[2025-02-16] MEDS: HYDROcodone-acetaminophen 5-325 mg Tablet 1 TAB PO (09:35)
[2025-02-16] MEDS: PARoxetine 20 mg Tablet 40 MG PO (09:35)
[2025-02-16] MEDS: tamsulosin 0.4 mg Capsule PO (09:35)
[2025-02-16] MEDS: ciprofloxacin 400 MG/200 ML PREMIX 200 MG IV (09:35)
--- NOTE | 2025-02-16 09:42 | PC.CHAP ---
Pastoral Care Encounter/Spiritual Assessment Type of Contact [] Declined public relations studies director visit [] Patient/Family/Request visit [] Outpatient visit [] Follow-up visit [] Physician referral [] Code/Alert [] Routine visit [] Staff referral [] Actively dying [] Patient sleeping [] Family support [] [] Out of room [] Palliative care [] [x] Receiving care in room [] Pre-surgical visit [] Trauma [] Long length of stay [] ICU visit [] Other: Relational/Emotional Strength [] Patient feels connected with others/family/visitors/staff [] Distress [] Loneliness/isolation [] Abandonment Spirituality of Patient [] Person of Karina [] Attends Mu-Ism of their Karina [] Believes in Prayer [] Reads Bible or Latter-Day materials [] There are Spiritual issues to be addressed Executive Assistant Interventions [] Prayer [] Active listening [] Non-anxious presence [] Spiritual/emotional support [] Crisis/trauma care [] Spiritual counseling [] Bereavement support [] Provided bereavement packet [] Provided Bible/devotional materials [] Provided toy/stuffed animal, coloring book to patient or family member [] Provided Communion [] Anointing/[place] [] Salvation [] Completed spiritual assessment [] Other: Impact on Illness or Injury [] Angry [] Fearful [] Anxious [] Often cries [] Exhaustion [] Unable to work [] Unable to attend mandaen [] Unable to walk/stand [] Unable to read [] Unable to drive [] Unable to eat/drink [] Unable to sleep [] Unable to be with family [] Patient intubated [] Other: Summary Time spent with patient
--- NOTE | 2025-02-16 10:20 | PM.DCS ---
Discharge Providers Date of Admission: 02/15/25 11:14 Date of Discharge: February 16, 2025 Attending Provider at Admission: Go Terry Attending Provider at Discharge: Go Terry Primary Care Provider: Rohith Solis DO Diagnoses at Discharge Discharge Diagnosis (1) Complicated UTI (urinary tract infection): Status: Acute Reason for Visit Reason for Visit: bladder problems Brief History: Eva Qiuck is a 69 year old male with a history of recurrent urinary tract infections, enlarged prostate, and prior diverticulitis presenting with ongoing urinary symptoms. The patient reports dysuria, urgency, and sometimes needing to urinate two or three times in one sitting. They have noticed darker urine with chalky material but deny air bubbles in the urine. The patient has had a recent urinary tract infection that was resistant to prior antibiotics, resulting in persistent symptoms. There is a report of intermittent fever but no chills, sore throat, sneezing, coughing, diarrhea, blood in stool, or black stool. The patient notes a clear discharge of stool. No rashes, leg swelling, chest pain, or shortness of breath. The patient has been sleeping about 20 hours a day and reports chronic back pain due to spurs and other issues. No history of sleep apnea. The patient lives alone at home, with family checking in. Four children, with daughter Cammie as a contact for medical decisions. In the ER blood pressure was found coming down to as low as 109/87, lower than his usual, with lactic acidosis 2.4 and protracted urinary tract infection with resistant organism request was made to place in observation. Hospital Course Hospital Course He was started on treatment with IV ciprofloxacin. Antihypertensives were held transiently, he had no episodes of hypotension, became hypotensive. Was imaged with CT abdomen pelvis with oral contrast to assess for any colovesical fistula which was not observed. Subjectively he feels he is improving. He was discharged home with ciprofloxacin to complete treatment regimen as well as with instructions to follow-up with urology in [place] where he was previously established to reassess due to recurrent UTI with MDRO organism. Due to enlarged prostate possibly contributing to the recurrent UTI, Flomax dose is increased to twice daily. Physical Exam Const: COMMON NORMALS: patient oriented x3 and alert GENERAL APPEARANCE: cooperative ORIENTATION/CONSCIOUSNESS: Yes awake HENMT: COMMON NORMALS: oropharynx normal Neck/C-Spine: COMMON NORMALS: no JVD Resp: COMMON NORMALS: normal respiratory effort and clear to auscultation bilaterally AUSCULTATION: clear to auscultation bilaterally Cardio: COMMON NORMALS: no JVD, regular rhythm, S1 normal heart sound present, S2 normal heart sound present and No murmurs present (Cardio) RHYTHM: regular rhythm HEART SOUNDS: S1 normal heart sound present and S2 normal heart sound present GI: COMMON NORMALS: Normal to inspection, nondistended, normoactive bowel sounds present, Soft to palpation and non-tender PALPATION: Yes Soft to palpation Extremity: COMMON NORMALS: no joint enlargement and no pedal edema Neuro: COMMON NORMALS: patient oriented x3 and moves all extremities SENSORIUM/ORIENTATION: Yes alert Skin: COMMON NORMALS: no rashes or lesions noted GENERAL SKIN EXAM: no rashes or lesions noted Discharge Data Studies Completed and Pending Completed Studies During Hospitalization Category Date Time Status CT abdomen pelvis wo con [id number] Routine Cat Scan 02/15/25 14:01 Completed Pending at discharge Category Date Time Status Basic Metabolic Panel AM LABS Lab 02/17/25 04:00 Ordered Basic Metabolic Panel AM LABS Lab 02/18/25 04:00 Ordered Blood Culture Stat Lab 02/15/25 09:16 Results Complete Blood Count w/Auto AM LABS Lab 02/17/25 04:00 Ordered Complete Blood Count w/Auto AM LABS Lab 02/18/25 04:00 Ordered Urine Culture Stat Lab 02/15/25 09:38 Results Radiology Impressions Abdomen/Pelvis CT 02/15/25 14:01 IMPRESSION: 1. No evidence of colovesical fistula 2. Prostate enlargement 3. Sigmoid diverticulosis Laboratory Results WBC 7.75 10^3/uL (3.29-11.43) 02/16/25 04:49 RBC 4.87 10^6/uL (3.85-5.65) 02/16/25 04:49 Hgb 13.90 g/dL (11.27-16.99) 02/16/25 04:49 Hct 42.5 % (37-53) 02/16/25 04:49 MCV 87.3 fl (82-101) 02/16/25 04:49 MCH 28.5 pg (27-33) 02/16/25 04:49 MCHC 32.7 g/dL (30-55) 02/16/25 04:49 RDW 14.2 % (12.1-15.1) 02/16/25 04:49 Plt Count 297 10^3/cmm (157-399) 02/16/25 04:49 MPV 9.2 fL (7.4-10.4) 02/16/25 04:49 Neut % (Auto) 74.7 % 02/16/25 04:49 Lymph % (Auto) 16.1 % 02/16/25 04:49 [place] % (Auto) 6.6 % 02/16/25 04:49 Eos % (Auto) 1.5 % 02/16/25 04:49 Baso % (Auto) 0.6 % 02/16/25 04:49 Neut # (Auto) 5.78 10^3/uL (1.8-7.7) 02/16/25 04:49 Lymph # (Auto) 1.3 10^3/uL (0.8-4.8) 02/16/25 04:49 [place] # (Auto) 0.5 10^3/uL (0.2-0.9) 02/16/25 04:49 Eos # (Auto) 0.1 10^3/uL (0.0-0.8) 02/16/25 04:49 Baso # (Auto) 0.1 10^3/uL (0.0-0.1) 02/16/25 04:49 Nucleated RBC % (auto) 0 % 02/16/25 04:49 Nucleated RBCs # 0.0 /100WBC 02/16/25 04:49 Sodium 139 mmol/L (136-145) 02/16/25 04:49 Potassium 4.4 mmol/L (3.5-5.1) 02/16/25 04:49 Chloride 103 mmol/L (98-107) 02/16/25 04:49 Carbon Dioxide 24 mmol/L (22-29) 02/16/25 04:49 Anion Gap 16.4 (5-19) 02/16/25 04:49 BUN 12 mg/dL (8-23) 02/16/25 04:49 Creatinine 1.1 mg/dL (0.7-1.2) 02/16/25 04:49 GFR Calculation 66.8 mL/min (90-130) L 02/16/25 04:49 Glucose 134 mg/dL (65-115) H 02/16/25 04:49 Calculated Osmolality 290 mOsm/kg (285-295) 02/16/25 04:49 Lactic Acid 2.4 mmol/L (0.5-2.2) H 02/15/25 08:56 Lactic Acid (Sepsis) 1.4 mmol/L (0.5-2.2) 02/15/25 12:36 Calcium 8.6 mg/dL (8.5-10.5) 02/16/25 04:49 Total Bilirubin 0.5 mg/dL (0.15-1.2) 02/15/25 08:56 AST 12 U/L (0-40) 02/15/25 08:56 ALT 14 U/L (0-41) 02/15/25 08:56 Alkaline Phosphatase 110 U/L (40-130) 02/15/25 08:56 Total Protein 7.1 g/dL (6.6-8.7) 02/15/25 08:56 Albumin 4.1 g/dL (3.5-5.2) 02/15/25 08:56 Globulin 3.0 g/dL (1.3-4.6) 02/15/25 08:56 Urine Color Yellow (Yellow) 02/15/25 09:38 Urine Appearance Cloudy (CLEAR) A 02/15/25 09:38 Urine pH 5.5 (5-7) 02/15/25 09:38 Ur Specific [place] 1.015 (1.005-1.030) 02/15/25 09:38 Urine Protein Trace (Negative) A 02/15/25 09:38 Urine Glucose (UA) Negative (Normal) 02/15/25 09:38 Urine Ketones Negative (Negative) 02/15/25 09:38 Urine Blood Negative (Negative) 02/15/25 09:38 Urine Nitrate Positive (Negative) A 02/15/25 09:38 Urine Bilirubin Negative (Negative) 02/15/25 09:38 Urine Urobilinogen 0.2 mg/dL (Negative) 02/15/25 09:38 Ur Leukocyte Esterase 2+ (Negative) A 02/15/25 09:38 Urine RBC 0-2 /hpf (0-2) 02/15/25 09:38 Urine WBC 51-100 /hpf (0-5) H 02/15/25 09:38 Ur Squamous Epith Cells 0-5 /hpf (0-5) 02/15/25 09:38 Amorphous Sediment Not Reportable 02/15/25 09:38 Urine Bacteria 4+ /hpf (NONE) H 02/15/25 09:38 Hyaline Casts 3.30 /lpf 02/15/25 09:38 Vitals Last Vital Signs Temp 98.2 F 02/16/25 07:43 Pulse 67 02/16/25 07:43 Resp 17 02/16/25 07:43 BP 153/82 02/16/25 07:43 Pulse Ox 96 02/16/25 07:43 O2 Del Method Room Air 02/16/25 07:43 Discharge Plan Discharge Patient Disposition: Home Condition: Stable Prescriptions: New ciprofloxacin HCl 500 mg tablet 500 mg PO BID Qty: 14 0RF Continued aripiprazole 2 mg tablet 2 mg PO DAILY Qty: 30 2RF paroxetine HCl [Paxil] 40 mg tablet 40 mg PO DAILY Qty: 30 2RF hydrocodone-acetaminophen 5-325 mg tablet 1 tab PO TID 30 Days Qty: 90 0RF lorazepam 1 mg tablet 1 mg PO QID PRN (Reason: anxiety) Qty: 120 1RF Advil PM 200-38 mg Tablet 2 tab PO BEDTIME PRN (Reason: Sleep) hydroxyzine HCl 25 mg tablet 25 mg PO Q8H PRN (Reason: anxiety) Qty: 10 0RF lisinopril 30 mg tablet 30 mg PO BEDTIME rosuvastatin 40 mg tablet 40 mg PO BEDTIME ibuprofen [Advil] 200 mg Tablet 600 mg PO Q6H PRN (Reason: Fever Or Pain) Changed tamsulosin 0.4 mg capsule 0.4 mg PO BID Qty: 180 0RF Held hydrochlorothiazide 25 mg tablet 25 mg PO DAILY Qty: 90 3RF Hold Instructions: Resume on 02/18/25. Discharge Orders: Discharge Order (Routine); Ordered 02/16/25 Ordered By: Go Terry Referrals: Tadeo Camacho MD [Referring, Urology] - 1 week Referral Note: referral sent Problems: Complicated UTI (urinary tract infection) Rohith Solis DO [Primary Care Provider, Family Practice] - 4-7 days Referral Note: We have notified your physician's clinic of the need for a follow-up appointment to be scheduled. If you have not heard from them within the next 2 business days, please call them directly. Patient Instructions: Ciprofloxacin (By mouth), Urinary Tract Infection in Men (GEN), Opioid Safety Activity Restrictions/Additional Instructions: Complete antibiotic course and follow-up with your primary doctor and with your urologist in [place] due to recurrent UTI as well as multidrug-resistant organism infection. Stop the antibiotic and seek medical attention immediately in case of feeling of strain or sprain and muscle or joint or any chest pain or pressure or development of diarrhea. Seek medical attention Any Worsening or New concerning Symptoms. Discharge Attestations Time Spent in Discharge Care*: greater than 30 min Quality Metrics Clinical Quality Measures [ No reported AMI, CVA or VTE this stay] Coding Level of Care Code 24640 Total time (in minutes) for Discharge: 35 Diagnoses Complicated UTI (urinary tract infection) N39.0
[2025-02-16] MEDS: ARIPiprazole 2 mg Tablet PO (11:24)
[2025-02-16 11:37] VITALS: BP 147/84; PULSE 63; RESP 15; TEMP 36.6; O2SAT 96
[2025-02-16 11:42] VITALS: BP 147/84; PULSE 63; RESP 15; TEMP 36.6; O2SAT 96
== END 2025-02-16 11:43 | disposition home or self-care (01) ==
LOC: ER 08:59 → MEDSURG 11:14
PROVIDERS: Admitting Provider Internal Medicine; Emergency Provider Family Medicine; PCP Family Medicine; Visit Provider Internal Medicine
DX: N39.0 Urinary tract infection, site not specified (principal); I95.9 Hypotension, unspecified; R74.02 Elevation of levels of lactic acid dehydrogenase [LDH]; M10.9 Gout, unspecified; E78.5 Hyperlipidemia, unspecified; I10 Essential (primary) hypertension; Z16.12 Extended spectrum beta lactamase (ESBL) resistance; B96.1 Klebsiella pneumoniae [K. pneumoniae] as the cause of diseases classified elsewhere; N40.1 Benign prostatic hyperplasia with lower urinary tract symptoms; M54.9 Dorsalgia, unspecified; G89.29 Other chronic pain; R33.9 Retention of urine, unspecified; F41.1 Generalized anxiety disorder; F41.0 Panic disorder [episodic paroxysmal anxiety]; Z87.440 Personal history of urinary (tract) infections; Z79.899 Other long term (current) drug therapy; Z87.19 Personal history of other diseases of the digestive system
CPT/HCPCS: 36415; 74176; 80048; 80053; 81001; 83605; 85025; 87040; 87077; 87086; 87186; 96361; 96365; 96366; 96372; 99285; G0378; J0744; J1650; J7030; J9999

== ENCOUNTER → 2025-02-26 11:37 | Outpatient (BNVA) | payer MEDICARE, MEDICAID, SELFPAY | PROVIDERS: PCP Family Medicine; Visit Provider Family Medicine | DX: N39.0 Urinary tract infection, site not specified (principal) | CPT/HCPCS: 81003; 87086 ==

== ENCOUNTER 2025-03-14 08:37 | Emergency (ER) | payer MEDICARE, MEDICAID, SELFPAY ==
--- OUTSIDE RECORDS SUMMARY | 2025-03-14 08:44 | XMS_ITS | Clinical Summary ---
Author Organization [facility] Address [address] Attn: Epic Prelude ADT MAXINE JUAREZ [id number] Care Team Providers Care Billet Driller Name Role Phone Non-Staff, Physician Primary Care Provider Unava ilable Allergies No known active allergies Medications tamsulosin (FLOMAX) 0.4 mg capsule Take 1 Capsule (0.4 mg) by mouth daily. 30 Capsule 6 03/12/2018 Active HYDROcodone-amilcar taminophen (NORCO) 5-325 mg tablet Take 1 Tablet by mouth every 6 hours as needed for Pain, Moderate. Max Daily Amount: 4 Tablets 10 Tablet 0 02/21/2018 Active HYDROcodone-amilcar taminophen (NORCO) 5-325 mg tablet Take 2 Tablets by mouth every 4 hours as needed for Pain, Moderate. Max Daily Amount: 12 Tablets 16 Tablet None 12/20/2016 Active hydroCHLOROthia zide 25 mg tablet Take 25 mg by mouth daily. 02/20/2018 Active LORazepam (ATIVAN) 0.5 mg tablet Take 0.5 mg by mouth every 6 hours as needed for Anxiety. 02/20/2018 Active LORazepam (ATIVAN) 1 mg tablet Take 0.5 Tablets (0.5 mg) by mouth every 6 hours as needed for Anxiety. 10 Tablet 0 02/21/2018 Active lisinopriL (PRINIVIL) 20 mg tablet Take 20 mg by mouth daily. 02/20/2018 Active Active Problems Problem Noted Date Diagnosed Date History of prostatitis 09/19/2018 Elevated PSA 09/10/2018 Left flank pain 03/12/2018 Renal calculus, left 03/12/2018 Lower urinary tract symptoms (LUTS) 03/12/2018 Prostatitis 03/12/2018 Dysuria 03/12/2018 Social History Tobacco Use Types Packs/Day Years Used Date Smoking Tobacco: Never Smokeless Tobacco: Never Alcohol Use Standard Drinks/Week Comments No 0 (1 standard drink = 0.6 oz pur e alcohol) Sex and Gender Information Value Date Recorded Sex Assigned at Not on file Legal Sex Male 1:14 AM [employer]EL[employer] Gender Identity Not on file Sexual Orientation Not on file Last Filed Vital Signs Vital Sign Reading Time Taken Comments Blood Pressure 136/90 06/08/2018 12:44 PM CDT Pulse 82 05/19/2018 11:00 PM CDT Temperature 36.3 C (97.4 F) 06/08/2018 12:44 PM CDT Respiratory Rate 20 06/08/2018 12:44 PM CDT Oxygen Saturation - - Inhaled Oxygen Concentration - - Weight 108.9 kg (240 lb) 09/18/2018 12:26 PM [employer] Height 185.4 cm (6' 1 ) 09/18/2018 12:26 PM [employer] Body Mass Index 31.66 09/18/2018 12:26 PM [employer] Plan of Treatment Health Maintenance Due Date Last Done Comments DTAP/TDAP/TD VACCINES (1 - Tdap) 1976 COLORECTAL SCREENING 2002 Colorectal Cancer Screening 2002 FIT-DNA Q 3 years 2002 FIT/FOBT Q 1 year 2002 Flex Sig/CT Colonography Q 5 years 2002 PNEUMOCOCCAL VACCINE 50+ YEARS (1 of 1 - PCV) 07/14/20 07 ZOSTER VACCINE (1 of 2) 2007 INFLUENZA VACCINE (#1) 2024 RSV VACCINE (60+ or ) (1 - 1-dose 75+ series) 2032 Care Teams Billet Driller Relationship Specialty Start Date End Date Non-Staff, Physician NO ADDRESS ON FILE PCP - General 12/20/16
--- OUTSIDE RECORDS SUMMARY | 2025-03-14 08:44 | XMS_ITS | Clinical Summary ---
Author Organization [facility] Address [address] [place] [address] Phone Care Team Providers Care Collar Turner Operator Name Role Phone Non-Staff, Physician Primary Care Provider Unava ilable Allergies No known active allergies Medications HYDROcodone-amilcar taminophen (NORCO) 5-325 mg tablet Take 2 Tablets by mouth every 4 hours as needed for Pain, Moderate. Max Daily Amount: 12 Tablets 16 Tablet None 12/20/2016 Active LORazepam (ATIVAN) 0.5 mg tablet Take 0.5 mg by mouth every 6 hours as needed for Anxiety. Active lisinopril (PRINIVIL) 20 mg tablet Take 20 mg by mouth daily. Active hydroCHLOROthia zide 25 mg tablet Take 25 mg by mouth daily. Active HYDROcodone-amilcar taminophen (NORCO) 5-325 mg tablet Take 1 Tablet by mouth every 6 hours as needed for Pain, Moderate. Max Daily Amount: 4 Tablets 10 Tablet 02/21/2018 Active LORazepam (ATIVAN) 1 mg tablet Take 0.5 Tablets (0.5 mg) by mouth every 6 hours as needed for Anxiety. 10 Tablet 02/21/2018 Active tamsulosin (FLOMAX) 0.4 mg capsule Take 1 Capsule (0.4 mg) by mouth daily. 30 Capsule 6 03/12/2018 Active Active Problems Problem Noted Date Diagnosed Date History of prostatitis 09/19/2018 Elevated PSA 09/10/2018 Left flank pain 03/12/2018 Renal calculus, left 03/12/2018 Prostatitis 03/12/2018 Dysuria 03/12/2018 Lower urinary tract symptoms (LUTS) 03/12/2018 Social History Tobacco Use Types Packs/Day Years Used Date Smoking Tobacco: Never Smokeless Tobacco: Never Alcohol Use Standard Drinks/Week Comments No 0 (1 standard drink = 0.6 oz pur e alcohol) Sex and Gender Information Value Date Recorded Sex Assigned at Not on file Legal Sex Male 4:10 PM CDT Gender Identity Not on file Sexual Orientation Not on file Last Filed Vital Signs Vital Sign Reading Time Taken Comments Blood Pressure 136/90 06/08/2018 12:44 PM CDT Pulse 82 05/19/2018 11:00 PM CDT Temperature 36.3 C (97.4 F) 06/08/2018 12:44 PM CDT Respiratory Rate 20 06/08/2018 12:44 PM CDT Oxygen Saturation 100% 06/08/2018 12:44 PM CDT Inhaled Oxygen Concentration - - Weight 108.9 kg (240 lb) 09/18/2018 12:26 PM 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
[2025-03-14 08:52] VITALS: BP 110/89; PULSE 104; RESP 18; TEMP 37; O2SAT 97; BMI 30.1
[2025-03-14 08:54] VITALS: BP 127/87; PULSE 100; O2SAT 97
--- NOTE | 2025-03-14 08:57 | CTR_ITS ---
PROCEDURE INFORMATION: Exam: CT Abdomen And Pelvis With Contrast Exam date and time: 03/14/2025 10:41 AM Age: 69 years old Clinical indication: Abdominal pain; Generalized; Prior surgery; Surgery date: 6+ months; Surgery type: Lumbar fusion; Additional info: Abd pain TECHNIQUE: Imaging protocol: Computed tomography of the abdomen and pelvis with contrast. Radiation optimization: All CT scans at this facility use at least one of these dose optimization techniques: automated exposure control; mA and/or kV adjustment per patient size (includes targeted exams where dose is matched to clinical indication); or iterative reconstruction. Contrast material: OMNIPAQUE 350; Contrast volume: 100 ml; Contrast route: INTRAVENOUS (IV); COMPARISON: CT abdomen pelvis wo con [id number] 02/15/2025 6:11 PM RADIATION DOSE METRICS: Total DLP (mGy-cm): 973.04 FINDINGS: Liver: Subcentimeter hypodensity in the right hepatic lobe is too small to characterize. Gallbladder and biliary ducts: Normal. No calcified stones. No ductal dilation. Pancreas: Normal. No ductal dilation. Spleen: Normal. No splenomegaly. Adrenal glands: Normal. No mass. Kidneys and ureters: 4 mm stone in the lower pole of the left kidney. No hydronephrosis. Small right renal cysts. Stomach and bowel: Unremarkable. No obstruction. No mucosal thickening. Appendix: No evidence of appendicitis. Intraperitoneal space: Unremarkable. No free air. No significant fluid collection. Vasculature: Unremarkable. No abdominal aortic aneurysm. Lymph nodes: Unremarkable. No enlarged lymph nodes. Urinary bladder: Unremarkable as visualized. Reproductive: Enlarged prostate impressing upon the posterior bladder. Bones/joints: Spinal hardware is noted in the lumbosacral spine status post laminectomies. Soft tissues: There may be a fat containing right inguinal hernia. CT/CT abdomen pelvis w con* [id number] IMPRESSION: 1. No acute findings. 2. Findings as noted above. COMMENTS: Consistent with the [place] [employer]'s Incidental Findings Committee white paper (J Am Cherry Radiol 2018): Any incidental renal lesion less than 1 cm or classified as too small to characterize, or any incidental cystic renal lesion characterized as simple-appearing, is likely benign. No follow-up imaging is recommended for these lesions per consensus recommendations based on imaging criteria.
--- NOTE | 2025-03-14 08:57 | ED_ITS ---
HPI - Male Genitourinary 2 General: Chief complaint: Urogenital-Male Stated complaint: back pain /urinary Time Seen by Provider: 03/14/25 08:55 Source: patient Mode of arrival: ambulatory Limitations: no limitations History of Present Illness: 69-year-old male states that over the la st 2 days been having lower abdominal pain along with difficulty urinating. States he did recently benign os with a UTI he is on Macrobid states his pain is worse in his lower abdomen rates it a 6 out of 10 denies any vomiting denies any diarrhea. Associated symptoms: Reports dysuria; Deny nausea or vomiting Related Data Home Medications ?Medication ?Instructions ?Recorded ?Confirmed lisinopril 30 mg tablet 30 mg PO BEDTIME 11/18/24 rosuvastatin 40 mg tablet 40 mg PO BEDTIME 11/18/24 ibuprofen-diphenhydramine citrate 2 tab PO BEDTIME PRN Sleep 12/23/24 03/14/25 200 mg-38 mg tablet (Advil PM) ibuprofen 200 mg tablet (Advil) 600 mg PO Q6H PRN Feve r Or Pain 02/03/25 03/14/25 Previous Rx's ?Medication ?Instructions ?Recorded hydrochlorothiazide 25 mg tablet 25 mg PO DAILY #90 ta bs 05/29/24 Held on 02/16/25. Instructions: Resume on 02/18/25. aripiprazole 2 mg tablet 2 mg PO DAILY #30 tabs 12/08 paroxetine HCl 40 mg tablet (Paxil) 40 mg PO DAILY #30 tabs 01/11/25 tamsulosin 0.4 mg capsule 0.4 mg PO BID #180 caps 12/08 lorazepam 1 mg tablet 1 mg PO QID PRN anxiety #120 tabs 02/18/25 prednisone 10 mg tablet 10 mg PO DAILY PRN inflamato ry 02/24/25 pain #30 tabs hydrocodone 5 mg-acetaminophen 325 1 tab PO TID Pain 3 0 days #90 tabs 02/26/25 mg tablet hydroxyzine HCl 25 mg tablet 25 mg PO Q8H PRN anxiety #10 tabs 02/26/25 nitrofurantoin 100 mg PO ONCE uti preventio n 30 02/26/25 monohydrate/macrocrystals 100 mg days #30 caps capsule (Macrobid) cephalexin 500 mg capsule 500 mg PO TID 7 days #21 cap s 03/14/25 Allergies Allergy/AdvReac Type Severity Reaction Status Date / Time No Known Drug Allergies Allergy Unknown Verified 02/03/25 05:55 Review of Systems 2 Const: Denies: fever(s), chills, body aches or change in appetite ENMT: Denies: throat pain or dental pain Card: Denies: chest pain Resp: Denies: dyspnea GI: Reports: abdominal pain; Denies: nausea, vomiting or diarrhea : Reports: difficulty urinating and dysuria Musc: Denies: neck pain or back pain Skin/Breast: Denies: rash Neuro: Denies: headache(s) PFSH ED 2 PFSH: Medical History On combination antipsychotic drug therapy Gout, unspecified Diverticula of colon Psychiatric care Slow transit constipation Hyperlipidemia Essential hypertension Generalized anxiety disorder Panic disorder [episodic paroxysmal anxiety] Surgical History History of basal cell cancer Left face and nose History of renal stent Family History Other Cancer Diabetes Hypertension Stroke Social History Smoking and tobacco/nicotine status: never used tobacco/nicotine Second hand smoke exposure: No Alcohol intake: never Substance/Drug Use: never Adopted: No Caregiver/support person: No Lives independently: Yes Household members: spouse Housing: House Marital status: Number of children: 4 service: No Current occupational status: disabled Do you think of yourself as: Straight/Heterosexual Current gender identity: Male Physical Exam 2 Const: COMMON NORMALS: no acute distress, patient oriented x3 and healthy appearing HENMT: COMMON NORMALS: normocephalic and atraumatic HEAD & SCALP: n ormocephalic and atraumatic Neck/C-Spine: COMMON NORMALS: full ROM and supple Chest: COMMONS NORMALS: normal inspection of the chest Resp: COMMON NORMALS: normal respiratory effort, No retractions, No use of accessory muscles and clear to auscultation bilaterally AUSCULTATION: clear to auscultation bilaterally Cardio: COMMON NORMALS: regular rate, regular rhythm and No murmurs present (Cardio) RATE: regular rate RHYTHM: regular rhythm GI: COMMON NORMALS: Normal to inspection, nondistended, normoactive bowel sounds present, Soft to palpation and no masses PALPATION: Yes Soft to palpation OTHER: tenderness to lower abd Extremity: COMMON NORMALS: normal to inspection and full ROM Neuro: COMMON NORMALS: patient oriented x3, moves all extremities and no focal motor deficits Psych: COMMON NORMALS: mental status grossly normal, Normal thought process present and cooperative THOUGHT PROCESS: Normal thought process present Skin: COMMON NORMALS: no rashes or lesions noted and no wounds GENERAL SKIN EXAM: no rashes or lesions noted Course 2 Vital Signs: Vital signs: Vital Signs Temperature 98.6 F 03/14/25 08:52 Pulse Rate 95 03/14/25 10:54 Respiratory Rate 17 03/14/25 11:30 Blood Pressure 120/94 03/14/25 10:54 Pulse Oximetry 96 03/14/25 11:30 Oxygen Delivery Me thod Room Air 03/14/25 10:54 MDM - Male Medical Decision Making Patient presents here with dysuria does have a UTI we will switch his antibiotics to Keflex lab work CT is normal he stable for discharge. Medical Records I reviewed the patient's medical records. Lab Data I reviewed the patient's lab results. 03/14/25 09:03 03/14/25 09:03 Radiology Impressions Abdomen/Pelvis CT 03/14/25 08:57 IMPRESSION: 1. No acute findings. 2. Findings as noted above. COMMENTS: Consistent with the [place] [employer]'s Incidental Findings Committee white paper (J Am Cherry Radiol 2018): Any incidental renal lesion less than 1 cm or classified as too small to characterize, or any incidental cystic renal lesion characterized as simple-appearing, is likely benign. No follow-up imaging is recommended for these lesions per consensus recommendations based on imaging criteria. Laboratory Results WBC 10.47 10^3/uL (3.29-11.43) 03/14/25 09:03 RBC 5.27 10^6/uL (3.85-5.65) 03/14/25 09:03 Hgb 15.30 g/dL (11.27-16.99) 03/14/25 09:03 Hct 45.3 % (37-53) 03/14/25 09:03 MCV 86.0 fl (82-101) 03/14/25 09:03 MCH 29.0 pg (27-33) 03/14/25 09:03 MCHC 33.8 g/dL (30-55) 03/14/25 09:03 RDW 14.3 % (12.1-15.1) 03/14/25 09:03 Plt Count 400 10^3/cmm (157-399) H 03/14/25 09:03 MPV 8.9 fL (7.4-10.4) 03/14/25 09:03 Neut % (Auto) 67.9 % 03/14/25 09:03 Lymph % (Auto) 21.7 % 03/14/25 09:03 [place] % (Auto) 7.3 % 03/14/25 09:03 Eos % (Auto) 1.0 % 03/14/25 09:03 Baso % (Auto) 0.6 % 03/14/25 09:03 Neut # (Auto) 7.12 10^3/uL (1.8-7.7) 03/14/25 09:03 Lymph # (Auto) 2.3 10^3/uL (0.8-4.8) 03/14/25 09:03 [place] # (Auto) 0.8 10^3/uL (0.2-0.9) 03/14/25 09:03 Eos # (Auto) 0.1 10^3/uL (0.0-0.8) 03/14/25 09:03 Baso # (Auto) 0.1 10^3/uL (0.0-0.1) 03/14/25 09:03 Nucleated RBC % (auto) 0 % 03/14/25 09:03 Nucleated RBCs # 0.0 /100WBC 03/14/25 09:03 Sodium 137 mmol/L (136-145) 03/14/25 09:03 Potassium 3.2 mmol/L (3.5-5.1) L 03/14/25 09:03 Chloride 95 mmol/L (98-107) L 03/14/25 09:03 Carbon Dioxide 30 mmol/L (22-29) H 03/14/25 09:03 Anion Gap 15.2 (5-19) 03/14/25 09:03 BUN 15 mg/dL (8-23) 03/14/25 09:03 Creatinine 1.1 mg/dL (0.7-1.2) 03/14/25 09:03 GFR Calculation 66.8 mL/min (90-130) L 03/14/25 09:03 Glucose 183 mg/dL (65-115) H 03/14/25 09:03 Calculated Osmolality 290 mOsm/kg (285-295) 03/14/25 09:03 Calcium 9.2 mg/dL (8.5-10.5) 03/14/25 09:03 Total Bilirubin 0.4 mg/dL (0.15-1.2) 03/14/25 09:03 AST 15 U/L (0-40) 03/14/25 09:03 ALT 36 U/L (0-41) 03/14/25 09:03 Alkaline Phosphatase 110 U/L (40-130) 03/14/25 09:03 Total Protein 7.0 g/dL (6.6-8.7) 03/14/25 09:03 Albumin 3.8 g/dL (3.5-5.2) 03/14/25 09:03 Globulin 3.2 g/dL (1.3-4.6) 03/14/25 09:03 Lipase 13 U/L (13-60) 03/14/25 09:03 Urine Color Yellow (Yellow) 03/14/25 10:14 Urine Appearance Cloudy (CLEAR) A 03/14/25 10:14 Urine pH 5.5 (5-7) 03/14/25 10:14 Ur Specific [place] 1.020 (1.005-1.030) 03/14/25 10:14 Urine Protein Trace (Negative) A 03/14/25 10:14 Urine Glucose (UA) Negative (Normal) 03/14/25 10:14 Urine Ketones Trace (Negative) 03/14/25 10:14 Urine Blood Trace (Negative) A 03/14/25 10:14 Urine Nitrate Positive (Negative) A 03/14/25 10:14 Urine Bilirubin Negative (Negative) 03/14/25 10:14 Urine Urobilinogen 1.0 mg/dL (Negative) 03/14/25 10:14 Ur Leukocyte Esterase 2+ (Negative) A 03/14/25 10:14 Urine RBC 0-2 /hpf (0-2) 03/14/25 10:14 Urine WBC >100 /hpf (0-5) H 03/14/25 10:14 Ur Squamous Epith Cells 0-5 /hpf (0-5) 03/14/25 10:14 Amorphous Sediment Not Reportable 03/14/25 10:14 Urine Bacteria 4+ /hpf (NONE) H 03/14/25 10:14 Hyaline Casts 19.83 /lpf 03/14/25 10:14 All radiology interpretation(s) finalized by discharge Discharge Plan Discharge Patient Disposition: Home Clinical Impression: Chronic UTI (urinary tract infection) Condition: Stable Prescriptions: New cephalexin 500 mg capsule 500 mg PO TID 7 Days Qty: 21 0RF No Action aripiprazole 2 mg tablet 2 mg PO DAILY Qty: 30 2RF hydroxyzine HCl 25 mg tablet 25 mg PO Q8H PRN (Reason: anxiety) Qty: 10 0RF nitrofurantoin monohyd/m-cryst [Macrobid] 100 mg capsule 100 mg PO ONCE 30 Days Qty: 30 1RF Rx Instructions: must administer with a meal/food hydrocodone-acetaminophen 5-325 mg tablet 1 tab PO TID 30 Days Qty: 90 0RF hydrochlorothiazide 25 mg tablet 25 mg PO DAILY Qty: 90 3RF paroxetine HCl [Paxil] 40 mg tablet 40 mg PO DAILY Qty: 30 2RF lorazepam 1 mg tablet 1 mg PO QID PRN (Reason: anxiety) Qty: 120 1RF prednisone 10 mg tablet 10 mg PO DAILY PRN (Reason: inflamatory pain) Qty: 30 3RF Advil PM 200-38 mg Tablet 2 tab PO BEDTIME PRN (Reason: Sleep) tamsulosin 0.4 mg capsule 0.4 mg PO BID Qty: 180 0RF lisinopril 30 mg tablet 30 mg PO BEDTIME rosuvastatin 40 mg tablet 40 mg PO BEDTIME ibuprofen [Advil] 200 mg Tablet 600 mg PO Q6H PRN (Reason: Fever Or Pain) Discharge Orders: Discharge ED (Routine); Ordered 03/14/25 Ordered By: Scarlet Azar Referrals: Rohith Solis DO [Primary Care Provider, Family Practice] - 4-7 days Discharge Diet: Advance as tolerated Discharge Activity: Resume usual activity Patient Instructions: Urinary Tract Infection in Women (ED) Print Language: Bulgarian Coding Level of Care Code ED Gas Operations Superintendent for Nancy Lundberg
[2025-03-14 09:26] LABS: Basophils # 0.1 10^3/uL (0.0-0.1); Basophils % 0.6 %; Eosinophils # 0.1 10^3/uL (0.0-0.8); Hematocrit 45.3 % (37-53); Lymphocytes # 2.3 10^3/uL (0.8-4.8); Lymphocytes % 21.7 %; Mean Corpuscular HGB Conc 33.8 g/dL (30-55); Mean Platelet Volume 8.9 fL (7.4-10.4); Monocytes # 0.8 10^3/uL (0.2-0.9); Monocytes % 7.3 %; Neutrophils # 7.12 10^3/uL (1.8-7.7); Neutrophils % 67.9 %; Nucleated Red Blood Cells % 0 %; Platelet Count 400 10^3/cmm (157-399); Red Blood Count 5.27 10^6/uL (3.85-5.65); Red Cell Distribution Width 14.3 % (12.1-15.1); White Blood Count 10.47 10^3/uL (3.29-11.43)
[2025-03-14 09:45] LABS: Albumin Level 3.8 g/dL (3.5-5.2); Alkaline Phosphatase 110 U/L (40-130); Anion Gap 15.2 (5-19); Aspartate Amino Transferase 15 U/L (0-40); Blood Urea Nitrogen 15 mg/dL (8-23); Calcium 9.2 mg/dL (8.5-10.5); Carbon Dioxide 30 mmol/L (22-29); Chloride 95 mmol/L (98-107); Globulin 3.2 g/dL (1.3-4.6); Glomerular Filtration Rate 66.8 mL/min (90-130); Glucose 183 mg/dL (65-115); Lipase 13 U/L (13-60); Osmolality Calculated 290 mOsm/kg (285-295); Potassium 3.2 mmol/L (3.5-5.1); Sodium 137 mmol/L (136-145); Total Bilirubin 0.4 mg/dL (0.15-1.2)
[2025-03-14 09:57] LABS: Alanine Aminotransferase 36 U/L (0-41)
[2025-03-14] MEDS: iohexol 350 mg/mL 500 mL Btl (per mL) IV (10:16)
[2025-03-14 10:25] LABS: Bilirubin Urine Negative (Negative); Blood Urine Trace (Negative); Glucose Urine UA Negative (Normal); Ketones Urine Trace (Negative); Leukocyte Esterase Urine 2+ (Negative); Nitrate Urine Positive (Negative); Protein Urine Trace (Negative); Urine Appearance Cloudy (CLEAR); Urine Color Yellow (Yellow); pH Urine 5.5 (5-7)
[2025-03-14 10:29] LABS: Add Urine Microscopic? YES; Bacteria Urine 4+ /hpf; Hyaline Casts Urine 19.83 /lpf; RBC Urine 0-2 /hpf (0-2); Squamous Epithelial Cell Urine 0-5 /hpf (0-5); WBC Urine >100 /hpf (0-5)
[2025-03-14 10:31] LABS: Add Urine Culture? Yes
[2025-03-14 10:54] VITALS: BP 120/94; PULSE 95; O2SAT 95
[2025-03-14] MEDS: cefTRIAXone 1,000 mg SDV 1000 MG IVP (11:02)
[2025-03-14 11:30] VITALS: RESP 17; O2SAT 96
[2025-03-14] MEDS: morphine 4 mg/mL SDV 1 mL IVP (11:30)
== END 2025-03-14 12:20 | disposition home or self-care (01) ==
PROVIDERS: Emergency Provider Emergency Medicine; PCP Family Medicine
DX: N39.0 Urinary tract infection, site not specified (principal); E78.5 Hyperlipidemia, unspecified; I10 Essential (primary) hypertension
CPT/HCPCS: 36415; 74177; 80053; 81001; 83690; 85025; 87077; 87086; 87186; 96374; 96375; 99285; J0696; J2270

== ENCOUNTER → 2025-03-16 13:04 | Outpatient (BNVA) | payer MEDICARE, MEDICAID, SELFPAY | PROVIDERS: PCP Family Medicine; Visit Provider Orthopaedic Surgery | DX: M54.50 Low back pain, unspecified (principal) | CPT/HCPCS: 72110; 99213 ==

== ENCOUNTER 2025-04-13 16:05 | Emergency (ER) | payer MEDICARE, MEDICAID, SELFPAY ==
[2025-04-13 16:09] VITALS: BP 158/99; PULSE 82; RESP 16; TEMP 37.2; O2SAT 97; BMI 31.1
--- OUTSIDE RECORDS SUMMARY | 2025-04-13 16:21 | XMS_ITS | Encounter Summary ---
Author Organization [facility] Address [address] [place] [address] Phone Care Team Providers Care Alterations Workroom Clerk Name Role Phone Wai Morrow Primary Care Provider [phone] Encounter Details Date Type Department Care Team (Late st Contact Info) Description 08/14/[address] [facility] [address] [place] [address] Hypertension; Atrophy of kidney Social History Tobacco Use Types Packs/Day Years Used Date Smoking Tobacco: Never Assessed Sex and Gender Information Value Date Recorded Sex Assigned at Not on file Legal Sex Male 2:03 PM EST Gender Identity Not on file Sexual Orientation Not on file documented as of this encounter Plan of Treatment Not on file documented as of this encounter Visit Diagnoses Diagnosis Hypertension Atrophy of kidney documented in this encounter Care Teams Alterations Workroom Clerk Relationship Specialty Start Date End Date Wai Morrow ARNP [address] [place] [phone] PCP - General Nurse Practitioner 09/25/21 documented as of this encounter
--- OUTSIDE RECORDS SUMMARY | 2025-04-13 16:21 | XMS_ITS | Clinical Summary ---
Author Organization [facility] Facility Address [address] [address] Care Team Providers Care Storage Engineer Name Role Phone Wai Morrow BRE Primary Care Provider [phone] Allergies No known active allergies Medications tamsulosin (FLOMAX) 0.4 MG 24 hr capsule Take 0.4 mg by mouth in the morning. 03/12/2018 Active LORazepam (ATIVAN) 1 MG tablet Take 0.5 mg by mouth every 6 (six) hours if needed 02/21/2018 Active lisinopril 20 MG tablet Take 30 mg by mouth 1 (one) time each day Active HYDROcodone-acet aminophen (NORCO) 5-325 MG per tablet Take 1 tablet by mouth every 6 (six) hours if needed 12/20/2016 Active hydroCHLOROthiaz priti 25 MG tablet Take 25 mg by mouth in the morning. Active PARoxetine (PAXIL) 20 MG tablet Take 20 mg by mouth at bed time 10/05/2021 Active rosuvastatin (CRESTOR) 40 MG tablet Take 40 mg by mouth 1 (one) time each day 10/05/2021 Active Active Problems Problem Noted Date Diagnosed Date Chronic kidney disease, stage 2 (mild) 2 Essential (primary) hypertension 10/24/2021 Gouty arthropathy, unspecified 10/24/2021 Family History Medical History Relation Comments Diabetes Father Gout Father Heart disease Father Hypertension Father Kidney disease Father Stroke Father Relation Status Comments Father Mother Alive Social History Tobacco Use Types Packs/Day Years Used Date Smoking Tobacco: Never Smokeless Tobacco: Never Tobacco Cessation:Counseling Given: Not Answered Alcohol Use Standard Drinks/Week Comments Not Currently 0 (1 standard drink = 0.6 oz pur e alcohol) Sex and Gender Information Value Date Recorded Sex Assigned at Not on file Legal Sex Male 2:03 PM EST Gender Identity Not on file Sexual Orientation Not on file Last Filed Vital Signs Vital Sign Reading Time Taken Comments Blood Pressure 152/92 12/05/2022 11:03 AM CDT Pulse 80 12/05/2022 11:03 AM CDT Temperature - - Respiratory Rate - - Oxygen Saturation - - Inhaled Oxygen Concentration - - Weight 106 kg (234 lb) 12/05/2022 11:03 AM CDT Height 182.9 cm (6') 12/05/2022 11:03 AM CDT Body Mass Index 31.74 12/05/2022 11:03 AM CDT Plan of Treatment Health Maintenance Due Date Last Done Comments Pneumococcal Vaccine: 50+ Ye ars (1 of 2 - PCV) 1976 Colorectal Cancer Screening: Annual FOBT 2006 Colorectal Cancer Screening: Colonoscopy 2006 Colorectal Cancer Screening: Sigmoidoscopy 2006 Influenza Vaccine (#1) 2025 Hepatitis B Vaccine Aged Out No longe r eligible based on patient's age to complete this topic Insurance Medicare Medicaid [place] ([facility]) Care Teams Storage Engineer Relationship Specialty Start Date End Date Wai Morrow ARNP [address] [place] [phone] PCP - General Nurse Practitioner 09/25/21
--- OUTSIDE RECORDS SUMMARY | 2025-04-13 16:21 | XMS_ITS | Clinical Summary ---
Author Organization [facility] Address [address] [place] [address] Phone Care Team Providers Care Manager Motor Name Role Phone Non-Staff, Physician Primary Care [...] 108.9 kg (240 lb) 09/18/2018 12:26 PM GEOLOGICAL DRAFTER Height 185.4 cm (6' 1 ) 09/18/2018 12:26 PM GEOLOGICAL DRAFTER Body Mass Index 31.66 09/18/2018 12:26 PM GEOLOGICAL DRAFTER Plan of Treatment Health Maintenance Due Date Last Done Comments DTAP/TDAP/TD VACCINES (1 - Tdap) 1976 COLORECTAL SCREENING 2002 Colorectal Cancer Screening 2002 FIT-DNA Q 3 years 2002 FIT/FOBT Q 1 year 2002 Flex Sig/CT Colonography Q 5 years 2002 PNEUMOCOCCAL VACCINE 50+ YEARS (1 of 1 - PCV) 07/14/20 07 ZOSTER VACCINE (1 of 2) 2007 INFLUENZA VACCINE (#1) 2025 RSV VACCINE (60+ or ) (1 - 1-dose 75+ series) 2032 Insurance [address] [place] [id number] MED[place]ID [place] MEDICARE PART A AND B Care Teams Manager Motor Relationship Specialty Start Date End Date Non-Staff, Physician NO ADDRESS ON FILE PCP - General 12/20/16
--- OUTSIDE RECORDS SUMMARY | 2025-04-13 16:21 | XMS_ITS | Clinical Summary ---
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
--- NOTE | 2025-04-13 16:44 | CTR_ITS ---
PROCEDURE INFORMATION: Exam: CT Abdomen And Pelvis Without Contrast Exam date and time: 04/13/2025 5:48 PM Age: 69 years old Clinical indication: Other: Renal colic UTI; Prior surgery; Surgery date: 6+ months; Surgery type: Lumbar TECHNIQUE: Imaging protocol: Computed tomography of the abdomen and pelvis without contrast. Radiation optimization: All CT scans at this facility use at least one of these dose optimization techniques: automated exposure control; mA and/or kV adjustment per patient size (includes targeted exams where dose is matched to clinical indication); or iterative reconstruction. COMPARISON: 1. CT abdomen pelvis w con* [id number] 03/14/2025 10:[address] abdomen pelvis wo/w 04/20/2020 10:18 PM RADIATION DOSE METRICS: Total DLP (mGy-cm): 1035.21 FINDINGS: Lungs: Calcified granuloma noted in the right lung. Lung bases are otherwise clear. Heart: Heart size is within normal limits. There is no pericardial effusion or pericardial thickening. Liver: Hepatic low-density lesions, too small to characterize though likely representing small cysts. The liver is otherwise normal. Gallbladder and biliary ducts: The gallbladder is normal. There is no ductal dilatation. Pancreas: The pancreas is atrophic without obvious abnormality. Spleen: The spleen is normal. Adrenal glands: The adrenal glands are normal. Kidneys and ureters: 4 mm nonobstructing left lower pole renal calculus. No hydronephrosis. No ureteral calcifications identified. Mild symmetric perinephric changes, likely chronic. Stomach and bowel: Mild colonic diverticulosis without diverticulitis. There is no large or small bowel obstruction. There is no evidence of bowel wall thickening. Appendix: A normal retrocecal appendix is identified. Intraperitoneal space: No inflammatory changes are identified. There is no free fluid or fluid collection seen. There is no pneumoperitoneum. Vasculature: Atherosclerotic calcifications of the aorta are present. No aneurysm is identified. Lymph nodes: No enlarged lymph nodes are identified. Urinary bladder: The bladder is unremarkable. The bladder is unremarkable. Reproductive: Moderate prostatomegaly. The dome of the prostate projects into the base of the urinary bladder. Bones/joints: Posterior lumbosacral fusion hardware from L2-S1. Posterior laminectomies from L4-S1. Soft tissues: Nonspecific 15 mm soft tissue nodule just posterior to the pubic symphysis, stable compared to 2019. Small periumbilical hernia containing only fat. There is a small left inguinal hernia containing only fat. There is a moderate right inguinal hernia containing only fat. CT/CT abdomen pelvis wo con [id number] IMPRESSION: 1. No acute intra-abdominal or pelvic process. 2. 4 mm nonobstructing left lower pole renal calculus, stable compared to 2020. No other evidence of urolithiasis. No hydronephrosis. 3. Other nonemergent findings above.
--- NOTE | 2025-04-13 16:47 | ED_ITS ---
HPI - Male Genitourinary 2 General: Chief complaint: Urogenital-Male Stated complaint: POSSIBLE UTI Time Seen by Provider: 04/13/25 16:08 History of Present Illness: 69-year-old male with history of kidney stones, who presents to the ED with complaint of left flank pain, onset 4 days ago. Patient reports that the pain feels similar to his previous kidney stones and radiates to his left back. Denies any nausea, vomiting, change in stool. He also reports of subjective fevers and chills, burning with urination but denies any urinary frequency, urgency, or incontinence. He reports that he was treated for a UTI about 1 month ago. He also reports previously being treated with lithotripsy in the past for his kidney stones. No other complaints at this time. Associated symptoms: Reports dysuria; Deny nausea or vomiting Related Data Home Medications ?Medication ?Instructions ?Recorded ?Confirmed lisinopril 30 mg tablet 30 mg PO BEDTIME 11/18/24 rosuvastatin 40 mg tablet 40 mg PO BEDTIME 11/18/24 ibuprofen-diphenhydramine citrate 2 tab PO BEDTIME PRN Sleep 12/23/24 03/16/25 200 mg-38 mg tablet (Advil PM) ibuprofen 200 mg tablet (Advil) 600 mg PO Q6H PRN Feve r Or Pain 02/03/25 03/16/25 Previous Rx's ?Medication ?Instructions ?Recorded hydrochlorothiazide 25 mg tablet 25 mg PO DAILY #90 ta bs 05/29/24 Held on 02/16/25. Instructions: Resume on 02/18/25. paroxetine HCl 40 mg tablet (Paxil) 40 mg PO DAILY #30 tabs 01/11/25 tamsulosin 0.4 mg capsule 0.4 mg PO BID #180 caps 12/08 lorazepam 1 mg tablet 1 mg PO QID PRN anxiety #120 tabs 02/18/25 prednisone 10 mg tablet 10 mg PO DAILY PRN inflamato ry 02/24/25 pain #30 tabs nitrofurantoin 100 mg PO ONCE uti preventio n 30 02/26/25 monohydrate/macrocrystals 100 mg days #30 caps capsule (Macrobid) celecoxib 200 mg capsule (Celebrex) 200 mg PO BID 10 d ays #20 caps 03/16/25 aripiprazole 2 mg tablet 2 mg PO DAILY #30 tabs 03/21 hydrocodone 5 mg-acetaminophen 325 1 tab PO TID Pain 3 0 days #90 tabs 03/24/25 mg tablet hydroxyzine HCl 25 mg tablet 25 mg PO Q8H PRN anxiety #90 tabs 03/24/25 cefdinir 300 mg capsule 300 mg PO BID 10 days #20 ca ps 04/13/25 Allergies Allergy/AdvReac Type Severity Reaction Status Date / Time No Known Drug Allergies Allergy Unknown Verified 02/03/25 05:55 Review of Systems 2 Const: Reports: fever(s) (Subjective) and chills ENMT: Denies: throat pain or mouth pain Card: Denies: chest pain Resp: Denies: dyspnea GI: Reports: abdominal pain; Denies: nausea, vomiting, diarrhea or constipation : Reports: flank pain and dysuria; Denies: difficulty urinating, urinary frequency or urinary urgency Musc: Denies: neck pain or back pain Skin/Breast: Denies: rash or pruritus Neuro: Denies: headache(s) or numbness in extremities Psych: Denies: anxiety or depression PFSH ED 2 PFSH: Medical History (Updated 04/13/25 @ 19:08 by LOLIS Kaiser) On combination antipsychotic drug therapy Gout, unspecified Diverticula of colon Psychiatric care Slow transit constipation Hyperlipidemia Essential hypertension Generalized anxiety disorder Panic disorder [episodic paroxysmal anxiety] Surgical History History of basal cell cancer Left face and nose History of renal stent Family History Other Cancer Diabetes Hypertension Stroke Social History Smoking and tobacco/nicotine status: former use of tobacco/nicotine Second hand smoke exposure: No Alcohol intake: never Substance/Drug Use: never Adopted: No Caregiver/support person: No Lives independently: Yes Household members: spouse Housing: House Marital status: Number of children: 4 service: No Current occupational status: disabled Do you think of yourself as: Straight/Heterosexual Current gender identity: Male Physical Exam 2 Const: COMMON NORMALS: no acute distress, average body habitus and patient oriented x3 HENMT: COMMON NORMALS: normocephalic, atraumatic and hearing grossly normal bilaterally HEAD & SCALP: normocephalic and atraumatic Lymph: LYMPHATIC: no lymphadenopathy noted Resp: COMMON NORMALS: normal respiratory effort, No retractions and No use of accessory muscles Cardio: COMMON NORMALS: regular rate and regular rhythm RATE: regular rate RHYTHM: regular rhythm GI: COMMON NORMALS: Normal to inspection, nondistended, normoactive bowel sounds present, Soft to palpation and non-tender PALPATION: Yes Soft to palpation : COMMON NORMALS: Yes no CVA tenderness BLADDER/KIDNEY EXAM: Yes no CVA tenderness Back/Pelvis: COMMON NORMALS: no CVA tenderness Extremity: COMMON NORMALS: normal to inspection, full ROM and capillary refill normal Neuro: COMMON NORMALS: patient oriented x3, CN's II-XII intact bilaterally and moves all extremities Psych: COMMON NORMALS: mental status grossly normal, Normal thought process present and cooperative THOUGHT PROCESS: Normal thought process present J UDGEMENT: Good judgement present (Psych) Course 2 Vital Signs: Vital signs: Vital Signs Temperature 98.9 F 04/13/25 16:09 Pulse Rate 78 04/13/25 19:20 Respiratory Rate 16 04/13/25 16:09 Blood Pressure 142/89 04/13/25 19:20 Pulse Oximetry 96 04/13/25 19:20 Oxygen Delivery Me thod Room Air 04/13/25 19:00 MDM - Male Medical Decision Making Patient is a six 9-year-old gentleman with history of renal colic and left flank pain. He had a Enterococcus UTI 1 month ago and was prescribed cephalexin. It appears that cephalexin was not intermediate resistance, and therefore suspect this is associated with Enterococcus UTI since CT is without urolithiasis. Patient will follow-up with primary care, and await further urine culture and discernment. I do suspect a chronic, colonized UTI Lab Data 04/13/25 16:50 04/13/25 16:50 Radiology Impressions Abdomen/Pelvis CT 04/13/25 16:44 IMPRESSION: 1. No acute intra-abdominal or pelvic process. 2. 4 mm nonobstructing left lower pole renal calculus, stable compared to 2020. No other evidence of urolithiasis. No hydronephrosis. 3. Other nonemergent findings above. Laboratory Results WBC 9.65 10^3/uL (3.29-11.43) 04/13/25 16:50 RBC 4.88 10^6/uL (3.85-5.65) 04/13/25 16:50 Hgb 14.00 g/dL (11.27-16.99) 04/13/25 16:50 Hct 42.1 % (37-53) 04/13/25 16:50 MCV 86.3 fl (82-101) 04/13/25 16:50 MCH 28.7 pg (27-33) 04/13/25 16:50 MCHC 33.3 g/dL (30-55) 04/13/25 16:50 RDW 13.9 % (12.1-15.1) 04/13/25 16:50 Plt Count 297 10^3/cmm (157-399) 04/13/25 16:50 MPV 9.0 fL (7.4-10.4) 04/13/25 16:50 Neut % (Auto) 84.9 % 04/13/25 16:50 Lymph % (Auto) 8.5 % 04/13/25 16:50 [place] % (Auto) 5.6 % 04/13/25 16:50 Eos % (Auto) 0.1 % 04/13/25 16:50 Baso % (Auto) 0.2 % 04/13/25 16:50 Neut # (Auto) 8.19 10^3/uL (1.8-7.7) H 04/13/25 16:50 Lymph # (Auto) 0.8 10^3/uL (0.8-4.8) 04/13/25 16:50 [place] # (Auto) 0.5 10^3/uL (0.2-0.9) 04/13/25 16:50 Eos # (Auto) 0.0 10^3/uL (0.0-0.8) 04/13/25 16:50 Baso # (Auto) 0.0 10^3/uL (0.0-0.1) 04/13/25 16:50 Nucleated RBC % (auto) 0 % 04/13/25 16:50 Nucleated RBCs # 0.0 /100WBC 04/13/25 16:50 Sodium 139 mmol/L (136-145) 04/13/25 16:50 Potassium 4.3 mmol/L (3.5-5.1) 04/13/25 16:50 Chloride 102 mmol/L (98-107) 04/13/25 16:50 Carbon Dioxide 25 mmol/L (22-29) 04/13/25 16:50 Anion Gap 16.3 (5-19) 04/13/25 16:50 BUN 12 mg/dL (8-23) 04/13/25 16:50 Creatinine 1.0 mg/dL (0.7-1.2) 04/13/25 16:50 GFR Calculation 74.5 mL/min (90-130) L 04/13/25 16:50 Glucose 115 mg/dL (65-115) 04/13/25 16:50 Calculated Osmolality 289 mOsm/kg (285-295) 04/13/25 16:50 Calcium 8.9 mg/dL (8.5-10.5) 04/13/25 16:50 Total Bilirubin 0.3 mg/dL (0.15-1.2) 04/13/25 16:50 AST 14 U/L (0-40) 04/13/25 16:50 ALT 21 U/L (0-41) 04/13/25 16:50 Alkaline Phosphatase 85 U/L (40-130) 04/13/25 16:50 Total Protein 6.4 g/dL (6.6-8.7) L 04/13/25 16:50 Albumin 3.7 g/dL (3.5-5.2) 04/13/25 16:50 Globulin 2.7 g/dL (1.3-4.6) 04/13/25 16:50 Urine Color Yellow (Yellow) 04/13/25 16:20 Urine Appearance Clear (CLEAR) 04/13/25 16:20 Urine pH 7.0 (5-7) 04/13/25 16:20 Ur Specific [place] 1.006 (1.005-1.030) 04/13/25 16:20 Urine Protein Negative (Negative) 04/13/25 16:20 Urine Glucose (UA) Negative (Normal) 04/13/25 16:20 Urine Ketones Negative (Negative) 04/13/25 16:20 Urine Blood Negative (Negative) 04/13/25 16:20 Urine Nitrate Positive (Negative) A 04/13/25 16:20 Urine Bilirubin Negative (Negative) 04/13/25 16:20 Urine Urobilinogen 0.2 mg/dL (Negative) 04/13/25 16:20 Ur Leukocyte Esterase 2+ (Negative) A 04/13/25 16:20 Urine RBC 0-2 /hpf (0-2) 04/13/25 16:20 Urine WBC 11-20 /hpf (0-5) H 04/13/25 16:20 Ur Squamous Epith Cells 0-5 /hpf (0-5) 04/13/25 16:20 Amorphous Sediment Not Reportable 04/13/25 16:20 Urine Bacteria 4+ /hpf (NONE) H 04/13/25 16:20 Hyaline Casts 0.40 /lpf 04/13/25 16:20 All radiology interpretation(s) finalized by discharge Discharge Plan Discharge Patient Disposition: Home Clinical Impression: Enterococcus UTI Condition: Stable Prescriptions: New cefdinir 300 mg capsule 300 mg PO BID 10 Days Qty: 20 0RF No Action nitrofurantoin monohyd/m-cryst [Macrobid] 100 mg capsule 100 mg PO ONCE 30 Days Qty: 30 1RF Rx Instructions: must administer with a meal/food celecoxib [Celebrex] 200 mg capsule 200 mg PO BID 10 Days Qty: 20 0RF hydrochlorothiazide 25 mg tablet 25 mg PO DAILY Qty: 90 3RF paroxetine HCl [Paxil] 40 mg tablet 40 mg PO DAILY Qty: 30 2RF lorazepam 1 mg tablet 1 mg PO QID PRN (Reason: anxiety) Qty: 120 1RF prednisone 10 mg tablet 10 mg PO DAILY PRN (Reason: inflamatory pain) Qty: 30 3RF aripiprazole 2 mg tablet 2 mg PO DAILY Qty: 30 2RF hydrocodone-acetaminophen 5-325 mg tablet 1 tab PO TID 30 Days Qty: 90 0RF hydroxyzine HCl 25 mg tablet 25 mg PO Q8H PRN (Reason: anxiety) Qty: 90 1RF Advil PM 200-38 mg Tablet 2 tab PO BEDTIME PRN (Reason: Sleep) tamsulosin 0.4 mg capsule 0.4 mg PO BID Qty: 180 0RF lisinopril 30 mg tablet 30 mg PO BEDTIME rosuvastatin 40 mg tablet 40 mg PO BEDTIME ibuprofen [Advil] 200 mg Tablet 600 mg PO Q6H PRN (Reason: Fever Or Pain) Discharge Orders: Discharge ED (Routine); Ordered 04/13/25 Ordered By: Kierra Hicks Discharge Diet: Low Salt Discharge Activity: Resume usual activity Patient Instructions: Urinary Tract Infection in Men (DC), Patient Portal & [place] Instructions Activity Restrictions/Additional Instructions: Please call tomorrow to make an appointment with your primary care physician for follow-up. You may need referred to a urologist. This can be reviewed by your primary care physician. Urine culture will be back in 24-72 hours. In the interim, you have been given antibiotics that should be appropriate for your urine infection, however we will call you if new antibiotics will need to be called in. Return to ED for worsening left flank pain, nausea, vomiting, fever greater than 100.4 ?F. Take your medication as prescribed. You will need to obtain a probiotic or eat active culture yogurt to avoid infectious diarrhea associated with antibiotics. Print Language: Kittitian Coding Level of Care Code ED Reed Or Wind Instrument Repairer for Nancy Lundberg
[2025-04-13 16:56] VITALS: BP 164/99; PULSE 76; O2SAT 95
[2025-04-13 17:00] LABS: Hematocrit 42.1 % (37-53); Hemoglobin 14.00 g/dL (11.27-16.99); Mean Corpuscular HGB Conc 33.3 g/dL (30-55); Mean Corpuscular Hemoglobin 28.7 pg (27-33); Mean Corpuscular Volume 86.3 fl (82-101); Nucleated Red Blood Cells % 0 %; Platelet Count 297 10^3/cmm (157-399); Red Blood Count 4.88 10^6/uL (3.85-5.65); White Blood Count 9.65 10^3/uL (3.29-11.43)
[2025-04-13 17:18] LABS: Glucose Urine UA Negative (Normal); Nitrate Urine Positive (Negative); Specific Gravity, Urine 1.006 (1.005-1.030)
[2025-04-13 17:25] LABS: Add Urine Microscopic? YES
[2025-04-13 17:49] LABS: Alanine Aminotransferase 21 U/L (0-41); Albumin Level 3.7 g/dL (3.5-5.2); Alkaline Phosphatase 85 U/L (40-130); Blood Urea Nitrogen 12 mg/dL (8-23); Calcium 8.9 mg/dL (8.5-10.5); Carbon Dioxide 25 mmol/L (22-29); Chloride 102 mmol/L (98-107); Creatinine Clr Calc Pharmacy 89.5167; Globulin 2.7 g/dL (1.3-4.6); Glucose 115 mg/dL (65-115); Osmolality Calculated 289 mOsm/kg (285-295); Sodium 139 mmol/L (136-145); Total Protein 6.4 g/dL (6.6-8.7)
[2025-04-13 17:55] LABS: Anion Gap 16.3 (5-19); Potassium 4.3 mmol/L (3.5-5.1)
[2025-04-13 17:56] LABS: Aspartate Amino Transferase 14 U/L (0-40)
[2025-04-13 18:00] VITALS: BP 138/116; PULSE 62; O2SAT 99
[2025-04-13] MEDS: orphenadrine 30 mg/mL Inj 2 mL IVP (18:07)
[2025-04-13 18:30] VITALS: BP 141/93; PULSE 69; O2SAT 96
[2025-04-13] MEDS: cefTRIAXone 1,000 mg SDV 1000 MG IVP (18:46)
[2025-04-13 19:00] VITALS: BP 142/89; PULSE 89; O2SAT 97
[2025-04-13 19:20] VITALS: BP 142/89; PULSE 78; O2SAT 96
== END 2025-04-13 19:21 | disposition home or self-care (01) ==
PROVIDERS: Emergency Provider Physician Assistant; PCP Family Medicine
DX: N39.0 Urinary tract infection, site not specified (principal); Z87.891 Personal history of nicotine dependence; E78.5 Hyperlipidemia, unspecified; I10 Essential (primary) hypertension
CPT/HCPCS: 74176; 80053; 81001; 85025; 87086; 96374; 96375; 99285; J0696; J1885; J2360

== ENCOUNTER 2025-06-04 10:30 | Emergency (ER) | payer MEDICARE, MEDICAID, SELFPAY ==
[2025-06-04 10:30] VITALS: BP 139/91; PULSE 105; RESP 16; TEMP 36.9; O2SAT 95; BMI 31.1
--- OUTSIDE RECORDS SUMMARY | 2025-06-04 10:38 | XMS_ITS | Clinical Summary ---
Author Organization 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
--- OUTSIDE RECORDS SUMMARY | 2025-06-04 10:38 | XMS_ITS | Clinical Summary ---
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
--- OUTSIDE RECORDS SUMMARY | 2025-06-04 10:38 | XMS_ITS | Encounter Summary ---
Author Organization [facility], [facility] Address [address] [place] [address] Phone Care Team Providers Care Tear Down Matcher Name Role Phone Wai Morrow Primary Care Provider [phone]- [phone] Encounter Details Date Type Department Care Team (Late st Contact Info) Description 08/14/2021 Orders Only [facility] [address] [place] [address] Hypertension; Atrophy of kidney Social [...] kidney documented in this encounter Care Teams Tear Down Matcher Relationship Specialty Start Date End Date Wai Morrow ARNP [address] [place] [phone] PCP - General Nurse Practitioner 09/25/21 documented as of this encounter
--- OUTSIDE RECORDS SUMMARY | 2025-06-04 10:38 | XMS_ITS | Clinical Summary ---
Author Organization [facility] Address [address] [address] Care Team Prov[address] Care Court Operations Clerk Name Role Phone Wai Morrow BRE Primary Care Provider [phone]- [phone] Allergies No known active allergies Medications tamsulosin [...] complete this topic Insurance Medicare Medicaid [place] ([facility]) Care Teams Court Operations Clerk Relationship Specialty Start Date End Date Wai Morrow ARNP [address] [place] [phone] PCP - General Nurse Practitioner 09/25/21
--- NOTE | 2025-06-04 10:42 | CT_ITS ---
WS: [id number] CT ABDOMEN AND PELVIS WITH CONTRAST HISTORY: abd pain, lower abdominal pain. TECHNIQUE: Imaging performed of the abdomen and pelvis with IV contrast. Single phase imaging of the abdomen. Coronal and sagittal reformats are submitted. All CT scans at [facility] use at least one of these dose optimization techniques: automated exposure control; mA and/or kV adjustment per patient size (includes targeted exams where dose is matched to clinical indication); or iterative reconstruction. IV CONTRAST: Omnipaque 350; 100 mL IV. Oral contrast: No DLP: 1063.07 mGy.cm COMPARISON: 04/13/2025 Lower thorax: Benign granuloma at the lung bases. No mass. Heart is normal size. No hiatal hernia. Liver/biliary system: Normal size liver. There are a few tiny hypodense foci within the liver which are too small to characterize but stable. Negative gallbladder. No bile duct dilatation. Normal portal vein. Gallbladder: Normal. No gallstones or wall thickening. No pericholecystic fluid. Pancreas: Fatty replacement of the pancreas. Spleen: Normal size spleen. No mass or infarct. Adrenal glands: Normal. Right kidney: 10 cm in length. Diffuse mild cortical thinning and lobulated cortex. No hydronephrosis or solid mass. No renal obstruction. Left kidney: Normal size kidney with mild lobulation of the cortex. Nonobstructing 4 mm calcification in the lower pole is unchanged. Mild dilatation of the LEFT extrarenal pelvis is unchanged. LEFT ureter is not dilated. Central cyst in the LEFT renal pelvis. Aorta: Mild atherosclerosis with no aneurysm. Lymphadenopathy: None. Free fluid: None. GI tract: Normally distended stomach. No small bowel obstruction. Normal appendix. Mild fecal retention in the RIGHT colon. There are a few scattered sigmoid diverticula without acute diverticulitis. No obstructing lesion. Abdominal wall: Fat containing umbilical hernia. Bilateral inguinal canal hernias contain fat only. Pelvis: Normally distended urinary bladder. Mild prostate gland heterogeneity and enlargement. No ascites or adenopathy. Posterior lumbar fusion extending from L2-S1. Bones: Unremarkable. CT/CT abdomen pelvis w con* [id number] IMPRESSION: 1. No renal obstruction. No perinephric stranding. 2. Nonobstructing 4 mm calcification lower pole LEFT kidney. 3. Normal appendix. 4. Mild constipation involving the RIGHT colon and transverse flexure. No obst ruction. 5. Sigmoid diverticulosis without acute diverticulitis. 6. No free fluid or adenopathy. 7. Posterior lumbar fusion hardware.
--- NOTE | 2025-06-04 10:43 | W.ED.ABDPA2 ---
HPI - Abdominal Pain General: Chief Complaint: Abdominal Pain Stated Complaint: abd/flank pain Time Seen by Provider: 06/04/25 10:31 Source: patient and EMS Mode of arrival: EMS Limitations: no limitations History of Present Illness: 69-year-old male states he has been having left lower quadrant pain for the last 3 days. States pains been sharp in nature has had some nausea denies any vomiting or fever. Rates his pain 8 out of 10 currently denies any worse improving factors states he had recently gotten over a UTI denies any dysuria Associated Symptoms: Reports nausea; Denies vomiting Related Data Home Medications ?Medication ?Instructions ?Recorded ?Confirmed lisinopril 30 mg tablet 30 mg PO BEDTIME 11/18/24 06/04/25 ibuprofen-diphenhydramine citrate 2 tab PO BEDTIME PRN Sleep 12/23/24 06/04/25 200 mg-38 mg tablet (Advil PM) ibuprofen 200 mg tablet (Advil) 600 mg PO Q6H PRN Fever Or Pain 02/03/25 06/04/25 hydrochlorothiazide 25 mg tablet 25 mg PO DAILY 06/04/25 06/04/25 Previous Rx's ?Medication ?Instructions ?Recorded tamsulosin 0.4 mg capsule 0.4 mg PO BID #180 caps 02/16/25 prednisone 10 mg tablet 10 mg PO DAILY PRN inflamatory 02/24/25 pain #30 tabs celecoxib 200 mg capsule (Celebrex) 200 mg PO BID 10 days #20 caps 03/16/25 aripiprazole 2 mg tablet 2 mg PO DAILY #30 tabs 03/21/25 lorazepam 1 mg tablet 1 mg PO QID PRN anxiety #120 tabs 04/16/25 nitrofurantoin 100 mg PO ONCE uti prevention 30 04/20/25 monohydrate/macrocrystals 100 mg days #30 caps capsule (Macrobid) hydrocodone 5 mg-acetaminophen 325 1 tab PO TID Pain 30 days #90 tabs 05/04/25 mg tablet paroxetine HCl 40 mg tablet (Paxil) 40 mg PO DAILY #30 tabs 05/24/25 hydrocodone 5 mg-acetaminophen 325 1 tab PO Q6H PRN pain #14 tabs 06/04/25 mg tablet ondansetron 4 mg disintegrating 4 mg PO Q6H PRN nausea and 06/04/25 tablet vomiting #14 tabs sulfamethoxazole 800 1 tab PO BID 10 days #20 tabs 06/04/25 mg-trimethoprim 160 mg tablet (Bactrim DS) Allergies Allergy/AdvReac Type Severity Reaction Status Date / Time No Known Drug Allergies Allergy Unknown Verified 02/03/25 05:55 Review of Systems GI: Reports: abdominal pain and nausea; Denies: vomiting : Denies: flank pain or difficulty urinating PFSH ED PFSH: Medical History On combination antipsychotic drug therapy Gout, unspecified Diverticula of colon Psychiatric care Slow transit constipation Hyperlipidemia Essential hypertension Generalized anxiety disorder Panic disorder [episodic paroxysmal anxiety] Surgical History History of basal cell cancer Left face and nose History of renal stent Family History Other Cancer Diabetes Hypertension Stroke Social History Smoking and tobacco/nicotine status: former use of tobacco/nicotine Second hand smoke exposure: No Alcohol intake: never Substance/Drug Use: never Adopted: No Caregiver/support person: No Lives independently: Yes Household members: spouse Housing: House Marital status: Number of children: 4 service: No Current occupational status: disabled Do you think of yourself as: Straight/Heterosexual Current gender identity: Male Physical Exam Const: COMMON NORMALS: no acute distress, patient oriented x3 and healthy appearing HENMT: COMMON NORMALS: normocephalic and atraumatic HEAD & SCALP: normocephalic and atraumatic Eye: COMMON NORMALS: conjunctivae normal CONJUNCTIVA: Yes conjunctivae normal Neck/C-Spine: COMMON NORMALS: full ROM and supple Chest: COMMONS NORMALS: normal inspection of the chest and normal palpation of entire chest wall Resp: COMMON NORMALS: normal respiratory effort, No retractions, No use of accessory muscles and clear to auscultation bilaterally AUSCULTATION: clear to auscultation bilaterally Cardio: COMMON NORMALS: regular rate, regular rhythm and No murmurs present (Cardio) RATE: regular rate RHYTHM: regular rhythm GI: COMMON NORMALS: Normal to inspection, nondistended, normoactive bowel sounds present, Soft to palpation and no masses PALPATION: Yes Soft to palpation and Yes Tenderness to palpation present (GI) Details: LLQ Extremity: COMMON NORMALS: normal to inspection and full ROM Neuro: COMMON NORMALS: patient oriented x3, moves all extremities and no focal motor deficits Psych: COMMON NORMALS: mental status grossly normal, Normal thought process present and cooperative THOUGHT PROCESS: Normal thought process present Skin: COMMON NORMALS: no rashes or lesions noted and no wounds GENERAL SKIN EXAM: no rashes or lesions noted Course Vital Signs: Vital signs: Vital Signs Temperature 98.5 F 06/04/25 10:30 Pulse Rate 79 06/04/25 12:02 Respiratory Rate 17 06/04/25 12:02 Blood Pressure 113/79 06/04/25 12:02 Pulse Oximetry 98 06/04/25 12:02 Oxygen Delivery Me thod Room Air 06/04/25 10:30 MDM - Abdominal Pain Medical Decision Making Patient presents here with abdominal pain CT showed no acute findings he has a chronic nonobstructing stone does have a urinary tract infection no signs of sepsis here blood pressure has been normal did review his labs he has normal white count creatinine. His pain is much improved here abdominal exam is benign at discharge we will prescribe him pain medicine along with Bactrim did give him a dose of Rocephin here he is to follow-up with his PCP and return if worsening. Medical Records I reviewed the patient's medical records. Lab Data I reviewed the patient's lab results. 06/04/25 10:45 06/04/25 10:45 Labs/Radiology: Radiology Impressions Abdomen/Pelvis CT 06/04/25 10:42 IMPRESSION: 1. No renal obstruction. No perinephric stranding. 2. Nonobstructing 4 mm calcification lower pole LEFT kidney. 3. Normal appendix. 4. Mild constipation involving the RIGHT colon and transverse flexure. No obstruction. 5. Sigmoid diverticulosis without acute diverticulitis. 6. No free fluid or adenopathy. 7. Posterior lumbar fusion hardware. Laboratory Results WBC 10.71 10^3/uL (3.29-11.43) 06/04/25 10:45 RBC 5.01 10^6/uL (3.85-5.65) 06/04/25 10:45 Hgb 14.80 g/dL (11.27-16.99) 06/04/25 10:45 Hct 43.3 % (37-53) 06/04/25 10:45 MCV 86.4 fl (82-101) 06/04/25 10:45 MCH 29.5 pg (27-33) 06/04/25 10:45 MCHC 34.2 g/dL (30-55) 06/04/25 10:45 RDW 13.9 % (12.1-15.1) 06/04/25 10:45 Plt Count 326 10^3/cmm (157-399) 06/04/25 10:45 MPV 8.9 fL (7.4-10.4) 06/04/25 10:45 Neut % (Auto) 68.1 % 06/04/25 10:45 Lymph % (Auto) 20.3 % 06/04/25 10:45 Andrews % (Auto) 8.4 % 06/04/25 10:45 Eos % (Auto) 2.3 % 06/04/25 10:45 Baso % (Auto) 0.4 % 06/04/25 10:45 Neut # (Auto) 7.30 10^3/uL (1.8-7.7) 06/04/25 10:45 Lymph # (Auto) 2.2 10^3/uL (0.8-4.8) 06/04/25 10:45 Andrews # (Auto) 0.9 10^3/uL (0.2-0.9) 06/04/25 10:45 Eos # (Auto) 0.3 10^3/uL (0.0-0.8) 06/04/25 10:45 Baso # (Auto) 0.0 10^3/uL (0.0-0.1) 06/04/25 10:45 Nucleated RBC % (auto) 0 % 06/04/25 10:45 Nucleated RBCs # 0.0 /100WBC 06/04/25 10:45 Sodium 136 mmol/L (136-145) 06/04/25 10:45 Potassium 3.6 mmol/L (3.5-5.1) 06/04/25 10:45 Chloride 97 mmol/L (98-107) L 06/04/25 10:45 Carbon Dioxide 26 mmol/L (22-29) 06/04/25 10:45 Anion Gap 16.6 (5-19) 06/04/25 10:45 BUN 12 mg/dL (8-23) 06/04/25 10:45 Creatinine 1.2 mg/dL (0.7-1.2) 06/04/25 10:45 GFR Calculation 60.4 mL/min (90-130) L 06/04/25 10:45 Glucose 109 mg/dL (65-115) 06/04/25 10:45 Calculated Osmolality 282 mOsm/kg (285-295) L 06/04/25 10:45 Calcium 9.5 mg/dL (8.5-10.5) 06/04/25 10:45 Total Bilirubin 0.5 mg/dL (0.15-1.2) 06/04/25 10:45 AST 13 U/L (0-40) 06/04/25 10:45 ALT 15 U/L (0-41) 06/04/25 10:45 Alkaline Phosphatase 106 U/L (40-130) 06/04/25 10:45 Total Protein 6.9 g/dL (6.6-8.7) 06/04/25 10:45 Albumin 3.9 g/dL (3.5-5.2) 06/04/25 10:45 Globulin 3.0 g/dL (1.3-4.6) 06/04/25 10:45 Lipase 13 U/L (13-60) 06/04/25 10:45 Urine Color Yellow (Yellow) 06/04/25 11:30 Urine Appearance Clear (CLEAR) 06/04/25 11:30 Urine pH 5.5 (5-7) 06/04/25 11:30 Ur Specific [place] 1.016 (1.005-1.030) 06/04/25 11:30 Urine Protein Negative (Negative) 06/04/25 11:30 Urine Glucose (UA) Negative (Normal) 06/04/25 11:30 Urine Ketones Negative (Negative) 06/04/25 11:30 Urine Blood Negative (Negative) 06/04/25 11:30 Urine Nitrate Positive (Negative) A 06/04/25 11:30 Urine Bilirubin Negative (Negative) 06/04/25 11:30 Urine Urobilinogen 1.0 mg/dL (Negative) 06/04/25 11:30 Ur Leukocyte Esterase 2+ (Negative) A 06/04/25 11:30 Urine RBC 0-2 /hpf (0-2) 06/04/25 11:30 Urine WBC 51-100 /hpf (0-5) H 06/04/25 11:30 Ur Squamous Epith Cells 0-5 /hpf (0-5) 06/04/25 11:30 Amorphous Sediment Not Reportable 06/04/25 11:30 Urine Bacteria 4+ /hpf (NONE) H 06/04/25 11:30 Hyaline Casts 15.71 /lpf 06/04/25 11:30 All radiology interpretation(s) finalized by discharge Discharge Plan Discharge Patient Disposition: Home Clinical Impression: Acute UTI, Abdominal pain Condition: Stable Prescriptions: New hydrocodone-acetaminophen 5-325 mg tablet 1 tab PO Q6H PRN (Reason: pain) Qty: 14 0RF sulfamethoxazole-trimethoprim [Bactrim DS] 800-160 mg tablet 1 tab PO BID 10 Days Qty: 20 0RF ondansetron 4 mg tablet,disintegrating 4 mg PO Q6H PRN (Reason: nausea and vomiting) Qty: 14 0RF No Action celecoxib [Celebrex] 200 mg capsule 200 mg PO BID 10 Days Qty: 20 0RF prednisone 10 mg tablet 10 mg PO DAILY PRN (Reason: inflamatory pain) Qty: 30 3RF aripiprazole 2 mg tablet 2 mg PO DAILY Qty: 30 2RF lorazepam 1 mg tablet 1 mg PO QID PRN (Reason: anxiety) Qty: 120 0RF nitrofurantoin monohyd/m-cryst [Macrobid] 100 mg capsule 100 mg PO ONCE 30 Days Qty: 30 1RF Rx Instructions: must administer with a meal/food hydrocodone-acetaminophen 5-325 mg tablet 1 tab PO TID 30 Days Qty: 90 0RF paroxetine HCl [Paxil] 40 mg tablet 40 mg PO DAILY Qty: 30 2RF Advil PM 200-38 mg Tablet 2 tab PO BEDTIME PRN (Reason: Sleep) tamsulosin 0.4 mg capsule 0.4 mg PO BID Qty: 180 0RF lisinopril 30 mg tablet 30 mg PO BEDTIME ibuprofen [Advil] 200 mg Tablet 600 mg PO Q6H PRN (Reason: Fever Or Pain) hydrochlorothiazide 25 mg tablet 25 mg PO DAILY Discharge Orders: Discharge ED (Routine); Ordered 06/04/25 Ordered By: Scarlet Azar Referrals: Rohith Solis, [Primary Care Provider, Family Practice] - 4-7 days Discharge Diet: Advance as tolerated Discharge Activity: Resume usual activity Patient Instructions: Urinary Tract Infection in Men (ED), Abdominal Pain (ED) Print Language: Japanese Coding Level of Care Code ED Volunteer Services Manager for Nancy Lundberg
[2025-06-04 10:49] LABS: Hematocrit 43.3 % (37-53); Hemoglobin 14.80 g/dL (11.27-16.99); Mean Corpuscular HGB Conc 34.2 g/dL (30-55); Mean Corpuscular Hemoglobin 29.5 pg (27-33); Mean Corpuscular Volume 86.4 fl (82-101); Nucleated Red Blood Cells % 0 %; Platelet Count 326 10^3/cmm (157-399); Red Blood Count 5.01 10^6/uL (3.85-5.65); White Blood Count 10.71 10^3/uL (3.29-11.43)
[2025-06-04 11:06] LABS: Alanine Aminotransferase 15 U/L (0-41); Albumin Level 3.9 g/dL (3.5-5.2); Alkaline Phosphatase 106 U/L (40-130); Anion Gap 16.6 (5-19); Aspartate Amino Transferase 13 U/L (0-40); Blood Urea Nitrogen 12 mg/dL (8-23); Calcium 9.5 mg/dL (8.5-10.5); Carbon Dioxide 26 mmol/L (22-29); Chloride 97 mmol/L (98-107); Creatinine Clr Calc Pharmacy 74.5972; Globulin 3.0 g/dL (1.3-4.6); Glucose 109 mg/dL (65-115); Lipase 13 U/L (13-60); Osmolality Calculated 282 mOsm/kg (285-295); Potassium 3.6 mmol/L (3.5-5.1); Sodium 136 mmol/L (136-145); Total Protein 6.9 g/dL (6.6-8.7)
[2025-06-04 11:17] VITALS: RESP 17; O2SAT 97
[2025-06-04] MEDS: morphine 4 mg/mL SDV 1 mL IVP (11:17)
[2025-06-04] MEDS: ondansetron 2 mg/ML SDV 2 mL 4 MG IVP (11:18)
[2025-06-04] MEDS: iohexol 350 mg/mL 500 mL Btl (per mL) IV (11:42)
[2025-06-04 11:44] LABS: Glucose Urine UA Negative (Normal); Nitrate Urine Positive (Negative); Specific Gravity, Urine 1.016 (1.005-1.030)
[2025-06-04 11:49] LABS: Add Urine Microscopic? YES
[2025-06-04 11:50] LABS: UA Slide Review UA Slide Review Perf
[2025-06-04 12:02] VITALS: BP 113/79; PULSE 79; RESP 17; O2SAT 98
[2025-06-04] MEDS: cefTRIAXone 1,000 mg SDV 1000 MG IVP (12:15)
[2025-06-04] MEDS: HYDROcodone-acetaminophen 5-325 mg Tablet 1 TAB PO (12:43)
== END 2025-06-04 12:44 | disposition home or self-care (01) ==
PROVIDERS: Emergency Provider Emergency Medicine; PCP Family Medicine
DX: N39.0 Urinary tract infection, site not specified (principal); R10.9 Unspecified abdominal pain; Z87.891 Personal history of nicotine dependence; E78.5 Hyperlipidemia, unspecified; I10 Essential (primary) hypertension
CPT/HCPCS: 36415; 74177; 80053; 81001; 83690; 85025; 87077; 87086; 87186; 96361; 96374; 96375; 99285; J0696; J2270; J2405; J7030; J9999

== ENCOUNTER → 2025-07-06 09:14 | Outpatient (BNVA) | payer MEDICARE, MEDICAID, SELFPAY | PROVIDERS: PCP Family Medicine; Visit Provider Family Medicine | DX: N39.0 Urinary tract infection, site not specified (principal) | CPT/HCPCS: 81000; 87086 ==

== ENCOUNTER 2025-08-08 14:58 | Emergency (ER) | payer MEDICARE, MEDICAID, SELFPAY ==
[2025-08-08 14:59] VITALS: BP 157/104; PULSE 116; TEMP 36.7; O2SAT 96; BMI 36.6
--- OUTSIDE RECORDS SUMMARY | 2025-08-08 15:06 | XMS_ITS | Clinical Summary ---
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
--- OUTSIDE RECORDS SUMMARY | 2025-08-08 15:06 | XMS_ITS | Clinical Summary ---
Author Organization [facility] Facility Address [address] [address] Care Team Providers Care Hem Marker Name Role Phone Wai Morrow BRE Primary Care Provider [phone] Allergies No known active allergies Medications tamsulosin [...] complete this topic Insurance Medicare Medicaid [place] ([facility]) Care Teams Hem Marker Relationship Specialty Start Date End Date Wai Morrow ARNP [address] [place] [id number] PCP - General Nurse Practitioner 09/25/21
--- OUTSIDE RECORDS SUMMARY | 2025-08-08 15:06 | XMS_ITS | Encounter Summary ---
Author Organization [facility] Address [address] [place] [address] Phone Care Team Providers Care Barrel Loader And Cleaner Name Role Phone Wai Morrow Primary Care Provider [phone] Encounter Details Date Type Department Care Team (Late st Contact Info) Description 08/14/2021 Orders Only [facility] [address] [place] [address] Hypertension; Atrophy of kidney Social [...] kidney documented in this encounter Care Teams Barrel Loader And Cleaner Relationship Specialty Start Date End Date Wai Morrow ARNP [address] [place] [phone] PCP - General Nurse Practitioner 09/25/21 documented as of this encounter
--- OUTSIDE RECORDS SUMMARY | 2025-08-08 15:06 | XMS_ITS | Clinical Summary ---
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
--- NOTE | 2025-08-08 15:10 | ED_ITS ---
HPI - Male Genitourinary 2 General: Chief complaint: Urogenital-Male Stated complaint: low back pain / urinary issue Time Seen by Provider: 08/08/25 15:05 Source: patient Mode of arrival: ambulatory Limitations: no limitations History of Present Illness: Patient is a 70-year-old male presents to ED today with a complaint of pain while urinating as well as chronic lower back pain. Patient states he has had an issue with chronic UTIs and has been referred to urology for this. He states he does have an appointment with [facility] on Saturday. He states he completed a round of antibiotics in mid May for a UTI and then placed on additional antibiotics by his primary care (Dr. Solis) but states symptoms have not improved. He is not complaining of flank pain. No vomiting. No fevers. Looking at previous documentation looks like he was seen here in the ED on 06/04. Culture at that time grew Klebsiella pneumonia ESBL. He was placed on Bactrim at that visit which it ended up being resistant to. He then followed up with PCP on 07/06 and placed on additional Bactrim. Had culture/sensitivity then too which also grew same Klebsiella pneumonia ESBL resistant to Bactrim. He states back pain is chronic and at baseline-he reports two rods and several screws in his back. I believe he is taking hydrocodone chronically for this pain. MD Complaint: dysuria Onset (ago): week(s) Duration: constant Severity: moderate Quality: burning Exacerbating factors: none Associated symptoms: Reports dysuria and other (chronic lower back pain); Deny nausea or vomiting Related Data Home Medications ?Medication ?Instructions ?Recorded ?Confirmed ibuprofen-diphenhydramine citrate 2 tab PO BEDTIME PRN Sleep 12/23/24 08/08/25 200 mg-38 mg tablet (Advil PM) aripiprazole 2 mg tablet (Abilify) 2 mg PO DAILY 08/0808/08/25 Previous Rx's ?Medication ?Instructions ?Recorded tamsulosin 0.4 mg capsule 0.4 mg PO BID #180 caps 12/08 paroxetine HCl 40 mg tablet (Paxil) 40 mg PO DAILY #30 tabs 05/24/25 lorazepam 1 mg tablet 1 mg PO QID PRN anxiety #120 tabs 07/15/25 hydrocodone 5 mg-acetaminophen 325 1 tab PO TID Pain 3 0 days #90 tabs 08/05/25 mg tablet ertapenem 1 gram solution for 1 g IM DAILY 10 days #10 ea 08/08/25 injection Allergies Allergy/AdvReac Type Severity Reaction Status Date / Time No Known Drug Allergies Allergy Unknown Verified 08/08/25 15:04 Review of Systems 2 Const: Denies: fever(s), chills, body aches, fatigue or malaise Card: Denies: chest pain Resp: Denies: dyspnea GI: Denies: abdominal pain, nausea, vomiting, diarrhea, constipation or change in bowel habits : Reports: dysuria and urinary hesitancy; Denies: flank pain or oliguria Musc: Reports: back pain (low back pain-chronic); Denies: neck pain, extremity pain, extremity swelling, joint pain, joint swelling or joint redness Skin/Breast: Denies: rash Neuro: Denies: headache(s), numbness in extremities, weakness in extremities, sensory changes, difficulty walking or confusion PFSH ED 2 PFSH: Medical History On combination antipsychotic drug therapy Gout, unspecified Diverticula of colon Psychiatric care Slow transit constipation Hyperlipidemia Essential hypertension Generalized anxiety disorder Panic disorder [episodic paroxysmal anxiety] Surgical History History of basal cell cancer Left face and nose History of renal stent Family History Other Cancer Diabetes Hypertension Stroke Social History Smoking and tobacco/nicotine status: former use of tobacco/nicotine Second hand smoke exposure: No Alcohol intake: never Substance/Drug Use: never Adopted: No Caregiver/support person: No Lives independently: Yes Household members: spouse Housing: House Marital status: Number of children: 4 service: No Current occupational status: disabled Do you think of yourself as: Straight/Heterosexual Current gender identity: Male Physical Exam 2 Const: COMMON NORMALS: no acute distress, average body habitus, patient oriented x3, no limitations, healthy appearing, alert and well nourished G ENERAL APPEARANCE: cooperative ORIENTATION/CONSCIOUSNESS: Yes awake, Yes oriented to person, Yes oriented to place and Yes oriented to time HENMT: COMMON NORMALS: normocephalic and atraumatic HEAD & SCALP: normal to inspection, normocephalic and atraumatic FACE & SINUS: normal facial exam Eye: COMMON NORMALS: no scleral icterus Neck/C-Spine: COMMON NORMALS: full ROM, no lymphadenopathy, supple and no meningeal signs Chest: COMMONS NORMALS: normal inspection of the chest Resp: COMMON NORMALS: normal respiratory effort and clear to auscultation bilaterally AUSCULTATION: clear to auscultation bilaterally Cardio: COMMON NORMALS: regular rhythm RATE: tachycardic (mild-104 during examination) RHYTHM: regular rhythm GI: COMMON NORMALS: Normal to inspection, nondistended, normoactive bowel sounds present, Soft to palpation, non-tender, No hepatosplenomegaly present and no masses PALPATION: Yes Soft to palpation and Yes No hepatosplenomegaly present : COMMON NORMALS: Yes no CVA tenderness BLADDER/KIDNEY EXAM: Yes no CVA tenderness Back/Pelvis: COMMON NORMALS: no CVA tenderness and thoracic and lumbar spine normal to inspection LUMBAR SPINE/LOWER BACK: Yes lumbar spinal tenderness (chronic-at baseline) SACROILIAC JOINTS: Yes SI joints normal SACRUM: no tenderness COCCYX: no tenderness Extremity: COMMON NORMALS: normal to inspection, capillary refill normal, no clubbing, cyanosis or edema, no calf tenderness and no pedal edema NARRATIVE EXTREMITY EXAM: distal pulses intact GENERAL: Yes normal exam except as noted Neuro: COMMON NORMALS: patient oriented x3, moves all extremities, no focal motor deficits, no sensory deficits noted and gait normal S ENSORIUM/ORIENTATION: Yes alert, Yes oriented to person, Yes oriented to place and Yes oriented to time MENINGEAL SIGNS: Yes no meningeal signs Skin: COMMON NORMALS: no rashes or lesions noted GENERAL SKIN EXAM: no rashes or lesions noted Course 2 Consultations: Consultation #1: Dr. Terry-recommending discharging patient on 10 days of IM Ertapenem, recommending plan to continue follow up with urology on Saturday, did suggest having him see Dr. Au/ID as well Vital Signs: Vital signs: Vital Signs Temperature 98.0 F 08/08/25 14:59 Pulse Rate 116 H 08/08/25 14:59 Blood Pressure 157/104 08/08/25 14:59 Pulse Oximetry 96 08/08/25 14:59 Oxygen Delivery Me thod Room Air 08/08/25 14:59 MDM - Male Medical Decision Making Patient is a 70-year-old male here stating that he still thinks I have a UTI . He still complains of dysuria. He has completed a round of Bactrim. Culture/sensitivity reported resistance to this. He was seen by PCP and placed on Bactrim again but according to pharmacy records-was switched to Ciprofloxacin presumedly after repeat culture/sensitivity still showed resistance. He has completed Ciprofloxcin and still not improved. It also looks like he has been on Macrobid daily for UTI prevention. His UA today still suspicious for infection with positive nitrates, 1+ leukocyte est, 11-20 WBCs, and 4+ bacteria. His last 2 cultures growing Klebsiella pneumonia ESBL. The only sensitivity options that are available in oral formulation are fluoroquinolones and Macrobid-both of these he has been on without improvement. I spoke to hospitalist about possible admission for IV antibiotics and he also reviewed cultures/sensitivities/labs/etc. He is recommending outpatient [facility] IM Ertapenem. Will call this into his pharmacy. Did discuss how pharmacist could most likely assist in administering this medication. If for some reason they cannot fill/administer I recommend reaching out to PCP or returning to ED. Case discussed with Dr. Royal who agrees care plan. Did bladder scan him prior to discharge and no urinary retention noted. Differential Diagnosis Likely urinary tract infection Medical Records I reviewed the patient's medical records. Lab Data I reviewed the patient's lab results. 08/08/25 15:11 08/08/25 15:11 Laboratory Results WBC 8.70 10^3/uL (3.29-11.43) 08/08/25 15:11 RBC 4.67 10^6/uL (3.85-5.65) 08/08/25 15:11 Hgb 13.90 g/dL (11.27-16.99) 08/08/25 15:11 Hct 41.2 % (37-53) 08/08/25 15:11 MCV 88.2 fl (82-101) 08/08/25 15:11 MCH 29.8 pg (27-33) 08/08/25 15:11 MCHC 33.7 g/dL (30-55) 08/08/25 15:11 RDW 13.1 % (12.1-15.1) 08/08/25 15:11 Plt Count 278 10^3/cmm (157-399) 08/08/25 15:11 MPV 9.0 fL (7.4-10.4) 08/08/25 15:11 Neut % (Auto) 74.7 % 08/08/25 15:11 Lymph % (Auto) 12.3 % 08/08/25 15:11 Dukes % (Auto) 7.8 % 08/08/25 15:11 Eos % (Auto) 4.1 % 08/08/25 15:11 Baso % (Auto) 0.6 % 08/08/25 15:11 Neut # (Auto) 6.50 10^3/uL (1.8-7.7) 08/08/25 15:11 Lymph # (Auto) 1.1 10^3/uL (0.8-4.8) 08/08/25 15:11 Dukes # (Auto) 0.7 10^3/uL (0.2-0.9) 08/08/25 15:11 Eos # (Auto) 0.4 10^3/uL (0.0-0.8) 08/08/25 15:11 Baso # (Auto) 0.1 10^3/uL (0.0-0.1) 08/08/25 15:11 Nucleated RBC % (auto) 0 % 08/08/25 15:11 Nucleated RBCs # 0.0 /100WBC 08/08/25 15:11 Sodium 135 mmol/L (136-145) L 08/08/25 15:11 Potassium 4.4 mmol/L (3.5-5.1) 08/08/25 15:11 Chloride 101 mmol/L (98-107) 08/08/25 15:11 Carbon Dioxide 24 mmol/L (22-29) 08/08/25 15:11 Anion Gap 14.4 (5-19) 08/08/25 15:11 BUN 9 mg/dL (8-23) 08/08/25 15:11 Creatinine 1.3 mg/dL (0.7-1.2) H 08/08/25 15:11 GFR Calculation 54.9 mL/min (90-130) L 08/08/25 15:11 Glucose 125 mg/dL (65-115) H 08/08/25 15:11 Calculated Osmolality 280 mOsm/kg (285-295) L 08/08/25 15:11 Calcium 9.0 mg/dL (8.5-10.5) 08/08/25 15:11 Total Bilirubin 0.3 mg/dL (0.15-1.2) 08/08/25 15:11 AST 19 U/L (0-40) 08/08/25 15:11 ALT 21 U/L (0-41) 08/08/25 15:11 Alkaline Phosphatase 103 U/L (40-130) 08/08/25 15:11 Total Protein 7.0 g/dL (6.6-8.7) 08/08/25 15:11 Albumin 3.9 g/dL (3.5-5.2) 08/08/25 15:11 Globulin 3.1 g/dL (1.3-4.6) 08/08/25 15:11 Urine Color Yellow (Yellow) 08/08/25 15:22 Urine Appearance Clear (CLEAR) 08/08/25 15:22 Urine pH 5.5 (5-7) 08/08/25 15:22 Ur Specific [place] 1.012 (1.005-1.030) 08/08/25 15:22 Urine Protein Negative (Negative) 08/08/25 15:22 Urine Glucose (UA) Negative (Normal) 08/08/25 15:22 Urine Ketones Negative (Negative) 08/08/25 15:22 Urine Blood Negative (Negative) 08/08/25 15:22 Urine Nitrate Positive (Negative) A 08/08/25 15:22 Urine Bilirubin Negative (Negative) 08/08/25 15:22 Urine Urobilinogen 0.2 mg/dL (Negative) 08/08/25 15:22 Ur Leukocyte Esterase 1+ (Negative) A 08/08/25 15:22 Urine RBC 0-2 /hpf (0-2) 08/08/25 15:22 Urine WBC 11-20 /hpf (0-5) H 08/08/25 15:22 Ur Squamous Epith Cells 0-5 /hpf (0-5) 08/08/25 15:22 Amorphous Sediment Not Reportable 08/08/25 15:22 Urine Bacteria 4+ /hpf (NONE) H 08/08/25 15:22 Hyaline Casts 0.40 /lpf 08/08/25 15:22 No radiology studies performed this visit Discharge Plan Discharge Patient Disposition: Home Clinical Impression: Urinary tract infection due to ESBL Klebsiella Condition: Stable Prescriptions: New ertapenem 1 gram recon soln 1 g IM DAILY 10 Days Qty: 10 0RF Discontinued ibuprofen [Advil] 200 mg Tablet 600 mg PO Q6H PRN (Reason: Fever Or Pain) No Action paroxetine HCl [Paxil] 40 mg tablet 40 mg PO DAILY Qty: 30 2RF lorazepam 1 mg tablet 1 mg PO QID PRN (Reason: anxiety) Qty: 120 0RF hydrocodone-acetaminophen 5-325 mg tablet 1 tab PO TID 30 Days Qty: 90 0RF Advil PM 200-38 mg Tablet 2 tab PO BEDTIME PRN (Reason: Sleep) tamsulosin 0.4 mg capsule 0.4 mg PO BID Qty: 180 0RF aripiprazole [Abilify] 2 mg tablet 2 mg PO DAILY Discharge Orders: Discharge ED (Routine); Ordered 08/08/25 Ordered By: Halie Brown Referrals: Rohith Solis DO [Primary Care Provider, Family Practice] Patient Instructions: Urinary Tract Infection in Men (DC), Dysuria (ED), Patient Portal & [place] Instructions Activity Restrictions/Additional Instructions: As we discussed, we will call you in antibiotics that are to be administered intramuscularly over the next 10 days. The pharmacy should be able to help administer these. Continue plan to follow-up with urology on Saturday as scheduled. I also placed a case management referral to have you see infectious disease due to your chronic and recurrent UTIs. You may return to the emergency department for worsening pain, onset of abdominal or flank pain, repetitive episodes of vomiting, inability to feel or tolerate your antibiotics, fevers, generally feeling worse or unwell, or any other concerns you may have. Print Language: Iranian Coding Level of Care Code ED Environmental Maintenance Worker for Nancy Lundberg
[2025-08-08 15:15] LABS: Hematocrit 41.2 % (37-53); Hemoglobin 13.90 g/dL (11.27-16.99); Mean Corpuscular HGB Conc 33.7 g/dL (30-55); Mean Corpuscular Hemoglobin 29.8 pg (27-33); Mean Corpuscular Volume 88.2 fl (82-101); Nucleated Red Blood Cells % 0 %; Platelet Count 278 10^3/cmm (157-399); Red Blood Count 4.67 10^6/uL (3.85-5.65); White Blood Count 8.70 10^3/uL (3.29-11.43)
[2025-08-08 15:28] LABS: Glucose Urine UA Negative (Normal); Nitrate Urine Positive (Negative); Specific Gravity, Urine 1.012 (1.005-1.030)
[2025-08-08 15:33] LABS: Add Urine Microscopic? YES
[2025-08-08 15:38] LABS: Alanine Aminotransferase 21 U/L (0-41); Albumin Level 3.9 g/dL (3.5-5.2); Alkaline Phosphatase 103 U/L (40-130); Anion Gap 14.4 (5-19); Aspartate Amino Transferase 19 U/L (0-40); Blood Urea Nitrogen 9 mg/dL (8-23); Calcium 9.0 mg/dL (8.5-10.5); Carbon Dioxide 24 mmol/L (22-29); Chloride 101 mmol/L (98-107); Globulin 3.1 g/dL (1.3-4.6); Glucose 125 mg/dL (65-115); Osmolality Calculated 280 mOsm/kg (285-295); Potassium 4.4 mmol/L (3.5-5.1); Sodium 135 mmol/L (136-145); Total Protein 7.0 g/dL (6.6-8.7)
[2025-08-08 16:04] VITALS: BP 138/97; PULSE 96; O2SAT 95
[2025-08-08 16:30] VITALS: BP 169/106; PULSE 90; O2SAT 96
[2025-08-08] MEDS: ertapenem 1,000 mg SDV 1000 MG IM (17:29)
[2025-08-08 18:00] VITALS: BP 139/96; PULSE 88; O2SAT 96
--- NOTE | 2025-08-09 09:22 | DCPLANNER ---
messaged ID for er f/u
== END 2025-08-08 18:00 | disposition home or self-care (01) ==
PROVIDERS: Emergency Provider Physician Assistant; PCP Family Medicine
DX: N39.0 Urinary tract infection, site not specified (principal); B96.1 Klebsiella pneumoniae [K. pneumoniae] as the cause of diseases classified elsewhere; Z16.12 Extended spectrum beta lactamase (ESBL) resistance
CPT/HCPCS: 36415; 51798; 80053; 81001; 85025; 87086; 87186; 96372; 99284; J1335

== ENCOUNTER 2025-08-15 13:57 | Observation (INO) | payer MEDICARE, MEDICAID, SELFPAY ==
[2025-08-15] VITALS (7 sets, daily range): BP systolic 120–175; BP diastolic 60–151; PULSE 83–99; RESP 18; TEMP 36.4; O2SAT 91–97; BMI 31.7
--- OUTSIDE RECORDS SUMMARY | 2025-08-15 14:06 | XMS_ITS | Clinical Summary ---
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
--- OUTSIDE RECORDS SUMMARY | 2025-08-15 14:06 | XMS_ITS | Clinical Summary ---
Author Organization [facility] Address [address] [place] [address] Phone Care Team Providers Care Toll Collector Name Role Phone Non-Staff, Physician Primary Care [...] 108.9 kg (240 lb) 09/18/2018 12:26 PM MANAGER MATERIALS MANAGEMENT Height 185.4 cm (6' 1 ) 09/18/2018 12:26 PM MANAGER MATERIALS MANAGEMENT Body Mass Index 31.66 09/18/2018 12:26 PM MANAGER MATERIALS MANAGEMENT Plan of Treatment Health Maintenance Due Date [...] Insurance [address] [place] [id number] MEDICAID [place] MEDICARE PART A AND B Care Teams Toll Collector Relationship Specialty Start Date End Date Non-Staff, Physician NO ADDRESS ON FILE PCP - General 12/20/16
--- OUTSIDE RECORDS SUMMARY | 2025-08-15 14:06 | XMS_ITS | Encounter Summary ---
Author Organization [facility] Address [address] [place] [address] Phone Care Team Providers Care Freelance Art Director Name Role Phone Wai Morrow Primary Care Provider [phone]- [phone] Encounter Details Date Type Department Care Team (Late st Contact Info) Description 08/14/2021 Orders Only [facility] [address] [place] [address] Hypertension; Atrophy of kidney Social [...] kidney documented in this encounter Care Teams Freelance Art Director Relationship Specialty Start Date End Date Wai Morrow ARNP [address] [place] [phone] PCP - General Nurse Practitioner 09/25/21 documented as of this encounter
--- OUTSIDE RECORDS SUMMARY | 2025-08-15 14:06 | XMS_ITS | Clinical Summary ---
Author Organization [facility] Address [address] [address] Care Team Providers Care Medical Records Field Technician Name Role Phone Wai Morrow BRE Primary Care Provider [phone]- [phone] Allergies No known active allergies Medications tamsulosin [...] complete this topic Insurance Medicare Medicaid [place] ([facility]) Care Teams Medical Records Field Technician Relationship Specialty Start Date End Date Wai Morrow ARNP [address] [place] [phone] PCP - General Nurse Practitioner 09/25/21
[2025-08-15 15:27] LABS: Glucose Urine UA Negative (Normal); Nitrate Urine Positive (Negative); Specific Gravity, Urine 1.014 (1.005-1.030)
[2025-08-15 15:31] LABS: Add Urine Microscopic? YES
--- NOTE | 2025-08-15 15:40 | CTR_ITS ---
PROCEDURE INFORMATION: Exam: CT Abdomen And Pelvis With Contrast Exam date and time: 08/15/2025 4:33 PM Age: 70 years old Clinical indication: Abdominal pain; Additional info: Abd pain x1 week TECHNIQUE: Imaging protocol: Computed tomography of the abdomen and pelvis with contrast. Radiation optimization: All CT scans at this facility use at least one of these dose optimization techniques: automated exposure control; mA and/or kV adjustment per patient size (includes targeted exams where dose is matched to clinical indication); or iterative reconstruction. Contrast material: OMNI 350; Contrast volume: 100 ml; Contrast route: INTRAVENOUS (IV); COMPARISON: CT abdomen pelvis w con* [id number] 06/04/2025 11:31 AM RADIATION DOSE METRICS: Total DLP (mGy-cm): 1121.34 FINDINGS: Tubes, catheters and devices: Bilateral sacroiliac screws are seen. Coronary arteries: There is mild atherosclerotic calcification of the coronary arteries. Liver: Hypodense liver lesions measuring up to 7 mm, too small to characterize. There is a diffuse decrease in hepatic parenchymal density, consistent with fatty infiltration. Gallbladder and biliary ducts: Normal. No calcified stones. No ductal dilation. Pancreas: Pancreas 4 mm nonobstructing stone in the lower pole of the left kidney. Spleen: Normal. No splenomegaly. Adrenal glands: Normal. No mass. Kidneys and ureters: There is a simple cyst in the right kidney. There is no hydronephrosis. Stomach and bowel: There is mildly excessive colonic stool content. Mild diverticulosis is present in the distal colon. Appendix: No evidence of appendicitis. Intraperitoneal space: Unremarkable. No free air. No significant fluid collection. Vasculature: There are numerous benign phleboliths in the pelvis. Lymph nodes: Unremarkable. No enlarged lymph nodes. Urinary bladder: Unremarkable as visualized. Reproductive: Enlarged prostate gland with its median lobe impinging on the neck of the bladder. Enlarged prostate gland with its median lobe impinging on the neck of the bladder. Bones/joints: Postsurgical changes of posterior decompression and instrumentation at L2-pelvis. Lucency surrounding the left L2 screw is similar to prior study, extending to the left L1-L2 disc. There is a curvature of the lumbar spine convex to the left. Soft tissues: There are bilateral fat containing inguinal hernias. CT/CT abdomen pelvis w con* [id number] IMPRESSION: 1. No acute intra-abdominal process. 2. Mild constipation. COMMENTS: Consistent with the [employer]'s Incidental Findings Committee white paper (J Am Cherry Radiol 2018): Any incidental renal lesion less than 1 cm or classified as too small to characterize, or any incidental cystic renal lesion characterized as simple-appearing, is likely benign. No follow-up imaging is recommended for these lesions per consensus recommendations based on imaging criteria.
--- NOTE | 2025-08-15 15:51 | ED_ITS ---
Documented by User: LOLIS Aquino 08/15/25 18:02 HPI - Back Pain/Injury 2 General: Chief Complaint: Back Pain/Injury Stated Complaint: back pain pos uti Time Seen by Provider: 08/15/25 15:30 Source: patient Mode of arrival: ambulatory Limitations: no limitations History of Present Illness: Patient is a 70-year-old male with past medical history of recurrent UTI who presents to the emergency department complaining of abdominal pain and back pain for the past week. He was seen here in the emergency department on 08/08 was diagnosed with a UTI after having failed outpatient therapies on Bactrim and Macrobid. It had been attempted to prescribe him a ertapenem on an outpatient basis but patient tells me he was unable to get this filled as he was told pharmacy does not do this. He has been a week without antibiotics, as he is set to see infectious disease due to his refractory UTI, and notes that his back pain and lower abdominal pain has been worsening. No blood in his urine or dysuria. He has been taking hydrocodone for chronic low back pain as well of which she has a history of. At this time he is afebrile, mildly hypertensive but rest of the vital stable. States that he has had intermittent chills and fever at home. MD elicited complaint: back pain Pertinent past history: other (recurrent UTI) Onset (ago): week(s) Timing: constant Associated symptoms: Reports abdominal pain, chills and fever(s); Deny dysuria, nausea, urinary urgency or vomiting Related Data Home Medications ?Medication ?Instructions ?Recorded ?Confirmed ibuprofen-diphenhydramine citrate 2 tab PO BEDTIME PRN Sleep 12/23/24 08/15/25 200 mg-38 mg tablet (Advil PM) aripiprazole 2 mg tablet (Abilify) 2 mg PO DAILY 08/0808/15/25 Previous Rx's ?Medication ?Instructions ?Recorded tamsulosin 0.4 mg capsule 0.4 mg PO BID #180 caps 12/08 paroxetine HCl 40 mg tablet (Paxil) 40 mg PO DAILY #30 tabs 05/24/25 lorazepam 1 mg tablet 1 mg PO QID PRN anxiety #120 tabs 07/15/25 hydrocodone 5 mg-acetaminophen 325 1 tab PO TID Pain 3 0 days #90 tabs 08/05/25 mg tablet Allergies Allergy/AdvReac Type Severity Reaction Status Date / Time No Known Drug Allergies Allergy Unknown Verified 08/15/25 14:16 Review of Systems 2 General: Reports: 10 or more systems reviewed and unremarkable except in HPI and below Const: Reports: fever(s) and chills; Denies: change in appetite, change in weight or diaphoresis ENMT: Denies: throat pain or hoarseness Card: Denies: chest pain, palpitations or lightheadedness Resp: Denies: dyspnea, productive cough or wheezing GI: Reports: abdominal pain; Denies: nausea, vomiting, diarrhea, constipation, bloating, change in stool character or hematochezia : Denies: flank pain, difficulty urinating, dysuria, urinary frequency or urinary urgency Musc: Reports: back pain; Denies: neck pain Skin/Breast: Denies: rash or new lesions Neuro: Denies: headache(s) or dizziness PFSH ED 2 PFSH: Medical History On combination antipsychotic drug therapy Gout, unspecified Diverticula of colon Psychiatric care Slow transit constipation Hyperlipidemia Essential hypertension Generalized anxiety disorder Panic disorder [episodic paroxysmal anxiety] Surgical History History of basal cell cancer Left face and nose History of renal stent Family History Other Cancer Diabetes Hypertension Stroke Social History Smoking and tobacco/nicotine status: former use of tobacco/nicotine Second hand smoke exposure: No Alcohol intake: never Substance/Drug Use: never Adopted: No Caregiver/support person: No Lives independently: Yes Household members: spouse Housing: House Marital status: Number of children: 4 service: No Current occupational status: disabled Do you think of yourself as: Straight/Heterosexual Current gender identity: Male Physical Exam 2 Const: COMMON NORMALS: no acute distress, patient oriented x3, alert and well nourished GENERAL APPEARANCE: cooperative ORIENTATION/CONSCIOUSNESS: Yes awake OTHER: nontoxic Neck/C-Spine: COMMON NORMALS: full ROM, supple and no meningeal signs Resp: COMMON NORMALS: normal respiratory effort, No retractions, No use of accessory muscles and clear to auscultation bilaterally AUSCULTATION: clear to auscultation bilaterally, no crackles, no rales, no rhonchi and no wheezes Cardio: COMMON NORMALS: regular rate, regular rhythm, No gallops present (Cardio), No clicks present (Cardio), No murmurs present (Cardio) and No rub (Cardio) RATE: regular rate RHYTHM: regular rhythm GI: COMMON NORMALS: Soft to palpation INSPECTION: Yes central obesity A USCULTATION: Yes normoactive bowel sounds PALPATION: Yes Soft to palpation and Yes Tenderness to palpation present (GI) (Diffuse) : COMMON NORMALS: Yes no CVA tenderness BLADDER/KIDNEY EXAM: Yes no CVA tenderness Back/Pelvis: COMMON NORMALS: no CVA tenderness Extremity: COMMON NORMALS: normal to inspection and full ROM Neuro: COMMON NORMALS: patient oriented x3, moves all extremities, no focal motor deficits and no sensory deficits noted SENSORIUM/ORIENTATION: Yes alert MENINGEAL SIGNS: Yes no meningeal signs Psych: COMMON NORMALS: mental status grossly normal, cooperative and speech normal SPEECH: Yes normal speech Skin: COMMON NORMALS: no rashes or lesions noted GENERAL SKIN EXAM: no rashes or lesions noted Course 2 Vital Signs: Vital signs: Vital Signs Temperature 97.5 F L 08/15/25 14:12 Pulse Rate 84 08/15/25 19:30 Respiratory Rate 18 08/15/25 15:30 Blood Pressure 120/93 08/15/25 19:30 Pulse Oximetry 95 08/15/25 19:30 Oxygen Delivery Me thod Room Air 08/15/25 19:30 MDM - Back Pain/Injury Medical Decision Making Patient presented for abdominal pain and back pain, these were reported symptoms consistent with his history of UTI. He was seen here on 08/08, had been arranged for him to product picker outpatient ertapenem as this was one of the only medications susceptible to on urinary culture. His urinalysis today does show worsening impaired to prior urinalysis a week ago. However there is no leukocytosis, his kidney function has remained stable, and CT abdomen and pelvis does not demonstrate any acute process. However being that he has failed outpatient therapy on Macrobid and Bactrim, I did speak to Dr. Terry who is agreeable to excepting him for IV antibiotics. Patient is also set to see infectious disease coming up for the same reason, I informed him of admission and he agrees at this time. Dr. Holm will place admit orders. Labs 08/15/25 15:53 08/15/25 15:53 Radiology Impressions Abdomen/Pelvis CT 08/15/25 15:40 IMPRESSION: 1. No acute intra-abdominal process. 2. Mild constipation. COMMENTS: Consistent with the [place] [employer]'s Incidental Findings Committee white paper (J Am Cherry [employer]iol 2018): Any incidental renal lesion less than 1 cm or classified as too small to characterize, or any incidental cystic renal lesion characterized as simple-appearing, is likely benign. No follow-up imaging is recommended for these lesions per consensus recommendations based on imaging criteria. Laboratory Results WBC 8.07 10^3/uL (3.29-11.43) 08/15/25 15:53 RBC 4.77 10^6/uL (3.85-5.65) 08/15/25 15:53 Hgb 14.20 g/dL (11.27-16.99) 08/15/25 15:53 Hct 42.2 % (37-53) 08/15/25 15:53 MCV 88.5 fl (82-101) 08/15/25 15:53 MCH 29.8 pg (27-33) 08/15/25 15:53 MCHC 33.6 g/dL (30-55) 08/15/25 15:53 RDW 13.2 % (12.1-15.1) 08/15/25 15:53 Plt Count 244 10^3/cmm (157-399) 08/15/25 15:53 MPV 9.1 fL (7.4-10.4) 08/15/25 15:53 Neut % (Auto) 74.9 % 08/15/25 15:53 Lymph % (Auto) 13.3 % 08/15/25 15:53 Beckham % (Auto) 8.6 % 08/15/25 15:53 Eos % (Auto) 2.2 % 08/15/25 15:53 Baso % (Auto) 0.5 % 08/15/25 15:53 Neut # (Auto) 6.05 10^3/uL (1.8-7.7) 08/15/25 15:53 Lymph # (Auto) 1.1 10^3/uL (0.8-4.8) 08/15/25 15:53 Beckham # (Auto) 0.7 10^3/uL (0.2-0.9) 08/15/25 15:53 Eos # (Auto) 0.2 10^3/uL (0.0-0.8) 08/15/25 15:53 Baso # (Auto) 0.0 10^3/uL (0.0-0.1) 08/15/25 15:53 Nucleated RBC % (auto) 0 % 08/15/25 15:53 Nucleated RBCs # 0.0 /100WBC 08/15/25 15:53 Sodium 136 mmol/L (136-145) 08/15/25 15:53 Potassium 3.9 mmol/L (3.5-5.1) 08/15/25 15:53 Chloride 101 mmol/L (98-107) 08/15/25 15:53 Carbon Dioxide 25 mmol/L (22-29) 08/15/25 15:53 Anion Gap 13.9 (5-19) 08/15/25 15:53 BUN 11 mg/dL (8-23) 08/15/25 15:53 Creatinine 1.1 mg/dL (0.7-1.2) 08/15/25 15:53 GFR Calculation 66.6 mL/min (90-130) L 08/15/25 15:53 Glucose 119 mg/dL (65-115) H 08/15/25 15:53 Calculated Osmolality 283 mOsm/kg (285-295) L 08/15/25 15:53 Calcium 9.1 mg/dL (8.5-10.5) 08/15/25 15:53 Total Bilirubin 0.4 mg/dL (0.15-1.2) 08/15/25 15:53 AST 15 U/L (0-40) 08/15/25 15:53 ALT 19 U/L (0-41) 08/15/25 15:53 Alkaline Phosphatase 101 U/L (40-130) 08/15/25 15:53 Total Protein 6.7 g/dL (6.6-8.7) 08/15/25 15:53 Albumin 3.9 g/dL (3.5-5.2) 08/15/25 15:53 Globulin 2.8 g/dL (1.3-4.6) 08/15/25 15:53 Lipase 18 U/L (13-60) 08/15/25 15:53 Urine Color Yellow (Yellow) 08/15/25 15:22 Urine Appearance Cloudy (CLEAR) A 08/15/25 15:22 Urine pH 5.5 (5-7) 08/15/25 15:22 Ur Specific Collins 1.014 (1.005-1.030) 08/15/25 15:22 Urine Protein 1+ (Negative) A 08/15/25 15:22 Urine Glucose (UA) Negative (Normal) 08/15/25 15:22 Urine Ketones Negative (Negative) 08/15/25 15:22 Urine Blood Trace (Negative) A 08/15/25 15:22 Urine Nitrate Positive (Negative) A 08/15/25 15:22 Urine Bilirubin Negative (Negative) 08/15/25 15:22 Urine Urobilinogen 1.0 mg/dL (Negative) 08/15/25 15:22 Ur Leukocyte Esterase 3+ (Negative) A 08/15/25 15:22 Urine RBC 0-2 /hpf (0-2) 08/15/25 15:22 Urine WBC >100 /hpf (0-5) H 08/15/25 15:22 Ur Squamous Epith Cells 0-5 /hpf (0-5) 08/15/25 15:22 Amorphous Sediment Not Reportable 08/15/25 15:22 Urine Bacteria 4+ /hpf (NONE) H 08/15/25 15:22 Hyaline Casts 7.42 /lpf 08/15/25 15:22 All radiology interpretation(s) finalized by discharge Discharge Plan Discharge Patient Disposition: Placed in Observation Admit Provider: Go Terry Clinical Impression: Urinary tract infection due to ESBL Klebsiella Coding Level of Care Code ED Manager Heart for Chg Fwd Documented by User: Ashutosh Holm DO 08/15/25 21:08 HPI - Back Pain/Injury 2 General: Chief Complaint: Back Pain/Injury Stated Complaint: back pain pos uti Time Seen by Provider: 08/15/25 15:30 Related Data Home Medications ?Medication ?Instructions ?Recorded ?Confirmed ibuprofen-diphenhydramine citrate 2 tab PO BEDTIME PRN Sleep 12/23/24 08/15/25 200 mg-38 mg tablet (Advil PM) aripiprazole 2 mg tablet (Abilify) 2 mg PO DAILY 08/0808/15/25 Previous Rx's ?Medication ?Instructions ?Recorded tamsulosin 0.4 mg capsule 0.4 mg PO BID #180 caps 12/08 paroxetine HCl 40 mg tablet (Paxil) 40 mg PO DAILY #30 tabs 05/24/25 lorazepam 1 mg tablet 1 mg PO QID PRN anxiety #120 tabs 07/15/25 hydrocodone 5 mg-acetaminophen 325 1 tab PO TID Pain 3 0 days #90 tabs 08/05/25 mg tablet Allergies Allergy/AdvReac Type Severity Reaction Status Date / Time No Known Drug Allergies Allergy Unknown Verified 08/15/25 14:16 PFSH ED 2 PFSH: Medical History On combination antipsychotic drug therapy Gout, unspecified Diverticula of colon Psychiatric care Slow transit constipation Hyperlipidemia Essential hypertension Generalized anxiety disorder Panic disorder [episodic paroxysmal anxiety] Surgical History History of basal cell cancer Left face and nose History of renal stent Family History Other Cancer Diabetes Hypertension Stroke Social History Smoking and tobacco/nicotine status: former use of tobacco/nicotine Second hand smoke exposure: No Alcohol intake: never Substance/Drug Use: never Adopted: No Caregiver/support person: No Lives independently: Yes Household members: spouse Housing: House Marital status: Number of children: 4 service: No Current occupational status: disabled Do you think of yourself as: Straight/Heterosexual Current gender identity: Male Course 2 Vital Signs: Vital signs: Vital Signs Temperature 97.5 F L 08/15/25 14:12 Pulse Rate 84 08/15/25 19:30 Respiratory Rate 18 08/15/25 15:30 Blood Pressure 120/93 08/15/25 19:30 Pulse Oximetry 95 08/15/25 19:30 Oxygen Delivery Me thod Room Air 08/15/25 19:30 MDM - Back Pain/Injury Medical Decision Making Patient presented for abdominal pain and back pain, these were reported symptoms consistent with his history of UTI. He was seen here on 08/08, had been arranged for him to product picker outpatient ertapenem as this was one of the only medications susceptible to on urinary culture. His urinalysis today does show worsening impaired to prior urinalysis a week ago. However there is no leukocytosis, his kidney function has remained stable, and CT abdomen and pelvis does not demonstrate any acute process. However being that he has failed outpatient therapy on Macrobid and Bactrim, I did speak to Dr. Terry who is agreeable to excepting him for IV antibiotics. Patient is also set to see infectious disease coming up for the same reason, I informed him of admission and he agrees at this time. Dr. Holm will place admit orders. Patient originally seen by Mr. Mindy PA-C. I agree with his history, evaluation, and management. Admission orders have been written. Labs 08/15/25 15:53 08/15/25 15:53 Radiology Impressions Abdomen/Pelvis CT 08/15/25 15:40 IMPRESSION: 1. No acute intra-abdominal process. 2. Mild constipation. COMMENTS: Consistent with the [place] [employer]'s Incidental Findings Committee white paper (J Am [employer] Radiol 2018): Any incidental renal lesion less than 1 cm or classified as too small to characterize, or any incidental cystic renal lesion characterized as simple-appearing, is likely benign. No follow-up imaging is recommended for these lesions per consensus recommendations based on imaging criteria. Laboratory Results WBC 8.07 10^3/uL (3.29-11.43) 08/15/25 15:53 RBC 4.77 10^6/uL (3.85-5.65) 08/15/25 15:53 Hgb 14.20 g/dL (11.27-16.99) 08/15/25 15:53 Hct 42.2 % (37-53) 08/15/25 15:53 MCV 88.5 fl (82-101) 08/15/25 15:53 MCH 29.8 pg (27-33) 08/15/25 15:53 MCHC 33.6 g/dL (30-55) 08/15/25 15:53 RDW 13.2 % (12.1-15.1) 08/15/25 15:53 Plt Count 244 10^3/cmm (157-399) 08/15/25 15:53 MPV 9.1 fL (7.4-10.4) 08/15/25 15:53 Neut % (Auto) 74.9 % 08/15/25 15:53 Lymph % (Auto) 13.3 % 08/15/25 15:53 Beckham % (Auto) 8.6 % 08/15/25 15:53 Eos % (Auto) 2.2 % 08/15/25 15:53 Baso % (Auto) 0.5 % 08/15/25 15:53 Neut # (Auto) 6.05 10^3/uL (1.8-7.7) 08/15/25 15:53 Lymph # (Auto) 1.1 10^3/uL (0.8-4.8) 08/15/25 15:53 Beckham # (Auto) 0.7 10^3/uL (0.2-0.9) 08/15/25 15:53 Eos # (Auto) 0.2 10^3/uL (0.0-0.8) 08/15/25 15:53 Baso # (Auto) 0.0 10^3/uL (0.0-0.1) 08/15/25 15:53 Nucleated RBC % (auto) 0 % 08/15/25 15:53 Nucleated RBCs # 0.0 /100WBC 08/15/25 15:53 Sodium 136 mmol/L (136-145) 08/15/25 15:53 Potassium 3.9 mmol/L (3.5-5.1) 08/15/25 15:53 Chloride 101 mmol/L (98-107) 08/15/25 15:53 Carbon Dioxide 25 mmol/L (22-29) 08/15/25 15:53 Anion Gap 13.9 (5-19) 08/15/25 15:53 BUN 11 mg/dL (8-23) 08/15/25 15:53 Creatinine 1.1 mg/dL (0.7-1.2) 08/15/25 15:53 GFR Calculation 66.6 mL/min (90-130) L 08/15/25 15:53 Glucose 119 mg/dL (65-115) H 08/15/25 15:53 Calculated Osmolality 283 mOsm/kg (285-295) L 08/15/25 15:53 Calcium 9.1 mg/dL (8.5-10.5) 08/15/25 15:53 Total Bilirubin 0.4 mg/dL (0.15-1.2) 08/15/25 15:53 AST 15 U/L (0-40) 08/15/25 15:53 ALT 19 U/L (0-41) 08/15/25 15:53 Alkaline Phosphatase 101 U/L (40-130) 08/15/25 15:53 Total Protein 6.7 g/dL (6.6-8.7) 08/15/25 15:53 Albumin 3.9 g/dL (3.5-5.2) 08/15/25 15:53 Globulin 2.8 g/dL (1.3-4.6) 08/15/25 15:53 Lipase 18 U/L (13-60) 08/15/25 15:53 Urine Color Yellow (Yellow) 08/15/25 15:22 Urine Appearance Cloudy (CLEAR) A 08/15/25 15:22 Urine pH 5.5 (5-7) 08/15/25 15:22 Ur Specific Collins 1.014 (1.005-1.030) 08/15/25 15:22 Urine Protein 1+ (Negative) A 08/15/25 15:22 Urine Glucose (UA) Negative (Normal) 08/15/25 15:22 Urine Ketones Negative (Negative) 08/15/25 15:22 Urine Blood Trace (Negative) A 08/15/25 15:22 Urine Nitrate Positive (Negative) A 08/15/25 15:22 Urine Bilirubin Negative (Negative) 08/15/25 15:22 Urine Urobilinogen 1.0 mg/dL (Negative) 08/15/25 15:22 Ur Leukocyte Esterase 3+ (Negative) A 08/15/25 15:22 Urine RBC 0-2 /hpf (0-2) 08/15/25 15:22 Urine WBC >100 /hpf (0-5) H 08/15/25 15:22 Ur Squamous Epith Cells 0-5 /hpf (0-5) 08/15/25 15:22 Amorphous Sediment Not Reportable 08/15/25 15:22 Urine Bacteria 4+ /hpf (NONE) H 08/15/25 15:22 Hyaline Casts 7.42 /lpf 08/15/25 15:22 Discharge Plan Discharge Patient Disposition: Placed in Observation Admit Provider: Go Terry Clinical Impression: Urinary tract infection due to ESBL Klebsiella Coding Level of Care Code ED Manager Heart for Nancy Lundberg
[2025-08-15 15:52] LABS: UA Slide Review UA Slide Review Perf
[2025-08-15 16:05] LABS: Hematocrit 42.2 % (37-53); Hemoglobin 14.20 g/dL (11.27-16.99); Mean Corpuscular HGB Conc 33.6 g/dL (30-55); Mean Corpuscular Hemoglobin 29.8 pg (27-33); Mean Corpuscular Volume 88.5 fl (82-101); Nucleated Red Blood Cells % 0 %; Platelet Count 244 10^3/cmm (157-399); Red Blood Count 4.77 10^6/uL (3.85-5.65); White Blood Count 8.07 10^3/uL (3.29-11.43)
[2025-08-15 16:19] LABS: Alanine Aminotransferase 19 U/L (0-41); Albumin Level 3.9 g/dL (3.5-5.2); Alkaline Phosphatase 101 U/L (40-130); Aspartate Amino Transferase 15 U/L (0-40); Blood Urea Nitrogen 11 mg/dL (8-23); Calcium 9.1 mg/dL (8.5-10.5); Carbon Dioxide 25 mmol/L (22-29); Chloride 101 mmol/L (98-107); Globulin 2.8 g/dL (1.3-4.6); Glucose 119 mg/dL (65-115); Lipase 18 U/L (13-60); Osmolality Calculated 283 mOsm/kg (285-295); Sodium 136 mmol/L (136-145); Total Protein 6.7 g/dL (6.6-8.7)
[2025-08-15 16:22] LABS: Anion Gap 13.9 (5-19); Potassium 3.9 mmol/L (3.5-5.1)
[2025-08-15] MEDS: iohexol 350 mg/mL 500 mL Btl (per mL) IV (16:37)
[2025-08-15] MEDS: ertapenem 1,000 mg SDV 1000 MG IVP (17:13)
--- NOTE | 2025-08-15 18:58 | P.HP_ITS ---
Providers/Chief Complaint 2 Primary Care Provider: Rohith Solis DO Chief Complaint: back pain pos uti History of Present Illness Eva Quick is a 70 year old man with a history of hypertension, attention-deficit/hyperactivity disorder (ADHD), Alzheimer?s disease (AD), panic disorder, slow colonic transit, and recurrent urinary tract infections (UTIs) including multidrug-resistant organism (MDRO) infections. Presents to the emergency department (ED) with persistent dysuria and chronic lower back pain. Reports multiple prior UTIs with Escherichia coli (E. coli) confirmed on urine cultures (06/04, 07/06, 08/08). Previously treated with trimethoprim- sulfamethoxazole (Bactrim) on 07/06, but the organism was resistant; prescribed ciprofloxacin on 07/09, also resistant. Symptoms did not clear with prior antibiotics. On last ED visit (08/08), was set up for intramuscular ertapenem injections for the resistant organism but did not picker/puller or administer any doses due to pharmacy/administration issues. Had a urology appointment ([facility]) on Saturday the . Denies vomiting, diarrhea, blood in stool, hematuria, rashes, or leg swelling. Reports slight subjective fever at times. Uses a cane due to chronic back issues. Review of Systems 2 Const: Denies: fever(s), chills, body aches or malaise ENMT: Denies: throat pain Card: Denies: chest pain, edema, pre-syncope or dyspnea on exertion Resp: Denies: dyspnea, productive cough, change in phlegm color or hemoptysis GI: Denies: abdominal pain, nausea, vomiting, diarrhea, constipation, hematochezia or melena : Reports: difficulty urinating and dysuria; Denies: flank pain Musc: Reports: back pain (Chronic); Denies: joint swelling or joint redness Skin/Breast: Denies: rash or new lesions Neuro: Denies: headache(s) or confusion Medications/Allergies Home Medications ?Medication ?Instructions ?Recorded ?Confirmed ?Last Taken ?Type ibuprofen-diphenhydramine citrate 2 tab PO BEDTIME PRN Sleep 12/23/24 08/15/25 06/03/25 20:00 History 200 mg-38 mg tablet (Advil PM) tamsulosin 0.4 mg capsule 0.4 mg PO BID #180 caps 06/0 12/0808/15/25 08/15/25 Rx paroxetine HCl 40 mg tablet (Paxil) 40 mg PO DAILY #30 tabs 05/24/25 08/15/25 08/15/25 Rx lorazepam 1 mg tablet 1 mg PO QID PRN anxiety #120 tabs 07/15/25 08/15/25 08/07/25 Rx hydrocodone 5 mg-acetaminophen 325 1 tab PO TID Pain 3 0 days #90 tabs 08/05/25 08/15/25 08/07/25 Rx mg tablet aripiprazole 2 mg tablet (Abilify) 2 mg PO DAILY 08/0808/15/25 08/15/25 History Allergies Allergy/AdvReac Type Severity Reaction Status Date / Time No Known Drug Allergies Allergy Unknown Verified 08/15/25 14:16 PFSH Acute 2 PFSH: Medical History On combination antipsychotic drug therapy Gout, unspecified Diverticula of colon Psychiatric care Slow transit constipation Hyperlipidemia Essential hypertension Generalized anxiety disorder Panic disorder [episodic paroxysmal anxiety] Surgical History History of basal cell cancer Left face and nose History of renal stent Family History Other Cancer Diabetes Hypertension Stroke Social History Smoking and tobacco/nicotine status: former use of tobacco/nicotine Second hand smoke exposure: No Alcohol intake: never Substance/Drug Use: never Adopted: No Caregiver/support person: No Lives independently: Yes Household members: spouse Housing: House Marital status: Number of children: 4 service: No Current occupational status: disabled Do you think of yourself as: Straight/Heterosexual Current gender identity: Male Vitals/I&O/Wt Last Vital Signs Temp 97.5 F L 08/15/25 14:12 Pulse 96 08/15/25 15:30 Resp 18 08/15/25 15:30 BP 175/151 08/15/25 18:35 Pulse Ox 96 08/15/25 18:35 O2 Del Method Room Air 08/15/25 17:17 08/15/25 08/15/25 08/15/25 06:59 14:59 22:59 Intake Total 0 / 0 Balance 0 / 0 Weight last 48 hrs Weight 104.326 kg Physical Exam 2 Const: COMMON NORMALS: patient oriented x3 and alert GENERAL APPEARANCE: c ooperative ORIENTATION/CONSCIOUSNESS: Yes awake HENMT: COMMON NORMALS: oropharynx normal Neck/C-Spine: COMMON NORMALS: no JVD Resp: COMMON NORMALS: normal respiratory effort and clear to auscultation bilaterally AUSCULTATION: clear to auscultation bilaterally Cardio: COMMON NORMALS: no JVD, regular rhythm, S1 normal heart sound present, S2 normal heart sound present and No murmurs present (Cardio) RHYTHM: regular rhythm HEART SOUNDS: S1 normal heart sound present and S2 normal heart sound present GI: COMMON NORMALS: Normal to inspection, nondistended, normoactive bowel sounds present, Soft to palpation and non-tender PALPATION: Yes Soft to palpation OTHER: LLQ abdominal wall tenderness Extremity: COMMON NORMALS: no joint enlargement and no pedal edema Neuro: COMMON NORMALS: patient oriented x3 and moves all extremities S ENSORIUM/ORIENTATION: Yes alert Skin: COMMON NORMALS: no rashes or lesions noted GENERAL SKIN EXAM: no rashes or lesions noted Data 08/15/25 15:53 08/15/25 15:53 A&P Assessment and plan 1. Urinary tract infection due to ESBL Klebsiella: Symptomatic urinary tract infection due to MDRO organism, previously failed OP therapy : Persistent dysuria with prior urine cultures showing Klebsiella resistant to trimethoprim-sulfamethoxazole, was switched to cipro but repeat culture also resistant to quinolones; previously arranged for intramuscular ertapenem but not completed due to pharmacy/administration issues (says pharmacy told him did not receive prescription and says was not taught how to administer it IM). ED labs: normal white blood cell count; chemistry largely unremarkable with mild hyperglycemia (glucose 119 mg/dL); liver enzymes and lipase normal. Urinalysis: cloudy urine, 1+ protein, positive nitrite, 3+ leukocyte esterase, >100 white blood cells, 4+ bacteria, hyaline casts noted. CT abdomen/pelvis: no acute intra-abdominal process, mild constipation. No known drug allergies. In ED, received a dose of ertapenem intravenously. Reports getting brief nausea. Reviewed prior urine cultures, reviewed vitals, CBC, CMP, UA, abdomen/pelvis CT, ED provider note, discussed with ED provider. - Continue intravenous antibiotic therapy at present with carbapenem. Monitor for risk of seizure. - Consider options for antibiotic therapy going forward for ESBL infection - treatment limitation related to social determinants of health (lives alone; may not be able to administer intramuscular injections to himself); daughter lives nearby, perhaps may be able to assist Plan: - Hypertension: Hypertensive in ED, but states that he will lay down on a blood pressure cuff. Monitor blood pressures. He states usually blood pressures run in the 120s. Cardiac diet. - GASTON - Panic disorder: Continue Ativan as needed as he takes at home, monitor for risk of respiratory depression with concomitant opioid which he also takes at home - Slow colonic transit - Recurrent urinary tract infections (UTIs) with history of multidrug-resistant organism (MDRO) infections - Chronic back pain - BPH: Continue Flomax PDMP PDMP Reviewed: Not Reviewed Attestations 2 Medical Necessity Statement*: Place in observation for additional assessment management of urinary tract infection with prior failed outpatient treatment with MDRO organism, ESBL Klebsiella. and High MDM includes amount and/or complexity of data reviewed/ordered [ previous or external records, resulted lab(s)/test(s), ordered lab(s)/test(s) and other healthcare professional discussion] and described risk of complication, morbidity or mortality of management as documented Diagnoses Urinary tract infection due to ESBL Klebsiella N39.0; B96.89
[2025-08-15] MEDS: HYDROcodone-acetaminophen 5-325 mg Tablet 1 TAB PO (21:09)
[2025-08-16] VITALS: BP 151/72; PULSE 77; RESP 16; TEMP 36.8; O2SAT 95
[2025-08-16 03:55] LABS: Hematocrit 39.6 % (37-53); Hemoglobin 13.50 g/dL (11.27-16.99); Mean Corpuscular HGB Conc 34.1 g/dL (30-55); Mean Corpuscular Hemoglobin 29.9 pg (27-33); Mean Corpuscular Volume 87.8 fl (82-101); Nucleated Red Blood Cells % 0 %; Platelet Count 261 10^3/cmm (157-399); Red Blood Count 4.51 10^6/uL (3.85-5.65); White Blood Count 7.78 10^3/uL (3.29-11.43)
[2025-08-16 04:00] VITALS: BP 154/76; PULSE 78; RESP 16; TEMP 36.9; O2SAT 95
[2025-08-16 04:19] LABS: Anion Gap 13.6 (5-19); Blood Urea Nitrogen 12 mg/dL (8-23); Calcium 9.1 mg/dL (8.5-10.5); Carbon Dioxide 29 mmol/L (22-29); Chloride 100 mmol/L (98-107); Glucose 100 mg/dL (65-115); Osmolality Calculated 288 mOsm/kg (285-295); Potassium 3.6 mmol/L (3.5-5.1); Sodium 139 mmol/L (136-145)
[2025-08-16] MEDS: HYDROcodone-acetaminophen 5-325 mg Tablet 1 TAB PO ×2 (04:58→12:21)
[2025-08-16 08:08] VITALS: BP 138/91; PULSE 81; RESP 16; TEMP 36.5; O2SAT 96
--- NOTE | 2025-08-16 10:06 | PC.CHAP ---
Pastoral Care Encounter/Spiritual Assessment Type of Contact [] Declined contracts law professor visit [] Patient/Family/Request visit [] Outpatient visit [] Follow-up visit [] Physician referral [] Code/Alert [x] Routine visit [] Staff referral [] Actively dying [] Patient sleeping [] Family support [] [] Out of room [] Palliative care [] [] Receiving care in room [] Pre-surgical visit [] Trauma [] Long length of stay [] ICU visit [] Other: Relational/Emotional Strength [] Patient feels connected with others/family/visitors/staff [] Distress [] Loneliness/isolation [] Abandonment Spirituality of Patient [] Person of Karina [] Attends Pentecostal of their Karina [] Believes in Prayer [] Reads Bible or Episcopal materials [] There are Spiritual issues to be addressed Floriculture Professor Interventions [] Prayer [] Active listening [] Non-anxious presence [] Spiritual/emotional support [] Crisis/trauma care [] Spiritual counseling [] Bereavement support [] Provided bereavement packet [] Provided Bible/devotional materials [] Provided toy/stuffed animal, coloring book to patient or family member [] Provided Communion [] Anointing/[place] [] Salvation [] Completed spiritual assessment [] Other: Impact on Illness or Injury [] Angry [] Fearful [] Anxious [] Often cries [] Exhaustion [] Unable to work [] Unable to attend judaism [] Unable to walk/stand [] Unable to read [] Unable to drive [] Unable to eat/drink [] Unable to sleep [] Unable to be with family [] Patient intubated [] Other: Summary precaution Time spent with patient
[2025-08-16 11:28] VITALS: BP 136/74; PULSE 86; RESP 17; TEMP 36.5; O2SAT 96
--- NOTE | 2025-08-16 13:46 | PC.NURSE ---
Addendum entered by Radha Iniguez LPN 08/16/25 14:50: Patients daughter, Cammie, educated on IM injection. This nurse walked Cammie through administering IM injection and observed her doing so with no complications. Pt tolerated well. Original Note: This nurse called patients daughter, Cammie, to discuss IM injections. Cammie is willing to come here to get educated on IM injections, but she is not patients ride home.
[2025-08-16] MEDS: ertapenem 1,000 mg SDV 1000 MG IM (14:37)
[2025-08-16] MEDS: ondansetron 2 mg/ML SDV 2 mL 4 MG IVP (14:45)
--- NOTE | 2025-08-16 15:14 | P.DS_ITS ---
Discharge Providers Date of Admission: 08/15/25 17:53 Date of Discharge: August 16, 2025 Attending Provider at Admission: Go Terry Attending Provider at Discharge: Go Terry Primary Care Provider: Rohith Solis DO Diagnoses at Discharge Discharge Diagnosis 1. Urinary tract infection due to ESBL Klebsiella: Reason for Visit Reason for Visit: back pain pos uti Brief History: Eva Quick is a 70 year old man with a history of hypertension, attention-deficit/hyperactivity disorder (ADHD), Alzheimer?s disease (AD), panic disorder, slow colonic transit, and recurrent urinary tract infections (UTIs) including multidrug-resistant organism (MDRO) infections. [facility] with persistent dysuria and chronic lower back pain. Reports multiple prior UTIs with Escherichia coli (E. coli) confirmed on urine cultures (06/04, 07/06, 08/08). Previously treated with trimethoprim- sulfamethoxazole (Bactrim) on 07/06, but the organism was resistant; prescribed ciprofloxacin on 07/09, also resistant. Symptoms did not clear with prior antibiotics. On last ED visit (08/08), was set up for intramuscular ertapenem injections for the resistant organism but did not pharmacy picking tech or administer any doses due to pharmacy/administration issues. Had a urology appointment ([facility]) on Saturday the . Denies vomiting, diarrhea, blood in stool, hematuria, rashes, or leg swelling. Reports slight subjective fever at times. Uses a cane due to chronic back issues. Hospital Course Hospital Course He received treatment with ertapenem, and further treatment options were discussed with consideration of ertapenem IM with arrangements of the medication and education for his daughter for injections versus continuation of IV medication, with him and his daughter being comfortable with the former education provided and medication provided to complete IM course of ertapenem for ESBL Klebsiella UTI. Physical Exam Const: COMMON NORMALS: patient oriented x3 and alert GENERAL APPEARANCE: cooperative ORIENTATION/CONSCIOUSNESS: Yes awake HENMT: COMMON NORMALS: oropharynx normal Neck/C-Spine: COMMON NORMALS: no JVD Resp: COMMON NORMALS: normal respiratory effort and clear to auscultation bilaterally AUSCULTATION: clear to auscultation bilaterally Cardio: COMMON NORMALS: no JVD, regular rhythm, S1 normal heart sound present, S2 normal heart sound present and No murmurs present (Cardio) RHYTHM: regular rhythm HEART SOUNDS: S1 normal heart sound present and S2 normal heart sound present GI: COMMON NORMALS: Normal to inspection, nondistended, normoactive bowel sounds present, Soft to palpation and non-tender PALPATION: Yes Soft to palpation Extremity: COMMON NORMALS: no joint enlargement and no pedal edema Neuro: COMMON NORMALS: patient oriented x3 and moves all extremities SENSORIUM/ORIENTATION: Yes alert Skin: COMMON NORMALS: no rashes or lesions noted GENERAL SKIN EXAM: no rashes or lesions noted Discharge Data Studies Completed and Pending Completed Studies During Hospitalization Category Date Time Status CT abdomen pelvis w con* [id number] Urgent Cat Scan 08/15/25 15:40 Completed Pending at discharge Category Date Time Status Basic Metabolic Panel AM LABS Lab 08/17/25 04:00 Ordered Basic Metabolic Panel AM LABS Lab 08/18/25 04:00 Ordered Complete Blood Count w/Auto AM LABS Lab 08/17/25 04:00 Ordered Complete Blood Count w/Auto AM LABS Lab 08/18/25 04:00 Ordered Urine Culture Stat Lab 08/15/25 15:22 Results Radiology Impressions Abdomen/Pelvis CT 08/15/25 15:40 IMPRESSION: 1. No acute intra-abdominal process. 2. Mild constipation. COMMENTS: Consistent with the [place] [employer] [employer]'s Incidental Findings Committee white paper (J Am Cherry Radiol 2018): Any incidental renal lesion less than 1 cm or classified as too small to characterize, or any incidental cystic renal lesion characterized as simple-appearing, is likely benign. No follow-up imaging is recommended for these lesions per consensus recommendations based on imaging criteria. Laboratory Results WBC 7.78 10^3/uL (3.29-11.43) 08/16/25 03:45 RBC 4.51 10^6/uL (3.85-5.65) 08/16/25 03:45 Hgb 13.50 g/dL (11.27-16.99) 08/16/25 03:45 Hct 39.6 % (37-53) 08/16/25 03:45 MCV 87.8 fl (82-101) 08/16/25 03:45 MCH 29.9 pg (27-33) 08/16/25 03:45 MCHC 34.1 g/dL (30-55) 08/16/25 03:45 RDW 13.3 % (12.1-15.1) 08/16/25 03:45 Plt Count 261 10^3/cmm (157-399) 08/16/25 03:45 MPV 9.2 fL (7.4-10.4) 08/16/25 03:45 Neut % (Auto) 62.6 % 08/16/25 03:45 Lymph % (Auto) 23.0 % 08/16/25 03:45 [place] % (Auto) 9.0 % 08/16/25 03:45 Eos % (Auto) 4.5 % 08/16/25 03:45 Baso % (Auto) 0.5 % 08/16/25 03:45 Neut # (Auto) 4.87 10^3/uL (1.8-7.7) 08/16/25 03:45 Lymph # (Auto) 1.8 10^3/uL (0.8-4.8) 08/16/25 03:45 [place] # (Auto) 0.7 10^3/uL (0.2-0.9) 08/16/25 03:45 Eos # (Auto) 0.4 10^3/uL (0.0-0.8) 08/16/25 03:45 Baso # (Auto) 0.0 10^3/uL (0.0-0.1) 08/16/25 03:45 Nucleated RBC % (auto) 0 % 08/16/25 03:45 Nucleated RBCs # 0.0 /100WBC 08/16/25 03:45 Sodium 139 mmol/L (136-145) 08/16/25 03:45 Potassium 3.6 mmol/L (3.5-5.1) 08/16/25 03:45 Chloride 100 mmol/L (98-107) 08/16/25 03:45 Carbon Dioxide 29 mmol/L (22-29) 08/16/25 03:45 Anion Gap 13.6 (5-19) 08/16/25 03:45 BUN 12 mg/dL (8-23) 08/16/25 03:45 Creatinine 1.0 mg/dL (0.7-1.2) 08/16/25 03:45 GFR Calculation 74.3 mL/min (90-130) L 08/16/25 03:45 Glucose 100 mg/dL (65-115) 08/16/25 03:45 Calculated Osmolality 288 mOsm/kg (285-295) 08/16/25 03:45 Calcium 9.1 mg/dL (8.5-10.5) 08/16/25 03:45 Total Bilirubin 0.4 mg/dL (0.15-1.2) 08/15/25 15:53 AST 15 U/L (0-40) 08/15/25 15:53 ALT 19 U/L (0-41) 08/15/25 15:53 Alkaline Phosphatase 101 U/L (40-130) 08/15/25 15:53 Total Protein 6.7 g/dL (6.6-8.7) 08/15/25 15:53 Albumin 3.9 g/dL (3.5-5.2) 08/15/25 15:53 Globulin 2.8 g/dL (1.3-4.6) 08/15/25 15:53 Lipase 18 U/L (13-60) 08/15/25 15:53 Urine Color Yellow (Yellow) 08/15/25 15:22 Urine Appearance Cloudy (CLEAR) A 08/15/25 15:22 Urine pH 5.5 (5-7) 08/15/25 15:22 Ur Specific [place] 1.014 (1.005-1.030) 08/15/25 15:22 Urine Protein 1+ (Negative) A 08/15/25 15:22 Urine Glucose (UA) Negative (Normal) 08/15/25 15:22 Urine Ketones Negative (Negative) 08/15/25 15:22 Urine Blood Trace (Negative) A 08/15/25 15:22 Urine Nitrate Positive (Negative) A 08/15/25 15:22 Urine Bilirubin Negative (Negative) 08/15/25 15:22 Urine Urobilinogen 1.0 mg/dL (Negative) 08/15/25 15:22 Ur Leukocyte Esterase 3+ (Negative) A 08/15/25 15:22 Urine RBC 0-2 /hpf (0-2) 08/15/25 15:22 Urine WBC >100 /hpf (0-5) H 08/15/25 15:22 Ur Squamous Epith Cells 0-5 /hpf (0-5) 08/15/25 15:22 Amorphous Sediment Not Reportable 08/15/25 15:22 Urine Bacteria 4+ /hpf (NONE) H 08/15/25 15:22 Hyaline Casts 7.42 /lpf 08/15/25 15:22 Vitals Last Vital Signs Temp 97.7 F 08/16/25 11:28 Pulse 86 08/16/25 11:28 Resp 17 08/16/25 11:28 BP 136/74 08/16/25 11:28 Pulse Ox 96 08/16/25 11:28 O2 Del Method Room Air 08/16/25 04:00 Discharge Plan Discharge Patient Disposition: Home Condition: Stable Prescriptions: New ertapenem 1 gram recon soln 1 g IM Q24H 9 Days Qty: 9 0RF ondansetron HCl 4 mg tablet 4 mg PO Q8H 5 Days Qty: 30 1RF Continued paroxetine HCl [Paxil] 40 mg tablet 40 mg PO DAILY Qty: 30 2RF lorazepam 1 mg tablet 1 mg PO QID PRN (Reason: anxiety) Qty: 120 0RF hydrocodone-acetaminophen 5-325 mg tablet 1 tab PO TID 30 Days Qty: 90 0RF Advil PM 200-38 mg Tablet 2 tab PO BEDTIME PRN (Reason: Sleep) tamsulosin 0.4 mg capsule 0.4 mg PO BID Qty: 180 0RF aripiprazole [Abilify] 2 mg tablet 2 mg PO DAILY Discharge Order = DC NOW: Discharge Order (Routine); Ordered 08/16/25 Ordered By: Go Terry Referrals: Rohith Solis DO [Primary Care Provider, Family Practice] - 08/23/25 12:40 pm Patient Instructions: Ertapenem (By injection), Urinary Tract Infection in Men (GEN), Extended Spectrum Beta-Lactamase (GEN), Opioid Safety, Patient Portal & [facility] Instructions Discharge Attestations Time Spent in Discharge Care*: greater than 30 min Quality Metrics Clinical Quality Measures [ No reported AMI, CVA or VTE this stay] Coding Level of Care Code 96774 Total time (in minutes) for Discharge: 40 Diagnoses Urinary tract infection due to ESBL Klebsiella N39.0; B96.89
[2025-08-16 15:56] VITALS: BP 141/91; PULSE 88; RESP 17; TEMP 36.4; O2SAT 95
[2025-08-16 16:46] VITALS: BP 141/91; PULSE 88; O2SAT 95
--- NOTE | 2025-08-16 16:46 | PC.NURSE ---
This nurse called pharmacy to inquire about meds to bed delivery. Livia said it would be closer to 1700, however, pt is refusing to wait any longer and walked himself down to the pharmacy, accompanied by his daughter, Cammie. This nurse explained the importance of making sure he left here with his antibiotics. Pt verbalized understanding.
== END 2025-08-16 16:48 | disposition home or self-care (01) ==
LOC: ER 18:04 → MEDSURG 20:08
PROVIDERS: Emergency Medicine; Admitting Provider Internal Medicine; Emergency Provider Physician Assistant; PCP Family Medicine; Visit Provider Internal Medicine
DX: N39.0 Urinary tract infection, site not specified (principal); B96.89 Other specified bacterial agents as the cause of diseases classified elsewhere; Z79.891 Long term (current) use of opiate analgesic; I10 Essential (primary) hypertension; G30.9 Alzheimer's disease, unspecified; F02.80 Dementia in other diseases classified elsewhere, unspecified severity, without behavioral disturbance, psychotic disturbance, mood disturbance, and anxiety; F41.9 Anxiety disorder, unspecified; E78.5 Hyperlipidemia, unspecified; Z85.9 Personal history of malignant neoplasm, unspecified; Z87.891 Personal history of nicotine dependence
CPT/HCPCS: 36415; 74177; 80048; 80053; 81001; 83690; 85025; 87077; 87086; 87186; 96372; 96374; 96375; 99285; G0378; J1335; J2405; J9999

== ENCOUNTER → 2025-08-31 13:05 | Outpatient (BNVA) | payer MEDICARE, MEDICAID, SELFPAY | PROVIDERS: PCP Family Medicine; Visit Provider Family Medicine | DX: N39.0 Urinary tract infection, site not specified (principal) | CPT/HCPCS: 81000 ==